=== PATIENT | male | born 1960 | race Caucasian/White ===

== ENCOUNTER 2017-08-03 10:28 | Observation (INO) ==
[2017-08-03] MEDS ORDERED: methylPREDNISolone 125 MG/2 ML VIAL IVP ONE (10:46)
[2017-08-03] MEDS ORDERED: Ipratropium/Albuterol Neb 3 ML IH ONE (10:46)
[2017-08-03] MEDS: Nitroglycerin 0.4 MG TAB.SUBL SL ONE ×3 (10:51→11:29)
[2017-08-03] MEDS: Aspirin 81 MG TAB.CHEW PO ONE ×2 (10:51→11:00)
[2017-08-03 11:01] LABS: Basophils % 0.4 %; Eosinophils % 0.8 %; Hematocrit 47.5 % (37.5-50.1); Hemoglobin 15.8 g/dL (12.9-16.9); Immature Granulocytes % 0.2 % (0-4); Lymphocytes # 1.3 K/mcL (0.6-4.6); Lymphocytes % 27.3 %; Mean Corpuscular HGB Conc 33.3 g/dL (31.6-35.5); Mean Corpuscular Hemoglobin 30.9 pg (28.0-33.3); Monocytes # 0.3 K/mcL (0.0-1.3); Monocytes % 6.8 %; Neutrophils # 3.1 K/mcL (1.6-8.9); Platelet Count 180 K/mcL (140-400); Red Blood Count 5.11 M/mcL (4.19-5.50); Red Cell Distribution Width 13.8 % (11.5-14.5); Segmented Neutrophils % 64.5 %
--- NOTE | 2017-08-03 11:06 | Emergency Department Note ---
Disposition Clinical Impression: Angina at rest Chest pain Qualifiers: Chest pain type: unspecified Qualified Code(s): R07.9 - Chest pain, unspecified COPD (chronic obstructive pulmonary disease) Qualifiers: COPD type: unspecified COPD Qualified Code(s): J44.9 - Chronic obstructive pulmonary disease, unspecified Disposition: Admitted As Inpatient Condition: Good Time of Disposition: 13:39 Chest Pain HPI - General Chief Complaint: ED Chest Pain Stated Complaint: CP Time Seen by Provider: 08/03/17 10:34 Source: patient, family, EMS Mode of arrival: EMS Limitations: no limitations Vital Signs Reviewed: Yes Nursing Notes Reviewed: Yes - History of Present Illness HPI Narrative: Patient presents via EMS for evaluation of chest pain and pressure. Patient had onset of chest heaviness and discomfort over the last 3-4 hours. Patient denies any trauma or injury. He does smoke but does not have a history of COPD that he knows of. He does not use inhalers or oxygen at this time. Patient does have some abdominal pain and discomfort with a known history of aneurysm. Currently denying any other complaints or issues on arrival except for chest pressure and tightness Pt complaint: chest pain Onset (ago): Just [employer] Duration: constant Onset: during rest Pain Location: substernal Severity: moderate Severity scale (1-10): 10 Quality: tightness, heaviness Pain Radiation: RUE Improves with: nothing Worsens with: exertion Associated symptoms: Reports: nausea, vomiting, dyspnea, palpitations. Denies: diaphoresis Treatments prior to arrival chest pain: aspirin - Related Data Home Medications Medication Instructions Recorded Confirmed ALPRAZolam [Xanax 0.5 MG Tablet] 0.5 mg PO TID 03/20/15 03/29/15 Albuterol Sulfate [Albuterol 1 puff IH PRN PRN 03/20/15 03/29/15 Inhaler] Amlodipine [Norvasc] 5 mg PO DAILY 03/20/15 03/29/15 Aspirin 81 mg PO DAILY 03/20/15 03/29/15 Docusate Sodium [Colace] 100 mg PO BID 03/20/15 03/29/15 Esomeprazole Magnesium [Nexium] 40 mg PO DAILY 03/20/15 03/29/15 Hydrochlorothiazide 25 mg PO DAILY 03/20/15 03/29/15 Lactulose 10 gm PO TID 03/20/15 03/29/15 Lisinopril [Zestril] 40 mg PO DAILY 03/20/15 03/29/15 Melatonin [Melatin] 3 mg PO DAILY 03/20/15 03/29/15 Nitroglycerin [Nitrostat] 0.4 mg SL PRN PRN 03/20/15 03/29/15 Polyethylene Glycol 3350 [MiraLAX] 17 gm PO BID 03/20/15 03/29/15 Sertraline [Zoloft] 50 mg PO DAILY 03/20/15 03/29/15 Simvastatin [Zocor] 80 mg PO DAILY 03/20/15 03/29/15 TraZODone 50 mg PO HS 03/20/15 03/29/15 Previous Rx's Medication Instructions Recorded Oxycodone HCl/Acetaminophen 1 each PO QID PRN #20 tablet 03/21/15 [Percocet 5-325 mg Tablet] predniSONE [Prednisone] 60 mg PO DAILY #5 tablet 03/30/15 Azithromycin [Zithromax] 250 mg PO DAILY #6 tablet 08/03/15 predniSONE [PredniSONE] 10 mg PO AD #18 tablet 08/03/15 Allergies Allergy/AdvReac Type Severity Reaction Status Date / Time naproxen Allergy See Verified 08/03/15 20:08 Comments tramadol Allergy See Verified 08/03/15 20:08 Comments All systems ED: reviewed and negative except as stated. Review of Systems: As Per HPI Constitutional: Denies: fever, chills ENT ED: Denies: ear pain, throat pain, dental pain, congestion Cardiovascular: Reports: chest pain, dyspnea on exertion. Denies: palpitations Respiratory: Reports: dyspnea. Denies: cough, wheezes, sputum production Gastrointestinal: Reports: abdominal pain, nausea, vomiting. Denies: diarrhea, constipation Genitourinary: Denies: urgency, dysuria, frequency Musculoskeletal: Denies: back pain, neck pain Neurological: Denies: headache Psychiatric: Denies: anxiety, depression Endocrine: Denies: fatigue Chest Pain PMH - Past Medical History Medical history: Reports: asthma, diabetes, GERD, hyperlipidemia, hypertension Surgical history: Reports: appendectomy, cholecystectomy, orthopedic, other Psychiatric history: Reports: anxiety, depression - Social History Smoking Status: Light tobacco smoker Alcohol use: Reports: none Drug use: Reports: none Physical Exam - General Limitations: no limitations General appearance: alert, in no apparent distress - Neck Neck exam: Present: normal inspection, full ROM, trachea midline. Absent: tenderness, meningismus, lymphadenopathy - Chest Chest inspection: Present: normal inspection, symmetric chest wall rise. Absent : tenderness - Respiratory Respiratory exam: Present: normal lung sounds bilaterally. Absent: respiratory distress - Cardiovascular Cardiovascular exam: Present: regular rate, normal rhythm, normal heart sounds - Abdominal Exam Abdominal exam: Present: soft, Non-Tender, normal bowel sounds. Absent: tenderness, distention, guarding, rebound, rigidity, Corbin's sign, Rovsing's sign, tenderness at McBurney's Point - Extremities Exam Extremities exam: Present: normal inspection, full ROM, normal capillary refill. Absent: tenderness, pedal edema - Back Exam Back exam: Present: normal inspection, full ROM. Absent: tenderness - Neurological Exam Neurological exam: Present: alert, oriented X3, CN II-XII intact, normal gait - Skin Skin exam: Present: warm, dry, intact, normal color Course Course Narrative: Patient seen and examined the time of arrival. See history of present illness. 57-year-old male with no specific cardiac disease outside of vascular aneurysm presents to the emergency room with complaint of chest heaviness tightness and feeling like something is sitting on his chest. He does have COPD but does not use any inhalers or oxygen at home. Patient has persistent symptoms at this time. Denies any new nausea or vomiting. He had nausea vomiting yesterday. Patient denies any history of anxiety, palpitations, joint abnormalities. Denies any substance abuse or alcohol abuse. He does smoke. Patient currently is only complaining of a chest pressure and symptoms. Vital signs reviewed and unremarkable initially. EKG that was collected on presentation does not show any acute signs of ST segment elevation abnormality or concern for myocardial infarction. Patient will still be treated as such. Patient will have nitroglycerin trial started along with aspirin being given. Chest x-ray initially will be completed along with screening labs including CBC chemistry BNP. Patient has a history of an abdominal aneurysm. There is no pulsatile mass noted patient does not have any ripping tearing or acute pain sensations across the abdominal wall or chest at this point. His main complaint is pressure. Patient was CT angiography of the chest and abdomen completed this time for definitive evaluation of potential dissection versus expansion of the aneurysm. We will continue to monitor in the emergency room his symptoms are controlled and presentation is determined. See detailed documentation of my physical exam. Patient will most likely need admission to the hospital once the workup is completed - Reevaluation(s) Reevaluation #1: Patient was elevated and CAT scan and had an infiltration of the IV in the left arm. He acutely had pain in his had to have a panic attack. He is describing difficulty with breathing or shortness of breath. Prior to going over his pain went from a 10 down to a 5 at the nitroglycerin. Patient was given Benadryl and Pepcid and a 0.5 mg dose of Ativan. He is resting more comfortably at this time in the bed in no specific distress. There is no swelling to the oropharynx and no wheezing noted on exam. Pain is back up to 10 at this time. Patient will be started on nitroglycerin drip. The noncontrasted scans will be sent over for their evaluation. Patient will need admission for appears to be acute coronary syndrome versus COPD and pulmonary-related issue. Patient understands, will plan. We will continue to monitor as a treatment course is completed. No other acute signs of dissection or aneurysm noted on physical exam at this point. Point of care ultrasound will be utilized if the CT imaging scans are not contributory to the treatment course. Patient is otherwise stable. 35 minutes of critical care applied to This patient's treatment course at this time secondary to nitroglycerin drip being started Time: 12:29 Reevaluation #2: Patient was discussed with the hospitalist Dr. Burch. Reviewed the presentation symptoms medical intervention and concern for stable angina at this point. He recommended a d-dimer being added on. No recommendation for anticoagulation at this point. Nitroglycerin drip is running. Patient otherwise is low risk at this time but will be definitively evaluated in the inpatient setting secondary to anginal equivalently presentation. Patient has otherwise been hemodynamically stable with normal presentation this time. Patient and family informed and they are comfortable with this plan. Patient will be observed here in the emergency room to admission process is completed Time: 13:46 Vital Signs Temperature 98 F 08/03/17 10:40 Pulse Rate 61 08/03/17 10:40 Respiratory Rate 16 08/03/17 10:40 Blood Pressure 152/104 08/03/17 10:40 O2 Sat by Pulse Oximetry 100 08/03/17 10:40 Temperature 98 F 08/03/17 10:40 Pulse Rate 61 08/03/17 10:40 Respiratory Rate 16 08/03/17 10:40 Blood Pressure 152/104 08/03/17 10:40 O2 Sat by Pulse Oximetry 100 08/03/17 10:40 Oxygen Delivery Oxygen Delivery Nasal Cannula Chest Pain - MDM Narrative Medical decision making narrative: Chest pressure, anxiety, chest pain - Medical Records Medical records reviewed: Yes I reviewed the patient's medical records. - Lab Data Lab results reviewed: Yes I reviewed the patient's lab results. - Radiology Data Radiology results reviewed: Yes I reviewed the patient's radiology results. Chest x-ray is unremarkable. - EKG Data EKG attestation: Yes I reviewed and interpreted this EKG. EKG results narrative: EKG shows sinus rhythm. Ventricular rate of 61. IN interval 161. QRS duration of 100. QTC is 383. No acute signs of ST segment elevation or abnormality. No reciprocal changes noted. Patient does not have any acute signs of WPW or Brugada syndrome. EKG compared to previous on 01/27/16 and the morphology appears to be stable. EKG #2 EKG reviewed. Ventricular rate of 76. Sinus rhythm noted. IN interval 146. QRS duration of 98. QTC is 398. [place] is normal. Intervals are normal. No acute signs of WPW, Brugada syndrome, ST segment elevation. Similar in comparison to EKG collected on presentation to the emergency room. Heart Score - Score History: Moderately Suspicious EKG: Normal Age: 45-65 Risk Factors: Equal/Greater than 3 risk factor or history of atherosclerotic disease Troponin: Less than normal limit HEART Score Total: 4 Critical Care Time Critical Care Time: Yes Total Critical Care Time: 35 Attestation: Critical care performed: Time is exclusive of separately billable procedures. Time includes: direct patient care, patient reassessment, coordination of patient care, interpretation of data (laboratory data, radiology data, and respiratory data), review of patient's medical records, medical consultation and documentation of patient care. Procedures included in critical care time: Procedures excluded from critical care time:
[2017-08-03 11:07] LABS: INR 1.1; Prothrombin Time 11.6 Seconds (9.4-12.1)
[2017-08-03 11:09] LABS: Activated Partial Thrombo Time 32.7 Seconds (26.0-36.0)
[2017-08-03 11:23] LABS: BUN/Creatinine Ratio 15 (6-26); Blood Urea Nitrogen 17 mg/dL (6-20); Calcium 9.8 mg/dL (8.6-10.3); Carbon Dioxide 26 mEq/L (23-29); Chloride 104 mEq/L (98-107); Glucose 99 mg/dL (70-105); Osmolality,Calculated 286 (280-300); Potassium 4.3 mEq/L (3.5-5.1); Sodium 137 mEq/L (136-145); eGFR For African Americans > 60 (> 60); eGFR For Non-African Americans > 60 (> 60)
[2017-08-03 11:24] LABS: Troponin I < 0.03 ng/mL (< 0.04)
[2017-08-03] MEDS ORDERED: 0.9 % Sodium Chloride 1,000 ML ONE ×2 (11:34→12:38)
[2017-08-03] MEDS ORDERED: Famotidine 20 MG/2 ML VIAL IVP ONE (11:54)
[2017-08-03] MEDS ORDERED: *HR* EPINEPHrine 1 MG/10 ML SYRINGE ONE (11:54)
[2017-08-03] MEDS ORDERED: *HR* LORazepam 2 MG/ML VIAL ONE (11:55)
[2017-08-03] MEDS ORDERED: *HR* LORazepam 2 MG/ML VIAL IVP ONE (11:59)
[2017-08-03] MEDS: Nitroglycerin 25 MG/250 ML INFUS..BTL IVC SCH ×2 (12:40→18:50)
[2017-08-03] MEDS ORDERED: Ondansetron 4 MG/2 ML VIAL ONE (13:14)
[2017-08-03] MEDS ORDERED: Ondansetron 4 MG/2 ML VIAL IVP ONE (13:14)
[2017-08-03] MEDS ORDERED: *HR* FentaNYL (PF) 100 MCG/2 ML VIAL IVP ONE (14:06)
[2017-08-03] MEDS ORDERED: Acetaminophen 325 MG TABLET PO PRN (14:40)
[2017-08-03] MEDS ORDERED: Naloxone 0.4 MG/ML INJ IVP PRN (14:40)
--- NOTE | 2017-08-03 15:06 | Internal Med History&Physical ---
<Gerard Lowe - Last Filed: 08/03/17 16:08> Date of Encounter: 08/03/17 Time of Encounter: 14:00 Assessment and Plan (1) Chest pain Current visit: Yes Status: Acute Acute chest pain that began this morning at 9:30 a.m. as right-sided chest pressure with radiation to right arm causing numbness and tingling. Accompanied by dizziness and feelings of cold/hot. Patient reports similar symptoms since 2014 with today being worse. Patient denies cardiac history, cath/stent placement, but does have familial cardiac hx of [place] in mother/father. Initial troponin negative. Trend x2. Continuous cardiac telemetry. Echocardiogram ordered. Aspirin. Lipitor 80 mg now. Nitro PRN. NPO @ midnight for a.m. stress test. Continue pts. Norvasc, hydrochlorothiazide, lisinopril, and Zocor. Consider cardiology consult if echo, troponins, and/or stress test results abnormal. Pt. discussed w/Dr. Burch who agrees w/plan of care. Pt. is high risk d/t current sx that have been recurring, familial hx of [place] in mother/ father, hx of tobacco abuse, and risk factors of DM, HTN, HLD. Observation. Qualifiers: Chest pain type: other chest pain Qualified Code(s): R07.89 - Other chest pain; R07.8 - Other chest pain (2) Melanotic stools Current visit: Yes Status: Acute Acute hx of intermittent melanotic stools w/most recent several days ago. Pt. has hx of GERD and was dx w/diverticulosis of ascending colon in 01/16. Hgb 15.8 and Hct 47.5 on admission. Fecal hemoccult ordered. Continue pts. Nexium. Monitor I&O. Bilateral SCDs on LEs for DVT prophylaxis d/t report of melanotic stools. (3) Hx of syncope Current visit: Yes Status: Acute Acute hx of syncope. Pt. states he has had several episodes of syncope and collapse w/most recent 2-3 weeks ago when police found him in his yard. Hx of AAA. Falls/safety precautions, up with assist, bed rest w/bathroom privileges w/ assist only. Bilateral carotid Doppler duplex imaging. (4) Diabetes Current visit: Yes Status: Chronic Hx chronic diabetes controlled with oral anti-hyperglycemic medications. Hold patient's Glucophage and administer low-dose correction insulin sliding scale with hypoglycemic protocol. BG checks before meals at bedtime. A1c in a.m. labs. 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 Stable. Supplemental O2 w/titration and SpO2 monitoring. Qualifiers: COPD type: emphysema Qualified Code(s): J43.9 - Emphysema, unspecified (6) GERD (gastroesophageal reflux disease) Current visit: Yes Status: Chronic Hx of chronic GERD. Continue patient's Nexium. IVP Zofran 4 mg Q6 PRN for N/V. Qualifiers: Esophagitis presence: with esophagitis Qualified Code(s): K21.0 - Gastro- esophageal reflux disease with esophagitis (7) HTN (hypertension) Current visit: Yes Status: Chronic Hx of chronic HTN. Monitor patient and vital signs. Continue patient's Norvasc , hydrochlorothiazide, and lisinopril. Qualifiers: Hypertension type: essential hypertension Qualified Code(s): I10 - Essential (primary) hypertension (8) HLD (hyperlipidemia) Current visit: Yes Status: Chronic Hx of chronic HLD. Lipid panel in a.m. labs. Continue Zocor. Qualifiers: Hyperlipidemia type: pure hypercholesterolemia Qualified Code(s): E78.00 - Pure hypercholesterolemia, unspecified; E78.0 - Pure hypercholesterolemia (9) Anxiety and depression Current visit: Yes Status: Chronic Hx of chronic anxiety with depression. Continue patient's Xanax and Zoloft. (10) DVT prophylaxis Current visit: Yes Status: Acute Bilateral SCDs on LEs for DVT prophylaxis d/t pts. report of recent melanotic stools. Monitor pt. for bleeding. Monitor I&O. Fecal hemoccult ordered. Internal Medicine - H&P: HPI Chief complaint: Chest pain Admitted From: Emergency Dept Plans for Post Hospital Care: Home History of present illness: Mr. Liu is a 57 year old male w/PMH of asthma, diabetes controlled with oral anti-hyperglycemics, GERD, COPD, HLD, HTN, and diverticulosis of the ascending colon presents in the ED with chief complaint of chest pain that began at 9:30 AM this morning and presented as right-sided chest pressure with radiation to his right arm causing numbness and tingling. Patient also reports hx of syncope , SOB, dizziness, and feelings of hot/cold. Patient reports she has had several similar episodes since 2014, with today's being worse. Patient reports occasional melanotic stools (last one several days ago) but denies recent illness, fever, chills, nausea, vomiting, changes in vision, headache, cough, palpitations, abdominal pain, diarrhea, constipation. Past Med Surg Social Fam HX - Past Medical History Source: patient, old records reviewed, obtained from family Medical history: asthma, COPD, diabetes, GERD, hyperlipidemia, hypertension, other (Martin's esophagus, Diverticulosis) Psychiatric history: anxiety, depression - Past Surgical History Surgical History: appendectomy, cholecystectomy, orthopedic, other (Back surgery , right knee), other (Stomach surgery, carpal tunnel bilaterally) - Social History Smoking Status: Current every day smoker Packs per day: Hx of 4 PPD - reports smoking 3-4 cigarettes per day Smokeless Tobacco Status: No Alcohol use: none Drug use: none Current living situation: Home, With Family Activity Level: Independent ambulation Recent Out of Country Travel Within the Last 8 Weeks: No Exposure or Possible Exposure to Illness During Travel: No - Family History Father Race: (72) Family Member Ethnicity: Non- Living Status: Age at : 72 Cause of : Colonc cancer Hx Family Cardiac Disorders: Yes ([place], HTN, HLD) Hx Family Cancer: Yes (Colon) Hx Family Endocrine Disorder: Yes (DM) Mother Race: Family Member Ethnicity: Non- Living Status: Still Living Hx Family Cardiac Disorders: Yes (Triple bypass, pacemaker, stent placement 2) Sister Race: Family Member Ethnicity: Non- Living Status: Still Living Hx Family Cardiac Disorders: Yes (HTN, HLD) Hx Family Endocrine Disorder: Yes (DM) Internal Medicine - H&P: Meds ALPRAZolam [Xanax 0.5 MG Tablet] 0.5 mg PO TID 03/20/15 [History] Albuterol Sulfate [Albuterol Inhaler] 1 - 2 puff IH Q4H PRN 03/20/15 [History] Amlodipine [Norvasc] 5 mg PO DAILY 03/20/15 [History] Aspirin 81 mg PO DAILY 03/20/15 [History] Docusate Sodium [Colace] 100 mg PO BID 03/20/15 [History] Esomeprazole Magnesium [Nexium] 40 mg PO DAILY 03/20/15 [History] Hydrochlorothiazide 25 mg PO DAILY 03/20/15 [History] Lactulose 10 gm PO TID 03/20/15 [History] Lisinopril [Zestril] 40 mg PO DAILY 03/20/15 [History] Melatonin [Melatin] 3 mg PO HS 03/20/15 [History] Nitroglycerin [Nitrostat] 0.4 mg SL PRN PRN 03/20/15 [History] Polyethylene Glycol 3350 [MiraLAX] 17 gm PO BID 03/20/15 [History] Sertraline [Zoloft] 50 mg PO DAILY 03/20/15 [History] Simvastatin [Zocor] 40 mg PO DAILY 03/20/15 [History] TraZODone 100 mg PO HS 03/20/15 [History] Gabapentin [Neurontin] 300 mg PO TID 08/03/17 [History] metFORMIN [Glucophage] 500 mg PO BIDWM 08/03/17 [History] 3 Allergy/AdvReac Type Severity Reaction Status Date / Time naproxen Allergy See Verified 08/03/15 20:08 Comments tramadol Allergy See Verified 08/03/15 20:08 Comments All Systems PM: A 10-system review of systems was performed and is negative for pertinent findings except as documented above in the HPI. - Constitutional Constitutional: no chills, no fever(s), no night sweats - EENT Eyes: no change in vision, no discharge, no pain, no photophobia Ears: no ear discharge, no ear pain, no tinnitus Nose, mouth and throat: no dysphagia, no nasal discharge, no neck pain, no sore throat - Breasts Breasts: as per HPI - Cardiovascular Cardiovascular ROS IM: as per HPI, chest pain, diaphoresis, dyspnea, dyspnea on exertion, lightheadedness, syncope (Last episode 2-3 weeks ago when he was found on his lawn), no palpitations - Respiratory Respiratory: as per HPI, dyspnea, dyspnea on exertion, no cough, no wheezing, no excessive phlegm production - Gastrointestinal Gastrointestinal: as per HPI, melena (Intermittent episodes w/last one several days ago), no abdominal pain, no diarrhea, no hematemesis, no hematochezia, no nausea, no vomiting - Genitourinary Genitourinary ROS male: as per HPI - Musculoskeletal Musculoskeletal ROS IM: no numbness, no tingling - Integumentary Integumentary IM: no rash, no unusual bruising - Neurological Neurological ROS: no confusion, no convulsions, no focal weakness, no numbness, no tingling, no tremor(s) - Psychiatric Psychiatric: as per HPI, anxiety, depression - Endocrine Endocrine IM: as per HPI - Hematologic/Lymphatic Hematologic/Lymphatic: no easy bruising - Allergic/Immunologic Allergic/Immunologic: as per HPI - Constitutional Vitals: Temp Pulse Resp BP Pulse Ox 98 F 84 18 118/73 95 08/03/17 10:40 08/03/17 14:14 08/03/17 14:14 08/03/17 14:14 08/03/17 14:14 General appearance: Present: cooperative, A&O X 3, pleasant, obese, answers questions appropriately - Head Head exam: Present: atraumatic, normocephalic - Eye Eye exam: Present: PERRL, conjuntiva pink, sclera anicteric Pupils: Present: PERRL - ENT ENT exam: Present: normal exam - Neck Neck exam general surgery: Present: normal inspection, supple, trachea midline. Absent: lymphadenopathy - Respiratory Respiratory exam: Present: CTAB. Absent: accessory muscle use, rales, rhonchi, wheezes - Cardiovascular Cardiovascular exam: Present: RRR, +S1, +S2. Absent: diastolic murmur, gallop, rubs, systolic murmur - GI/Abdominal GI/Abdominal exam: Present: normal bowel sounds, soft, no peritoneal signs. Absent: distended, tenderness - Rectal Rectal exam: Present: deferred - Additional comments: exam deferred. - Extremities Exam Extremities exam: Present: warm, radial pulses palpable and symmetrical. Absent : calf tenderness, cyanotic, pedal edema - Back Exam Back exam: Present: normal inspection - Neurological Exam Neurological exam: Present: CN II-XII intact, oriented X3, no focal deficits. Absent: pronater drift, facial droop, speech deficit - Psychiatric Psychiatric exam: Present: normal affect, normal mood - Skin Skin exam: Present: dry, intact Internal Med - H&P Results - Labs CBC & Chem 7: 08/03/17 10:53 08/03/17 10:53 - EKG Data EKG shows normal: sinus rhythm - EKG Data Prior EKG available for review: yes When compared to previous EKG: there is no significant change EKG comments: 08/03/17 15:39 EKG dated shows sinus rhythm with nonspecific T-wave abnormality. EKG dated 08/03/17 10:33 shows sinus rhythm and normal ECG EKG dated 08/03/17 11:59 shows sinus rhythm with nonspecific T-wave abnormality. - Diagnostic Studies Chest x-ray Additional comments: Impressions Chest X-Ray 08/03/17 10:45 IMPRESSION: 1. No radiographic finding to account for patient's chest pain. D/ / Sanchez Curiel MD / Sanchez Curiel MD Interpreting Provider: Sanchez Curiel MD CT scan - abdomen Additional comments: Impressions Abdomen CT 08/03/17 10:46 IMPRESSION: 1. Apparently patient's IV infiltrated during injection and only a noncontrast evaluation was performed. As such evaluation for dissection is limited. There is an infrarenal abdominal aortic aneurysm measuring up to 3 cm. 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 2. 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 3. Diverticulosis. 4. No pleural or parenchymal abnormality in the lungs. RECOMMENDATIONS: Managing Abdominal Aortic Aneurysms 2.6-2.9 cm: Every 5 years* 3.0-3.4 cm: Every 3 years. 3.5-3.9 cm: Every 1 year. 4.0-4.4 cm: Every 1 year. Recommend vascular consultation. 4.5-5.4 cm: Every 6 months. Recommend vascular consultation. Greater than or equal to 5.5 cm: Referral to vascular surgeon. *For abdominal aortas with maximum diameter of 2.6-2.9 cm meeting criteria for AAA (>50% of proximal normal segment). Reference: J Vasc Surg. 2008;50(4 Suppl):S2-49 D/ / 08/03/2017 12:52:05 Jorge A Spring / carl Interpreting Provider: Jorge A Spring CT scan - chest Additional comments: Impressions Chest CT 08/03/17 10:46 IMPRESSION: 1. Apparently patient's IV infiltrated during injection and only a noncontrast evaluation was performed. As such evaluation for dissection is limited. There is an infrarenal abdominal aortic aneurysm measuring up to 3 cm. 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 2. 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 3. Diverticulosis. 4. No pleural or parenchymal abnormality in the lungs. RECOMMENDATIONS: Managing Abdominal Aortic Aneurysms 2.6-2.9 cm: Every 5 years* 3.0-3.4 cm: Every 3 years. 3.5-3.9 cm: Every 1 year. 4.0-4.4 cm: Every 1 year. Recommend vascular consultation. 4.5-5.4 cm: Every 6 months. Recommend vascular consultation. Greater than or equal to 5.5 cm: Referral to vascular surgeon. *For abdominal aortas with maximum diameter of 2.6-2.9 cm meeting criteria for AAA (>50% of proximal normal segment). Reference: J Vasc Surg. 2008;50(4 Suppl):S2-49 D/ / 08/03/2017 12:52:05 Jorge A henry Interpreting Provider: Jorge A Spring <Winston Burch - Last Filed: 08/03/17 19:57> Date of Encounter: 08/03/17 Internal Medicine - H&P: HPI History of present illness: Mr. Liu is a 57 year old male All Systems PM: A 10-system review of systems was performed and is negative for pertinent findings except as documented above in the HPI. - Constitutional Vitals: Temp Pulse Resp BP Pulse Ox 98.7 F 87 18 121/94 95 08/03/17 15:46 08/03/17 15:46 08/03/17 15:46 08/03/17 15:46 08/03/17 15:46 Internal Med - H&P Results - Labs CBC & Chem 7: 08/03/17 10:53 08/03/17 10:53 Labs: Cardiac Enzymes 08/03/17 Range/Units 17:12 Troponin I < 0.03 (< 0.04) ng/mL - Attending Attestation For this encounter, I have reviewed the CELL OPERATOR documentation, treatment plan, and medical decision making. I agree with the documentation above. Winston Burch MD
[2017-08-03] MEDS ORDERED: Dextrose Gel 15 GM/37.5 ML TUBE PO PRN ×2 (15:49)
[2017-08-03] MEDS ORDERED: *HR* Dextrose 50 % in Water (Syg) 50 ML SYRINGE IVP PRN (15:49)
[2017-08-03] MEDS ORDERED: D5% in Water 1,000 ML IVC PRN (15:49)
[2017-08-03] MEDS: Insulin LISPRO 300 UNITS/3 ML VIAL SQ SCH ×2 (16:02→23:24)
[2017-08-03] MEDS: Nicotine 14 MG PATCH.TD24 TD SCH (16:02)
[2017-08-03] MEDS ORDERED: Nitroglycerin 0.4 MG TAB.SUBL SL PRN (19:39)
[2017-08-03] MEDS: *HR* OxyCODONE Immed Rel 5 MG TABLET PO PRN (20:28)
[2017-08-03] MEDS: ALPRAZolam 0.5 MG TABLET PO SCH (20:30)
[2017-08-03] MEDS ORDERED: Lactulose 200 GM/300 ML (for enema) RC SCH (21:00)
[2017-08-03] MEDS ORDERED: Lactulose 200 GM, Sodium Chloride IRRigation 700 ML RC SCH (22:30)
[2017-08-03] MEDS: Melatonin 3 MG TABLET PO SCH (22:59)
[2017-08-03] MEDS: Gabapentin 300 MG CAPSULE PO SCH (22:59)
[2017-08-03] MEDS: traZODone 50 MG TABLET PO SCH (22:59)
[2017-08-04] MEDS: *HR* OxyCODONE Immed Rel 5 MG TABLET PO PRN ×3 (03:09→22:37)
[2017-08-04 05:59] LABS: Basophils % 0.1 %; Hematocrit 40.9 % (37.5-50.1); Hemoglobin 13.3 g/dL (12.9-16.9); Immature Granulocytes % 0.4 % (0-4); Lymphocytes # 0.9 K/mcL (0.6-4.6); Lymphocytes % 11.4 %; Mean Corpuscular HGB Conc 32.5 g/dL (31.6-35.5); Mean Corpuscular Hemoglobin 30.6 pg (28.0-33.3); Mean Platelet Volume 10.4 fL (9.4-12.4); Monocytes # 0.5 K/mcL (0.0-1.3); Monocytes % 6.2 %; Neutrophils # 6.2 K/mcL (1.6-8.9); Platelet Count 187 K/mcL (140-400); Red Blood Count 4.35 M/mcL (4.19-5.50); Red Cell Distribution Width 13.9 % (11.5-14.5); Segmented Neutrophils % 81.9 %
[2017-08-04] MEDS: Nicotine 14 MG PATCH.TD24 TD SCH ×2 (06:05→14:43)
[2017-08-04] MEDS: Nitroglycerin 25 MG/250 ML INFUS..BTL IVC SCH (06:05)
[2017-08-04] MEDS ORDERED: Regadenoson 0.4 MG/5 ML SYRINGE IVP ONE ×2 (06:09→12:42)
[2017-08-04 06:19] LABS: Alanine Aminotransferase 16 Units/L (7-52); Albumin 3.9 g/dL (3.5-5.7); Albumin/Globulin Ratio 1.7 (1.1-2.2); Alkaline Phosphatase 16 Units/L (34-104); Aspartate Amino Transferase 13 Units/L (13-39); BUN/Creatinine Ratio 20 (6-26); Bilirubin,Total 0.3 mg/dL (0.3-1.0); Blood Urea Nitrogen 21 mg/dL (6-20); Carbon Dioxide 22 mEq/L (23-29); Chloride 104 mEq/L (98-107); Chol/HDL Ratio 4.5 (0-4.9); Cholesterol 150 mg/dL (< 200); Globulin 2.3 g/dL (2.4-3.5); Glucose 120 mg/dL (70-105); HDL Cholesterol 33 mg/dL (40-59); LDL Cholesterol,Calculated 83 mg/dL (0-99); Magnesium 1.8 mg/dL (1.6-2.6); Osmolality,Calculated 282 (280-300); Potassium 4.2 mEq/L (3.5-5.1); Sodium 134 mEq/L (136-145); Total Protein 6.2 g/dL (6.4-8.9); Triglycerides 172 mg/dL (< 150); eGFR For African Americans > 60 (> 60); eGFR For Non-African Americans > 60 (> 60)
[2017-08-04] MEDS: Insulin LISPRO 300 UNITS/3 ML VIAL SQ SCH ×4 (08:03→21:54)
[2017-08-04] MEDS ORDERED: Aspirin Enteric Coated 81 MG Tablet PO SCH (09:00)
[2017-08-04] MEDS: Ondansetron 4 MG/2 ML VIAL IVP PRN (10:55)
[2017-08-04] MEDS: ALPRAZolam 0.5 MG TABLET PO SCH ×3 (13:56→21:36)
[2017-08-04] MEDS: Gabapentin 300 MG CAPSULE PO SCH ×3 (13:56→21:36)
[2017-08-04] MEDS: Lisinopril 20 MG TABLET PO SCH (13:57)
[2017-08-04] MEDS: Aspirin 81 MG TAB.CHEW PO SCH (13:57)
[2017-08-04] MEDS: amLODIPine 5 MG TABLET PO SCH (13:57)
[2017-08-04] MEDS: hydroCHLOROthiazide 25 MG TABLET PO SCH (13:57)
[2017-08-04 14:00] LABS: Hemoglobin A1C 6.1 %
--- NOTE | 2017-08-04 14:45 | Internal Med Progress Note ---
Date of Encounter: 08/04/17 Time of Encounter: 14:41 - Assessment and plan (1) Chest pain Current Visit: Yes Status: Acute Assessment and plan: atypical, negative trop and stress test, pending TTE Qualifiers: Chest pain type: other chest pain Qualified Code(s): R07.89 - Other chest pain; R07.8 - Other chest pain (2) COPD (chronic obstructive pulmonary disease) Current Visit: Yes Status: Chronic Assessment and plan: will add levaquin and mucinex for bronchitis Qualifiers: COPD type: emphysema Qualified Code(s): J43.9 - Emphysema, unspecified (3) Hyperlipemia Current Visit: No Status: Acute Assessment and plan: contiue statin Qualifiers: Hyperlipidemia type: mixed hyperlipidemia Qualified Code(s): E78.2 - Mixed hyperlipidemia (4) GERD (gastroesophageal reflux disease) Current Visit: Yes Status: Chronic Assessment and plan: continue home meds Qualifiers: Esophagitis presence: with esophagitis Qualified Code(s): K21.0 - Gastro- esophageal reflux disease with esophagitis (5) Melanotic stools Current Visit: Yes Status: Acute Assessment and plan: pending stool occult, mon itor Hb, if Hb drops then consult GI (6) Hx of syncope Current Visit: Yes Status: Acute Assessment and plan: syncpe with cough (7) Diabetes Current Visit: Yes Status: Chronic Qualifiers: Diabetes mellitus type: type 2 Diabetes mellitus complication status: with unspecified complications Diabetes mellitus alf insulin use: without alf use Qualified Code(s): E11.8 - Type 2 diabetes mellitus with unspecified complications (8) HTN (hypertension) Current Visit: Yes Status: Chronic Qualifiers: Hypertension type: essential hypertension Qualified Code(s): I10 - Essential (primary) hypertension (9) HLD (hyperlipidemia) Current Visit: Yes Status: Chronic Qualifiers: Hyperlipidemia type: pure hypercholesterolemia Qualified Code(s): E78.00 - Pure hypercholesterolemia, unspecified; E78.0 - Pure hypercholesterolemia (10) DVT prophylaxis Current Visit: Yes Status: Acute Assessment and plan: hepalrin SC - Time Spent With Patient 25 - 35 minutes - Subjective Interval history: Mr. Liu is a 57 year old male w/PMH of asthma, diabetes controlled with oral anti-hyperglycemics, GERD, COPD, HLD, HTN, and diverticulosis of the ascending colon presents in the ED with chief complaint of chest pain that began at 9:30 AM this morning and presented as right-sided chest pressure with radiation to his right arm causing numbness and tingling. Patient also reports hx of syncope , SOB, dizziness, and feelings of hot/cold. Patient reports occasional melanotic stools (last one several days ago) but denies recent illness, fever, chills, nausea, vomiting, changes in vision, headache, cough, palpitations, abdominal pain, diarrhea, constipation. 1. chest pain , is atypical pain with cough and deep breath, negative trop and stress test 2. scope with cough 3. black stool on and off, pending stool occult, monitor Hb, if postive occult blood, then consult GI 5. COPD and smoker, bronchitis with left crackles, will add levaquin, mucinex 6. AAA 3cm, follow up Q3 years pending carotoc doppler and TTE discharge tomorrow if work up is negative - Constitutional Vitals: Temp Pulse Resp BP Pulse Ox 97.6 F 70 17 149/94 96 08/04/17 10:37 08/04/17 10:37 08/04/17 10:37 08/04/17 10:37 08/04/17 10:37 General appearance: Present: cooperative, A&O X 3, pleasant, obese, answers questions appropriately Exam: CONSTITUTIONAL: patient appears as an age appropriate male in no acute distress. EYES Clear sclerae, bilateral pupils are equal, reactive to light. EMOI. RESPIRATORY: No accessory muscle use, bilateral left crackles/rales. CARDIOVASCULAR: Regular heart rate, normal S1 and S2, no murmurs GASTROINTESTINAL: bowel sounds present, soft, no tenderness. MUSCULOSKELETAL: Joints in normal range of motion, no clubbing, no edema, no cyanosis. Bilateral peripheral pulses 2+. NEUROLOGIC: CN II to XII are grossly intact, no focal neurological deficit. Internal Medicine: Result - Labs CBC & Chem 7: 08/04/17 04:39 08/04/17 04:39 Labs: Short CBC 08/04/17 Range/Units 04:39 WBC 7.6 D (4.3-11.1) K/mcL Hgb 13.3 D (12.9-16.9) g/dL Hct 40.9 (37.5-50.1) % Plt Count 187 (140-400) K/mcL Neutrophils # 6.2 (1.6-8.9) K/mcL BMP 08/04/17 04:39 Sodium 134 L Potassium 4.2 Chloride 104 Carbon Dioxide 22 L BUN 21 H Creatinine 1.06 Glucose 120 H Calcium 9.0 Cardiac Enzymes 08/03/17 08/03/17 Range/Units 17:12 23:11 Troponin I < 0.03 < 0.03 (< 0.04) ng/mL Liver Function 08/04/17 Range/Units 04:39 Total Bilirubin 0.3 (0.3-1.0) mg/dL AST 13 (13-39) Units/L ALT 16 (7-52) Units/L Alkaline Phosphatase 16 L (34-104) Units/L Albumin 3.9 (3.5-5.7) g/dL - ABG Interpretation ABG results: PT/INR, D-dimer PT 11.6 Seconds (9.4-12.1) 08/03/17 10:53 D-Dimer 495 ng/mLFEU (0-500) 08/03/17 13:55 Consult Discharge Plan - Plan Referrals: Christi Cisneros, PHYSICALLY IMPAIRED TEACHER [Primary Care Provider] - (Web request sent on 08/04 at 8 :55 am)
[2017-08-04] MEDS: levoFLOXacin 750 MG TABLET PO SCH (16:15)
[2017-08-04] MEDS: *HR* Heparin 5,000 UNIT/ML VIAL SQ SCH ×2 (16:15→21:37)
[2017-08-04] MEDS: traZODone 50 MG TABLET PO SCH (21:37)
[2017-08-04] MEDS: Melatonin 3 MG TABLET PO SCH (21:37)
[2017-08-05 04:00] LABS: Basophils % 0.6 %; Eosinophils # 0.1 K/mcL (0.0-0.6); Eosinophils % 1.1 %; Hematocrit 42.8 % (37.5-50.1); Hemoglobin 14.3 g/dL (12.9-16.9); Immature Granulocytes % 0.2 % (0-4); Lymphocytes # 1.9 K/mcL (0.6-4.6); Mean Corpuscular HGB Conc 33.4 g/dL (31.6-35.5); Mean Corpuscular Hemoglobin 31.2 pg (28.0-33.3); Mean Corpuscular Volume 93.2 fL (83.0-100.0); Mean Platelet Volume 10.1 fL (9.4-12.4); Monocytes # 0.3 K/mcL (0.0-1.3); Monocytes % 5.8 %; Neutrophils # 3.1 K/mcL (1.6-8.9); Platelet Count 168 K/mcL (140-400); Red Blood Count 4.59 M/mcL (4.19-5.50); Red Cell Distribution Width 14.3 % (11.5-14.5); Segmented Neutrophils % 57.3 %
[2017-08-05 04:50] LABS: Alanine Aminotransferase 16 Units/L (7-52); Albumin 3.9 g/dL (3.5-5.7); Albumin/Globulin Ratio 1.6 (1.1-2.2); Alkaline Phosphatase 17 Units/L (34-104); Aspartate Amino Transferase 16 Units/L (13-39); BUN/Creatinine Ratio 16 (6-26); Bilirubin,Total 0.3 mg/dL (0.3-1.0); Blood Urea Nitrogen 17 mg/dL (6-20); Calcium 9.1 mg/dL (8.6-10.3); Carbon Dioxide 24 mEq/L (23-29); Chloride 103 mEq/L (98-107); Globulin 2.4 g/dL (2.4-3.5); Glucose 130 mg/dL (70-105); Osmolality,Calculated 285 (280-300); Potassium 4.5 mEq/L (3.5-5.1); Sodium 136 mEq/L (136-145); Total Protein 6.3 g/dL (6.4-8.9); eGFR For African Americans > 60 (> 60); eGFR For Non-African Americans > 60 (> 60)
[2017-08-05] MEDS: *HR* Heparin 5,000 UNIT/ML VIAL SQ SCH ×3 (05:00→22:36)
[2017-08-05] MEDS: Insulin LISPRO 300 UNITS/3 ML VIAL SQ SCH ×4 (07:46→20:31)
[2017-08-05] MEDS: Nicotine 14 MG PATCH.TD24 TD SCH (09:04)
[2017-08-05] MEDS: Lisinopril 20 MG TABLET PO SCH (09:05)
[2017-08-05] MEDS: ALPRAZolam 0.5 MG TABLET PO SCH ×3 (09:05→20:25)
[2017-08-05] MEDS: levoFLOXacin 750 MG TABLET PO SCH (09:06)
[2017-08-05] MEDS: Gabapentin 300 MG CAPSULE PO SCH ×3 (09:06→20:25)
[2017-08-05] MEDS: amLODIPine 5 MG TABLET PO SCH (09:06)
[2017-08-05] MEDS: Aspirin 81 MG TAB.CHEW PO SCH (09:07)
[2017-08-05] MEDS: hydroCHLOROthiazide 25 MG TABLET PO SCH (09:07)
--- NOTE | 2017-08-05 09:53 | Internal Med Progress Note ---
<Aaron Caban - Last Filed: 08/06/17 08:25> Date of Encounter: 08/06/17 Time of Encounter: 09:51 - Assessment and plan (1) Chest pain Status: Acute Assessment and plan: Acute CP; R-sided chest pressure w/ radiation to right arm causing numbness and tingling. Accompanied by dizziness and feelings of cold/hot Patient reports similar symptoms since 2014 with today being worse Patient denies cardiac history, cath/stent placement, but does have familial cardiac hx of [place] in mother/father Initial troponin negative. Trend x2 -Continuous cardiac telemetry -ASA 81 mg PO DAILY -Nitroglycerin 0.4 mg SL Q5 PRN -Nitroglycerin IV 25 mcg/min -Stress test ECHO: -LVEF 60-65%. -Normal LV chamber size and function. -Mild concentric LVH. -Normal right ventricular structure and function. -No evidence of pulmonary HTN. -No significant valvular dysfunction. Qualifiers: Chest pain type: other chest pain Qualified Code(s): R07.89 - Other chest pain; R07.8 - Other chest pain (2) Diabetes Status: Chronic Assessment and plan: -Hx chronic diabetes controlled with oral anti-hyperglycemic medications -Hold patient's Glucophage and administer low-dose correction insulin sliding scale with hypoglycemic protocol -BG checks before meals at bedtime -Glucose elevated this morning at 130 -A1c 6.1 Qualifiers: Diabetes mellitus type: type 2 Diabetes mellitus complication status: with unspecified complications Diabetes mellitus custodial insulin use: without custodial use Qualified Code(s): E11.8 - Type 2 diabetes mellitus with unspecified complications (3) COPD (chronic obstructive pulmonary disease) Status: Chronic Assessment and plan: -Hx of chronic COPD; stable at this time -Supplemental O2 w/titration and SpO2 monitoring Qualifiers: COPD type: emphysema Qualified Code(s): J43.0 - Unilateral pulmonary emphysema [MacLeod's syndrome] (4) GERD (gastroesophageal reflux disease) Status: Chronic Assessment and plan: -Hx of chronic GERD -Continue patient's Nexium -IVP Zofran 4 mg Q6 PRN for N/V Qualifiers: Esophagitis presence: with esophagitis Qualified Code(s): K21.0 - Gastro- esophageal reflux disease with esophagitis (5) HTN (hypertension) Status: Chronic Assessment and plan: Hx of chronic HTN -Monitor patient and vital signs -HCTZ 25 mg PO DAILY -Zestril 40 mg PO DAILY -Norvasc 5 mg PO DAILY Qualifiers: Hypertension type: essential hypertension Qualified Code(s): I10 - Essential (primary) hypertension (6) HLD (hyperlipidemia) Status: Chronic Assessment and plan: -Hx of chronic HLD -Lipid panel in a.m. labs -Zocor 40 mg PO DAILY Qualifiers: Hyperlipidemia type: pure hypercholesterolemia Qualified Code(s): E78.00 - Pure hypercholesterolemia, unspecified; E78.0 - Pure hypercholesterolemia (7) Anxiety and depression Status: Chronic Assessment and plan: -Hx of chronic anxiety with depression -Xanax 0.5 mg PO TID -Zoloft 50 mg Po DAILY (8) DVT prophylaxis Status: Acute Assessment and plan: -Heparin 5000 SQ Q8 -Monitor pt. for bleeding -Monitor I&O -FOBT ordered (9) Melanotic stools Status: Acute Assessment and plan: -Acute hx of intermittent melanotic stools w/most recent several days ago -Pt. has hx of GERD and was dx w/diverticulosis of ascending colon in 01/16 -Hgb 15.8 and Hct 47.5 on admission -FOBT ordered -Hb 14.3 today -Monitor I&O - Subjective Interval history: Mr. Liu is a 57 year old male with a PMH of asthma, DM controlled with oral anti-hyperglycemics, GERD, COPD, HLD, HTN, and diverticulosis of the ascending colon presents in the ED with chief complaint of chest pain that began at 9:30 AM on the morning of presentation and presented as right-sided chest pressure with radiation to his right arm causing numbness and tingling. Patient also reports hx of syncope, SOB, dizziness, and feelings of hot/cold. Patient reports occasional melanotic stools (last one several days ago) but denies recent illness, fever, chills, nausea, vomiting, changes in vision, headache, cough, palpitations, abdominal pain, diarrhea, constipation. - Constitutional Vitals: Temp Pulse Resp BP Pulse Ox 97.2 F L 65 18 133/95 96 08/05/17 07:46 08/05/17 08:37 08/05/17 08:35 08/05/17 08:35 08/05/17 08:35 General appearance: Present: cooperative, A&O X 3, pleasant, obese, answers questions appropriately - Head Head exam: Present: atraumatic, normocephalic - Eye Eye exam: Present: PERRL, conjuntiva pink, sclera anicteric Pupils: Present: PERRL - Neck Neck exam general surgery: Present: supple, trachea midline. Absent: lymphadenopathy - Respiratory Respiratory exam: Present: CTAB. Absent: accessory muscle use, rales, rhonchi, wheezes - Cardiovascular Cardiovascular exam: Present: RRR, +S1, +S2. Absent: diastolic murmur, gallop, rubs, systolic murmur - GI/Abdominal GI/Abdominal exam: Present: normal bowel sounds, soft, no peritoneal signs. Absent: distended, tenderness - Extremities Exam Extremities exam: Present: warm, radial pulses palpable and symmetrical. Absent : calf tenderness, cyanotic, pedal edema - Neurological Exam Neurological exam: Present: CN II-XII intact, oriented X3, no focal deficits. Absent: pronater drift, facial droop, speech deficit - Skin Skin exam: Present: dry, intact Internal Medicine: Result - Labs CBC & Chem 7: 08/06/17 03:50 08/06/17 03:50 Labs: Short CBC 08/05/17 Range/Units 02:48 WBC 5.3 (4.3-11.1) K/mcL Hgb 14.3 (12.9-16.9) g/dL Hct 42.8 (37.5-50.1) % Plt Count 168 (140-400) K/mcL Neutrophils # 3.1 (1.6-8.9) K/mcL BMP 08/05/17 02:48 Sodium 136 Potassium 4.5 Chloride 103 Carbon Dioxide 24 BUN 17 Creatinine 1.09 Glucose 130 H Calcium 9.1 Liver Function 08/05/17 Range/Units 02:48 Total Bilirubin 0.3 (0.3-1.0) mg/dL AST 16 (13-39) Units/L ALT 16 (7-52) Units/L Alkaline Phosphatase 17 L (34-104) Units/L Albumin 3.9 (3.5-5.7) g/dL - ABG Interpretation ABG results: PT/INR, D-dimer PT 11.6 Seconds (9.4-12.1) 08/03/17 10:53 D-Dimer 495 ng/mLFEU (0-500) 08/03/17 13:55 - Impressions Impressions Echocardiogram 08/04/17 14:43 Impressions: LVEF 60-65%. Normal LV chamber size and function. Mild concentric left ventricular hypertrophy. Normal right ventricular structure and function. No evidence of pulmonary hypertension. No significant valvular dysfunction. Left Ventricular Wall Motion: Rest Echo Findings All wall segments showed normal motion. Findings: Study Quality * Technically adequate exam. ECG Findings * Normal sinus rhythm, possible bundle branch block. Left Ventricle * LVEF 60-65%. * Normal LV chamber size and function. * Mild concentric left ventricular hypertrophy. * Atypical septal motion consistent with bundle branch block. Right Ventricle * Normal right ventricular structure and function. Left Atrium * Moderate to severely dilated left atrium. Right Atrium * Moderately dilated right atrium. Interatrial Septum * Interatrial septum not well evaluated. Aortic Valve * Aortic valve not well visualized. * No aortic regurgitation. * No aortic stenosis. Mitral Valve * Normal mitral valve structure and function. * No mitral regurgitation. * No mitral stenosis. Tricuspid Valve * Normal tricuspid valve structure and function. * Trace tricuspid regurgitation. * No evidence of pulmonary hypertension. Pulmonic Valve * Pulmonic valve not well visualized. * No pulmonic regurgitation. Aorta * Normally sized aortic root. Pericardium * The pericardium appears normal. IVC * Normal IVC dimensions and inspiratory collapse. Pulmonary Artery * Normal visualized portions of the main pulmonary artery. Consult Discharge Plan - Plan Instructions: Chest Pain (DC), Chronic Obstructive Pulmonary Disease (DC) Referrals: Christi Cisneros CNP [Primary Care Provider] - 08/13/17 10:00 am () <Moe Sinha - Last Filed: 08/06/17 17:41> Date of Encounter: 08/06/17 - Constitutional Vitals: Temp Pulse Resp BP Pulse Ox 98.2 F 74 20 127/82 92 08/06/17 11:43 08/06/17 13:42 08/06/17 13:42 08/06/17 11:43 08/06/17 13:42 Internal Medicine: Result - Labs CBC & Chem 7: 08/06/17 03:50 08/06/17 03:50 Labs: Short CBC 08/06/17 Range/Units 03:50 WBC 5.3 (4.3-11.1) K/mcL Hgb 15.1 (12.9-16.9) g/dL Hct 45.1 (37.5-50.1) % Plt Count 179 (140-400) K/mcL Neutrophils # 2.9 (1.6-8.9) K/mcL BMP 08/06/17 03:50 Sodium 136 Potassium 4.2 Chloride 100 Carbon Dioxide 27 BUN 21 H Creatinine 1.25 Glucose 118 H Calcium 9.4 Liver Function 08/06/17 Range/Units 03:50 Total Bilirubin 0.2 L (0.3-1.0) mg/dL AST 14 (13-39) Units/L ALT 17 (7-52) Units/L Alkaline Phosphatase 22 L (34-104) Units/L Albumin 3.8 (3.5-5.7) g/dL - ABG Interpretation ABG results: PT/INR, D-dimer PT 11.6 Seconds (9.4-12.1) 08/03/17 10:53 D-Dimer 495 ng/mLFEU (0-500) 08/03/17 13:55 - Impressions Impressions Chest CTA 08/05/17 17:13 IMPRESSION: 1. No central or segmental pulmonary embolism is detected. Limited evaluation the subsegmental pulmonary arterial branches. 2. Overall, no acute abnormalities detected. D/ / Yonathan Tomas MD / Yonathan Tomas MD Interpreting Provider: Yonathan Tomas MD - Attending Attestation I examined this patient and my medical decision-making was reviewed with the Resident Physician. I agree with the documented findings, disposition and treatment plan as described except to the extent set forth below.
[2017-08-05] MEDS: *HR* OxyCODONE Immed Rel 5 MG TABLET PO PRN ×2 (11:47→23:23)
[2017-08-05] MEDS: Ondansetron 4 MG/2 ML VIAL IVP PRN ×2 (11:47→20:31)
[2017-08-05] MEDS: Nitroglycerin 25 MG/250 ML INFUS..BTL IVC SCH (15:44)
[2017-08-05] MEDS: Lactulose Oral Soln 20 GM/30 ML UDC PO SCH ×2 (16:32→20:26)
--- NOTE | 2017-08-05 19:51 | Electrocardiograph Report ---
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
--- NOTE | 2017-08-05 19:52 | Electrocardiograph Report ---
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
[2017-08-05] MEDS: traZODone 50 MG TABLET PO SCH (20:25)
[2017-08-05] MEDS: *HR* HYDROcodone/Acet 5/325 mg TABLET PO PRN (20:25)
[2017-08-05] MEDS: Melatonin 3 MG TABLET PO SCH (20:25)
[2017-08-06] MEDS: *HR* HYDROcodone/Acet 5/325 mg TABLET PO PRN (04:08)
[2017-08-06 04:43] LABS: Basophils % 0.6 %; Eosinophils # 0.1 K/mcL (0.0-0.6); Eosinophils % 1.1 %; Hematocrit 45.1 % (37.5-50.1); Hemoglobin 15.1 g/dL (12.9-16.9); Immature Granulocytes % 0.2 % (0-4); Lymphocytes # 1.9 K/mcL (0.6-4.6); Lymphocytes % 36.3 %; Mean Corpuscular HGB Conc 33.5 g/dL (31.6-35.5); Mean Corpuscular Hemoglobin 31.4 pg (28.0-33.3); Mean Corpuscular Volume 93.8 fL (83.0-100.0); Mean Platelet Volume 10.3 fL (9.4-12.4); Monocytes # 0.4 K/mcL (0.0-1.3); Monocytes % 7.4 %; Neutrophils # 2.9 K/mcL (1.6-8.9); Platelet Count 179 K/mcL (140-400); Red Blood Count 4.81 M/mcL (4.19-5.50); Segmented Neutrophils % 54.4 %
[2017-08-06 05:09] LABS: Alanine Aminotransferase 17 Units/L (7-52); Albumin 3.8 g/dL (3.5-5.7); Albumin/Globulin Ratio 1.5 (1.1-2.2); Alkaline Phosphatase 22 Units/L (34-104); Aspartate Amino Transferase 14 Units/L (13-39); BUN/Creatinine Ratio 17 (6-26); Bilirubin,Total 0.2 mg/dL (0.3-1.0); Blood Urea Nitrogen 21 mg/dL (6-20); Calcium 9.4 mg/dL (8.6-10.3); Carbon Dioxide 27 mEq/L (23-29); Chloride 100 mEq/L (98-107); Globulin 2.5 g/dL (2.4-3.5); Glucose 118 mg/dL (70-105); Osmolality,Calculated 286 (280-300); Potassium 4.2 mEq/L (3.5-5.1); Sodium 136 mEq/L (136-145); Total Protein 6.3 g/dL (6.4-8.9); eGFR For African Americans > 60 (> 60); eGFR For Non-African Americans 59 (> 60)
[2017-08-06] MEDS: *HR* Heparin 5,000 UNIT/ML VIAL SQ SCH ×2 (05:51→14:16)
[2017-08-06] MEDS: Nicotine 14 MG PATCH.TD24 TD SCH (07:47)
[2017-08-06] MEDS: Lactulose Oral Soln 20 GM/30 ML UDC PO SCH ×2 (07:47→14:16)
[2017-08-06] MEDS: Lisinopril 20 MG TABLET PO SCH (07:47)
[2017-08-06] MEDS: Aspirin 81 MG TAB.CHEW PO SCH (07:48)
[2017-08-06] MEDS: hydroCHLOROthiazide 25 MG TABLET PO SCH (07:48)
[2017-08-06] MEDS: amLODIPine 5 MG TABLET PO SCH (07:48)
[2017-08-06] MEDS: levoFLOXacin 750 MG TABLET PO SCH (07:48)
[2017-08-06] MEDS: Gabapentin 300 MG CAPSULE PO SCH ×2 (07:48→14:16)
[2017-08-06] MEDS: ALPRAZolam 0.5 MG TABLET PO SCH ×2 (07:48→14:16)
[2017-08-06] MEDS: Insulin LISPRO 300 UNITS/3 ML VIAL SQ SCH ×2 (07:58→11:56)
--- NOTE | 2017-08-06 09:37 | Internal Med Progress Note ---
Date of Encounter: 08/06/17 Time of Encounter: 09:34 - Assessment and plan (1) Chest pain Current Visit: Yes Status: Acute Assessment and plan: Acute CP; R-sided chest pressure w/ radiation to right arm causing numbness and tingling. Accompanied by dizziness and feelings of cold/hot Patient reports similar symptoms since 2014 with today being worse Patient denies cardiac history, cath/stent placement, but does have familial cardiac hx of [place] in mother/father Initial troponin negative. Trend x2 -Continuous cardiac telemetry -ASA 81 mg PO DAILY -Nitroglycerin 0.4 mg SL Q5 PRN -Nitroglycerin IV 25 mcg/min -Stress test ECHO: -LVEF 60-65%. -Normal LV chamber size and function. -Mild concentric LVH. -Normal right ventricular structure and function. -No evidence of pulmonary HTN. -No significant valvular dysfunction. CTA was performed yesterday to rule out PE; was negative. Qualifiers: Chest pain type: other chest pain Qualified Code(s): R07.89 - Other chest pain; R07.8 - Other chest pain (2) Diabetes Current Visit: Yes Status: Chronic Assessment and plan: -Hx chronic diabetes controlled with oral anti-hyperglycemic medications -Hold patient's Glucophage and administer low-dose correction insulin sliding scale with hypoglycemic protocol -BG checks before meals at bedtime -A1c 6.1 Qualifiers: Diabetes mellitus type: type 2 Diabetes mellitus complication status: with unspecified complications Diabetes mellitus usp insulin use: without superintendent terminal use Qualified Code(s): E11.8 - Type 2 diabetes mellitus with unspecified complications (3) COPD (chronic obstructive pulmonary disease) Current Visit: Yes Status: Chronic Assessment and plan: -Hx of chronic COPD; stable at this time -Supplemental O2 w/titration and SpO2 monitoring Qualifiers: COPD type: emphysema (4) GERD (gastroesophageal reflux disease) Current Visit: Yes Status: Chronic Assessment and plan: -Hx of chronic GERD -Continue patient's Nexium -IVP Zofran 4 mg Q6 PRN for N/V Qualifiers: Esophagitis presence: with esophagitis Qualified Code(s): K21.0 - Gastro- esophageal reflux disease with esophagitis (5) HTN (hypertension) Current Visit: Yes Status: Chronic Assessment and plan: Hx of chronic HTN -Monitor patient and vital signs -HCTZ 25 mg PO DAILY -Zestril 40 mg PO DAILY -Norvasc 5 mg PO DAILY Qualifiers: Hypertension type: essential hypertension Qualified Code(s): I10 - Essential (primary) hypertension (6) HLD (hyperlipidemia) Current Visit: Yes Status: Chronic Assessment and plan: -Hx of chronic HLD -Lipid panel in a.m. labs -Zocor 40 mg PO DAILY Qualifiers: Hyperlipidemia type: pure hypercholesterolemia Qualified Code(s): E78.00 - Pure hypercholesterolemia, unspecified; E78.0 - Pure hypercholesterolemia (7) Anxiety and depression Current Visit: Yes Status: Chronic Assessment and plan: -Hx of chronic anxiety with depression -Xanax 0.5 mg PO TID -Zoloft 50 mg Po DAILY (8) DVT prophylaxis Current Visit: Yes Status: Acute Assessment and plan: -Heparin 5000 SQ Q8 -Monitor pt. for bleeding -Monitor I&O -FOBT ordered - Subjective Interval history: Patient was seen and examined at bedside this morning. Ptient states that he is feeling slightly bettert karan he did yesterday. Reports that he still feels some shortness of breath. Denies any other complaints at this time. - Constitutional Vitals: Temp Pulse Resp BP Pulse Ox 98.5 F 61 16 100/76 96 08/06/17 07:34 08/06/17 07:36 08/06/17 07:34 08/06/17 07:34 08/06/17 08:00 General appearance: Present: cooperative, A&O X 3, pleasant, obese, answers questions appropriately - Head Head exam: Present: atraumatic, normocephalic - Eye Eye exam: Present: PERRL, conjuntiva pink, sclera anicteric Pupils: Present: PERRL - Neck Neck exam general surgery: Present: supple, trachea midline. Absent: lymphadenopathy - Respiratory Respiratory exam: Present: CTAB, prolonged expiratory phase. Absent: accessory muscle use, rales, rhonchi, wheezes - Cardiovascular Cardiovascular exam: Present: RRR, +S1, +S2. Absent: diastolic murmur, gallop, rubs, systolic murmur - GI/Abdominal GI/Abdominal exam: Absent: distended, tenderness - Extremities Exam Extremities exam: Present: warm, radial pulses palpable and symmetrical. Absent : calf tenderness, cyanotic, pedal edema - Neurological Exam Neurological exam: Present: CN II-XII intact, oriented X3, no focal deficits. Absent: pronater drift, facial droop, speech deficit - Skin Skin exam: Present: dry, intact Internal Medicine: Result - Labs CBC & Chem 7: 08/06/17 03:50 08/06/17 03:50 Labs: Short CBC 08/06/17 Range/Units 03:50 WBC 5.3 (4.3-11.1) K/mcL Hgb 15.1 (12.9-16.9) g/dL Hct 45.1 (37.5-50.1) % Plt Count 179 (140-400) K/mcL Neutrophils # 2.9 (1.6-8.9) K/mcL BMP 08/06/17 03:50 Sodium 136 Potassium 4.2 Chloride 100 Carbon Dioxide 27 BUN 21 H Creatinine 1.25 Glucose 118 H Calcium 9.4 Liver Function 08/06/17 Range/Units 03:50 Total Bilirubin 0.2 L (0.3-1.0) mg/dL AST 14 (13-39) Units/L ALT 17 (7-52) Units/L Alkaline Phosphatase 22 L (34-104) Units/L Albumin 3.8 (3.5-5.7) g/dL - ABG Interpretation ABG results: PT/INR, D-dimer PT 11.6 Seconds (9.4-12.1) 08/03/17 10:53 D-Dimer 495 ng/mLFEU (0-500) 08/03/17 13:55 - Impressions Impressions Chest CTA 08/05/17 17:13 IMPRESSION: 1. No central or segmental pulmonary embolism is detected. Limited evaluation the subsegmental pulmonary arterial branches. 2. Overall, no acute abnormalities detected. D/ / Yonathan Tomas MD / Yonathan Tomas MD Interpreting Provider: Yonathan Tomas MD Consult Discharge Plan - Plan Referrals: Christi Cisneros CNP [Primary Care Provider] - 08/13/17 10:00 am ()
[2017-08-06 11:45] VITALS: BP 127/82
[2017-08-06] MEDS: *HR* OxyCODONE Immed Rel 5 MG TABLET PO PRN (11:53)
[2017-08-06] MEDS: Nitroglycerin 25 MG/250 ML INFUS..BTL IVC SCH (12:00)
--- NOTE | 2017-08-06 13:32 | Discharge Summary ---
Orders not resulted at time of discharge: Pending orders 08/03/17 15:08 Fecal Hemoccult [Occult Blood,Stool] [BF] Routine 08/03/17 16:02 NM myron perf SPECT multi [NM] Routine Date of Encounter: 08/06/17 Time of Encounter: 13:30 - Discharge Diagnosis (1) Chest pain Priority: Primary Status: Acute Qualifiers: Chest pain type: other chest pain Qualified Code(s): R07.89 - Other chest pain; R07.8 - Other chest pain (2) Diabetes Priority: Secondary Status: Chronic Qualifiers: Diabetes mellitus type: type 2 Diabetes mellitus complication status: with unspecified complications Diabetes mellitus fdc insulin use: without terminal computer operator use Qualified Code(s): E11.8 - Type 2 diabetes mellitus with unspecified complications (3) COPD (chronic obstructive pulmonary disease) Priority: Secondary Status: Chronic Qualifiers: COPD type: emphysema Qualified Code(s): J43.0 - Unilateral pulmonary emphysema [MacLeod's syndrome] (4) GERD (gastroesophageal reflux disease) Priority: Secondary Status: Chronic Qualifiers: Esophagitis presence: with esophagitis Qualified Code(s): K21.0 - Gastro- esophageal reflux disease with esophagitis (5) HTN (hypertension) Priority: Secondary Status: Chronic Qualifiers: Hypertension type: essential hypertension Qualified Code(s): I10 - Essential (primary) hypertension (6) HLD (hyperlipidemia) Priority: Secondary Status: Chronic Qualifiers: Hyperlipidemia type: pure hypercholesterolemia Qualified Code(s): E78.00 - Pure hypercholesterolemia, unspecified; E78.0 - Pure hypercholesterolemia (7) Anxiety and depression Priority: Secondary Status: Chronic (8) DVT prophylaxis Priority: Secondary Status: Acute Hospital course: Mr. Liu is a 57 year old male with a PMH of asthma, DM controlled with oral anti-hyperglycemics, GERD, COPD, HLD, HTN, and diverticulosis of the ascending colon presents in the ED with chief complaint of chest pain that began at 9:30 AM on the morning of presentation and presented as right-sided chest pressure with radiation to his right arm causing numbness and tingling. Patient also reported hx of syncope, SOB, dizziness, and feelings of hot/cold. Patient reported occasional melanotic stools (last one several days ago) but denies recent illness, fever, chills, nausea, vomiting, changes in vision, headache, cough, palpitations, abdominal pain, diarrhea, constipation. ACS workup was initiated; troponin was negative, EKG was unremarkable, ECHO was normal. Patient was placed on telemetry. He was given aspirin, nitroglycerin. After his admission, patient had mild shortness of breath exacerbated by exertion. After his admission, patient said that his shortness of breath improved, but that he still had some shortness of breath while trying to get up out of bed. Patient had a known history of COPD. He was given supplemental oxygen, which patient stated helped with his breathing. Due to patient's shortness of breath, a CTA of the chest was ordered to rule out pulmonary embolus. CTA was unremarkable. Patient was seen and examined at bedside on the date of discharge. He is resting comfortably in bed, on oxygen via nasal cannula. He states that he still has some mild shortness of breath, but that he always has some shortness of breath at baseline. The initial chest pain that he experienced when he first came to the hospital has resolved. He denies fever, chills, nausea, vomiting, chest pain, dizziness, palpitations, or headache. He has no further complaints at this time. - Time Spent with Patient Total time spent providing and/or coordinating discharge services: Greater than 30 minutes (41 minutes) - Discharge Medications Home Medications: ALPRAZolam [Xanax 0.5 MG Tablet] 0.5 mg PO TID 03/20/15 [History] Albuterol Sulfate [Albuterol Inhaler] 1 - 2 puff IH Q4H PRN 03/20/15 [History] Amlodipine [Norvasc] 5 mg PO DAILY 03/20/15 [History] Aspirin 81 mg PO DAILY 03/20/15 [History] Docusate Sodium [Colace] 100 mg PO BID 03/20/15 [History] Esomeprazole Magnesium [Nexium] 40 mg PO DAILY 03/20/15 [History] Hydrochlorothiazide 25 mg PO DAILY 03/20/15 [History] Lactulose 10 gm PO TID 03/20/15 [History] Lisinopril [Zestril] 40 mg PO DAILY 03/20/15 [History] Melatonin [Melatin] 3 mg PO HS 03/20/15 [History] Nitroglycerin [Nitrostat] 0.4 mg SL PRN PRN 03/20/15 [History] Polyethylene Glycol 3350 [MiraLAX] 17 gm PO BID 03/20/15 [History] Sertraline [Zoloft] 50 mg PO DAILY 03/20/15 [History] Simvastatin [Zocor] 40 mg PO DAILY 03/20/15 [History] TraZODone 100 mg PO HS 03/20/15 [History] Gabapentin [Neurontin] 300 mg PO TID 08/03/17 [History] metFORMIN [Glucophage] 500 mg PO BIDWM 08/03/17 [History] Allergies/Adverse Reactions: 3 Allergy/AdvReac Type Severity Reaction Status Date / Time naproxen Allergy See Verified 08/03/15 20:08 Comments tramadol Allergy See Verified 08/03/15 20:08 Comments Date of admission: 08/03/17 14:56 Primary care physician: Christi Cisneros CNP Discharging clinician: Aaron Caban Anticipated date of discharge: 08/06/17 - Constitutional Vitals: Temp Pulse Resp BP Pulse Ox 98.2 F 66 20 127/82 94 08/06/17 11:43 08/06/17 11:45 08/06/17 11:43 08/06/17 11:43 08/06/17 11:43 General appearance: Present: cooperative, A&O X 3, pleasant, obese, answers questions appropriately - Head Head exam: Present: atraumatic, normocephalic - Eye Eye exam: Present: PERRL, conjuntiva pink, sclera anicteric Pupils: Present: PERRL - Neck Neck exam general surgery: Present: supple, trachea midline. Absent: lymphadenopathy - Respiratory Respiratory exam: Present: CTAB, prolonged expiratory phase. Absent: accessory muscle use, rales, rhonchi, wheezes - Cardiovascular Cardiovascular exam: Present: RRR, +S1, +S2. Absent: diastolic murmur, gallop, rubs, systolic murmur - GI/Abdominal GI/Abdominal exam: Present: normal bowel sounds, soft, no peritoneal signs. Absent: distended, tenderness - Neurological Exam Neurological exam: Present: CN II-XII intact, oriented X3, no focal deficits. Absent: pronater drift, facial droop, speech deficit - Skin Skin exam: Present: dry, intact - Patient Status Disposition: Home, Self-Care Condition: Good Overall status at discharge: patient is progressing back to baseline - Discharge Instructions Follow Up With: Christi Cisneros CNP [Primary Care Provider] - 08/13/17 10:00 am () - Diet and Activity Activity: increase activity as tolerated Diet: advance to your usual diet
== END 2017-08-06 16:28 | disposition home or self-care (01) ==
LOC: EMEROO 10:28 → 2NNU 10:28 → SUATTDRO 14:56 → 2NNU 15:47
PROVIDERS: ADMIT Internal Medicine; ATTEND Hospitalist

== ENCOUNTER 2018-11-15 16:26 | Observation (INO) ==
[2018-11-15] MEDS ORDERED: Aspirin 81 MG TAB.CHEW PO ONE (16:28)
--- NOTE | 2018-11-15 16:39 | Emergency Department Note ---
Disposition Clinical Impression: Unstable angina Chest pain Qualifiers: Chest pain type: unspecified Qualified Code(s): R07.9 - Chest pain, unspecified Disposition: Admitted As Inpatient Condition: Good Time of Disposition: 19:24 Chest Pain HPI - General Stated Complaint: Chest pain Time Seen by Provider: 11/15/18 16:28 Source: patient, EMS Mode of arrival: EMS Limitations: no limitations Vital Signs Reviewed: Yes Nursing Notes Reviewed: Yes - History of Present Illness HPI Narrative: 58-year-old male history of tobacco abuse, COPD, hypertension, hyperlipidemia presents emergency department via EMS for chest pain. Approximately 90 minutes prior to arrival patient was eating when he developed midsternal chest pressure. He describes it as someone sitting on his chest. He has reports shortness of breath. Denies diaphoresis nausea or vomiting. Denies cough fever or recent illness. He attempted to take one nitro that reportedly was prescribed by his sales systems engineer in the past can see has known react risk. He did not dissipate the pain so he called EMS. EMS gave him to additional nitroglycerin tablets as well as 324 mg aspirin. He also received 100 mCG fentanyl. At this time he is difficult to understand that reports no history of cardiac ischemic disease for himself. He denies a history of blood clots. He states a strong family history of cardiac disease in his brothers and mother. He is wearing a boot in his right foot describing a nerve issue that he has had for some time. Pt complaint: chest pain - Related Data Home Medications Medication Instructions Recorded Confirmed Albuterol Sulfate [Albuterol 2 puff IH Q4H PRN 03/20/15 11/15/18 Inhaler] Aspirin 81 mg PO DAILY 03/20/15 11/15/18 Docusate Sodium [Colace] 100 mg PO BID PRN 03/20/15 11/15/18 Lactulose 10 gm PO TID 03/20/15 11/15/18 Nitroglycerin [Nitrostat] 0.4 mg SL Q5MIN PRN 03/20/15 11/15/18 metFORMIN [Glucophage] 500 mg PO BIDWM 08/03/17 11/15/18 Atorvastatin Calcium [Lipitor] 80 mg PO DAILY 11/15/18 11/15/18 Beclomethasone Dipropionate [QVAR 1 puff IH BID 11/15/18 11/15/18 80 mcg REDIHALER] Buspirone HCl [Buspar] 10 mg PO TID 11/15/18 11/15/18 Cyanocobalamin (Vitamin B-12) 1,000 mcg PO DAILY 11/15/18 11/15/18 [Vitamin B12] Fenofibrate Nanocrystallized 48 mg PO DAILY 11/15/18 11/15/18 [Tricor] Gabapentin 600 mg PO TID 11/15/18 11/15/18 Lisinopril [Zestril] 40 mg PO DAILY 11/15/18 11/15/18 Loratadine [Allergy Relief] 10 mg PO DAILY 11/15/18 11/15/18 Polyethylene Glycol 3350 17 g PO DAILY PRN 11/15/18 11/15/18 Sertraline [Zoloft] 100 mg PO DAILY 11/15/18 11/15/18 Trazodone HCl 150 mg PO HS PRN 11/15/18 11/15/18 amLODIPine [Norvasc] 5 mg PO DAILY 11/15/18 11/15/18 hydroCHLOROthiazide 25 mg PO DAILY 11/15/18 11/15/18 [Hydrochlorothiazide] Allergies Allergy/AdvReac Type Severity Reaction Status Date / Time naproxen Allergy See Verified 08/04/18 14:13 Comments tramadol Allergy See Verified 08/04/18 14:13 Comments All systems ED: reviewed and negative except as stated. Review of Systems: As Per HPI Constitutional: Denies: fever, chills Cardiovascular: Reports: chest pain Respiratory: Reports: dyspnea. Denies: cough Gastrointestinal: Denies: abdominal pain, nausea, vomiting Genitourinary: Denies: urgency, dysuria Musculoskeletal: Denies: back pain Neurological: Denies: headache Chest Pain PMH - Past Medical History Medical history: Reports: asthma, COPD, diabetes, GERD, hyperlipidemia, hypertension, other Surgical history: Reports: appendectomy, cholecystectomy, orthopedic, other, other Psychiatric history: Reports: anxiety, depression - Social History Smoking Status: Current every day smoker Alcohol use: Reports: none Drug use: Reports: none Physical Exam - General Limitations: no limitations General appearance: alert, in distress (Mild respiratory) - Head Head exam: atraumatic, normocephalic, normal inspection - Eye Eye exam: Present: normal appearance, EOMI - ENT ENT exam: normal exam, normal oropharynx, mucous membranes moist - Neck Neck exam: Present: normal inspection, full ROM, trachea midline - Chest Chest inspection: Present: normal inspection, symmetric chest wall rise - Respiratory Respiratory exam: Present: normal lung sounds bilaterally. Absent: respiratory distress, wheezes - Cardiovascular Cardiovascular exam: Present: regular rate, normal rhythm, normal heart sounds - Expanded Cardiovascular Exam Peripheral pulses: 2+: radial (R), radial (L) - Abdominal Exam Abdominal exam: Present: soft, Non-Tender. Absent: tenderness, distention, gua rding, rebound, rigidity - Extremities Exam Extremities exam: Present: normal inspection, full ROM, calf tenderness (Bilateral), other (He is wearing a walking boot on the right leg). Absent: tenderness, pedal edema - Back Exam Back exam: Present: normal inspection, full ROM. Absent: tenderness - Neurological Exam Neurological exam: Present: alert, oriented X3 - Psychiatric Psychiatric exam: Present: normal affect, normal mood - Skin Skin exam: Present: warm, dry, intact, normal color. Absent: rash, cyanosis, diaphoresis Course Course Narrative: Patient presents with chest pain. After multiple doses of nitro oh relief. He is also sure breath. He is wearing a boot on his right foot concern for possible clot. CT scan of his chest as well as chest pain workup initiated. He is artery received his aspirin. Will consider nitroglycerin drip at this time. - Reevaluation(s) Reevaluation #1: He has acute kidney injury possible dehydration. Chest pain workup otherwise negative. Troponin was less than 0.03. His CAT scan of his chest onto not reveal any pulmonary embolism. He has a stable aortic aneurysm that he is already aware of. At this time patient will require admission. He is agreeable to this plan. - Consultations Consultation #1: Spoke with on-call hospitalist ryan Neff to admit for chest pain, acute kidney injury. No further orders at this time Vital Signs Temperature 98.6 F 11/15/18 16:37 Pulse Rate 74 11/15/18 16:37 Respiratory Rate 16 11/15/18 16:37 Blood Pressure 110/76 11/15/18 16:37 O2 Sat by Pulse Oximetry 97 11/15/18 16:37 Temperature 98.6 F 11/15/18 16:37 Pulse Rate 58 11/15/18 18:46 Respiratory Rate 16 11/15/18 16:37 Blood Pressure 121/80 11/15/18 18:46 O2 Sat by Pulse Oximetry 98 11/15/18 18:46 Oxygen Delivery Oxygen Delivery Nasal Cannula Chest Pain - MDM Narrative Medical decision making narrative: Patient was discussed with my attending physician who agrees with ED management and final disposition. They independently evaluated the patient. Please refer to their attestation to this encounter for additional information. This note was generated by [employer] voice recognition software and as a result grammatical or spelling errors may occur using this program. - Medical Records Medical records reviewed: Yes I reviewed the patient's medical records. - Lab Data Lab results reviewed: Yes I reviewed the patient's lab results. Result diagrams: 11/15/18 16:44 11/15/18 16:44 Lab Results 11/15/18 11/15/18 11/15/18 Range/Units 16:44 16:44 16:44 WBC 5.5 (4.3-11.1) K/mcL RBC 4.74 (4.19-5.50) M/mcL Hgb 15.1 (12.9-16.9) g/dL Hct 44.4 (37.5-50.1) % MCV 93.7 (83.0-100.0) fL MCH 31.9 (28.0-33.3) pg MCHC 34.0 (31.6-35.5) g/dL RDW 14.2 (11.5-14.5) % Plt Count 186 (140-400) K/mcL MPV 9.8 (9.4-12.4) fL Immature Gran % 0.2 (0-4) % Seg Neutrophils % 72.7 % Lymphocytes % 17.6 % Monocytes % 8.3 % Eosinophils % 0.7 % Basophils % 0.5 % Neutrophils # 4.0 (1.6-8.9) K/mcL Lymphocytes # 1.0 (0.6-4.6) K/mcL Monocytes # 0.5 (0.0-1.3) K/mcL Eosinophils # 0.0 (0.0-0.6) K/mcL Basophils # 0.0 (0.0-0.2) K/mcL Sodium 139 (136-145) mEq/L Potassium 3.9 (3.5-5.1) mEq/L Chloride 102 (98-107) mEq/L Carbon Dioxide 24 (23-29) mEq/L BUN 24 H (8-23) mg/dL Creatinine 1.47 H (0.70-1.30) mg/dL Est GFR ( Amer) 59 L (> 60) Est GFR (Non-Af Amer) 49 L (> 60) BUN/Creatinine Ratio 16 (6-26) Glucose 107 H (70-105) mg/dL Calculated Osmolality 293 (280-300) Calcium 9.9 (8.6-10.3) mg/dL Troponin I < 0.03 (< 0.04) ng/mL B-Natriuretic Peptide 15 (Less than 100) pg/mL - Radiology Data Radiology results reviewed: Yes I reviewed the patient's radiology results. Chest X-Ray 11/15/18 16:28 IMPRESSION: No acute pulmonary finding. D/ / Gerard Fountain MD / Gerard Fountain MD Interpreting Provider: Gerard Fountain MD Chest CTA 11/15/18 16:43 IMPRESSION: 1. No evidence of pulmonary embolic disease. 2. No acute pulmonary findings. 3. Atherosclerotic calcification in the aorta and coronary circulation. Stable 3.5 cm fusiform infrarenal abdominal aortic aneurysm as well as 3.4 cm right common iliac artery aneurysm. See earlier CTA of the abdomen and pelvis for more complete details. 4. No acute findings within the abdomen or pelvis. Colonic diverticulosis with no acute features. 5. Mild bladder wall thickening, likely accentuated by incomplete distention. Correlate for possible cystitis. RECOMMENDATIONS: Managing Abdominal Aortic Aneurysms 3.5-3.9 cm: Every 1 year. *For abdominal aortas with maximum diameter of 2.6-2.9 cm meeting criteria for AAA (>50% of proximal normal segment). Reference: J Vasc Surg. 2009 Mar;50(4 Suppl):S2-49 D/ 11/15/2018 18:49:11 Anurag Talavera MD / carl Interpreting Provider: Anurag Talavera MD Abdomen/Pelvis CT 11/15/18 18:16 IMPRESSION: 1. No evidence of pulmonary embolic disease. 2. No acute pulmonary findings. 3. Atherosclerotic calcification in the aorta and coronary circulation. Stable 3.5 cm fusiform infrarenal abdominal aortic aneurysm as well as 3.4 cm right common iliac artery aneurysm. See earlier CTA of the abdomen and pelvis for more complete details. 4. No acute findings within the abdomen or pelvis. Colonic diverticulosis with no acute features. 5. Mild bladder wall thickening, likely accentuated by incomplete distention. Correlate for possible cystitis. RECOMMENDATIONS: Managing Abdominal Aortic Aneurysms 3.5-3.9 cm: Every 1 year. *For abdominal aortas with maximum diameter of 2.6-2.9 cm meeting criteria for AAA (>50% of proximal normal segment). Reference: J Vasc Surg. 2009 Mar;50(4 Suppl):S2-49 D/ / 11/15/2018 18:49:11 Anurag Talavera MD / carl Interpreting Provider: Anurag Talavera MD - EKG Data EKG attestation: Yes I reviewed and interpreted this EKG. EKG results narrative: EKG performed 1634 normal sinus rhythm 76 beats per minute, normal axis, early R wave progression, no ST elevation or depression. Compared to prior EKG performed 08/04/2018 with similar consistent findings. No acute ischemic changes. Heart Score - Score History: Moderately Suspicious EKG: Normal Age: 45-65 Risk Factors: Equal/Greater than 3 risk factor or history of atherosclerotic disease Troponin: Less than normal limit HEART Score Total: 4 Attestation Statement - Attestation Attestation: Patient was seen with resident physician. I reviewed the history, physical, assessment and plan, and agree with the findings. I also personally evaluated this patient and had [id number] time with this patient. 58-year-old male presents to the emergency department with chief complaint of chest pain. History from EMS is that he was doing yardwork. History from patient as that he was eating deer turkey. Either way patient developed chest pain midsternal pressure-like somebody sitting on him. Took some nitroglycerin which she got from a physician in case he had chest pain and it did not really resolve so he called EMS. He gets chest pains on occasion and he takes the nitroglycerin form typically resolves the pain. Today it did not ultimately prompting his visit patient notes that he is also been short of breath. No diaphoresis. Patient also notes that his been in a walking boot for some time because of the foot injury. He denies lung car trips or other such problems. He has not previously had a blood clot. Review of systems as above remainder negative. Physical exam vital signs were stable. ENT is unremarkable. Heart regular rhythm and rate. Lungs are clear. Abdomen is soft and nontender. Extremities has a walking boot but there is no posterior calf or thigh tenderness or pain. Neurologically intact. Skin no rashes. Psych normal. ED course. Patient was given 3 nitros aspirin and 100 of fentanyl in the squad and the pain did not resolve. I will start him on nitro drip. We will also work him up for possible PE as the lack of resolution is somewhat concerning for more of an atypical presentation. His EKG showed no acute ischemic changes at this time. We will do a standard cardiac workup. We will work on pain management. Will contact the hospitalist service once workup is complete and arrange for admission. Initial troponin was negative. Chest x-ray did not show any acute abnormalities. EKG was also unremarkable. I spoke with the hospitalist who requested we ordered an abdominal CT because the patient's history of taking lactulose. This was ordered and was also negative. Hemodynamically the patient remained stable in the emergency department. He was admitted as an inpatient to the hospitalist service. Agree with resident physician assessment and plan. ED procedures. I reviewed the patient's EKG as well as the resident physician interpretation and I agree with the findings.
[2018-11-15] MEDS ORDERED: 0.9 % Sodium Chloride 1,000 ML IVC ONE (16:43)
[2018-11-15] MEDS ORDERED: Isovue-370 500 ML BOTTLE IVP ONE (16:43)
[2018-11-15] MEDS ORDERED: Nitroglycerin 25 MG/250 ML INFUS..BTL IVC SCH (16:45)
[2018-11-15 16:59] LABS: Basophils % 0.5 %; Eosinophils % 0.7 %; Hematocrit 44.4 % (37.5-50.1); Hemoglobin 15.1 g/dL (12.9-16.9); Immature Granulocytes % 0.2 % (0-4); Lymphocytes % 17.6 %; Mean Corpuscular Hemoglobin 31.9 pg (28.0-33.3); Mean Corpuscular Volume 93.7 fL (83.0-100.0); Mean Platelet Volume 9.8 fL (9.4-12.4); Monocytes # 0.5 K/mcL (0.0-1.3); Monocytes % 8.3 %; Platelet Count 186 K/mcL (140-400); Red Blood Count 4.74 M/mcL (4.19-5.50); Red Cell Distribution Width 14.2 % (11.5-14.5); Segmented Neutrophils % 72.7 %; White Blood Count 5.5 K/mcL (4.3-11.1)
[2018-11-15 17:21] LABS: Calcium 9.9 mg/dL (8.6-10.3); Carbon Dioxide 24 mEq/L (23-29); Chloride 102 mEq/L (98-107); Glucose 107 mg/dL (70-105); Potassium 3.9 mEq/L (3.5-5.1); Sodium 139 mEq/L (136-145); Troponin I < 0.03 ng/mL (< 0.04); eGFR For African Americans 59 (> 60); eGFR For Non-African Americans 49 (> 60)
[2018-11-15 17:24] LABS: BUN/Creatinine Ratio 16 (6-26); Blood Urea Nitrogen 24 mg/dL (8-23); Osmolality,Calculated 293 (280-300)
--- NOTE | 2018-11-15 18:00 | Internal Med History&Physical ---
Date of Encounter: 11/15/18 Time of Encounter: 17:57 Internal Medicine - H&P: HPI Chief complaint: Chest pain History of present illness: Mr. Liu is a 58 year old male with a past medical history of coronary artery disease, hypertension, COPD, hyperlipidemia who presented to the ER with midsternal chest pain associated with shortness of breath. He describes the pain as pressure-like with no radiation, no aggravating factors or alleviating factors. The patient deny nausea, vomiting, diaphoresis, palpitation, paroxysmal nocturnal dyspnea, orthopnea, progressive worsening of lower extremity edema. Reviewing the records revealed the patient had history of coronary artery disease, and in 2012 he had a cardiac catheter showed 30% LAD, 30% left circumflex, 40% RCA stenosis ejection fraction of 60%. In 2018 the patient was admitted again for chest pain, troponin was negative, EKG was unremarkable, ECHO was normal, a CTA of the chest was ordered to rule out pulmonary embolus. CTA was unremarkable. The patient stated that he today he tried his home nitroglycerin was no improvement. He was treated with aspirin and fentanyl on the Route to the hospital. The patient has strong family history of cardiac disease in both mother and brothers. The patient was evaluated by the ER staff and and his EKG shows no significant ST-T wave changes, troponin first set was was no significant abnormalities, the patient was started on Nitro drip by the ER team. There was also concern over possible PE and CTA of the chest was ordered and bending. Decision was made to admit the patient to the hospitalist for further evaluation and management. Past Med Surg Social Fam HX - Past Medical History Medical history: asthma, COPD, diabetes, GERD, hyperlipidemia, hypertension, other Additional medical history: hiatal hernia, history of barretts esophagus Psychiatric history: anxiety, depression - Past Surgical History Surgical History: appendectomy, cholecystectomy, orthopedic, other, other Additional surgical history: heart cath - Social History Smoking Status: Current every day smoker Smokeless Tobacco Status: No Alcohol use: occasionally Drug use: none - Family History Father Family Member Ethnicity: Non- Living Status: Hx Family Cardiac Disorders: Yes (NM, HTN, HLD) Hx Family Respiratory Disorders: No Hx Family Cancer: Yes (Colon) Hx Family GI Disorders: No Hx Family Endocrine Disorder: Yes (DM) Hx Family Neuromuscular Disorders: No Hx Family Neurologic Disorders: No Hx Family HEENT Disorders: No Hx Family Autoimmune Disorders: No Mother Adopted: No Family Member Ethnicity: Non- Living Status: Still Living Hx Family Cardiac Disorders: (tripple bipass, pacemaker,) Sister Family Member Ethnicity: Non- Living Status: Still Living Hx Family Cardiac Disorders: Yes (HTN, HLD) Hx Family Endocrine Disorder: Yes (DM) Internal Medicine - H&P: Meds Albuterol Sulfate [Albuterol Inhaler] 2 puff IH Q4H PRN 03/20/15 [History] Aspirin 81 mg PO DAILY 03/20/15 [History] Docusate Sodium [Colace] 100 mg PO BID PRN 03/20/15 [History] Lactulose 10 gm PO TID 03/20/15 [History] Nitroglycerin [Nitrostat] 0.4 mg SL Q5MIN PRN 03/20/15 [History] metFORMIN [Glucophage] 500 mg PO BIDWM 08/03/17 [History] Atorvastatin Calcium [Lipitor] 80 mg PO DAILY 11/15/18 [History] Beclomethasone Dipropionate [QVAR 80 mcg REDIHALER] 1 puff IH BID 11/15/18 [History] Buspirone HCl [Buspar] 10 mg PO TID 11/15/18 [History] Cyanocobalamin (Vitamin B-12) [Vitamin B12] 1,000 mcg PO DAILY 11/15/18 [History] Fenofibrate Nanocrystallized [Tricor] 48 mg PO DAILY 11/15/18 [History] Gabapentin 600 mg PO TID 11/15/18 [History] Lisinopril [Zestril] 40 mg PO DAILY 11/15/18 [History] Loratadine [Allergy Relief] 10 mg PO DAILY 11/15/18 [History] Polyethylene Glycol 3350 17 g PO DAILY PRN 11/15/18 [History] Sertraline [Zoloft] 100 mg PO DAILY 11/15/18 [History] Trazodone HCl 150 mg PO HS PRN 11/15/18 [History] amLODIPine [Norvasc] 5 mg PO DAILY 11/15/18 [History] hydroCHLOROthiazide [Hydrochlorothiazide] 25 mg PO DAILY 11/15/18 [History] Allergy/AdvReac Type Severity Reaction Status Date / Time naproxen Allergy See Verified 08/04/18 14:13 Comments tramadol Allergy See Verified 08/04/18 14:13 Comments All Systems PM: A 10-system review of systems was performed and is negative for pertinent findings except as documented above in the HPI. - Constitutional Vitals: Temp Pulse Resp BP Pulse Ox 98.6 F 74 16 110/76 97 11/15/18 16:37 11/15/18 16:37 11/15/18 16:37 11/15/18 16:37 11/15/18 16:37 General appearance: Present: A&O X 3 Exam: ` - Neck Neck exam general surgery: Present: supple, trachea midline. Absent: lymphadenopathy - Respiratory Respiratory exam: Present: CTAB. Absent: accessory muscle use, rales, rhonchi, wheezes - Cardiovascular Cardiovascular exam: Present: RRR, +S1, +S2. Absent: diastolic murmur, gallop, rubs, systolic murmur - Extremities Exam Extremities exam: Present: warm, radial pulses palpable and symmetrical. Absent: calf tenderness, cyanotic, pedal edema Internal Med - H&P Results - Labs CBC & Chem 7: 11/16/18 01:02 11/16/18 01:02 Labs: Short CBC 11/15/18 Range/Units 16:44 WBC 5.5 (4.3-11.1) K/mcL Hgb 15.1 (12.9-16.9) g/dL Hct 44.4 (37.5-50.1) % Plt Count 186 (140-400) K/mcL Neutrophils # 4.0 (1.6-8.9) K/mcL BMP 11/15/18 16:44 Sodium 139 Potassium 3.9 Chloride 102 Carbon Dioxide 24 BUN 24 H Creatinine 1.47 H Glucose 107 H Calcium 9.9 Cardiac Enzymes 11/15/18 Range/Units 16:44 Troponin I < 0.03 (< 0.04) ng/mL - Impressions ITS Impressions Chest X-Ray 11/15/18 16:28 IMPRESSION: No acute pulmonary finding. D/ / Gerard Fountain MD / Gerard Fountain MD Interpreting Provider: Gerard Fountain MD - Assessment and Plan (1) Chest pain Current Visit: Yes Status: Acute Assessment and plan: Chest pain in the sitting of H/O CAD and h/O Martin's esophagus. Reviewing the records revealed the patient had history of coronary artery disease, and in 2012 he had a cardiac catheter showed 30% LAD, 30% left circumflex, 40% RCA stenosis ejection fraction of 60%. In 2017 the patient was admitted again for chest pain, troponin was negative, EKG was unremarkable, ECHO was normal, a CTA of the chest was ordered to rule out pulmonary embolus. CTA was unremarkable. DD: *Muskuloskeletal CP - myofascial strain, costochondritis *GERD *Esophageal spasm PLAN: - The patient was started on Nitro drip by the ER team, we will cont. for now - cardiac enzymes x 2 q 8 hr - EKG now and in AM - ASA - O2 by NC to keep SpO2 greater than 92% - UA - Urine toxic screen - CBCD, BMP in AM - Fasting lipids - Morphine 2 mg IV q 2-4 hr PRN chest pain - Tylenol 650 mg PO q 4-6 hr PRN headache - Home meds (check list) - Heparin 5000 U SQ BID - 2D Echo Qualifiers: Chest pain type: unspecified Qualified Code(s): R07.9 - Chest pain, uns pecified (2) Hyperlipemia Current Visit: No Status: Acute Assessment and plan: We will continue statin and obtain fasting lipid profile in a.m. Qualifiers: Hyperlipidemia type: mixed hyperlipidemia Qualified Code(s): E78.2 - Mixed hyperlipidemia (3) Obesity Current Visit: No Status: Acute Qualifiers: Qualified Code(s): E66.9 - Obesity, unspecified (4) Anxiety and depression Current Visit: No Status: Chronic (5) COPD (chronic obstructive pulmonary disease) Current Visit: No Status: Chronic Assessment and plan: We will start when necessary DuoNeb Qualifiers: COPD type: emphysema Qualified Code(s): J43.0 - Unilateral pulmonary emphysema [MacLeod's syndrome] (6) GERD (gastroesophageal reflux disease) Current Visit: No Status: Chronic Assessment and plan: -Hx of chronic GERD, Continue patient's PPIs, IVP Zofran 4 mg Q6 PRN for N/V Qualifiers: Esophagitis presence: with esophagitis Qualified Code(s): K21.0 - Gastro- esophageal reflux disease with esophagitis (7) HTN (hypertension) Current Visit: No Status: Chronic Assessment and plan: We will continue antihypertensive, continue to monitor blood pressure and adjust regimen if indicated Qualifiers: Hypertension type: essential hypertension Qualified Code(s): I10 - Essential (primary) hypertension (8) Diabetes Current Visit: No Status: Chronic Assessment and plan: We will start the patient on insulin sliding scale with moderate coverage Qualifiers: Qualified Code(s): E11.9 - Type 2 diabetes mellitus without complications (9) Elevated serum creatinine Current Visit: Yes Status: Acute Assessment and plan: The patient Cr is elevated above base line , not certain if it is CKD or JOLYNN, there is no reported value since . We will repeat renal panel , renal dosing of meds per current eGFR. (10) DVT prophylaxis Current Visit: No Status: Acute - Time Spent With Patient Total time spent is greater than 50% in coordination of care (as documented) at patient's floor/unit and/or counseling patient:
[2018-11-15] MEDS ORDERED: D5% in Water 1,000 ML IVC PRN (18:22)
[2018-11-15] MEDS ORDERED: Dextrose Gel 15 GM/37.5 ML TUBE PO PRN ×2 (18:22)
[2018-11-15] MEDS ORDERED: *HR* Dextrose 50 % in Water (Syg) 50 ML SYRINGE IVP PRN (18:22)
[2018-11-15] MEDS ORDERED: Ipratropium/Albuterol Neb 3 ML IH PRN (18:23)
[2018-11-15] MEDS ORDERED: Naloxone 0.4 MG/ML INJ IVP PRN (18:44)
[2018-11-15 19:41] LABS: Bilirubin,Urine Negative (Negative); Blood,Urine Negative (Negative); Clarity,Urine Clear (Clear); Color,Urine Yellow (Yellow); Glucose,Urine (UA) Normal (Normal); Ketones,Urine Negative (Negative); Leukocyte Esterase,Urine Negative (Negative); Nitrite,Urine Negative (Negative); PH,Urine 5.5 pH Units (5.0-8.0); Protein,Urine Negative (Neg-Trace); Specific Gravity,Urine 1.027 (1.010-1.025); Urobilinogen,Urine Normal (Normal)
[2018-11-15] MEDS: Ringers Solution, Lactated 1,000 ML IVC SCH (20:50)
[2018-11-15] MEDS: Insulin LISPRO 300 UNITS/3 ML VIAL SQ SCH (22:18)
[2018-11-15] MEDS: Gabapentin 300 MG CAPSULE PO SCH (22:27)
[2018-11-16] MEDS ORDERED: *HR* LORazepam 2 MG/ML VIAL IVP ONE (00:46)
[2018-11-16 01:49] LABS: Basophils % 0.4 %; Eosinophils # 0.1 K/mcL (0.0-0.6); Eosinophils % 1.1 %; Hematocrit 41.3 % (37.5-50.1); Hemoglobin 13.9 g/dL (12.9-16.9); Lymphocytes # 1.3 K/mcL (0.6-4.6); Lymphocytes % 24.8 %; Mean Corpuscular HGB Conc 33.7 g/dL (31.6-35.5); Mean Corpuscular Hemoglobin 31.8 pg (28.0-33.3); Mean Corpuscular Volume 94.5 fL (83.0-100.0); Mean Platelet Volume 9.9 fL (9.4-12.4); Monocytes # 0.5 K/mcL (0.0-1.3); Monocytes % 8.7 %; Neutrophils # 3.4 K/mcL (1.6-8.9); Platelet Count 159 K/mcL (140-400); Red Blood Count 4.37 M/mcL (4.19-5.50); Red Cell Distribution Width 14.4 % (11.5-14.5); White Blood Count 5.3 K/mcL (4.3-11.1)
[2018-11-16 01:58] LABS: Prothrombin Time 11.7 Seconds (9.4-12.1)
[2018-11-16 02:01] LABS: Activated Partial Thrombo Time 30.2 Seconds (26.0-36.0); Alanine Aminotransferase 21 Units/L (7-52); Albumin 3.9 g/dL (3.5-5.7); Albumin/Globulin Ratio 1.5 (1.1-2.2); Alkaline Phosphatase 20 Units/L (34-104); Aspartate Amino Transferase 17 Units/L (13-39); BUN/Creatinine Ratio 22 (6-26); Bilirubin,Total 0.3 mg/dL (0.3-1.0); Blood Urea Nitrogen 27 mg/dL (8-23); Calcium 9.2 mg/dL (8.6-10.3); Carbon Dioxide 26 mEq/L (23-29); Chloride 103 mEq/L (98-107); Chol/HDL Ratio 3.7 (0-4.9); Cholesterol 125 mg/dL (< 200); Globulin 2.6 g/dL (2.4-3.5); Glucose 136 mg/dL (70-105); HDL Cholesterol 34 mg/dL (40-59); LDL Cholesterol,Calculated 50 mg/dL (0-99); Magnesium 1.7 mg/dL (1.6-2.6); Osmolality,Calculated 295 (280-300); Phosphorous 4.2 mg/dL (2.7-4.5); Potassium 3.7 mEq/L (3.5-5.1); Sodium 139 mEq/L (136-145); Total Protein 6.5 g/dL (6.4-8.9); Triglycerides 204 mg/dL (< 150); eGFR For African Americans > 60 (> 60); eGFR For Non-African Americans 59 (> 60)
--- NOTE | 2018-11-16 02:12 | Event Note ---
Date of Encounter: 11/15/18 Time of Encounter: 22:38 Alerted by patient's nurse NAUN Drew the patient was reporting 7 out of 10 chest pain. Patient is currently on nitroglycerin gtt and was just increased to 10 mcg/min. nurse also wanted me to go and discuss CODE STATUS with the patient. Nurse was concerned that patient was flagging as a moderate risk on Dale screening tool. Went to see patient who was resting in bed. I asked the patient about his CODE STATUS and if he wished to be resuscitated if his heart stopped. Patient stated he was unsure. Patient appeared clinically depressed and stated that his family did not care about him. Patient went on to say that his 2 children have not spoken to him in 17 and 20 years. I asked the pt. if he was having feelings of self-harm. Pt. reported he had feelings previously of self-harm. I asked if he was currently having these SI. Pt. stated no. I then asked the pt. if he had a plan if he intended to harm himself. He stated if he wanted to harm himself he would go home and put a gun to his head which he said he has done previously. Pt. repeatedly stated he has no one to talk to and that no one listens to him. I asked again about his CODE STATUS and whether or not he would want to be resuscitated. He stated he would for now. Sitter and suicide precautions ordered. I told the pt. that I would continue to check on him throughout the night and that I would order a psychiatric consult as I felt he needed a counselor to monitor him, his medications, and his progress d/t his poorly treated depression. Pt. agreed. 1A called to discuss Psych consult for this pt. and pt. to be seen in the a.m. Nurse instructed to continue monitoring this pt. closely overnight and alert me immediately of any adverse or behavioral changes.
[2018-11-16] MEDS: *HR* Heparin 5,000 UNIT/ML VIAL SQ SCH ×3 (05:08→20:45)
[2018-11-16 07:36] LABS: Estimated Average Glucose 140 mg/dl
[2018-11-16] MEDS: Ringers Solution, Lactated 1,000 ML IVC SCH (07:41)
[2018-11-16] MEDS: Gabapentin 300 MG CAPSULE PO SCH ×3 (08:17→19:48)
[2018-11-16] MEDS: Insulin LISPRO 300 UNITS/3 ML VIAL SQ SCH ×4 (08:18→20:45)
[2018-11-16] MEDS: Fenofibrate 54 MG TABLET PO SCH (08:18)
[2018-11-16] MEDS: Loratadine 10 MG TABLET PO SCH (08:18)
[2018-11-16] MEDS: amLODIPine 5 MG TABLET PO SCH (08:18)
[2018-11-16] MEDS: Lisinopril 20 MG TABLET PO SCH (08:18)
[2018-11-16] MEDS: Aspirin 81 MG TAB.CHEW PO SCH (08:18)
[2018-11-16] MEDS ORDERED: Perflutren Lipid Microsphere 1.3 ML in 0.9 % Sodium Chloride 8.7 ML IVP ONE (08:39)
--- NOTE | 2018-11-16 09:37 | Consult Note ---
Date of Encounter: 11/16/18 Time of Encounter: 08:45 Assessment & Recommendation (1) Major depressive disorder, recurrent, moderate Current visit: Yes Status: Acute Assessment & Recommendation: The patient is currently experiencing some depressive symptoms. He has had fleeting thoughts of suicidal nature in the past but says he is not currently having thoughts or intention of harming himself as such he does not meet criteri a for involuntary psychiatric hospitalization and he is not interested in voluntarily coming into the hospital. We did discuss mental health treatment and he said a barrier would be his inability to drive. If his insurance company provides transportation [facility] would be an option. I also discussed with him raising his sertraline. He does have room we could go up to 150 mg daily on this to further address his depression. He said he was not interested in that at this time however if he changes his mind the medication can be increased. History of Present Illness Requesting Physician: Akshat Reynoso Reason for consult: depression History of present illness: Mr. Liu is a 58 year old male who per event note "Patient appeared clinically depressed and stated that his family did not care about him. Patient went on to say that his 2 children have not spoken to him in 17 and 20 years. I asked the pt. if he was having feelings of self-harm. Pt. reported he had feelings previously of self-harm. I asked if he was currently having these SI. Pt. stated no. I then asked the pt. if he had a plan if he intended to harm himself. He stated if he wanted to harm himself he would go home and put a gun to his head which he said he has done previously. Pt. repeatedly stated he has no one to talk to and that no one listens to him. I asked again about his CODE STATUS and whether or not he would want to be resuscitated. He stated he would for now. Sitter and suicide precautions ordered. I told the pt. that I would continue to check on him throughout the night and that I would order a psychiatric consult as I felt he needed a counselor to monitor him, his medications, and his progress d/t his poorly treated depression." The patient reported this morning that he has been depressed for several years. He said that it has gotten worse in the last couple months. He said his main stressor is that he does not have any social connections or support. He says that his family does not care about him. He says he has 2 adult children but he has not talked to them in several years. He reports that he has had fleeting thoughts of harming himself in the past, notably shooting himself. He does have guns in the home which he keeps for hunting and self protection. He said that he has never intended on carrying this out and that he never would because he is "afraid". When asked of what he subsided both pain and not going to heaven. He said he is not currently suicidal thoughts, intentions, or plans. He has not ever had homicidal thoughts. He said he does have a cat who he lives with and cares for very much. He reports decreased appetite due to difficulty swallowing and poor sleep. He denies auditory visual hallucinations or manic symptoms. CC: Akshat Reynoso Past Med Surg Social Fam HX - Past Medical History Medical history: asthma, COPD, diabetes, GERD, hyperlipidemia, hypertension, other - Past Psychiatric History Psychiatric history: Reports: no psych history Past psychiatric history details: He has been on Zoloft 100 mg as well as trazodone 150 mg but cannot tell me when these were started in fact he said he was not even aware that he was on an antidepressant. He denies prior psychiatric hospitalization, outpatient mental health services, or suicide attempts. He said he gets his medications from his primary care physician. Family psychiatric history: No Family History of Suicide: None - Past Surgical History Surgical History: appendectomy, cholecystectomy, orthopedic, other, other - Social History Smoking Status: Current every day smoker Smokeless Tobacco Status: No Alcohol use: occasionally Drug use: none Occupational status: retired Current living situation: Home - Independent Activity Level: Independent ambulation Recent Out of Country Travel Within the Last 8 Weeks: No Exposure or Possible Exposure to Illness During Travel: No Additional social history: He lives with his cat. He has 2 adult children who he has not had contact with him several years. - Family History Father Name: Rene Liu Family Member Ethnicity: Non- Living Status: Age at : 70 Cause of : heart attack Hx Family Cardiac Disorders: Yes Hx Family Respiratory Disorders: No Hx Family Cancer: No Hx Family GI Disorders: No Hx Family Genitourinary Disorders: No Hx Family Endocrine Disorder: No Hx Family Musculoskeletal Disorders: No Hx Family Neuromuscular Disorders: No Hx Family Neurologic Disorders: No Hx Family HEENT Disorders: No Hx Family Autoimmune Disorders: No Hx Family Reproductive Disorders: No Hx Family Psychosocial Disorders: No Hx Family Medical Disorders: No Mother Adopted: [place]: Windy Kim Age: 86 Family Member Ethnicity: Non- Living Status: Still Living Hx Family Cardiac Disorders: Yes (Triple bypass, pacer, 03/12 uncles have of heart attacks,) Hx Family Respiratory Disorders: No Hx Family Cancer: No Hx Family GI Disorders: No Hx Family Genitourinary Disorders: No Hx Family Endocrine Disorder: (DM) Hx Family Musculoskeletal Disorders: No Hx Family Neuromuscular Disorders: No Hx Family Neurologic Disorders: No Hx Family HEENT Disorders: No Hx Family Autoimmune Disorders: No Hx Family Reproductive Disorders: No Hx Family Psychosocial Disorders: No Sister Family Member Ethnicity: Non- Living Status: Still Living Hx Family Cardiac Disorders: Yes (HTN, HLD) Hx Family Endocrine Disorder: Yes (DM) Medications & Allergies Albuterol Sulfate [Albuterol Inhaler] 2 puff IH Q4H PRN 03/20/15 [History] Aspirin 81 mg PO DAILY 03/20/15 [History] Docusate Sodium [Colace] 100 mg PO BID PRN 03/20/15 [History] Lactulose 10 gm PO TID 03/20/15 [History] Nitroglycerin [Nitrostat] 0.4 mg SL Q5MIN PRN 03/20/15 [History] metFORMIN [Glucophage] 500 mg PO BIDWM 08/03/17 [History] Atorvastatin Calcium [Lipitor] 80 mg PO DAILY 11/15/18 [History] Beclomethasone Dipropionate [QVAR 80 mcg REDIHALER] 1 puff IH BID 11/15/18 [History] Buspirone HCl [Buspar] 10 mg PO TID 11/15/18 [History] Cyanocobalamin (Vitamin B-12) [Vitamin B12] 1,000 mcg PO DAILY 11/15/18 [History] Fenofibrate Nanocrystallized [Tricor] 48 mg PO DAILY 11/15/18 [History] Gabapentin 600 mg PO TID 11/15/18 [History] Lisinopril [Zestril] 40 mg PO DAILY 11/15/18 [History] Loratadine [Allergy Relief] 10 mg PO DAILY 11/15/18 [History] Polyethylene Glycol 3350 17 g PO DAILY PRN 11/15/18 [History] Sertraline [Zoloft] 100 mg PO DAILY 11/15/18 [History] Trazodone HCl 150 mg PO HS PRN 11/15/18 [History] amLODIPine [Norvasc] 5 mg PO DAILY 11/15/18 [History] hydroCHLOROthiazide [Hydrochlorothiazide] 25 mg PO DAILY 11/15/18 [History] Allergy/AdvReac Type Severity Reaction Status Date / Time naproxen Allergy See Verified 08/04/18 14:13 Comments tramadol Allergy See Verified 08/04/18 14:13 Comments Review of Systems Constitutional: Reports: weakness Eyes: Denies: eye pain Ears, Nose, Throat: Denies: ear pain Cardiovascular: Reports: chest pain Respiratory: Reports: dyspnea Gastrointestinal: Denies: abdominal pain Genitourinary male: Denies: urgency Musculoskeletal: Reports: joint pain Integumentary: Denies: rash Neurological: Reports: weakness Psychiatric: Reports: depression, abnormal sleep pattern, suicidal ideation (Fleeting. Not current.), change in appetite. Denies: homicidal ideation, auditory hallucinations, visual hallucinations Endocrine: Reports: fatigue Hematologic/Lymphatic: Denies: easy bleeding Allergic/Immunologic: Denies: facial swelling Psychiatry Exam - Constitutional Vitals: Temp Pulse Resp BP Pulse Ox 97.9 F 65 15 140/97 97 11/16/18 06:49 11/16/18 06:49 11/16/18 06:49 11/16/18 06:49 11/16/18 06:49 General appearance: disheveled - Musculoskeletal Gait: other (In bed) Station: stooped Strength & Tone: mild weakness - Psychiatric Patient Orientation: Yes Person, Yes Time, Yes Place, Yes Circumstance Level of alertness: Alert Behavior: calm, cooperative Psychomotor activity: Slowed Eye Contact: Maintains Eye Contact Mood Description: Depressed Patient description of mood: Down Affect description: dysphoric Speech Volume: Normal Speech pattern: normal rate, normal rhythm, normal tone, fluent, spontaneous Language & Vocabulary: consistent with education Thought Process: Linear, Goal Oriented Thought Content: No Suicidal ideation, No Homicidal ideation, No Overt delusions Perceptual Disturbances: No Auditory hallucinations, No Visual hallucinations Attention Span Ability: Capable of Focused Attention Memory Description: Grossly Intact Patient Reliability: Reliable Historian Fund of knowledge: Yes abstraction ability, Yes aware of current events Intelligence Estimate: Average Judgment: Fair Insight: Partial Results - Labs Labs: Laboratory Last Values WBC 5.3 K/mcL (4.3-11.1) 11/16/18 01:02 RBC 4.37 M/mcL (4.19-5.50) 11/16/18 01:02 Hgb 13.9 g/dL (12.9-16.9) 11/16/18 01:02 Hct 41.3 % (37.5-50.1) 11/16/18 01:02 MCV 94.5 fL (83.0-100.0) 11/16/18 01:02 MCH 31.8 pg (28.0-33.3) 11/16/18 01:02 MCHC 33.7 g/dL (31.6-35.5) 11/16/18 01:02 RDW 14.4 % (11.5-14.5) 11/16/18 01:02 Plt Count 159 K/mcL (140-400) 11/16/18 01:02 MPV 9.9 fL (9.4-12.4) 11/16/18 01:02 Immature Gran % 0.0 % (0-4) 11/16/18 01:02 Seg Neutrophils % 65.0 % 11/16/18 01:02 24.8 % 11/16/18 01:02 8.7 % 11/16/18 01:02 1.1 % 11/16/18 01:02 0.4 % 11/16/18 01:02 3.4 K/mcL (1.6-8.9) 11/16/18 01:02 1.3 K/mcL (0.6-4.6) 11/16/18 01:02 0.5 K/mcL (0.0-1.3) 11/16/18 01:02 0.1 K/mcL (0.0-0.6) 11/16/18 01:02 0.0 K/mcL (0.0-0.2) 11/16/18 01:02 PT 11.7 Seconds (9.4-12.1) 11/16/18 01:02 INR 1.0 11/16/18 01:02 APTT 30.2 Seconds (26.0-36.0) 11/16/18 01:02 Sodium 139 mEq/L (136-145) 11/16/18 01:02 Potassium 3.7 mEq/L (3.5-5.1) 11/16/18 01:02 Chloride 103 mEq/L (98-107) 11/16/18 01:02 Carbon Dioxide 26 mEq/L (23-29) 11/16/18 01:02 BUN 27 mg/dL (8-23) H 11/16/18 01:02 1.25 mg/dL (0.70-1.30) 11/16/18 01:02 Est GFR ( Amer) > 60 (> 60) 11/16/18 01:02 Est GFR (Non-Af Amer) 59 (> 60) L 11/16/18 01:02 22 (6-26) 11/16/18 01:02 Glucose 136 mg/dL (70-105) H 11/16/18 01:02 POC Glucose 87 mg/dL (70-99) 11/15/18 22:18 Est Mean Plasma Glucose 140 mg/dl 11/15/18 19:22 6.5 % (-5.6) H 11/15/18 19:22 295 (280-300) 11/16/18 01:02 Calcium 9.2 mg/dL (8.6-10.3) 11/16/18 01:02 Phosphorus 4.2 mg/dL (2.7-4.5) 11/16/18 01:02 Magnesium 1.7 mg/dL (1.6-2.6) 11/16/18 01:02 0.3 mg/dL (0.3-1.0) 11/16/18 01:02 AST 17 Units/L (13-39) 11/16/18 01:02 ALT 21 Units/L (7-52) 11/16/18 01:02 20 Units/L (34-104) L 11/16/18 01:02 < 0.03 ng/mL (< 0.04) 11/16/18 06:49 B-Natriuretic Peptide 15 pg/mL (Less than 100) 11/15/18 16:44 6.5 g/dL (6.4-8.9) 11/16/18 01:02 3.9 g/dL (3.5-5.7) 11/16/18 01:02 2.6 g/dL (2.4-3.5) 11/16/18 01:02 1.5 (1.1-2.2) 11/16/18 01:02 Triglycerides 204 mg/dL (< 150) H 11/16/18 01:02 Cholesterol 125 mg/dL (< 200) 11/16/18 01:02 LDL Cholesterol, Calc 50 mg/dL (0-99) 11/16/18 01:02 VLDL Cholesterol, Calc 41 mg/dL (< 31) H 11/16/18 01:02 34 mg/dL (40-59) L 11/16/18 01:02 3.7 (0-4.9) 11/16/18 01:02 Yellow (Yellow) 11/15/18 19:13 Clear (Clear) 11/15/18 19:13 5.5 pH Units (5.0-8.0) 11/15/18 19:13 Ur Specific [place] 1.027 (1.010-1.025) H 11/15/18 19:13 Negative mg/dL (Neg-Trace) 11/15/18 19:13 Normal mg/dL (Normal) 11/15/18 19:13 Negative mg/dL (Negative) 11/15/18 19:13 Negative (Negative) 11/15/18 19:13 Negative (Negative) 11/15/18 19:13 Negative (Negative) 11/15/18 19:13 Normal mg/dL (Normal) 11/15/18 19:13 Ur Leukocyte Esterase Negative (Negative) 11/15/18 19:13 Ur Culture Indicated? NO (NO) 11/15/18 19:13 - Impressions Impressions Chest X-Ray 11/15/18 16:28 IMPRESSION: No acute pulmonary finding. D/ / Gerard Fountain MD / Gerard Fountain MD Interpreting Provider: Gerard Fountain MD Chest CTA 11/15/18 16:43 IMPRESSION: 1. No evidence of pulmonary embolic disease. 2. No acute pulmonary findings. 3. Atherosclerotic calcification in the aorta and coronary circulation. Stable 3.5 cm fusiform infrarenal abdominal aortic aneurysm as well as 3.4 cm right common iliac artery aneurysm. See earlier CTA of the abdomen and pelvis for more complete details. 4. No acute findings within the abdomen or pelvis. Colonic diverticulosis with no acute features. 5. Mild bladder wall thickening, likely accentuated by incomplete distention. Correlate for possible cystitis. RECOMMENDATIONS: Managing Abdominal Aortic Aneurysms 3.5-3.9 cm: Every 1 year. *For abdominal aortas with maximum diameter of 2.6-2.9 cm meeting criteria for AAA (>50% of proximal normal segment). Reference: J Vasc Surg. 2008;50(4 Suppl):S2-49 D/ /15/2018 18:49:11 Anurag Talavera MD / carl Interpreting Provider: Anurag Talavera MD Abdomen/Pelvis CT 11/15/18 18:16 IMPRESSION: 1. No evidence of pulmonary embolic disease. 2. No acute pulmonary findings. 3. Atherosclerotic calcification in the aorta and coronary circulation. Stable 3.5 cm fusiform infrarenal abdominal aortic aneurysm as well as 3.4 cm right common iliac artery aneurysm. See earlier CTA of the abdomen and pelvis for more complete details. 4. No acute findings within the abdomen or pelvis. Colonic diverticulosis with no acute features. 5. Mild bladder wall thickening, likely accentuated by incomplete distention. Correlate for possible cystitis. RECOMMENDATIONS: Managing Abdominal Aortic Aneurysms 3.5-3.9 cm: Every 1 year. *For abdominal aortas with maximum diameter of 2.6-2.9 cm meeting criteria for AAA (>50% of proximal normal segment). Reference: J Vasc Surg. 2008;50(4 Suppl):S2-49 D/ /15/2018 18:49:11 Anurag Talavera MD / carl Interpreting Provider: Anurag Talavera MD Consult Discharge Plan - Plan Referrals: Christi Cisneros, [facility] [Primary Care Provider] -
--- NOTE | 2018-11-16 10:29 | Cardiology Consult Note ---
<Lyle Bennett - Last Filed: 11/16/18 12:09> Date of Encounter: 11/16/18 Time of Encounter: 10:30 Assessment and Plan (1) Major depressive disorder, recurrent, moderate Current Visit: Yes Status: Acute Per Cardiology: Seen by Psychiatry. (2) Chest pain Current Visit: Yes Status: Acute Per Cardiology: History of nonobstructive CAD. Negative nuclear stress test July 2017. Echo July 2017 EF 6065%, normal RV structure and function, no evidence of pulmonary hypertension, no significant valvular dysfunction, NSWMA. Trops negative x 4. ECG ok. No events noted on telemetry. Atypical, reproducible on exam with palpation. Echo pending. Discussed and reviewed with Maribell Cancino, will wean off NTG gtt. Will consider adding Imdur (will wait for now). Will evaluate for possible stress test (had breakfast today and on IV NTG) or LHC (patient appears to be somewhat insistent on LHC). Suspect noncardiac chest pain. Qualifiers: Chest pain type: unspecified Qualified Code(s): R07.9 - Chest pain, unspecified (3) CAD (coronary artery disease) Current Visit: Yes Status: Chronic Per Cardiology: LHC 2013: Lesion Findings/Interventions * Left Main Coronary Artery The LMCA is angiographically free of disease. * Left Anterior Descending Coronary Artery There is a 30% stenosis in the Proximal LAD. * Circumflex Coronary Artery There is a 30% stenosis in the 1st Marginal. * Right Coronary Artery There is a 40% stenosis in the Proximal RCA. On asa and statin. Will add low dose BB-- prefers daily dosing. Avg HR past 12 hrs 63. Qualifiers: Coronary Disease-Associated Artery/Lesion type: [place] artery [place] vs. transplanted heart: [place] heart Associated angina: angina presence unspecified Qualified Code(s): I25.10 - Atherosclerotic heart disease of [place] coronary artery without angina pectoris Discussion w patient/family: The assessment and plan as outlined above was discussed with the patient and/or family members who expressed understanding and agreement. All questions were answered. Thank you for involving us in the care of your patient. Please call with any questions. History of Present Illness Consult date: 11/16/18 Requesting physician: Akshat Reynoso Consult reason: CP Chief complaint: CP History of present illness: Mr. Liu is a 58 year old male with a relevant past medical history of DM 2, mild nonobstructive CAD, depression, HLD, COPD, GERD, abdominal aortic aneurysm, right common iliac artery aneurysm. Cardiology consult for chest pain. Patient reports intermittent chest pain now for about 15 years. She reports current episode occurred yesterday around 3 PM while outside doing yard work. He reports midsternal chest heaviness about a 6 out of 10 and continuous since that time. Patient reports chest pain currently 6 out of 10. Reproducible today with palpation. Patient does report overall increase in fatigue. He reports dyspnea on exertion about baseline. He reports yesterday while working in the yard he did slip and wet grass and fall. However, indicates chest pain was occurring prior to fall. He denies any palpitations or loss of consciousness. Denies any active bleeding or blood loss. Denies cath eterizations since completed here 2012. Patient adamantly wants to find out what is wrong. Still smoking about a quart pack per day, has been smoking about 50 years with a rough average of a pack to 2 packs per day. Past Med Surg Social Fam HX - Past Medical History Attestation: Yes The following information was validated with the patient. Source: patient, old records reviewed, obtained from family Medical history: asthma, COPD, diabetes, GERD, hyperlipidemia, hypertension, ot her Additional medical history: hiatal hernia, history of barretts esophagus Psychiatric history: no psych history - Past Surgical History Surgical History: appendectomy, cholecystectomy, orthopedic, other, other Additional surgical history: heart cath - Social History Smoking Status: Current every day smoker Packs per day: 3 cigarettes a day Smokeless Tobacco Status: No Alcohol use: occasionally Drug use: none - Family History Father Name: Rene Liu Family Member Ethnicity: Non- Living Status: Age at : 70 Cause of : heart attack Hx Family Cardiac Disorders: Yes Hx Family Respiratory Disorders: No Hx Family Cancer: No Hx Family GI Disorders: No Hx Family Genitourinary Disorders: No Hx Family Endocrine Disorder: No Hx Family Musculoskeletal Disorders: No Hx Family Neuromuscular Disorders: No Hx Family Neurologic Disorders: No Hx Family HEENT Disorders: No Hx Family Autoimmune Disorders: No Hx Family Reproductive Disorders: No Hx Family Psychosocial Disorders: No Hx Family Medical Disorders: No Mother Adopted: [place]: iWndy Kim Age: 86 Family Member Ethnicity: Non- Living Status: Still Living Hx Family Cardiac Disorders: Yes (Triple bypass, pacer, 03/12 uncles have of heart attacks,) Hx Family Respiratory Disorders: No Hx Family Cancer: No Hx Family GI Disorders: No Hx Family Genitourinary Disorders: No Hx Family Endocrine Disorder: (DM) Hx Family Musculoskeletal Disorders: No Hx Family Neuromuscular Disorders: No Hx Family Neurologic Disorders: No Hx Family HEENT Disorders: No Hx Family Autoimmune Disorders: No Hx Family Reproductive Disorders: No Hx Family Psychosocial Disorders: No Sister Family Member Ethnicity: Non- Living Status: Still Living Hx Family Cardiac Disorders: Yes (HTN, HLD) Hx Family Endocrine Disorder: Yes (DM) Medications and Allergies Albuterol Sulfate [Albuterol Inhaler] 2 puff IH Q4H PRN 03/20/15 [History] Aspirin 81 mg PO DAILY 03/20/15 [History] Docusate Sodium [Colace] 100 mg PO BID PRN 03/20/15 [History] Lactulose 10 gm PO TID 03/20/15 [History] Nitroglycerin [Nitrostat] 0.4 mg SL Q5MIN PRN 03/20/15 [History] metFORMIN [Glucophage] 500 mg PO BIDWM 08/03/17 [History] Atorvastatin Calcium [Lipitor] 80 mg PO DAILY 11/15/18 [History] Beclomethasone Dipropionate [QVAR 80 mcg REDIHALER] 1 puff IH BID 11/15/18 [History] Buspirone HCl [Buspar] 10 mg PO TID 11/15/18 [History] Cyanocobalamin (Vitamin B-12) [Vitamin B12] 1,000 mcg PO DAILY 11/15/18 [History] Fenofibrate Nanocrystallized [Tricor] 48 mg PO DAILY 11/15/18 [History] Gabapentin 600 mg PO TID 11/15/18 [History] Lisinopril [Zestril] 40 mg PO DAILY 11/15/18 [History] Loratadine [Allergy Relief] 10 mg PO DAILY 11/15/18 [History] Polyethylene Glycol 3350 17 g PO DAILY PRN 11/15/18 [History] Sertraline [Zoloft] 100 mg PO DAILY 11/15/18 [History] Trazodone HCl 150 mg PO HS PRN 11/15/18 [History] amLODIPine [Norvasc] 5 mg PO DAILY 11/15/18 [History] hydroCHLOROthiazide [Hydrochlorothiazide] 25 mg PO DAILY 11/15/18 [History] Allergy/AdvReac Type Severity Reaction Status Date / Time naproxen Allergy See Verified 08/04/18 14:13 Comments tramadol Allergy See Verified 08/04/18 14:13 Comments All Systems Review: The remainder of the systems were reviewed and are negative - Constitutional Constitutional: fatigue - Cardiovascular Cardiovascular: as per HPI, chest pain at rest, dyspnea on exertion, lightheadedness Physical Examination Vital Signs, Last 4 Hours Temp Pulse Resp BP Pulse Ox 11/16/18 06:49 97.9 F 65 15 140/97 97 General: Conversant, No Apparent Distress HEENT: Atraumatic, Normocephaly, Mucus Membranes Moist Neck: No JVD, Normal carotid pulses Cardiac: Reg Rate and Rhythm, Normal S1 and S2, No Murmur Lungs: Normal Breath Sounds, No Wheeze, Rales, Rhonchi Neuro: Alert and responsive, No focal deficits noted Abdomen: Soft, Non-Tender, Other (obese) Skin: No rashes noted on visualized skin Musculoskeletal: No Chest Wall Tenderness, Other (Midsternal chest discomfort reproducible with palpation on exam today) Extremities: No Clubbing, No Cyanosis, No Edema, Normal Pulses Results 11/16/18 01:02 11/16/18 01:02 Lab Results Laboratory Tests 11/15/18 11/15/18 11/15/18 16:44 16:44 19:22 WBC Hgb Hct Plt Count INR Creatinine Est GFR (Non-Af Amer) Troponin I < 0.03 < 0.03 B-Natriuretic Peptide 15 LDL Cholesterol, Calc 11/16/18 11/16/18 11/16/18 01:02 01:02 01:02 WBC 5.3 Hgb 13.9 Hct 41.3 Plt Count 159 INR 1.0 Creatinine Est GFR (Non-Af Amer) Troponin I < 0.03 B-Natriuretic Peptide LDL Cholesterol, Calc 11/16/18 11/16/18 01:02 06:49 WBC Hgb Hct Plt Count INR Creatinine 1.25 Est GFR (Non-Af Amer) 59 L Troponin I < 0.03 B-Natriuretic Peptide LDL Cholesterol, Calc 50 ITS Impressions Chest X-Ray 11/15/18 16:28 IMPRESSION: No acute pulmonary finding. D/ / Gerard Fountain MD / Gerard Fountain MD Interpreting Provider: Gerard Fountain MD Chest CTA 11/15/18 16:43 IMPRESSION: 1. No evidence of pulmonary embolic disease. 2. No acute pulmonary findings. 3. Atherosclerotic calcification in the aorta and coronary circulation. Stable 3.5 cm fusiform infrarenal abdominal aortic aneurysm as well as 3.4 cm right common iliac artery aneurysm. See earlier CTA of the abdomen and pelvis for more complete details. 4. No acute findings within the abdomen or pelvis. Colonic diverticulosis with no acute features. 5. Mild bladder wall thickening, likely accentuated by incomplete distention. Correlate for possible cystitis. RECOMMENDATIONS: Managing Abdominal Aortic Aneurysms 3.5-3.9 cm: Every 1 year. *For abdominal aortas with maximum diameter of 2.6-2.9 cm meeting criteria for AAA (>50% of proximal normal segment). Reference: J Vasc Surg. 2008;50(4 Suppl):S2-49 D/ / 11/15/2018 18:49:11 Anurag Talavera MD / carl Interpreting Provider: Anurag Talavera MD Abdomen/Pelvis CT 11/15/18 18:16 IMPRESSION: 1. No evidence of pulmonary embolic disease. 2. No acute pulmonary findings. 3. Atherosclerotic calcification in the aorta and coronary circulation. Stable 3.5 cm fusiform infrarenal abdominal aortic aneurysm as well as 3.4 cm right common iliac artery aneurysm. See earlier CTA of the abdomen and pelvis for more complete details. 4. No acute findings within the abdomen or pelvis. Colonic diverticulosis with no acute features. 5. Mild bladder wall thickening, likely accentuated by incomplete distention. Correlate for possible cystitis. RECOMMENDATIONS: Managing Abdominal Aortic Aneurysms 3.5-3.9 cm: Every 1 year. *For abdominal aortas with maximum diameter of 2.6-2.9 cm meeting criteria for AAA (>50% of proximal normal segment). Reference: J Vasc Surg. 2008;50(4 Suppl):S2-49 D/ / 11/15/2018 18:49:11 Anurag Talavera MD / carl Interpreting Provider: Anurag Talavera MD Active Medications Albuterol Sulfate (Albuterol Inhaler) 2 puff IH [id number] PRN PRN Reason: Shortness Of Breath Stop: 05/17/19 18:50 Albuterol/Ipratropium (Duoneb) 3 ml IH [id number] PRN PRN Reason: Shortness Of Breath/Wheezing Stop: 05/17/19 18:24 Amlodipine Besylate (Norvasc) 5 mg PO DAILY [facility]; Protocol Stop: 05/18/19 09:01 Last Admin: 11/16/18 08:18 Dose: 5 mg Documented by: Aspirin (Aspirin) 81 mg PO DAILY [facility] Stop: 05/18/19 09:01 Last Admin: 11/16/18 08:18 Dose: 81 mg Documented by: Atorvastatin Calcium (Lipitor) 80 mg PO DAILY [facility] Stop: 05/18/19 09:01 Last Admin: 11/16/18 08:18 Dose: 80 mg Documented by: Dextrose/Water (Dextrose 50% (Syg)) 25 ml IVP AD PRN PRN Reason: Hypoglycemia Stop: 05/17/19 18:23 Docusate Sodium (Colace) 100 mg PO BID PRN; Protocol PRN Reason: Constipation Stop: 05/17/19 18:50 Fenofibrate (Tricor) 54 mg PO DAILY [facility] Stop: 05/18/19 09:01 Last Admin: 11/16/18 08:18 Dose: 54 mg Documented by: Gabapentin (Neurontin) 600 mg PO TID [facility] Stop: 05/17/19 21:01 Last Admin: 11/16/18 08:17 Dose: 600 mg Documented by: Glucagon (Glucagen) 1 mg IM ONCE PRN PRN Reason: Hypoglycemia Stop: 05/17/19 18:23 Glucose (Gluctose) 15 gm PO ONCE PRN PRN Reason: Hypoglycemia Stop: 05/17/19 18:23 Glucose (Gluctose) 30 gm PO ONCE PRN PRN Reason: Hypoglycemia Stop: 05/17/19 18:23 Heparin Sodium (Porcine) (Heparin) 5,000 unit SQ Q8HCO [facility] Stop: 05/18/19 06:01 Last Admin: 11/16/18 05:08 Dose: 5,000 unit Documented by: Nitroglycerin (Nitroglycerin Premix 25 Mg/250 Ml) 25 mg in 250 mls @ 3 mls/hr IVC .Q24H [facility]; Protocol Stop: 05/17/19 16:46 Last Titration: 11/16/18 05:07 Dose: 20 mcg/min, 12 mls/hr Documented by: Dextrose (Dextrose 5%) 1,000 mls @ 100 mls/hr IVC .Q10H PRN PRN Reason: HYPOGLYCEMIA Stop: 05/17/19 18:23 Lactated Ringer's (Lactated Ringers) 1,000 mls @ 100 mls/hr IVC .Q10H [facility] Stop: 11/16/18 14:44 Last Admin: 11/16/18 07:41 Dose: 100 mls/hr Documented by: Insulin Human Lispro (Humalog) 0 units SQ HS [facility]; Protocol Stop: 05/17/19 21:01 Last Admin: 11/15/18 22:18 Dose: Not Given Documented by: Insulin Human Lispro (Humalog) 0 units SQ TIDAC [facility]; Protocol Stop: 05/18/19 07:31 Last Admin: 11/16/18 11:47 Dose: Not Given Documented by: Lisinopril (Zestril) 40 mg PO DAILY [facility] Stop: 05/18/19 09:01 Last Admin: 11/16/18 08:18 Dose: 40 mg Documented by: Loratadine (Claritin) 10 mg PO DAILY [facility]; Protocol Stop: 05/18/19 09:01 Last Admin: 11/16/18 08:18 Dose: 10 mg Documented by: Naloxone HCl (Narcan) 0.4 mg IVP Q2MPRN PRN PRN Reason: SEE COMMENTS Stop: 05/17/19 18:45 Ondansetron HCl (Zofran) 4 mg IVP Q8HR PRN PRN Reason: Nausea And Vomiting Stop: 05/17/19 18:45 - Imaging and Cardiology Stress Test: report reviewed Echo: report reviewed Cardiac cath: report reviewed - EKG Interpretation EKG results cardiology: personally reviewed (Sr 70's), normal ECG, sinus rhythm, no diagnostic ischemia Consult Discharge Plan - Plan Referrals: Christi Cisneros, CALENDER ROLL PRESS OPERATOR [Primary Care Provider] - <Helena aCncino - Last Filed: 11/16/18 16:48> Date of Encounter: 11/16/18 - Attending Attestation I examined this patient and my medical decision-making was reviewed with the CALENDER ROLL PRESS OPERATOR. I agree with the documented findings, disposition and treatment plan as described. Mr. Liu presents with atypical chest pain and extreme fatigue. Serial troponins negative. No acute ECG findings. Some reproducibility upon palpation of mid epigastrum. History of nonobstructive CAD by [facility] in 2012. Stress test July 2017 negative for ischemia. Impression/Plan: 1. Chest discomfort: Symptoms are somewhat reproducible on exam in the mid epigastric region. Etiology may be GI - history of roque's esophagus. Recommend trial of GI cocktail and starting PPI. Given known CAD and ongoing risk factors in setting of extreme fatigue, discussed pursuing an ischemic evaluation with stress testing. Patient contemplative requesting [facility]. Recommend awaiting TTE findings to help guide plan of care. 2. Infrarenal abdominal aortic aneurysm: Noted on CT. Recommend outpatient follow up with Vascular. Assessment and Plan Discussion w patient/family: The assessment and plan as outlined above was discussed with the patient and/or family members who expressed understanding and agreement. All questions were answered. Thank you for involving us in the care of your patient. Please call with any questions. History of Present Illness History of present illness: Mr. Liu is a 58 year old male All Systems Review: The remainder of the systems were reviewed and are negative Physical Examination Vital Signs, Last 4 Hours Temp Pulse Resp BP Pulse Ox 11/16/18 15:58 98.3 F 11/16/18 15:39 65 16 164/92 96 Results 11/16/18 01:02 11/16/18 01:02 Lab Results 11/15/18 11/15/18 11/15/18 16:44 16:44 16:44 WBC 5.5 Hgb 15.1 Hct 44.4 Plt Count 186 INR APTT Sodium 139 Potassium 3.9 Chloride 102 Carbon Dioxide 24 BUN 24 H Creatinine 1.47 H Glucose 107 H Calcium 9.9 Magnesium Total Bilirubin AST ALT Alkaline Phosphatase Troponin I < 0.03 B-Natriuretic Peptide 15 11/15/18 11/16/18 11/16/18 19:22 01:02 01:02 WBC 5.3 Hgb 13.9 Hct 41.3 Plt Count 159 INR APTT Sodium Potassium Chloride Carbon Dioxide BUN Creatinine Glucose Calcium Magnesium Total Bilirubin AST ALT Alkaline Phosphatase Troponin I < 0.03 < 0.03 B-Natriuretic Peptide 11/16/18 11/16/18 11/16/18 01:02 01:02 06:49 WBC Hgb Hct Plt Count INR 1.0 APTT 30.2 Sodium 139 Potassium 3.7 Chloride 103 Carbon Dioxide 26 BUN 27 H Creatinine 1.25 Glucose 136 H Calcium 9.2 Magnesium 1.7 Total Bilirubin 0.3 AST 17 ALT 21 Alkaline Phosphatase 20 L Troponin I < 0.03 B-Natriuretic Peptide
[2018-11-16] MEDS ORDERED: Isosorbide MONOnitrate (24 HR) 30 MG TAB.ER.24H PO SCH (12:00)
--- NOTE | 2018-11-16 12:43 | Internal Med Progress Note ---
Hospitalist Progress Note - Encounter Date of Encounter: 11/16/18 Time of Encounter: 12:37 - Subjective Interval History: Pt has anx/dep but apparently overnight there was concern due to fact that patient expressed a history of SI despite none currently and was given a sitter. He contracts for safety and does not need a sitter. He does mention R knee pain which he states came from a fall two days ago. - Exam Vitals: Temp Pulse Resp BP Pulse Ox 98.7 F 69 14 111/72 94 11/16/18 12:11 11/16/18 12:11 11/16/18 12:11 11/16/18 12:11 11/16/18 12:11 Exam: General: NAD, good eye contact, well appearing Thoracic: Normal breath sounds b/l, no wheezing or crackles Cardio: Normal S1 and S2, regular rate and rhythm, no murmurs Abdomen: Soft, nontender Extremities: Warm, well perfused. DP pulses 2+ b/l. No edema. R posterior knee is tender to palpation Skin: Intact. No rashes, bruises, or ulcers Neuro: Awake, fully oriented. Speech fluent - Summary of Assessment and Plan Summary of Assessment and Plan: Austin Liu is a 58 M w hx CAD, HTN, HLD, DM2, GERD, COPD, smoker, obesity, anx/dep, who p/w CP. Chest pain: hx nonobstructive CAD, trops negative, persistent pain despite uptitrating nitro gtt although pt states initially it helped some. TTE this AM showing normal WMA. - d/c nitro gtt - start imdur - Cardio consult, appreciate rec's to consider stress v LHC in AM - trial GI cocktail CAD/HLD: ASA, statin, tricor DM2: SSI HTN: uncontrolled on lisinopril 40, start amlodipine 5 GERD: start PPI Obesity: BMI 34 Anx/Dep: home buspar and zoloft, psych consult overnight for recent but not current SI, outpatient follow up and no sitter needed PPx: lovenox FEN: regular, no MIVF Lines: PIV Consults: Code: Full Dispo: obs for chest pain, anticipate 1-2 days, will be homegoing Internal Medicine: Result - Labs CBC & Chem 7: 11/16/18 01:02 11/16/18 01:02 Labs: Short CBC 11/15/18 11/16/18 Range/Units 16:44 01:02 WBC 5.5 5.3 (4.3-11.1) K/mcL Hgb 15.1 13.9 (12.9-16.9) g/dL Hct 44.4 41.3 (37.5-50.1) % Plt Count 186 159 (140-400) K/mcL Neutrophils # 4.0 3.4 (1.6-8.9) K/mcL BMP 11/15/18 11/16/18 16:44 01:02 Sodium 139 139 Potassium 3.9 3.7 Chloride 102 103 Carbon Dioxide 24 26 BUN 24 H 27 H Creatinine 1.47 H 1.25 Glucose 107 H 136 H Calcium 9.9 9.2 Cardiac Enzymes 11/15/18 11/15/18 11/16/18 Range/Units 16:44 19:22 01:02 Troponin I < 0.03 < 0.03 < 0.03 (< 0.04) ng/mL 11/16/18 Range/Units 06:49 Troponin I < 0.03 (< 0.04) ng/mL Liver Function 11/16/18 Range/Units 01:02 Total Bilirubin 0.3 (0.3-1.0) mg/dL AST 17 (13-39) Units/L ALT 21 (7-52) Units/L Alkaline Phosphatase 20 L (34-104) Units/L Albumin 3.9 (3.5-5.7) g/dL Urine 11/15/18 Range/Units 19:13 Urine Color Yellow (Yellow) Urine Clarity Clear (Clear) Urine pH 5.5 (5.0-8.0) pH Units Ur Specific [place] 1.027 H (1.010-1.025) Urine Protein Negative (Neg-Trace) mg/dL Urine Glucose (UA) Normal (Normal) mg/dL - ABG Interpretation ABG results: PT/INR, D-dimer PT 11.7 Seconds (9.4-12.1) 11/16/18 01:02 - Impressions Impressions Chest X-Ray 11/15/18 16:28 IMPRESSION: No acute pulmonary finding. D/ / Gerard Fountain MD / Gerard Fountain MD Interpreting Provider: Gerard Fountain MD Chest CTA 11/15/18 16:43 IMPRESSION: 1. No evidence of pulmonary embolic disease. 2. No acute pulmonary findings. 3. Atherosclerotic calcification in the aorta and coronary circulation. Stable 3.5 cm fusiform infrarenal abdominal aortic aneurysm as well as 3.4 cm right common iliac artery aneurysm. See earlier CTA of the abdomen and pelvis for more complete details. 4. No acute findings within the abdomen or pelvis. Colonic diverticulosis with no acute features. 5. Mild bladder wall thickening, likely accentuated by incomplete distention. Correlate for possible cystitis. RECOMMENDATIONS: Managing Abdominal Aortic Aneurysms 3.5-3.9 cm: Every 1 year. *For abdominal aortas with maximum diameter of 2.6-2.9 cm meeting criteria for AAA (>50% of proximal normal segment). Reference: J Vasc Surg. 2008;50(4 Suppl):S2-49 D/ /15/2018 18:49:11 Anurag Talavera MD / carl Interpreting Provider: Anurag Talavera MD Abdomen/Pelvis CT 11/15/18 18:16 IMPRESSION: 1. No evidence of pulmonary embolic disease. 2. No acute pulmonary findings. 3. Atherosclerotic calcification in the aorta and coronary circulation. Stable 3.5 cm fusiform infrarenal abdominal aortic aneurysm as well as 3.4 cm right common iliac artery aneurysm. See earlier CTA of the abdomen and pelvis for more complete details. 4. No acute findings within the abdomen or pelvis. Colonic diverticulosis with no acute features. 5. Mild bladder wall thickening, likely accentuated by incomplete distention. Correlate for possible cystitis. RECOMMENDATIONS: Managing Abdominal Aortic Aneurysms 3.5-3.9 cm: Every 1 year. *For abdominal aortas with maximum diameter of 2.6-2.9 cm meeting criteria for AAA (>50% of proximal normal segment). Reference: J Vasc Surg. 2008;50(4 Suppl):S2-49 D/ /15/2018 18:49:11 Anurag Talavera MD / carl Interpreting Provider: Anurag Talavera MD Consult Discharge Plan - Plan Referrals: Christi Cisneros, CHARU [Primary Care Provider] -
[2018-11-16] MEDS: Metoprolol XL (24 HR) Succ 25 MG TAB.ER.24H PO SCH (16:28)
[2018-11-16] MEDS ORDERED: traZODone 50 MG TABLET PO PRN (16:34)
[2018-11-16] MEDS ORDERED: GI Cocktail 40 ML EACH PO ONE (16:38)
--- NOTE | 2018-11-16 17:41 | Electrocardiograph Report ---
[place] [id number] Test Date: 2018-11-15 Pat Name: Austin Liu Department: EXAM9 Room: 2NE21 Gender: M [employer]: : 1960 Requested By: Akshat Victor Order Number: [id number] Reading MD: Helena Cancino Measurements Intervals [place] Rate: 76 P: 33 NM: 144 QRS: 45 QRSD: 97 T: 2 QT: 349 QTc: 393 Interpretive Statements Sinus rhythm Posterior infarct, old Electronically Signed On 11-16-2018 17:39:10 EDT by Helena Cancino
[2018-11-16] MEDS: Lactulose Oral Soln 20 GM/30 ML UDC PO SCH (20:44)
[2018-11-16] MEDS: MOMETASONE FUROATE 100 mcg Inhaler IH SCH (22:18)
[2018-11-17 04:37] LABS: Hematocrit 42.1 % (37.5-50.1); Mean Corpuscular HGB Conc 33.3 g/dL (31.6-35.5); Mean Corpuscular Hemoglobin 31.9 pg (28.0-33.3); Mean Corpuscular Volume 95.9 fL (83.0-100.0); Mean Platelet Volume 10.1 fL (9.4-12.4); Platelet Count 163 K/mcL (140-400); Red Blood Count 4.39 M/mcL (4.19-5.50); White Blood Count 4.4 K/mcL (4.3-11.1)
[2018-11-17 04:48] LABS: BUN/Creatinine Ratio 16 (6-26); Blood Urea Nitrogen 15 mg/dL (8-23); Calcium 9.2 mg/dL (8.6-10.3); Carbon Dioxide 25 mEq/L (23-29); Chloride 106 mEq/L (98-107); Glucose 94 mg/dL (70-105); Magnesium 1.8 mg/dL (1.6-2.6); Osmolality,Calculated 287 (280-300); Potassium 3.9 mEq/L (3.5-5.1); Sodium 138 mEq/L (136-145); eGFR For African Americans > 60 (> 60); eGFR For Non-African Americans > 60 (> 60)
[2018-11-17] MEDS: *HR* Heparin 5,000 UNIT/ML VIAL SQ SCH ×3 (05:43→20:21)
--- NOTE | 2018-11-17 06:56 | Event Note ---
Date of Encounter: 11/16/18 Time of Encounter: 19:12 Alerted by patient's nurse NAUN Ann that patient has spoken to MECHANICAL DOOR REPAIRER and made comments again about being suicidal. Pt. had Psychiatry consult and he had also expressed to Dr. Reynoso that he was not having current SI. I went to see the pt. immediately who was resting in bed. Pt. explained that he didn't like being watched by a "motor installer". I explained this is protocol for pts. who express suicidal ideation and that we take this very seriously. I reminded the pt. that he had just told the MECHANICAL DOOR REPAIRER that he wanted to hurt himself. I asked the pt. if he was serious about this claim. He stated "no". I expressed again to the pt. that he is need of psychiatric counseling as an outpatient in order to address and deal with the personal issues he is currently trying to deal with by himself. Pt. agreed. Nurse present during this conversation. Sitter and suicide precautions will not be ordered at this time. Pt. will continue to be monitored closely for any behavioral changes or suicidal ideations.
[2018-11-17] MEDS: MOMETASONE FUROATE 100 mcg Inhaler IH SCH ×2 (07:19→20:37)
--- NOTE | 2018-11-17 07:46 | Internal Med Progress Note ---
Hospitalist Progress Note - Encounter Date of Encounter: 11/17/18 Time of Encounter: 07:46 - Subjective Interval History: Patient this AM states that his pain is improved. Denies N/V/D, SOB, diaphoresis, fever, or leg pain/swelling. - Exam Vitals: Temp Pulse Resp BP Pulse Ox 97.7 F 56 18 134/83 96 11/17/18 07:03 11/17/18 07:03 11/17/18 07:20 11/17/18 07:03 11/17/18 07:20 Exam: General: NAD, good eye contact, well appearing Thoracic: Normal breath sounds b/l, no wheezing or crackles Cardio: Normal S1 and S2, regular rate and rhythm, no murmurs Abdomen: Soft, nontender Extremities: Warm, well perfused. DP pulses 2+ b/l. No edema. R posterior knee is tender to palpation Skin: Intact. No rashes, bruises, or ulcers Neuro: Awake, fully oriented. Speech fluent - Summary of Assessment and Plan Summary of Assessment and Plan: Austin Liu is a 58 M w hx CAD, HTN, HLD, DM2, GERD, COPD, smoker, obesity, anx/dep, who p/w CP. Chest pain: hx nonobstructive CAD, trops negative, persistent pain despite uptitrating nitro gtt, gtt stopped and given GI cocktail with improvement in pain. TTE showing normal WMA. - Cardio consult, appreciate rec's for stress test today - start imdur after stress - start PPI, consider GI workup if pain persists CAD/HLD: ASA, statin, tricor DM2: SSI HTN: uncontrolled on lisinopril 40, continue new amlodipine 5 GERD: start PPI Obesity: BMI 34 Anx/Dep: home buspar and zoloft, psych consulted initially for recent but not current SI, outpatient follow up indicated PPx: lovenox FEN: regular, no MIVF Lines: PIV Consults: Cardio, Psych Code: Full Dispo: obs for chest pain, anticipate d/c today or tomorrow, will be homegoing Internal Medicine: Result - Labs CBC & Chem 7: 11/17/18 03:23 11/17/18 03:23 Labs: Short CBC 11/17/18 Range/Units 03:23 WBC 4.4 (4.3-11.1) K/mcL Hgb 14.0 (12.9-16.9) g/dL Hct 42.1 (37.5-50.1) % Plt Count 163 (140-400) K/mcL BMP 11/17/18 03:23 Sodium 138 Potassium 3.9 Chloride 106 Carbon Dioxide 25 BUN 15 Creatinine 0.95 Glucose 94 Calcium 9.2 Cardiac Enzymes 11/16/18 Range/Units 06:49 Troponin I < 0.03 (< 0.04) ng/mL - ABG Interpretation ABG results: PT/INR, D-dimer PT 11.7 Seconds (9.4-12.1) 11/16/18 01:02 - Impressions Impressions Chest CTA 11/15/18 16:43 IMPRESSION: 1. No evidence of pulmonary embolic disease. 2. No acute pulmonary findings. 3. Atherosclerotic calcification in the aorta and coronary circulation. Stable 3.5 cm fusiform infrarenal abdominal aortic aneurysm as well as 3.4 cm right common iliac artery aneurysm. See earlier CTA of the abdomen and pelvis for more complete details. 4. No acute findings within the abdomen or pelvis. Colonic diverticulosis with no acute features. 5. Mild bladder wall thickening, likely accentuated by incomplete distention. Correlate for possible cystitis. RECOMMENDATIONS: Managing Abdominal Aortic Aneurysms 3.5-3.9 cm: Every 1 year. *For abdominal aortas with maximum diameter of 2.6-2.9 cm meeting criteria for AAA (>50% of proximal normal segment). Reference: J Vasc Surg. 2009 Mar;50(4 Suppl):S2-49 D/ /15/2018 18:49:11 Anurag Talavera MD / carl Interpreting Provider: Anurag Talavera MD Abdomen/Pelvis CT 11/15/18 18:16 IMPRESSION: 1. No evidence of pulmonary embolic disease. 2. No acute pulmonary findings. 3. Atherosclerotic calcification in the aorta and coronary circulation. Stable 3.5 cm fusiform infrarenal abdominal aortic aneurysm as well as 3.4 cm right common iliac artery aneurysm. See earlier CTA of the abdomen and pelvis for more complete details. 4. No acute findings within the abdomen or pelvis. Colonic diverticulosis with no acute features. 5. Mild bladder wall thickening, likely accentuated by incomplete distention. Correlate for possible cystitis. RECOMMENDATIONS: Managing Abdominal Aortic Aneurysms 3.5-3.9 cm: Every 1 year. *For abdominal aortas with maximum diameter of 2.6-2.9 cm meeting criteria for AAA (>50% of proximal normal segment). Reference: J Vasc Surg. 2008;50(4 Suppl):S2-49 D/ : / 11/15/2018 18:49:11 Anurag Talavera MD / carl Interpreting Provider: Anurag Talavera MD Knee X-Ray 11/16/18 12:45 IMPRESSION: No acute bony abnormality. D/ / Erica Salgado Cha, MD / Erica Salgado Cha, MD Interpreting Provider: Erica Salgado Cha, MD Echocardiogram 11/16/18 18:48 Impressions: LVEF 60-65%. Normal LV chamber size and function. Mild concentric left ventricular hypertrophy. Mild left ventricular diastolic dysfunction. Normal right ventricular structure and function. No evidence of pulmonary hypertension. No significant valvular dysfunction. Left Ventricular Wall Motion: Rest Echo Findings All wall segments showed normal motion. Findings: Study Quality * Technically sub-optimal due to poor echocardiographic windows. ECG Findings * Normal sinus rhythm. Left Ventricle * LVEF 60-65%. * Normal LV chamber size and function. * Mild concentric left ventricular hypertrophy. * Mild left ventricular diastolic dysfunction. Right Ventricle * Normal right ventricular structure and function. Left Atrium * Normal left atrial size. Right Atrium * Mildly dilated right atrium. Interatrial Septum * Interatrial septum not well evaluated. Aortic Valve * Aortic valve not well visualized. * No aortic regurgitation. * No aortic stenosis. Mitral Valve * Normal mitral valve structure and function. * No mitral regurgitation. * No mitral stenosis. Tricuspid Valve * Normal tricuspid valve structure and function. * Trace tricuspid regurgitation. * No evidence of pulmonary hypertension. Pulmonic Valve * Pulmonic valve not well visualized. Aorta * Normally sized aortic root. Pericardium * The pericardium appears normal. IVC * The IVC is not well evaluated. Pulmonary Artery * Pulmonary artery not well visualized. Consult Discharge Plan - Plan Referrals: Christi Cisneros CNP [Primary Care Provider] -
--- NOTE | 2018-11-17 08:17 | Cardiology Progress Note ---
Date of Encounter: 11/17/18 Time of Encounter: 08:15 Assessment and Plan (1) Major depressive disorder, recurrent, moderate Current Visit: Yes Status: Acute Per Cardiology: Seen by Psychiatry. (2) Chest pain Current Visit: Yes Status: Acute Per Cardiology: History of nonobstructive CAD. Negative nuclear stress test July 2017. Echo: Impressions: LVEF 60-65%. Normal LV chamber size and function. Mild concentric left ventricular hypertrophy. Mild left ventricular diastolic dysfunction. Normal right ventricular structure and function. No evidence of pulmonary hypertension. No significant valvular dysfunction. Left Ventricular Wall Motion: Rest Echo Findings All wall segments showed normal motion. Trops negative x 4. ECG ok. No events noted on telemetry. Atypical, reproducible on exam with palpation. Suspect noncardiac chest pain. Discussed with Dr. Cancino, patient desires further ischemic evaluation. Agreeable to nonexercise nuclear stress test. Consider adding Imdur after ST. Qualifiers: Chest pain type: unspecified Qualified Code(s): R07.9 - Chest pain, unspecified (3) CAD (coronary artery disease) Current Visit: Yes Status: Chronic Per Cardiology: [facility] 2013: Lesion Findings/Interventions * Left Main Coronary Artery The LMCA is angiographically free of disease. * Left Anterior Descending Coronary Artery There is a 30% stenosis in the Proximal LAD. * Circumflex Coronary Artery There is a 30% stenosis in the 1st Marginal. * Right Coronary Artery There is a 40% stenosis in the Proximal RCA. On asa, statin, BB, ACEI. Qualifiers: Coronary Disease-Associated Artery/Lesion type: [place] artery [place] vs. transplanted heart: [place] heart Associated angina: angina presence unspecified Qualified Code(s): I25.10 - Atherosclerotic heart disease of [place] coronary artery without angina pectoris Discussion w patient/family: The assessment and plan as outlined above was discussed with the patient and/or family members who expressed understanding and agreement. All questions were answered. Thank you for involving us in the care of your patient. Please call with any questions. Subjective Principal diagnosis: CP Interval history: Reports chest pain symptoms have resolved. He denies any new concerns overnight. Indicates he "still wants to get to the bottom of this". Objective Vital Signs, Last 4 Hours Temp Pulse Resp BP Pulse Ox 11/17/18 07:20 18 96 11/17/18 07:03 97.7 F 56 16 134/83 95 11/17/18 05:46 97.7 F 56 24 150/97 96 General: Conversant, No Apparent Distress HEENT: Atraumatic, Normocephaly, Mucus Membranes Moist Neck: No JVD, Normal carotid pulses Cardiac: Reg Rate and Rhythm, Normal S1 and S2, No Murmur Lungs: Normal Breath Sounds, No Wheeze, Rales, Rhonchi Neuro: Alert and responsive, No focal deficits noted Abdomen: Soft, Non-Tender Skin: No rashes noted on visualized skin Musculoskeletal: No Chest Wall Tenderness Extremities: No Clubbing, No Cyanosis, No Edema, Normal Pulses Results 11/17/18 03:23 11/17/18 03:23 Lab Results Laboratory Tests 11/15/18 11/15/18 11/15/18 16:44 16:44 19:22 Hgb Hct Creatinine Est GFR (Non-Af Amer) Magnesium Troponin I < 0.03 < 0.03 B-Natriuretic Peptide 15 LDL Cholesterol, Calc 11/16/18 11/16/18 11/16/18 01:02 01:02 06:49 Hgb Hct Creatinine Est GFR (Non-Af Amer) Magnesium Troponin I < 0.03 < 0.03 B-Natriuretic Peptide LDL Cholesterol, Calc 50 11/17/18 11/17/18 03:23 03:23 Hgb 14.0 Hct 42.1 Creatinine 0.95 Est GFR (Non-Af Amer) > 60 Magnesium 1.8 Troponin I B-Natriuretic Peptide LDL Cholesterol, Calc Impressions Chest CTA 11/15/18 16:43 IMPRESSION: 1. No evidence of pulmonary embolic disease. 2. No acute pulmonary findings. 3. Atherosclerotic calcification in the aorta and coronary circulation. Stable 3.5 cm fusiform infrarenal abdominal aortic aneurysm as well as 3.4 cm right common iliac artery aneurysm. See earlier CTA of the abdomen and pelvis for more complete details. 4. No acute findings within the abdomen or pelvis. Colonic diverticulosis with no acute features. 5. Mild bladder wall thickening, likely accentuated by incomplete distention. Correlate for possible cystitis. RECOMMENDATIONS: Managing Abdominal Aortic Aneurysms 3.5-3.9 cm: Every 1 year. *For abdominal aortas with maximum diameter of 2.6-2.9 cm meeting criteria for AAA (>50% of proximal normal segment). Reference: J Vasc Surg. 2009 Mar;50(4 Suppl):S2-49 D/ /15/2018 18:49:11 Anurag Talavera MD / carl Interpreting Provider: Anurag Talavera MD Abdomen/Pelvis CT 11/15/18 18:16 IMPRESSION: 1. No evidence of pulmonary embolic disease. 2. No acute pulmonary findings. 3. Atherosclerotic calcification in the aorta and coronary circulation. Stable 3.5 cm fusiform infrarenal abdominal aortic aneurysm as well as 3.4 cm right common iliac artery aneurysm. See earlier CTA of the abdomen and pelvis for more complete details. 4. No acute findings within the abdomen or pelvis. Colonic diverticulosis with no acute features. 5. Mild bladder wall thickening, likely accentuated by incomplete distention. Correlate for possible cystitis. RECOMMENDATIONS: Managing Abdominal Aortic Aneurysms 3.5-3.9 cm: Every 1 year. *For abdominal aortas with maximum diameter of 2.6-2.9 cm meeting criteria for AAA (>50% of proximal normal segment). Reference: J Vasc Surg. 2008;50(4 Suppl):S2-49 D/ /15/2018 18:49:11 Anurag Talavera MD / carl Interpreting Provider: Anurag Talavera MD Knee X-Ray 11/16/18 12:45 IMPRESSION: No acute bony abnormality. D/ / Erica Salgado Cha, MD / Erica Salgado Cha, MD Interpreting Provider: Erica Salgado Cha, MD Echocardiogram 11/16/18 18:48 Impressions: LVEF 60-65%. Normal LV chamber size and function. Mild concentric left ventricular hypertrophy. Mild left ventricular diastolic dysfunction. Normal right ventricular structure and function. No evidence of pulmonary hypertension. No significant valvular dysfunction. Left Ventricular Wall Motion: Rest Echo Findings All wall segments showed normal motion. Findings: Study Quality * Technically sub-optimal due to poor echocardiographic windows. ECG Findings * Normal sinus rhythm. Left Ventricle * LVEF 60-65%. * Normal LV chamber size and function. * Mild concentric left ventricular hypertrophy. * Mild left ventricular diastolic dysfunction. Right Ventricle * Normal right ventricular structure and function. Left Atrium * Normal left atrial size. Right Atrium * Mildly dilated right atrium. Interatrial Septum * Interatrial septum not well evaluated. Aortic Valve * Aortic valve not well visualized. * No aortic regurgitation. * No aortic stenosis. Mitral Valve * Normal mitral valve structure and function. * No mitral regurgitation. * No mitral stenosis. Tricuspid Valve * Normal tricuspid valve structure and function. * Trace tricuspid regurgitation. * No evidence of pulmonary hypertension. Pulmonic Valve * Pulmonic valve not well visualized. Aorta * Normally sized aortic root. Pericardium * The pericardium appears normal. IVC * The IVC is not well evaluated. Pulmonary Artery * Pulmonary artery not well visualized. Active Medications Albuterol Sulfate (Albuterol Inhaler) 2 puff IH I1ORMOR PRN PRN Reason: Shortness Of Breath Stop: 05/17/19 18:50 Albuterol/Ipratropium (Duoneb) 3 ml IH A1QHRQH PRN PRN Reason: Shortness Of Breath/Wheezing Stop: 05/17/19 18:24 Amlodipine Besylate (Norvasc) 5 mg PO DAILY [facility]; Protocol Stop: 05/18/19 09:01 Last Admin: 11/16/18 08:18 Dose: 5 mg Documented by: Aspirin (Aspirin) 81 mg PO DAILY [facility] Stop: 05/18/19 09:01 Last Admin: 11/16/18 08:18 Dose: 81 mg Documented by: Atorvastatin Calcium (Lipitor) 80 mg PO DAILY [facility] Stop: 05/18/19 09:01 Last Admin: 11/16/18 08:18 Dose: 80 mg Documented by: Buspirone HCl (Buspar) 10 mg PO TID [facility] Stop: 05/18/19 21:01 Last Admin: 11/16/18 19:48 Dose: 10 mg Documented by: Dextrose/Water (Dextrose 50% (Syg)) 25 ml IVP AD PRN PRN Reason: Hypoglycemia Stop: 05/17/19 18:23 Docusate Sodium (Colace) 100 mg PO BID PRN; Protocol PRN Reason: Constipation Stop: 05/17/19 18:50 Last Admin: 11/16/18 20:44 Dose: 100 mg Documented by: Fenofibrate (Tricor) 54 mg PO DAILY [facility] Stop: 05/18/19 09:01 Last Admin: 11/16/18 08:18 Dose: 54 mg Documented by: Gabapentin (Neurontin) 600 mg PO TID [facility] Stop: 05/17/19 21:01 Last Admin: 11/16/18 19:48 Dose: 600 mg Documented by: Glucagon (Glucagen) 1 mg IM ONCE PRN PRN Reason: Hypoglycemia Stop: 05/17/19 18:23 Glucose (Gluctose) 15 gm PO ONCE PRN PRN Reason: Hypoglycemia Stop: 05/17/19 18:23 Glucose (Gluctose) 30 gm PO ONCE PRN PRN Reason: Hypoglycemia Stop: 05/17/19 18:23 Heparin Sodium (Porcine) (Heparin) 5,000 unit SQ Q8HCO [facility] Stop: 05/18/19 06:01 Last Admin: 11/17/18 05:43 Dose: 5,000 unit Documented by: Dextrose (Dextrose 5%) 1,000 mls @ 100 mls/hr IVC .Q10H PRN PRN Reason: HYPOGLYCEMIA Stop: 05/17/19 18:23 Insulin Human Lispro (Humalog) 0 units SQ HS [facility]; Protocol Stop: 05/17/19 21:01 Last Admin: 11/16/18 20:45 Dose: Not Given Documented by: Insulin Human Lispro (Humalog) 0 units SQ TIDAC [facility]; Protocol Stop: 05/18/19 07:31 Last Admin: 11/16/18 16:29 Dose: Not Given Documented by: Lactulose (Lactulose) 10 gm PO TID [facility] Stop: 05/18/19 21:01 Last Admin: 11/16/18 20:44 Dose: 10 gm Documented by: Lisinopril (Zestril) 40 mg PO DAILY [facility] Stop: 05/18/19 09:01 Last Admin: 11/16/18 08:18 Dose: 40 mg Documented by: Loratadine (Claritin) 10 mg PO DAILY [facility]; Protocol Stop: 05/18/19 09:01 Last Admin: 11/16/18 08:18 Dose: 10 mg Documented by: Metoprolol Succinate (Toprol Xl) 12.5 mg PO DAILY [facility] Stop: 05/18/19 12:31 Last Admin: 11/16/18 16:28 Dose: 12.5 mg Documented by: Mometasone Furoate (Asmanex Hfa) 1 puff IH BIDR [facility] Stop: 05/18/19 22:01 Last Admin: 11/17/18 07:19 Dose: 1 puff Documented by: Naloxone HCl (Narcan) 0.4 mg IVP Q2MPRN PRN PRN Reason: SEE COMMENTS Stop: 05/17/19 18:45 Omeprazole (Prilosec) 40 mg PO DAILY@0630 [facility]; Protocol Stop: 05/19/19 06:31 Last Admin: 11/17/18 05:43 Dose: 40 mg Documented by: Ondansetron HCl (Zofran) 4 mg IVP Q8HR PRN PRN Reason: Nausea And Vomiting Stop: 05/17/19 18:45 Polyethylene Glycol (Miralax) 17 gm PO BID PRN PRN Reason: Constipation Stop: 05/18/19 19:56 Last Admin: 11/16/18 20:43 Dose: 17 gm Documented by: Sertraline HCl (Zoloft) 100 mg PO DAILY [facility] Stop: 05/19/19 09:01 Trazodone HCl (Trazodone) 150 mg PO HS PRN PRN Reason: Insomnia - Imaging and Cardiology Echo: report reviewed Cardiac cath: report reviewed Consult Discharge Plan - Plan Referrals: Christi Cisneros, [employer]ATOR [Primary Care Provider] -
[2018-11-17] MEDS ORDERED: Regadenoson 0.4 MG/5 ML SYRINGE IVP ONE (09:02)
[2018-11-17] MEDS: Insulin LISPRO 300 UNITS/3 ML VIAL SQ SCH ×4 (11:32→20:23)
[2018-11-17] MEDS: Aspirin 81 MG TAB.CHEW PO SCH (13:23)
[2018-11-17] MEDS: Fenofibrate 54 MG TABLET PO SCH (13:23)
[2018-11-17] MEDS: amLODIPine 5 MG TABLET PO SCH (13:23)
[2018-11-17] MEDS: Metoprolol XL (24 HR) Succ 25 MG TAB.ER.24H PO SCH (13:23)
[2018-11-17] MEDS: Loratadine 10 MG TABLET PO SCH (13:23)
[2018-11-17] MEDS: Gabapentin 300 MG CAPSULE PO SCH ×3 (13:24→20:21)
[2018-11-17] MEDS: Lactulose Oral Soln 20 GM/30 ML UDC PO SCH ×3 (13:24→20:21)
[2018-11-17] MEDS: Lisinopril 20 MG TABLET PO SCH (13:24)
--- NOTE | 2018-11-17 14:00 | Event Note ---
Date of Encounter: 11/17/18 Time of Encounter: 14:00 - Cardiology Event Note Nonexercise nuclear stress test results negative for ischemia or infarct. Results reviewed and discussed with patient and girlfriend, patient fairly adamant elect proceed with further ischemic evaluation in terms of left heart catheterization. Discussed and reviewed with Dr. Cancino and Dr. Erlinda Bui, will make nothing by mouth and evaluate for left heart catheterization tomorrow-- anticipate will proceed. Will add Imdur.
[2018-11-17] MEDS: Isosorbide MONOnitrate (24 HR) 30 MG TAB.ER.24H PO SCH (17:20)
[2018-11-17] MEDS: Ondansetron 4 MG/2 ML VIAL IVP PRN (22:13)
[2018-11-18] MEDS ORDERED: Acetaminophen 325 MG TABLET PO ONE (00:52)
[2018-11-18] MEDS: *HR* Heparin 5,000 UNIT/ML VIAL SQ SCH ×3 (06:04→22:26)
[2018-11-18] MEDS: MOMETASONE FUROATE 100 mcg Inhaler IH SCH ×2 (07:34→20:16)
[2018-11-18] MEDS: Insulin LISPRO 300 UNITS/3 ML VIAL SQ SCH ×4 (07:50→20:22)
[2018-11-18] MEDS: Isosorbide MONOnitrate (24 HR) 30 MG TAB.ER.24H PO SCH (07:55)
[2018-11-18] MEDS: Loratadine 10 MG TABLET PO SCH (07:55)
[2018-11-18] MEDS: amLODIPine 5 MG TABLET PO SCH (07:55)
[2018-11-18] MEDS: Fenofibrate 54 MG TABLET PO SCH (07:55)
[2018-11-18] MEDS: Gabapentin 300 MG CAPSULE PO SCH ×3 (07:55→20:21)
[2018-11-18] MEDS: Lisinopril 20 MG TABLET PO SCH (07:55)
[2018-11-18] MEDS: Metoprolol XL (24 HR) Succ 25 MG TAB.ER.24H PO SCH (07:56)
[2018-11-18] MEDS: Lactulose Oral Soln 20 GM/30 ML UDC PO SCH ×3 (07:57→20:21)
[2018-11-18] MEDS: Aspirin 81 MG TAB.CHEW PO SCH (07:57)
[2018-11-18 08:54] LABS: Basophils % 0.5 %; Eosinophils # 0.1 K/mcL (0.0-0.6); Hematocrit 42.7 % (37.5-50.1); Hemoglobin 14.4 g/dL (12.9-16.9); Immature Granulocytes % 0.2 % (0-4); Lymphocytes # 1.4 K/mcL (0.6-4.6); Lymphocytes % 23.3 %; Mean Corpuscular HGB Conc 33.7 g/dL (31.6-35.5); Mean Corpuscular Hemoglobin 31.6 pg (28.0-33.3); Mean Corpuscular Volume 93.6 fL (83.0-100.0); Mean Platelet Volume 9.8 fL (9.4-12.4); Monocytes # 0.4 K/mcL (0.0-1.3); Monocytes % 7.2 %; Neutrophils # 4.1 K/mcL (1.6-8.9); Platelet Count 163 K/mcL (140-400); Red Blood Count 4.56 M/mcL (4.19-5.50); Red Cell Distribution Width 14.3 % (11.5-14.5); Segmented Neutrophils % 67.8 %; White Blood Count 6.1 K/mcL (4.3-11.1)
[2018-11-18 09:11] LABS: BUN/Creatinine Ratio 13 (6-26); Blood Urea Nitrogen 14 mg/dL (8-23); Calcium 9.4 mg/dL (8.6-10.3); Carbon Dioxide 28 mEq/L (23-29); Chloride 103 mEq/L (98-107); Glucose 117 mg/dL (70-105); Osmolality,Calculated 288 (280-300); Potassium 4.3 mEq/L (3.5-5.1); Sodium 138 mEq/L (136-145); eGFR For African Americans > 60 (> 60); eGFR For Non-African Americans > 60 (> 60)
--- NOTE | 2018-11-18 10:10 | Internal Med Progress Note ---
Hospitalist Progress Note - Encounter Date of Encounter: 11/18/18 Time of Encounter: 10:07 - Subjective Interval History: Pt hoping to get [facility] today to help further eval for heart disease. Pain is controlled today. No N/V/D, no SOB, no leg swelling. - Exam Vitals: Temp Pulse Resp BP Pulse Ox 98.7 F 48 18 135/77 93 11/18/18 05:57 11/18/18 07:46 11/18/18 07:46 11/18/18 07:46 11/18/18 07:46 Exam: General: NAD, good eye contact, well appearing Thoracic: Normal breath sounds b/l, no wheezing or crackles Cardio: Normal S1 and S2, regular rate and rhythm, no murmurs Abdomen: Soft, nontender Extremities: Warm, well perfused. DP pulses 2+ b/l. No edema. Skin: Intact. No rashes, bruises, or ulcers Neuro: Awake, fully oriented. Speech fluent - Summary of Assessment and Plan Summary of Assessment and Plan: Austin Liu is a 58 M w hx CAD, HTN, HLD, DM2, GERD, COPD, smoker, obesity, anx/dep, who p/w CP. Chest pain: hx nonobstructive CAD, trops negative, TTE showing normal WMA, and nuclear stress w/o ischemia. Pt requesting definitive eval. - Cardio consult, appreciate comanagement and plan for [facility] today - continue newly started Imdur - continue newly started PPI, consider GI workup if pain persists and [facility] wnl CAD/HLD: ASA, statin, tricor DM2: SSI HTN: controlled on lisinopril 40 and new amlodipine 5 GERD: PPI as above Obesity: BMI 34 Anx/Dep: home buspar and zoloft, psych consulted initially for recent but not current SI, outpatient follow up indicated PPx: lovenox FEN: NPO then resume regular, no MIVF Lines: PIV Consults: Cardio, Psych Code: Full Dispo: obs for chest pain, anticipate d/c today or tomorrow, will be homegoing Internal Medicine: Result - Labs CBC & Chem 7: 11/18/18 08:30 11/18/18 08:30 Labs: Short CBC 11/18/18 Range/Units 08:30 WBC 6.1 (4.3-11.1) K/mcL Hgb 14.4 (12.9-16.9) g/dL Hct 42.7 (37.5-50.1) % Plt Count 163 (140-400) K/mcL Neutrophils # 4.1 (1.6-8.9) K/mcL BMP 11/18/18 08:30 Sodium 138 Potassium 4.3 Chloride 103 Carbon Dioxide 28 BUN 14 Creatinine 1.12 Glucose 117 H Calcium 9.4 - ABG Interpretation ABG results: PT/INR, D-dimer PT 11.7 Seconds (9.4-12.1) 11/16/18 01:02 Consult Discharge Plan - Plan Referrals: Christi Cisneros, [employer]ORAT[employer] MECHANIC [Primary Care Provider] -
[2018-11-18] MEDS ORDERED: Heparin 1,000 UNITS/500 mL 500 ML ONE (10:33)
[2018-11-18] MEDS ORDERED: ISOVUE-370 200 ML INFUS..BTL ONE ×2 (10:33→11:19)
[2018-11-18] MEDS ORDERED: *HR* Heparin 10,000 UNIT/10 ML VIAL ONE (10:33)
[2018-11-18] MEDS ORDERED: 0.9 % Sodium Chloride 1,000 ML ONE ×3 (10:33→13:56)
[2018-11-18] MEDS ORDERED: Nitroglycerin 1,000 MCG/10 ML VIAL IV ONE (10:33)
[2018-11-18] MEDS ORDERED: *HR* FentaNYL (PF) 100 MCG/2 ML VIAL ONE (10:52)
[2018-11-18] MEDS ORDERED: *HR* Midazolam HCl 2 MG/2 ML VIAL ONE ×2 (10:52→11:16)
--- NOTE | 2018-11-18 10:55 | Pre-Sedation Evaluation ---
Pre-sedation evaluation - Pre-sedation checklist Date of procedure: 11/18/18 Procedure: LEFT HEART CATHETERIZATION Recent Vitals: Last Vital Signs Temp 98.7 F 11/18/18 05:57 Pulse 48 11/18/18 07:46 Resp 18 11/18/18 07:46 BP 135/77 11/18/18 07:46 Pulse Ox 93 11/18/18 07:46 H&P (including ROS) documented in medical record: Yes Previous reaction to sedatives/anesthetics: No Dietary Status: NPO after Midnight Airway Assessment: Patient can open mouth completely, TMJ function normal, Micrognathia (under-bite, receding chin) absent, Neck with adequate range of motion Dentition: No loose teeth or bridges Possible difficult airway: No ASA Classification *see protocol: CLASS II-Mild systemic disease Plan of Care: Pt appropriate candidate for procedure/moderate/conscious sedation, Risks/benefits of procedure/sedation discussed w/ patient/family Cardiac Registry (Cardio Only) - Functional Capacity Functional Capacity: >=4 METS with symptoms - Clincal Frailty Scale Clinical Frailty Scale: Managing Well
[2018-11-18] MEDS ORDERED: *HR* Bivalirudin 250 MG VIAL IVC ONE (11:14)
[2018-11-18] MEDS ORDERED: *HR* Ticagrelor 90 MG TABLET ONE (11:34)
[2018-11-18] MEDS ORDERED: Nitroglycerin 0.4 MG TAB.SUBL SL PRN (11:41)
--- NOTE | 2018-11-18 13:50 | Invasive Diagnostic Lab Proc ---
Name: Austin Liu Date of Study: 11/18/2018 Date: 1960 Ht: 68.1in Medical Record#: [id number] Age: 58 Wt: 227.08lb Gender: Male BSA: 2.16 Order #: [id number] BMI: 34.41 Physicians Procedure Physician: Judy Bui MD, [facility] Referring MD: Referring MD: Staff Name Position Time In Joe Isabel RT (R) Monitor 10:39 AM Chavo Roberto RN Precision Honer 10:39 AM Georgina Isabel RT (R) Scrub 10:39 AM Indications Indication Abnormal Test - Stress Procedures Performed Procedure L HRT ARTERY/VENTRICLE ANGIO PRQ CARD BM STENT W/ANGIO 1 VSL Pre-Procedure Checklist Informed consent is complete signed and on chart. H&P is on chart. ID band is on and ID verified with patient. Patient NPO for procedure The procedure was described for the patient and questions were answered. Blood Pressure: 135/77 ECG is on chart. Rhythm: NSR Plan of Care Patient will tolerate the procedure without complications. Adequate level of comfort will be maintained. Hemodynamics will remain stable Patient will recover from procedure without complications. Respiratory function will be maintained. Cardiac rhythm will remain stable. Patient temperature will be maintained. Patient and/or family have verbalized understanding of the procedure. Patient Education Chief Complaint/Reason for Test: Cardiac Cath Developmental Category: Adult (18-64 years) Developmentally Appropriate for Age: Yes Learning Barriers: None Education Needs: Procedure Education Method: Verbal Information Taught: Cardiac Cath Educational Evaluation: Able to repeat information Intravenous Access Time IV Size Location DC'd Fluid/Drip Rate Units RN 20g 1 06/05" Patent On Arrival Rt Antecubital 0.9NaCl 25 ml/hr Chavo Roberto RN 10:38 AM Allergies naproxen tramadol PROPOXYPHENE/ACETAMINOPHEN PERCOCET,DARVOCET Vital Signs Time BP (mmHg) HR (bpm) O2 Sat. RR (bpm) LOC 10:39 AM 134 / 86 56 98 % 18 5 = Fully awake and oriented or at pre-proc level 10:39 AM / % 5 = Fully awake and oriented or at pre-proc level 10:54 AM / % 4 = Oriented but drowsy 11:09 AM / % 4 = Oriented but drowsy 10:53 AM 134 / 86 56 98 % 10 10:59 AM 129 / 75 60 92 % 17 11:03 AM 128 / 80 59 94 % 12 11:08 AM 125 / 78 59 94 % 16 11:13 AM 124 / 80 61 93 % 15 11:18 AM 123 / 77 61 94 % 16 11:23 AM 133 / 77 63 94 % 19 11:28 AM 127 / 75 67 93 % 12 11:24 AM / % 5 = Fully awake and oriented or at pre-proc level 12:00 PM 124 / 77 58 93 % 14 5 = Fully awake and oriented or at pre-proc level 12:15 PM 119 / 72 54 93 % 16 4 = Oriented but drowsy 12:30 PM 166 / 79 54 93 % 16 4 = Oriented but drowsy 12:45 PM 128 / 84 57 96 % 16 5 = Fully awake and oriented or at pre-proc level 01:00 PM 114 / 89 53 96 % 16 4 = Oriented but drowsy 01:15 PM 133 / 78 55 97 % 16 5 = Fully awake and oriented or at pre-proc level Procedural Medications Time Medication Dose Units Method Given By 10:50 AM Oxygen 2 L/min nasal cannula Chavo Roberto RN 10:55 AM Versed 2 mg Intravenous Chavo Roberto RN 10:55 AM Fentanyl 50 mcg Intravenous Chavo Roberto RN 11:01 AM Benadryl 25 mg Intravenous Chavo Roberto RN 11:01 AM Lidocaine 2% 20 ml Subcutaneous Judy Bui MD, FACC 11:15 AM Angiomax 0.75mg/kg bolus: 16 ml Intravenous Chavo Roberto RN 11:16 AM Angiomax 1.75mg/kg/hr: 37 ml/hr Intravenous Chavo Roberto RN 11:17 AM Versed 1 mg Intravenous Chavo Roberto RN 11:17 AM Fentanyl 25 mcg Intravenous Chavo Roberto RN 11:23 AM Nitroglycerin 200 mcg Intracoronary Judy Bui MD, FACC 11:35 AM Brilinta 180 mg Orally Chavo Roberto RN ASA Classification: CLASS II- Mild systemic disease (i.e. well-controlled diabetes, hypertension, asthma, cigarette smoking) Tolu Score Preprocedure Postprocedure Activity 2- Moves 4 extremities sustained head lift Activity 2- Moves 4 extremities sustained head lift Circulation 2- SBP +/= 20 points of pre-anesthetic level Circulation 2- SBP +/= 20 points of pre-anesthetic level Consciousness 2- Awake and alert oriented x 3 Consciousness 2- Awake and alert oriented x 3 O2 Saturation 2- Able to maintain O2 satruation of 92% on room air O2 Saturation 2- Able to maintain O2 satruation of 92% on room air Respiratory 2- Able to deep breathe and cough well Respiratory 2- Able to deep breathe and cough well Total Score 10 Total Score 10 Contrast Agent: Isovue Diagnostic Contrast: 134 ml Total Contrast: 134 ml Fluoro Dose: 45 mGy Procedure Log Time Note Enter By 10:35 AM CathStat 10:39 AM 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 at 10:39 [email or web address] 10:39 AM Patient charges- Angio tray pack, Navilyst 3mm J, Pulse Oximetry and ACIST tubing and transducer [email or web address] 10:39 AM Time: 10:39 Patient comfortable and pain free: Yes [email or web address] 10:39 AM Time: 10:39LOC: 5 = Fully awake and oriented or at pre-proc level [email or web address] 10:39 AM Joe Isabel RT (R) Position: Monitor Time in: 10:39 [email or web address] 10:39 AM Chavo Roberto RN Position: Precision Honer Time in: 10:39 [email or web address] 10:39 AM Georgina Isabel RT (R) Position: Scrub Time in: 10:39 [email or web address] 10:40 AM Case Delayed No [email or web address] 10:50 AM Physician arrived 10:50 [email or web address] 10:50 AM Meet and greet completed [email or web address] 10:50 AM Sign in performed according to hospital policy. Informed consent was obtained. [email or web address] 10:50 AM Procedure start 10:50 [email or web address] 10:50 AM Time: 10:50 Oxygen on at 2 L/min per nasal cannula by Chavo Roberto RN [email or web address] 10:52 AM Vitals capture started with the following parameters, Patient=Adult, Interval=5 min, Initial Vhsxpofq=070 mmHg, Deflation Rate=3 mmHg, Cuff placed on Right Arm 10:52 AM ASA Class CLASS II- Mild systemic disease (i.e. well-controlled diabetes, hypertension, asthma, cigarette smoking) [email or web address] 10:53 AM Hair removed from procedure site in procedure lab using clippers. Bilateral groin prepped with Chloraprep by Georgina Isabel (R), then patient was draped. Skin intact. [email or web address] 10:53 AM Recorded ECG: HR=57 Condition=Condition 1 10:53 AM HR=56 bpm, APZH=444/86 mmhg, SpO2=98.0 %, Resp=10 B/min 10:54 AM Time: 10:39LOC: 5 = Fully awake and oriented or at pre-proc level [place] [id number] 10:54 AM Time: 10:39 Patient comfortable and pain free: Yes [place] [id number] 10:55 AM Time: 10:55 Versed 2 mg Intravenous Given by Chavo Roberto RN [place] [id number] 10:55 AM Time: 10:55 Fentanyl 50 mcg Intravenous Given by Chavo Roberto RN [place] [id number] 10:58 AM Pressure channel 1 zero failed. 10:58 AM Pressure channel 1 zero failed. 10:58 AM Pressure channel 1 zero failed. 10:59 AM Pressure channel 1 zero failed. 10:59 AM Pressure channel 1 zeroed. 10:59 AM HR=60 bpm, PIEQ=625/75 mmhg, SpO2=92.0 %, Resp=17 B/min, EtCO2=35 mmHg 11:00 AM Time out was performed according to hospital policy. Conscious sedation and anesthesia was achieved (see medication log with in this report above) [place] [id number] 11:01 AM Time: 11:01 Benadryl 25 mg Intravenous Given by Chavo Roberto RN [place] [id number] 11:01 AM Time: 11:01 20 ml Lidocaine 2% to right groin Subcutaneous Given by Judy Bui MD, [place] [id number] 11:02 AM Access obtained by percutaneous puncture. 5Fr 10cm Terumo [place] sheath placed in right Femoral artery. [id number] [place] [id number] 11:02 AM 0.035 145cm Navilyst 3mmJ wire [id number] [place] [id number] 11:02 AM 5Fr FL 4 catheter inserted over the wire [place] [address] 11:03 AM HR=59 bpm, CDQK=403/80 mmhg, SpO2=94.0 %, Resp=12 B/min, EtCO2=32 mmHg 11:03 AM LCA angiography performed in multiple views. [place] [id number] 11:04 AM Recorded Pressure: Ao, HR=63, Condition=Condition 1 (Aorta) Ao 112/36/70 11:05 AM Catheter removed [place] [id number] 11:05 AM 5Fr FR 4 catheter inserted over the wire [place] [address] 11:05 AM RCA angiography performed in multiple views. [place] [id number] 11: Coronary Dominance: right [email or web address] 11:06 AM Recorded Pressure: Ao, HR=64, Condition=Condition 1 (Aorta) Ao 99/73/86 11:07 AM Catheter removed 11:07 AM 5Fr Pigtail catheter inserted over the wire [facility] 11:08 AM HR=59 bpm, DGLV=604/78 mmhg, SpO2=94.0 %, Resp=16 B/min 11:08 AM Catheter crossed the aortic valve and was selectively placed in the left ventricle. Pressures recorded on pullback for left heart catheterization. 11:08 AM Bolus angiogram of left Ventricle complete: 8 ml/sec for a total of 24 mls [facility] 11: AM Pressure channel 1 zero failed. 11: AM Pressure channel 1 zeroed. 11:09 AM Recorded Pressure: LV, HR=60, Condition=Condition 1 (Left Ventricle) LV 111/-8/8 11:09 AM Time: 10:54 Patient comfortable and pain free: Yes : Time: 10:54LOC: 4 = Oriented but drowsy 11:09 AM Recorded Pressure: LV, Ao, HR=63, Condition=Condition 1 (Left Ventricle) LV 106/14/36, (Aorta) Ao 90/63/79 11:10 AM Catheter removed 11:13 AM HR=61 bpm, NEHJ=016/80 mmhg, SpO2=93.0 %, Resp=15 B/min, EtCO2=26 mmHg 11:14 AM Lesion found in 1st Marginal. Pre Stenosis: 85 Pre LIZ Flow: 11:14 AM Circumflex, Obtuse Marginal, Left Posterior Descending, and Left Posterolateral Coronary Arteries with 85 % stenosis. If graft is supplying this area, 0 % stenosis [facility] 11:14 AM Sheath exchanged for a 6 Fr 11 cm Cordis Luana sheath [id number] 11:14 AM Inflation device was opened. 11:15 AM 6Fr XB LAD 3.5 [place] Bright-Tip guide catheter was used to cannulate the PCI vessel successfully. reused? No [email or web address] 11:16 AM Time: 11:15 Angiomax 0.75mg/kg bolus: 16 ml Intravenous Given by Chavo Roberto RN [place] pump [email or web address] 11:16 AM Time: 11:16 Angiomax 1.75mg/kg/hr: 37 ml/hr Intravenous Given by Chavo Roberto RN [place] pump [email or web address] 11:17 AM Time: 11:17 Versed 1 mg Intravenous Given by Chavo Roberto RN [place] [id number] 11:17 AM Time: 11:17 Fentanyl 25 mcg Intravenous Given by Chavo Roberto RN molina 11:17 AM .014 [place] 180cm guide wire across target lesion- successful. reused? No [email or web address] 11:18 AM HR=61 bpm, WQSX=323/77 mmhg, SpO2=94.0 %, Resp=16 B/min, EtCO2=31 mmHg 11:20 AM 3.0mm x 32mm Synergy drug-eluting stent across target lesion- successful Lot #[id number] [email or web address] 11:22 AM Stent deployed @ 12 ervin for 30 seconds [email or web address] 11:22 AM Stent balloon reinflated @ 16 ervni for 11 seconds [email or web address] 11:23 AM HR=63 bpm, LRZV=228/77 mmhg, SpO2=94.0 %, Resp=19 B/min 11:23 AM Recorded Pressure: Ao, HR=63, Condition=Condition 1 (Aorta) Ao 102/64/82 11:24 AM Time: 11:23 Nitroglycerin 200 mcg Intracoronary Given by Judy Bui MD, FACC [email or web address] 11:24 AM Time: 11:09LOC: 4 = Oriented but drowsy [email or web address] 11:24 AM Time: 11:09 Patient comfortable and pain free: Yes [email or web address] 11:24 AM Guide wire removed intact. [email or web address] 11:24 AM Guide catheter removed intact. [email or web address] 11:26 AM Bolus angiogram of right Femoral complete: 4 ml/sec for a total of 7 mls [email or web address] 11:28 AM Procedure completed at 11:27 11/18/2018 [email or web address] 11:28 AM HR=67 bpm, WDDC=375/75 mmhg, SpO2=93.0 %, Resp=12 B/min 11:29 AM Sign out completed: Radiation Dose 427.04 mGy, 45.2 Gy/cm2 Fluoro Time: 5.1 Isovue 370 - 200ml contrast 134 ml given by Judy Bui MD, FACC. Complications: None. The patient was discharged out of the phlebotomist lab assistant in stable condition. Sedation minutes 32. Cardiac Rehab Consult needed: Yes. Confirmed administered medications: Yes [email or web address] 11:29 AM Sheath left in place to be pulled on floor/holding areaV+Pad [email or web address] 11:29 AM Estimated Blood Loss: less than 20cc [email or web address] 11:29 AM Post ECG NSR [email or web address] 11:30 AM Vitals capture stopped. 11:30 AM Post Blood Pressure 133/77 [email or web address] 11:30 AM Information taught Cardiac Cath and PCI [email or web address] 11:30 AM Education needs Procedure, Plan of Care, and Disease Process [email or web address] 11:30 AM Learning barriers :Sedated [email or web address] 11:30 AM Education Methods Verbal [email or web address] 11:30 AM Education evaluation Not ready to learn [email or web address] 11:31 AM Site status No bleeding/hematoma - Rt Groin as reported by Georgina Isabel RT (R) at 11:30 [email or web address] 11:31 AM Delay to floor No [email or web address] 11:31 AM Complications: None [email or web address] 11:31 AM No family [email or web address] 11:31 AM Lesion found in Proximal RCA. Pre Stenosis: 40 Pre LIZ Flow: [email or web address] 11:31 AM Right Coronary, Right Posterior Descending Arteries with Right Posterolateral and Acute Marginal branches with 40 % stenosis. If graft is supplying this area, 0 % stenosis [email or web address] 11:32 AM Lesion found in Mid RCA. Pre Stenosis: 40 Pre LIZ Flow: [email or web address] 11:32 AM Lesion found in Distal RCA. Pre Stenosis: 40 Pre LIZ Flow: [email or web address] 11:32 AM Lesion found in Distal LMCA. Pre Stenosis: 30 Pre LIZ Flow: [email or web address] 11:32 AM Left Main Coronary Artery with 30% stenosis [email or web address] 11:32 AM Lesion found in Proximal LAD. Pre Stenosis: 30 Pre LIZ Flow: [email or web address] 11:32 AM Proximal Left Anterior Descending Coronary Artery with 30% stenosis. If graft is supplying this territory, 0 % stenosis. [email or web address] 11:32 AM Lesion found in 2nd Diagonal. Pre Stenosis: 50 Pre LIZ Flow: [email or web address] 11:32 AM Mid/Distal Left Anterior Descending Coronary Artery and diagonal branches with 50% stenosis. If graft is supplying this area, 0 % stenosis [email or web address] 11:33 AM Lesion found in Proximal Circumflex. Pre Stenosis: 30 Pre LIZ Flow: [email or web address] 11:33 AM Lesion found in Right PDA. Pre Stenosis: 60 Pre LIZ Flow: [email or web address] 11:33 AM Right Coronary, Right Posterior Descending Arteries with Right Posterolateral and Acute Marginal branches with 60 % stenosis. If graft is supplying this area, 0 % stenosis [email or web address] 11:34 AM Patient out of room: 11:34 [email or web address] 11:35 AM Time: 11:35 Brilinta 180 mg Orally Given by Chavo Roberto RN [email or web address] 11:40 AM Time: 11:24 Patient comfortable and pain free: Yes [email or web address] 11:40 AM Time: 11:24LOC: 5 = Fully awake and oriented or at pre-proc level [email or web address] 11:42 AM Report given to justin MAGALLON Pt taken to Holding room Room #4. 11:42 [email or web address] 11:44 AM Delay to floor yes, room not clean [email or web address] 12:53 PM Delay to floor Bed availability [email or web address] 12:53 PM Report given to Digna MAGALLON Pt will be taken to Room #2N7. when clean. 12:53 kwitte 12:53 PM Complications: None kwitte 01:43 PM Patient out of room: 13:42 kwitte Complications Complication None None None Hemodynamics Pressures Site Systolic/A Wave Diastolic/V Wave Mean AO 112 36 70 AO 99 73 86 LV 111 -8 8 LV 106 14 36 AO 90 63 79 AO 102 64 82 Post Procedure Information Blood Pressure: 133/77 mmHg Rhythm: NSR Post procedural instructions were given Site Checks Time Location Status Staff Sheath In? Note 11:30 AM Rt Groin No bleeding/hematoma Georgina Isabel RT (R) 12:00 PM Rt Groin No bleeding/ No Hematoma Tristan Zarate RN Yes 12:15 PM Rt Groin No bleeding/ No Hematoma Blanca Hinojosa RN Yes 12:30 PM Rt Groin No bleeding/ No Hematoma Blanca Hinojosa RN Yes 12:45 PM Rt Groin No bleeding/ No Hematoma Justin Arce RN Yes 01:00 PM Rt Groin No bleeding/ No Hematoma Blanca Hinojosa RN Yes 01:15 PM Rt Groin No bleeding/ No Hematoma Justin Arce RN Yes Pulses Time Site Pre-Procedure Post-Procedure Note 11/18/2018 10:38:00 AM Bilateral radial 2+ 11/18/2018 10:38:00 AM Bilateral DP & PT 2+ 11/18/2018 12:15:00 PM Bilateral DP & PT 2+ 11/18/2018 12:45:00 PM Bilateral DP & PT 2+ 11/18/2018 1:15:00 PM Bilateral DP & PT 2+ Updated by Justin Arce RN on 11/18/2018 1:43:16 PM Justin Arce RN electronically signed on 11/18/2018 1:43:45 PM with status of Final
[2018-11-18] MEDS ORDERED: *HR* Atropine Sulfate 1 MG/10 ML SYRINGE ONE (13:58)
[2018-11-18] MEDS: Ondansetron 4 MG/2 ML VIAL IVP PRN (15:47)
[2018-11-19] MEDS: *HR* Heparin 5,000 UNIT/ML VIAL SQ SCH (05:14)
--- NOTE | 2018-11-19 07:21 | Discharge Summary ---
- NOTES TO OUTPATIENT PROVIDER Notes to Outpatient Provider: Chest pain improved w LHC w PCIx1 to OM1. Also expressed passive SI and would benefit from counseling. Date of Encounter: 11/19/18 Time of Encounter: 07:19 Hospital course: Dear Doctors, I recently had the opportunity to care for this patient during their recent hospital stay at [facility]. Austin Liu is a 58 M w hx CAD, HTN, HLD, DM2, GERD, COPD, smoker, obesity, anx/dep, who presented at time of admission with CP. Due to hx nonobstructive CAD, he was observed for ND rule out. Trops were negative, TTE showed normal WMA, and nuclear stress was w/o ischemia. However, due to persistence of pain, and to his credit persistence of the patient advocating for further evaluation, Cardio took patient for LHC which revealed 85% stenosis of the obtuse marginal branch of L circumflex artery which was stented. Cath showed 30-50% stenosis throughout other coronaries. Pain improved subsequently. He was placed on DAPT, imdur, and toprol, and will follow up with Cardio as outpatient. Dx: Angina, obstructive CAD Pertinent tests/consults: LHC with stent placement x1 to OM1 Follow up: PCP 1 week, Cardio 3-4 weeks Tests pending: none Med changes: - new toprol 12.5 - new plavix 75 - new imdur 30 - new omeprazole 20 x1 month Mental status: awake, fully oriented Code status: Full It has been my pleasure participating in this patient's care. Please contact me with any questions or concerns regarding their hospital stay. Sincerely, Akshat Reynoso MD - Discharge Medications Prescriptions: New Isosorbide MONOnitrate (24 HR) [Imdur] 30 mg PO DAILY #30 tab.er.24h Clopidogrel [Plavix] 75 mg PO DAILY #30 tablet Metoprolol XL (24 HR) Succ [Toprol Xl] 12.5 mg PO DAILY #30 tab.er.24h Omeprazole [PriLOSEC] 20 mg PO DAILY #30 capsule.dr Continued Lactulose 10 gm PO TID Docusate Sodium [Colace] 100 mg PO BID PRN PRN Reason: Constipation Aspirin 81 mg PO DAILY Albuterol Sulfate [Albuterol Inhaler] 2 puff IH Q4H PRN PRN Reason: Shortness Of Breath Nitroglycerin [Nitrostat] 0.4 mg SL Q5MIN PRN PRN Reason: Chest Pain metFORMIN [Glucophage] 500 mg PO BIDWM amLODIPine [Norvasc] 5 mg PO DAILY Atorvastatin Calcium [Lipitor] 80 mg PO DAILY Fenofibrate Nanocrystallized [Tricor] 48 mg PO DAILY Gabapentin 600 mg PO TID hydroCHLOROthiazide [Hydrochlorothiazide] 25 mg PO DAILY Lisinopril [Zestril] 40 mg PO DAILY Loratadine [Allergy Relief] 10 mg PO DAILY Beclomethasone Dipropionate [QVAR 80 mcg REDIHALER] 1 puff IH BID Buspirone HCl [Buspar] 10 mg PO TID Cyanocobalamin (Vitamin B-12) [Vitamin B12] 1,000 mcg PO DAILY Polyethylene Glycol 3350 17 g PO DAILY PRN PRN Reason: Constipation Sertraline [Zoloft] 100 mg PO DAILY Trazodone HCl 150 mg PO HS PRN PRN Reason: Insomnia Home Medications: Albuterol Sulfate [Albuterol Inhaler] 2 puff IH Q4H PRN 03/20/15 [History] Aspirin 81 mg PO DAILY 03/20/15 [History] Docusate Sodium [Colace] 100 mg PO BID PRN 03/20/15 [History] Lactulose 10 gm PO TID 03/20/15 [History] Nitroglycerin [Nitrostat] 0.4 mg SL Q5MIN PRN 03/20/15 [History] metFORMIN [Glucophage] 500 mg PO BIDWM 08/03/17 [History] Atorvastatin Calcium [Lipitor] 80 mg PO DAILY 11/15/18 [History] Beclomethasone Dipropionate [QVAR 80 mcg REDIHALER] 1 puff IH BID 11/15/18 [His tory] Buspirone HCl [Buspar] 10 mg PO TID 11/15/18 [History] Cyanocobalamin (Vitamin B-12) [Vitamin B12] 1,000 mcg PO DAILY 11/15/18 [History] Fenofibrate Nanocrystallized [Tricor] 48 mg PO DAILY 11/15/18 [History] Gabapentin 600 mg PO TID 11/15/18 [History] Lisinopril [Zestril] 40 mg PO DAILY 11/15/18 [History] Loratadine [Allergy Relief] 10 mg PO DAILY 11/15/18 [History] Polyethylene Glycol 3350 17 g PO DAILY PRN 11/15/18 [History] Sertraline [Zoloft] 100 mg PO DAILY 11/15/18 [History] Trazodone HCl 150 mg PO HS PRN 11/15/18 [History] amLODIPine [Norvasc] 5 mg PO DAILY 11/15/18 [History] hydroCHLOROthiazide [Hydrochlorothiazide] 25 mg PO DAILY 11/15/18 [History] Clopidogrel [Plavix] 75 mg PO DAILY #30 tablet 11/19/18 [Rx] Isosorbide MONOnitrate (24 HR) [Imdur] 30 mg PO DAILY #30 tab.er.24h 11/19/18 [Rx] Metoprolol XL (24 HR) Succ [Toprol Xl] 12.5 mg PO DAILY #30 tab.er.24h 11/19/18 [Rx] Omeprazole [PriLOSEC] 20 mg PO DAILY #30 capsule. 11/19/18 [Rx] Allergies/Adverse Reactions: Allergy/AdvReac Type Severity Reaction Status Date / Time naproxen Allergy See Verified 08/04/18 14:13 Comments tramadol Allergy See Verified 08/04/18 14:13 Comments Date of admission: 11/15/18 19:00 Primary care physician: Christi Cisneros CNP Consults: 11/15/18 23:03 Consult to Pastoral Services [CONS] Routine Comment: 11/16/18 01:14 Consult to Psychiatry [CONS] Routine Consulting Provider: Psychiatry Edelstein Reason consult: Sitter/1:1 Other reason and/or additional details: Patient has signs of being clinically depressed. Pt. made several comments during discussion about his Code Status that he feels hopeless and that his family doesn't care about him. When asked about SI, he stated that he has had SI in the past and if he wants to kill himself he will just go home and put his gun to his head. Pt. has long hx of chest pain and feels that nothing is getting better. Pt. is in need of a psychiatric counselor who can monitor him and his medications to manage his current depression and anxiety. Call Completed: Yes 11/16/18 08:03 Consult to Cardiology [CONS] Routine Comment: Consulting Provider: Cardiology Sammi Reason for Consult: chest pain on nitro gtt Call Completed: Yes 11/18/18 11:41 Consult to Cardiac Rehabilitation-Phase1 [CONS] Routine Comment: Reason for Consult: post op PCI Call Completed: Yes - Constitutional Vitals: Temp Pulse Resp BP Pulse Ox 97.8 F 78 17 137/78 98 11/19/18 04:18 11/19/18 04:18 11/19/18 04:18 11/19/18 04:18 11/19/18 04:18 Exam: General: NAD, good eye contact, well appearing Thoracic: Normal breath sounds b/l, no wheezing or crackles Cardio: Normal S1 and S2, regular rate and rhythm, no murmurs Abdomen: Soft, nontender Extremities: Warm, well perfused. DP pulses 2+ b/l. No edema. Skin: Intact. No rashes, bruises, or ulcers. Site of cath without bruising or swelling, bandage in place Neuro: Awake, fully oriented. Speech fluent. Wears boot on R foot to walk, and gait is antalgic - Patient Status Disposition: Home, Self-Care Condition: Fair Functional capacity at discharge: independent ambulation Overall status at discharge: patient is back to baseline - Discharge Instructions Instructions: Metoprolol (By mouth), Omeprazole (By mouth), Isosorbide Mononitrate (By mouth), Clopidogrel (By mouth), Chest Pain (DC) Follow Up With: Christi Cisneros CNP [Primary Care Provider] - 11/25/18 10:00 am Lyle Bennett CNP [Advanced Practice Nurse] - (Office will call patient with follow up appointment ) Forms: ED Satisfaction Letter - Diet and Activity Activity: resume usual activities as tolerated (wait 1 week before lifting >5 pounds) Diet: diabetic diet, low salt diet
[2018-11-19] MEDS: MOMETASONE FUROATE 100 mcg Inhaler IH SCH (07:22)
[2018-11-19 07:56] VITALS: BP 134/85
[2018-11-19] MEDS: Insulin LISPRO 300 UNITS/3 ML VIAL SQ SCH (07:56)
[2018-11-19] MEDS: amLODIPine 5 MG TABLET PO SCH (08:19)
[2018-11-19] MEDS: Lactulose Oral Soln 20 GM/30 ML UDC PO SCH (08:19)
[2018-11-19] MEDS: Gabapentin 300 MG CAPSULE PO SCH (08:19)
[2018-11-19] MEDS: Isosorbide MONOnitrate (24 HR) 30 MG TAB.ER.24H PO SCH (08:20)
[2018-11-19] MEDS: Loratadine 10 MG TABLET PO SCH (08:20)
[2018-11-19] MEDS: Aspirin 81 MG TAB.CHEW PO SCH (08:20)
[2018-11-19] MEDS: Metoprolol XL (24 HR) Succ 25 MG TAB.ER.24H PO SCH (08:20)
[2018-11-19] MEDS: Lisinopril 20 MG TABLET PO SCH (08:20)
[2018-11-19] MEDS: Fenofibrate 54 MG TABLET PO SCH (08:21)
--- NOTE | 2018-11-19 09:56 | Cardiology Progress Note ---
Date of Encounter: 11/19/18 Time of Encounter: 09:30 Assessment and Plan (1) Major depressive disorder, recurrent, moderate Current Visit: Yes Status: Acute Per Cardiology: Seen by Psychiatry. (2) Chest pain Current Visit: Yes Status: Acute Per Cardiology: CP remains reproducible to palpation. Trops negative. CP free this am. Qualifiers: Chest pain type: unspecified Qualified Code(s): R07.9 - Chest pain, unspecified (3) CAD (coronary artery disease) Current Visit: Yes Status: Chronic Per Cardiology: LHC: Lesion Findings/Interventions * Left Main Coronary Artery There is a 30% stenosis in the Distal LMCA (calcified). * Left Anterior Descending There is a 30% stenosis in the Proximal LAD (calcified). There is a 50% stenosis in the 2nd Diagonal ( small vessel). * Circumflex There is a 30% stenosis in the Proximal Circumflex. There is a 85% stenosis in the 1st Marginal. The lesion has no thrombus present. An intervention was performed on the 1st Marginal with a final stenosis of 0%. There were no lesion complications. The final LIZ flow was 3. * Right Coronary Artery There is a 40% stenosis in the Proximal RCA (heavily calcified). There is a 40% stenosis in the Mid RCA (heavily calcified). There is a 40% stenosis in the Distal RCA. There is a 60% stenosis in the Right PDA. On asa, plavix, statin, BB, ACEI, Imdur. DC pending. Post procedure education provided. Importance of dual antiplatelet therapy for least one year reinforced. Cardiology signing off, reconsult as needed, follow-up arranged.. Qualifiers: Coronary Disease-Associated Artery/Lesion type: [place] artery [place] vs. transplanted heart: [place] heart Associated angina: angina presence unspecified Qualified Code(s): I25.10 - Atherosclerotic heart disease of [place] coronary artery without angina pectoris Discussion w patient/family: The assessment and plan as outlined above was discussed with the patient and/or family members who expressed understanding and agreement. All questions were answered. Thank you for involving us in the care of your patient. Please call with any questions. Subjective Principal diagnosis: CP Interval history: Mid sternal/epigastric chest pain persists with palpation. Currently denies any chest pain. Denies any concerns from his right groin site. Denies any shortness of breath, palpitations, any active bleeding or blood loss. Discharge pending. Objective Vital Signs, Last 4 Hours Temp Pulse Resp BP Pulse Ox 11/19/18 07:54 98.6 F 55 18 134/85 96 11/19/18 07:22 18 96 General: Conversant, No Apparent Distress HEENT: Atraumatic, Normocephaly, Mucus Membranes Moist Neck: No JVD, Normal carotid pulses Cardiac: Reg Rate and Rhythm, Normal S1 and S2, No Murmur Lungs: Normal Breath Sounds, No Wheeze, Rales, Rhonchi Neuro: Alert and responsive, No focal deficits noted Abdomen: Soft, Non-Tender Skin: No rashes noted on visualized skin, Other (Right site dry and intact, no hematoma, no bleeding, no ecchymosis, right PT and DP pulses 1+ palpable) Musculoskeletal: No Chest Wall Tenderness, Other (midsternal/epigastric discomfort to palpation) Extremities: No Clubbing, No Cyanosis, No Edema, Normal Pulses Results 11/18/18 08:30 11/18/18 08:30 Active Medications Albuterol Sulfate (Albuterol Inhaler) 2 puff IH [id number] PRN PRN Reason: Shortness Of Breath Stop: 05/17/19 18:50 Last Admin: 11/18/18 07:34 Dose: 2 puff Documented by: Albuterol/Ipratropium (Duoneb) 3 ml IH [id number] PRN PRN Reason: Shortness Of Breath/Wheezing Stop: 05/17/19 18:24 Amlodipine Besylate (Norvasc) 5 mg PO DAILY [facility]; Protocol Stop: 05/18/19 09:01 Last Admin: 11/19/18 08:19 Dose: 5 mg Documented by: Aspirin (Aspirin) 81 mg PO DAILY [facility] Stop: 05/18/19 09:01 Last Admin: 11/19/18 08:20 Dose: 81 mg Documented by: Atorvastatin Calcium (Lipitor) 80 mg PO DAILY [facility] Stop: 05/18/19 09:01 Last Admin: 11/19/18 08:20 Dose: 80 mg Documented by: Buspirone HCl (Buspar) 10 mg PO TID [facility] Stop: 05/18/19 21:01 Last Admin: 11/19/18 08:19 Dose: 10 mg Documented by: Clopidogrel Bisulfate (Plavix) 75 mg PO DAILY [facility] Stop: 05/21/19 09:01 Last Admin: 11/19/18 08:20 Dose: 75 mg Documented by: Dextrose/Water (Dextrose 50% (Syg)) 25 ml IVP AD PRN PRN Reason: Hypoglycemia Stop: 05/17/19 18:23 Docusate Sodium (Colace) 100 mg PO BID PRN; Protocol PRN Reason: Constipation Stop: 05/17/19 18:50 Last Admin: 11/17/18 20:21 Dose: 100 mg Documented by: Fenofibrate (Tricor) 54 mg PO DAILY [facility] Stop: 05/18/19 09:01 Last Admin: 11/19/18 08:21 Dose: 54 mg Documented by: Gabapentin (Neurontin) 600 mg PO TID [facility] Stop: 05/17/19 21:01 Last Admin: 11/19/18 08:19 Dose: 600 mg Documented by: Glucagon (Glucagen) 1 mg IM ONCE PRN PRN Reason: Hypoglycemia Stop: 05/17/19 18:23 Glucose (Gluctose) 15 gm PO ONCE PRN PRN Reason: Hypoglycemia Stop: 05/17/19 18:23 Glucose (Gluctose) 30 gm PO ONCE PRN PRN Reason: Hypoglycemia Stop: 05/17/19 18:23 Heparin Sodium (Porcine) (Heparin) 5,000 unit SQ Q8HCO [facility] Stop: 05/18/19 06:01 Last Admin: 11/19/18 05:14 Dose: 5,000 unit Documented by: Dextrose (Dextrose 5%) 1,000 mls @ 100 mls/hr IVC .Q10H PRN PRN Reason: HYPOGLYCEMIA Stop: 05/17/19 18:23 Insulin Human Lispro (Humalog) 0 units SQ HS [facility]; Protocol Stop: 05/17/19 21:01 Last Admin: 11/18/18 20:22 Dose: 2 units Documented by: Insulin Human Lispro (Humalog) 0 units SQ TIDAC [facility]; Protocol Stop: 05/18/19 07:31 Last Admin: 11/19/18 07:56 Dose: Not Given Documented by: Isosorbide Mononitrate (Imdur) 30 mg PO DAILY [facility] Stop: 05/19/19 14:16 Last Admin: 11/19/18 08:20 Dose: 30 mg Documented by: Lactulose (Lactulose) 10 gm PO TID [facility] Stop: 05/18/19 21:01 Last Admin: 11/19/18 08:19 Dose: 10 gm Documented by: Lisinopril (Zestril) 40 mg PO DAILY [facility] Stop: 05/18/19 09:01 Last Admin: 11/19/18 08:20 Dose: 40 mg Documented by: Loratadine (Claritin) 10 mg PO DAILY [facility]; Protocol Stop: 05/18/19 09:01 Last Admin: 11/19/18 08:20 Dose: 10 mg Documented by: Metoprolol Succinate (Toprol Xl) 12.5 mg PO DAILY [facility] Stop: 05/18/19 12:31 Last Admin: 11/19/18 08:20 Dose: 12.5 mg Documented by: Mometasone Furoate (Asmanex Hfa) 1 puff IH BIDR [facility] Stop: 05/18/19 22:01 Last Admin: 11/19/18 07:22 Dose: 1 puff Documented by: Naloxone HCl (Narcan) 0.4 mg IVP Q2MPRN PRN PRN Reason: SEE COMMENTS Stop: 05/17/19 18:45 Nitroglycerin (Nitroglycerin) 0.4 mg SL Q5MPRN PRN PRN Reason: Chest Pain Stop: 05/20/19 11:42 Omeprazole (Prilosec) 40 mg PO DAILY@0630 [facility]; Protocol Stop: 05/19/19 06:31 Last Admin: 11/19/18 05:14 Dose: 40 mg Documented by: Ondansetron HCl (Zofran) 4 mg IVP Q8HR PRN PRN Reason: Nausea And Vomiting Stop: 05/17/19 18:45 Last Admin: 11/18/18 15:47 Dose: 4 mg Documented by: Polyethylene Glycol (Miralax) 17 gm PO BID PRN PRN Reason: Constipation Stop: 05/18/19 19:56 Last Admin: 11/19/18 08:30 Dose: 17 gm Documented by: Sertraline HCl (Zoloft) 100 mg PO DAILY [facility] Stop: 05/19/19 09:01 Last Admin: 11/19/18 08:20 Dose: 100 mg Documented by: Trazodone HCl (Trazodone) 150 mg PO HS PRN PRN Reason: Insomnia - Imaging and Cardiology Cardiac cath: report reviewed Consult Discharge Plan - Plan Instructions: Metoprolol (By mouth), Omeprazole (By mouth), Isosorbide Mononitrate (By mouth), Clopidogrel (By mouth), Chest Pain (DC) Referrals: Christi Cisneros CNP [Primary Care Provider] - 11/25/18 10:00 am Lyle Bennett CNP [Advanced Practice Nurse] - (Office will call patient with follow up appointment ) Prescriptions: Isosorbide MONOnitrate (24 HR) [Imdur] 30 mg PO DAILY #30 tab.er.24h Clopidogrel [Plavix] 75 mg PO DAILY #30 tablet Omeprazole [PriLOSEC] 20 mg PO DAILY #30 capsule. Metoprolol XL (24 HR) Succ [Toprol Xl] 12.5 mg PO DAILY #30 tab.er.24h
== END 2018-11-19 11:17 | disposition home or self-care (01) ==
LOC: EMEROOARM 16:26 → 2NENU 16:26 → SUATTDRO 19:00 → 2NENU 21:10 → 2NNU 11-18 13:32
PROVIDERS: ADMIT Internal Medicine Nephrology; ATTEND Internal Medicine

== ENCOUNTER 2019-01-26 12:42 | Observation (INO) ==
[2019-01-26] MEDS ORDERED: Nitroglycerin 0.4 MG TAB.SUBL SL PRN ×2 (13:34→19:04)
--- NOTE | 2019-01-26 13:45 | Emergency Department Note ---
Disposition Clinical Impression: Chest pain Qualifiers: Chest pain type: chest pain on breathing Qualified Code(s): R07.1 - Chest pain on breathing Diabetes Qualifiers: Diabetes mellitus type: other specified (including [place]) Diabetes mellitus mcc insulin use: unspecified mcc insulin use status Diabetes mellitus complication status: with other specified complication Qualified Code(s): E13.69 - Other specified diabetes mellitus with other specified complication COPD (chronic obstructive pulmonary disease) Qualifiers: COPD type: unspecified COPD Qualified Code(s): J44.9 - Chronic obstructive pulmonary disease, unspecified Coronary artery disease Qualifiers: Coronary Disease-Associated Artery/Lesion type: unspecified vessel or lesion type [place] vs. transplanted heart: [place] heart Associated angina: with unstable angina Qualified Code(s): I25.110 - Atherosclerotic heart disease of [place] coronary artery with unstable angina pectoris Disposition: Admitted As Inpatient Time of Disposition: 15:15 Chest Pain HPI - General Chief Complaint: ED Chest Pain Stated Complaint: cp, susannah Time Seen by Provider: 01/26/19 12:43 Source: patient, EMS Mode of arrival: EMS Limitations: no limitations Vital Signs Reviewed: Yes Nursing Notes Reviewed: Yes - History of Present Illness HPI Narrative: 58M with PMHx of DM, COPD, HTN, HLD and CAD with stent placed approximately 2 months ago presents emergency department with a complaint of chest pain and difficulty breathing. Patient states that he has been having chest pain at rest for the past several days but taking nitroglycerin has decreased his chest pain to the point where it would go away. Approximately an hour prior to arrival patient developed chest pain and took a nitroglycerin which did not significantly help his chest pain. He called EMS and was given another nitroglycerin with a full strength aspirin which somewhat helped his chest pain but he currently still has significant chest pain. He states it feels as though there is a "fluttering" sensation in his chest and as though someone is sitting on his chest like he cannot catch his breath. He states during his cardiac catheter a few months ago he had several other "clogged vessels" and knows that he likely needs more cardiac stenting. Patient denies headache, fever, abdominal pain, nausea and vomiting. He did break out in a cold sweat last night during one of his chest pain episodes. Severity scale (1-10): 8 - Related Data Home Medications Medication Instructions Recorded Confirmed Albuterol Sulfate [Proventil 2 puff IH Q4H PRN 03/20/15 01/26/19 Inhaler] Aspirin 81 mg PO DAILY 03/20/15 01/26/19 Docusate Sodium [Colace] 100 mg PO BID PRN 03/20/15 01/26/19 Lactulose 10 gm PO TID 03/20/15 01/26/19 Nitroglycerin [Nitrostat] 0.4 mg SL Q5MIN PRN 03/20/15 01/26/19 metFORMIN [Glucophage] 500 mg PO BIDWM 08/03/17 01/26/19 Atorvastatin Calcium [Lipitor] 80 mg PO DAILY 11/15/18 01/26/19 Beclomethasone Dipropionate [QVAR 1 puff IH BID 11/15/18 01/26/19 80 mcg REDIHALER] Buspirone HCl [Buspar] 10 mg PO TID 11/15/18 01/26/19 Cyanocobalamin (Vitamin B-12) 1,000 mcg PO DAILY 11/15/18 01/26/19 [Vitamin B12] Fenofibrate Nanocrystallized 48 mg PO DAILY 11/15/18 01/26/19 [Tricor] Gabapentin 600 mg PO TID 11/15/18 01/26/19 Lisinopril [Zestril] 40 mg PO DAILY 11/15/18 01/26/19 Loratadine [Allergy Relief] 10 mg PO DAILY 11/15/18 01/26/19 Polyethylene Glycol 3350 17 g PO DAILY PRN 11/15/18 01/26/19 Sertraline [Zoloft] 100 mg PO DAILY 11/15/18 01/26/19 Trazodone HCl 150 mg PO HS PRN 11/15/18 01/26/19 amLODIPine [Norvasc] 5 mg PO DAILY 11/15/18 01/26/19 hydroCHLOROthiazide 25 mg PO DAILY 11/15/18 01/26/19 [Hydrochlorothiazide] Isosorbide MONOnitrate (24 HR) 60 mg PO DAILY 01/26/19 01/26/19 [Imdur] Previous Rx's Medication Instructions Recorded Clopidogrel [Plavix] 75 mg PO DAILY #30 tablet 11/19/18 Metoprolol XL (24 HR) Succ [Toprol 12.5 mg PO DAILY #30 tab.er.24h 11/19/18 Xl] Omeprazole [PriLOSEC] 20 mg PO DAILY #30 capsule. 11/19/18 Allergies Allergy/AdvReac Type Severity Reaction Status Date / Time naproxen Allergy See Verified 08/04/18 14:13 Comments tramadol Allergy See Verified 08/04/18 14:13 Comments All systems ED: reviewed and negative except as stated. Review of Systems: As Per HPI Constitutional: Reports: chills. Denies: fever, weakness Cardiovascular: Reports: chest pain, palpitations, dyspnea on exertion Respiratory: Reports: dyspnea. Denies: cough, wheezes Gastrointestinal: Denies: abdominal pain, nausea, vomiting Musculoskeletal: Denies: back pain, neck pain Integumentary: Denies: rash Neurological: Denies: headache Endocrine: Reports: fatigue Chest Pain PMH - Past Medical History Medical history: Reports: asthma, COPD, diabetes, GERD, hyperlipidemia, hypertension, other Surgical history: Reports: appendectomy, cholecystectomy, orthopedic, other, other Psychiatric history: Reports: no psych history - Social History Smoking Status: Current every day smoker Alcohol use: Reports: occasionally Drug use: Reports: none Physical Exam - General Limitations: no limitations General appearance: alert, in no apparent distress - Head Head exam: atraumatic, normocephalic - Eye Eye exam: Present: normal appearance, EOMI - Chest Chest inspection: Present: normal inspection. Absent: tenderness, rash - Respiratory Respiratory exam: Present: normal lung sounds bilaterally. Absent: wheezes - Cardiovascular Cardiovascular exam: Present: regular rate, normal rhythm - Abdominal Exam Abdominal exam: Present: soft, tenderness. Absent: distention, guarding, rebound, rigidity, Corbin's sign, tenderness at McBurney's Point Abdominal tenderness: Present: LUQ, moderate - Extremities Exam Extremities exam: Present: normal inspection. Absent: tenderness, pedal edema, calf tenderness - Neurological Exam Neurological exam: Present: alert, oriented X3 - Psychiatric Psychiatric exam: Present: normal affect, normal mood - Skin Skin exam: Present: warm, dry, intact Course Vital Signs Temperature 98.2 F 01/26/19 12:47 Pulse Rate 88 01/26/19 12:47 Respiratory Rate 18 01/26/19 12:47 Blood Pressure 126/90 01/26/19 12:47 O2 Sat by Pulse Oximetry 94 01/26/19 12:47 Temperature 98.2 F 01/26/19 12:47 Pulse Rate 88 01/26/19 12:47 Respiratory Rate 18 01/26/19 12:47 Blood Pressure 126/90 01/26/19 12:47 O2 Sat by Pulse Oximetry 94 01/26/19 12:47 Oxygen Delivery Oxygen Delivery Room Air Chest Pain - MDM Narrative Medical decision making narrative: Patient with recent cardiac catheterization in October of this year presents emergency department with chest pain and difficulty breathing which started approximately an hour prior to arrival. On review of the patient's recent cardiac catheter he did have 1 stent placed, with the other major vessels having between 30-60% occlusion. We will obtain a cardiac workup with EKG, chest x- ray, basic labs and troponin and treat the patient's pain with nitroglycerin. As the patient is artery received a full-strength aspirin in route we will not administer a second. 1500 - patient's lab work, EKG and chest x-ray do not demonstrate any acute cardiopulmonary abnormality. His chest pain did significantly improve with the administration of nitroglycerin glycerin. As he has severe cardiac disease we will admit this patient for further cardiac workup and to trend troponins. Hospitalist has been paged at this time. 1515 - patient has been accepted by Dr. Willingham for further chest pain workup and medical management of the patient's chest pain. - Medical Records Medical records reviewed: Yes I reviewed the patient's medical records. - Lab Data Lab results reviewed: Yes I reviewed the patient's lab results. Result diagrams: 01/27/19 01:10 01/27/19 01:10 Lab Results 01/26/19 01/26/19 01/26/19 Range/Units 12:58 12:58 12:58 WBC 4.2 L (4.3-11.1) K/mcL RBC 4.62 (4.19-5.50) M/mcL Hgb 14.9 (12.9-16.9) g/dL Hct 44.1 (37.5-50.1) % MCV 95.5 (83.0-100.0) fL MCH 32.3 (28.0-33.3) pg MCHC 33.8 (31.6-35.5) g/dL RDW 14.1 (11.5-14.5) % Plt Count 186 (140-400) K/mcL MPV 10.2 (9.4-12.4) fL Immature Gran % 0.2 (0-4) % Seg Neutrophils % 72.5 % Lymphocytes % 20.3 % Monocytes % 6.1 % Eosinophils % 0.7 % Basophils % 0.2 % Neutrophils # 3.1 (1.6-8.9) K/mcL Lymphocytes # 0.9 (0.6-4.6) K/mcL Monocytes # 0.3 (0.0-1.3) K/mcL Eosinophils # 0.0 (0.0-0.6) K/mcL Basophils # 0.0 (0.0-0.2) K/mcL PT 11.2 (9.4-12.1) Seconds INR 1.0 APTT 34.2 (26.0-36.0) Seconds Sodium 140 (136-145) mEq/L Potassium 4.0 (3.5-5.1) mEq/L Chloride 104 (98-107) mEq/L Carbon Dioxide 25 (23-29) mEq/L BUN 17 (8-23) mg/dL Creatinine 1.08 (0.70-1.30) mg/dL Est GFR ( Amer) > 60 (> 60) Est GFR (Non-Af Amer) > 60 (> 60) BUN/Creatinine Ratio 16 (6-26) Glucose 174 H (70-105) mg/dL Calculated Osmolality 296 (280-300) Calcium 9.6 (8.6-10.3) mg/dL Troponin I < 0.03 (< 0.04) ng/mL - Radiology Data Radiology results reviewed: Yes I reviewed the patient's radiology results. - EKG Data EKG attestation: Yes I reviewed and interpreted this EKG. EKG results narrative: EKG obtained at 1252 on 01/26/19 Heart rate 68 bpm, NH interval 147, QRS duration 92, QT 372, QTC 396 Sinus rhythm without any ST segment elevations. Nonspecific T-wave abnormalities on the lateral and inferior leads. No other visible abnormalities. T waves are more pronounced when compared to previous EKG dated 11/15/2017. Heart Score - Score History: Moderately Suspicious EKG: Non Specific repolarisation Disturbance Age: 45-65 Risk Factors: Equal/Greater than 3 risk factor or history of atherosclerotic disease Troponin: Less than normal limit HEART Score Total: 5 Attestation Statement - Attestation Attestation: I, Gildardo Morgan, examined this patient and my medical decision-making was reviewed with the ROUTER OPERATOR/PA/Advanced Practice Nurse/Resident Physician. I agree with the documented findings, disposition and treatment plan as described except to the extent set forth below. 58-year-old male presents emergency Department with concerns of chest pain and difficulty breathing. Patient reports symptoms have been present intermittently over the past few days. He did state the symptoms improved with nitroglycerin. Patient has a history of recent cardiac stenting he states this pain feels similar. Initial troponin was negative. EKG did not show evidence of STEMI.I reviewed the EKG with the resident and agree with the interpretation. Vital signs stable in emergency department. Patient will be admitted to the hospitalist for further care and evaluation.
[2019-01-26 13:56] LABS: Basophils % 0.2 %; Eosinophils % 0.7 %; Hematocrit 44.1 % (37.5-50.1); Hemoglobin 14.9 g/dL (12.9-16.9); Immature Granulocytes % 0.2 % (0-4); Lymphocytes # 0.9 K/mcL (0.6-4.6); Lymphocytes % 20.3 %; Mean Corpuscular HGB Conc 33.8 g/dL (31.6-35.5); Mean Corpuscular Hemoglobin 32.3 pg (28.0-33.3); Mean Corpuscular Volume 95.5 fL (83.0-100.0); Mean Platelet Volume 10.2 fL (9.4-12.4); Monocytes # 0.3 K/mcL (0.0-1.3); Monocytes % 6.1 %; Neutrophils # 3.1 K/mcL (1.6-8.9); Platelet Count 186 K/mcL (140-400); Red Blood Count 4.62 M/mcL (4.19-5.50); Red Cell Distribution Width 14.1 % (11.5-14.5); Segmented Neutrophils % 72.5 %; White Blood Count 4.2 K/mcL (4.3-11.1)
[2019-01-26 14:08] LABS: Prothrombin Time 11.2 Seconds (9.4-12.1)
[2019-01-26 14:10] LABS: Activated Partial Thrombo Time 34.2 Seconds (26.0-36.0)
[2019-01-26 14:30] LABS: BUN/Creatinine Ratio 16 (6-26); Blood Urea Nitrogen 17 mg/dL (8-23); Calcium 9.6 mg/dL (8.6-10.3); Carbon Dioxide 25 mEq/L (23-29); Chloride 104 mEq/L (98-107); Glucose 174 mg/dL (70-105); Osmolality,Calculated 296 (280-300); Sodium 140 mEq/L (136-145); Troponin I < 0.03 ng/mL (< 0.04); eGFR For African Americans > 60 (> 60); eGFR For Non-African Americans > 60 (> 60)
[2019-01-26] MEDS ORDERED: Nitroglycerin 0.2 MG PATCH.TD24 TD STA (14:59)
--- NOTE | 2019-01-26 15:59 | Internal Med History&Physical ---
Date of Encounter: 01/26/19 Time of Encounter: 16:00 Internal Medicine - H&P: HPI Chief complaint: Chest pain History of present illness: Mr. Liu is a 58 year old male with PMH of with a complaint of Pressure-like chest pain associated with shortness of breath that was initially not improved with nitroglycerin, however later a second dose was given and patient felt significant improvement. The patient denies palpitation, orthopnea, paroxysmal nocturnal dyspnea or progressive worsening of lower extremity edema. The patient has history of coronary artery disease status post stent placement 2 months, nephrology the patient was evaluated by the ER staff and troponin first set was was within normal limit, EKG was assignificant ST T wave changes. I discussed the case was diabetic cardiology construction producer who recommended to proceed with admitting the patient for observation and kindly agreed to see the patient in consult in a.m. for further evaluation and management. Past Med Surg Social Fam HX - Past Medical History Medical history: asthma, COPD, diabetes, GERD, hyperlipidemia, hypertension, other Additional medical history: hiatal hernia, history of barretts esophagus Psychiatric history: no psych history - Past Surgical History Surgical History: appendectomy, cholecystectomy, orthopedic, other, other Additional surgical history: heart cath - Social History Smoking Status: Current every day smoker Smokeless Tobacco Status: No Alcohol use: occasionally Drug use: none - Family History Father Family Member Ethnicity: Non- Living Status: Hx Family Cardiac Disorders: Yes Hx Family Respiratory Disorders: No Hx Family Cancer: No Hx Family GI Disorders: No Hx Family Endocrine Disorder: No Hx Family Neuromuscular Disorders: No Hx Family Neurologic Disorders: No Hx Family HEENT Disorders: No Hx Family Autoimmune Disorders: No Mother Adopted: No Family Member Ethnicity: Non- Living Status: Still Living Hx Family Cardiac Disorders: Yes (Triple bypass, pacer, 03/12 uncles have of heart attacks,) Hx Family Respiratory Disorders: No Hx Family Cancer: No Hx Family GI Disorders: No Hx Family Endocrine Disorder: (DM) Hx Family Neuromuscular Disorders: No Hx Family Neurologic Disorders: No Hx Family HEENT Disorders: No Hx Family Autoimmune Disorders: No Sister Family Member Ethnicity: Non- Living Status: Still Living Hx Family Cardiac Disorders: Yes (HTN, HLD) Hx Family Endocrine Disorder: Yes (DM) Internal Medicine - H&P: Meds Albuterol Sulfate [Proventil Inhaler] 2 puff IH Q4H PRN 03/20/15 [History] Aspirin 81 mg PO DAILY 03/20/15 [History] Docusate Sodium [Colace] 100 mg PO BID PRN 03/20/15 [History] Lactulose 10 gm PO TID 03/20/15 [History] Nitroglycerin [Nitrostat] 0.4 mg SL Q5MIN PRN 03/20/15 [History] metFORMIN [Glucophage] 500 mg PO BIDWM 08/03/17 [History] Atorvastatin Calcium [Lipitor] 80 mg PO DAILY 11/15/18 [History] Beclomethasone Dipropionate [QVAR 80 mcg REDIHALER] 1 puff IH BID 11/15/18 [History] Buspirone HCl [Buspar] 10 mg PO TID 11/15/18 [History] Cyanocobalamin (Vitamin B-12) [Vitamin B12] 1,000 mcg PO DAILY 11/15/18 [History] Fenofibrate Nanocrystallized [Tricor] 48 mg PO DAILY 11/15/18 [History] Gabapentin 600 mg PO TID 11/15/18 [History] Lisinopril [Zestril] 40 mg PO DAILY 11/15/18 [History] Loratadine [Allergy Relief] 10 mg PO DAILY 11/15/18 [History] Polyethylene Glycol 3350 17 g PO DAILY PRN 11/15/18 [History] Sertraline [Zoloft] 100 mg PO DAILY 11/15/18 [History] Trazodone HCl 150 mg PO HS PRN 11/15/18 [History] amLODIPine [Norvasc] 5 mg PO DAILY 11/15/18 [History] hydroCHLOROthiazide [Hydrochlorothiazide] 25 mg PO DAILY 11/15/18 [History] Clopidogrel [Plavix] 75 mg PO DAILY #30 tablet 11/19/18 [Rx] Metoprolol XL (24 HR) Succ [Toprol Xl] 12.5 mg PO DAILY #30 tab.er.24h 11/19/18 [Rx] Omeprazole [PriLOSEC] 20 mg PO DAILY #30 malgor[place]ata. 11/19/18 [Rx] Isosorbide MONOnitrate (24 HR) [Imdur] 90 mg PO DAILY 30 Days #45 tab.er.24h 01/28/19 [Rx] Allergy/AdvReac Type Severity Reaction Status Date / Time naproxen Allergy See Verified 08/04/18 14:13 Comments tramadol Allergy See Verified 08/04/18 14:13 Comments All Systems PM: A 10-system review of systems was performed and is negative for pertinent findings except as documented above in the HPI. - Constitutional Vitals: Temp Pulse Resp BP Pulse Ox 98.2 F 57 18 111/76 95 01/26/19 12:47 01/26/19 15:32 01/26/19 15:32 01/26/19 15:32 01/26/19 15:32 General appearance: Present: A&O X 3 Exam: ` - Head Head exam: Present: atraumatic, normocephalic - Neck Neck exam general surgery: Present: supple, trachea midline. Absent: lymphadenopathy - Respiratory Respiratory exam: Present: CTAB. Absent: accessory muscle use, rales, rhonchi, wheezes - Cardiovascular Cardiovascular exam: Present: RRR, +S1, +S2. Absent: diastolic murmur, gallop, rubs, systolic murmur - GI/Abdominal GI/Abdominal exam: Present: normal bowel sounds, soft, no peritoneal signs. Absent: distended, tenderness - Extremities Exam Extremities exam: Present: warm, radial pulses palpable and symmetrical. Absent: calf tenderness, cyanotic, pedal edema Internal Med - H&P Results - Labs CBC & Chem 7: 01/27/19 01:10 01/27/19 01:10 Labs: Short CBC 01/26/19 Range/Units 12:58 WBC 4.2 L (4.3-11.1) K/mcL Hgb 14.9 (12.9-16.9) g/dL Hct 44.1 (37.5-50.1) % Plt Count 186 (140-400) K/mcL Neutrophils # 3.1 (1.6-8.9) K/mcL BMP 01/26/19 12:58 Sodium 140 Potassium 4.0 Chloride 104 Carbon Dioxide 25 BUN 17 Creatinine 1.08 Glucose 174 H Calcium 9.6 Cardiac Enzymes 01/26/19 Range/Units 12:58 Troponin I < 0.03 (< 0.04) ng/mL - Impressions ITS Impressions Chest X-Ray 01/26/19 12:51 IMPRESSION: Hypoaeration with basilar atelectasis. D/ / 01/26/2019 13:18:02 Gamaliel Palencia MD / Lexii Farr Interpreting Provider: Gamaliel Palencia MD - Assessment and Plan (1) Chest pain Status: Acute Assessment and plan: The patein was admitted 2 months ago with CP, TTE showed normal WMA, and nuclear stress was w/o ischemia. However, due to persistence of pain, LHC which revealed 85% stenosis of the obtuse marginal branch of L circumflex artery which was stented. Cath showed 30-50% stenosis throughout other coronaries. He was placed on DAPT, imdur, and toprol. The patient today is presented with Persistent CP, the case was discussed with cardiology who agreed to see the patient in a.m. for further evaluation and management, we'll continue to monitor the patient, and cardiac enzymes and repeat EKG in a.m. Qualifiers: Chest pain type: other chest pain Qualified Code(s): R07.89 - Other chest pain; R07.8 - Other chest pain (2) CAD (coronary artery disease) Status: Chronic Assessment and plan: we will continue current management, cardiology was consulted for further evaluation and possible adjustment of the current regimen. Qualifiers: Coronary Disease-Associated Artery/Lesion type: unspecified vessel or lesion type [place] vs. transplanted heart: [place] heart Associated angina: with unstable angina Qualified Code(s): I25.110 - Atherosclerotic heart disease of [place] coronary artery with unstable angina pectoris (3) COPD (chronic obstructive pulmonary disease) Status: Chronic Assessment and plan: we'll continue her inhaler. there is no evidence of exacerbation Qualifiers: COPD type: unspecified COPD Qualified Code(s): J44.9 - Chronic obstructive pulmonary disease, unspecified (4) Diabetes Status: Chronic Assessment and plan: we will start the patient and insulin sliding scale with moderate coverage Qualifiers: Diabetes mellitus type: other specified (including [place]) Diabetes mellitus assisted insulin use: unspecified assisted insulin use status Diabetes mellitus complication status: with other specified complication Qualified Code(s): E13.69 - Other specified diabetes mellitus with other specified complication (5) Hyperlipemia Status: Chronic Assessment and plan: we'll obtain fasting lipid profile in a.m. Qualifiers: Hyperlipidemia type: unspecified Qualified Code(s): E78.5 - Hyperlipidemia, unspecified (6) Major depressive disorder, recurrent, moderate Status: Acute (7) Obesity Status: Acute Qualifiers: Qualified Code(s): E66.9 - Obesity, unspecified (8) Anxiety and depression Status: Chronic (9) GERD (gastroesophageal reflux disease) Status: Chronic Qualifiers: Esophagitis presence: with esophagitis Qualified Code(s): K21.0 - Gastro- esophageal reflux disease with esophagitis (10) HTN (hypertension) Status: Chronic Qualifiers: Hypertension type: essential hypertension Qualified Code(s): I10 - Essential (primary) hypertension - Time Spent With Patient Total time spent is greater than 50% in coordination of care (as documented) at patient's floor/unit and/or counseling patient:
[2019-01-26] MEDS ORDERED: Ondansetron 4 MG/2 ML VIAL IVP PRN (18:32)
[2019-01-26] MEDS ORDERED: Acetaminophen 325 MG TABLET PO PRN (18:32)
[2019-01-26] MEDS ORDERED: *HR* HYDROcodone/Acet 5/325 mg TABLET PO PRN (18:32)
[2019-01-26] MEDS ORDERED: Naloxone 0.4 MG/ML INJ IVP PRN (18:32)
[2019-01-26] MEDS ORDERED: traZODone 50 MG TABLET PO PRN (19:04)
[2019-01-26] MEDS ORDERED: D5% in Water 1,000 ML IVC PRN (19:06)
[2019-01-26] MEDS ORDERED: *HR* Dextrose 50 % in Water (Syg) 50 ML SYRINGE IVP PRN (19:06)
[2019-01-26] MEDS ORDERED: Dextrose Gel 15 GM/37.5 ML TUBE PO PRN ×2 (19:06)
[2019-01-26 20:08] LABS: Estimated Average Glucose 146 mg/dl
[2019-01-26] MEDS: Gabapentin 300 MG CAPSULE PO SCH (20:39)
[2019-01-26] MEDS ORDERED: Insulin LISPRO 300 UNITS/3 ML VIAL SQ SCH (21:00)
--- NOTE | 2019-01-26 23:46 | Electrocardiograph Report ---
[facility] Test Date: 2019-01-26 Pat Name: Austin Liu Department: EXAM8 Room: 3B23 Gender: M Signal Person: : 1960 Requested By: Gildardo Morgan Order Number: [id number] Reading MD: Chema Kauffman Measurements Intervals [place] Rate: 68 P: 53 IL: 147 QRS: 58 QRSD: 92 T: 58 QT: 372 QTc: 396 Interpretive Statements Sinus rhythm Abnormal R-wave progression, early transition Electronically Signed On 01-26-2019 23:45:00 EDT by Chema Kauffman
[2019-01-27 01:30] LABS: Basophils % 0.4 %; Eosinophils # 0.1 K/mcL (0.0-0.6); Hematocrit 44.1 % (37.5-50.1); Hemoglobin 14.8 g/dL (12.9-16.9); Immature Granulocytes % 0.2 % (0-4); Lymphocytes # 1.5 K/mcL (0.6-4.6); Lymphocytes % 28.5 %; Mean Corpuscular HGB Conc 33.6 g/dL (31.6-35.5); Mean Corpuscular Hemoglobin 32.2 pg (28.0-33.3); Mean Corpuscular Volume 95.9 fL (83.0-100.0); Mean Platelet Volume 9.8 fL (9.4-12.4); Monocytes # 0.4 K/mcL (0.0-1.3); Monocytes % 7.6 %; Neutrophils # 3.2 K/mcL (1.6-8.9); Platelet Count 189 K/mcL (140-400); Red Cell Distribution Width 14.1 % (11.5-14.5); Segmented Neutrophils % 62.3 %; White Blood Count 5.1 K/mcL (4.3-11.1)
[2019-01-27] MEDS ORDERED: Morphine Sulfate 2 MG/ML SYRINGE IVP ONE (01:46)
[2019-01-27 01:53] LABS: Alanine Aminotransferase 17 Units/L (7-52); Albumin 4.3 g/dL (3.5-5.7); Albumin/Globulin Ratio 1.5 (1.1-2.2); Alkaline Phosphatase 23 Units/L (34-104); Aspartate Amino Transferase 16 Units/L (13-39); BUN/Creatinine Ratio 11 (6-26); Bilirubin,Total 0.3 mg/dL (0.3-1.0); Blood Urea Nitrogen 15 mg/dL (8-23); Calcium 9.6 mg/dL (8.6-10.3); Carbon Dioxide 26 mEq/L (23-29); Chloride 101 mEq/L (98-107); Chol/HDL Ratio 5.1 (0-4.9); Cholesterol 159 mg/dL (< 200); Globulin 2.8 g/dL (2.4-3.5); Glucose 121 mg/dL (70-105); HDL Cholesterol 31 mg/dL (40-59); LDL Cholesterol,Calculated 59 mg/dL (0-99); Magnesium 1.9 mg/dL (1.6-2.6); Osmolality,Calculated 282 (280-300); Phosphorous 4.4 mg/dL (2.7-4.5); Potassium 3.7 mEq/L (3.5-5.1); Sodium 135 mEq/L (136-145); Total Protein 7.1 g/dL (6.4-8.9); Triglycerides 344 mg/dL (< 150); eGFR For African Americans > 60 (> 60); eGFR For Non-African Americans 54 (> 60)
[2019-01-27 01:57] LABS: Prothrombin Time 11.6 Seconds (9.4-12.1)
[2019-01-27 01:59] LABS: Activated Partial Thrombo Time 33.1 Seconds (26.0-36.0)
--- NOTE | 2019-01-27 06:10 | Event Note ---
Date of Encounter: 01/27/19 Time of Encounter: 01:12 Alerted by patient's nurse NAUN Salcedo that patient had just suffered an unwitnessed fall. Patient reported to nurse that he was not hurting from the fall but was having chest pain. Patient is nothing by mouth for stress test. Nurse instructed not to give nitroglycerin. BP at the time 119/74. Patient reported he did not hit his head but landed on his buttocks. Stat x-ray of the lumbar spine ordered which showed no abnormalities. Nurse instructed to file an incident report and educate the patient that he was now falls precautions and up with assist only. Nurse instructed to continue monitoring patient very closely and alert me immediately of any adverse changes.
[2019-01-27] MEDS ORDERED: Perflutren Lipid Microsphere 1.3 ML in 0.9 % Sodium Chloride 8.7 ML IVP ONE (07:16)
[2019-01-27] MEDS: Insulin LISPRO 300 UNITS/3 ML VIAL SQ SCH ×3 (08:34→17:16)
[2019-01-27] MEDS ORDERED: Isosorbide MONOnitrate (24 HR) 60 MG TAB.ER.24H PO SCH ×2 (09:00→14:00)
[2019-01-27] MEDS: Lisinopril 20 MG TABLET PO SCH (10:44)
[2019-01-27] MEDS: Fenofibrate 54 MG TABLET PO SCH (10:44)
[2019-01-27] MEDS: Gabapentin 300 MG CAPSULE PO SCH ×3 (10:44→21:25)
[2019-01-27] MEDS: Loratadine 10 MG TABLET PO SCH (10:45)
[2019-01-27] MEDS: amLODIPine 5 MG TABLET PO SCH (10:45)
[2019-01-27] MEDS: Aspirin 81 MG TAB.CHEW PO SCH (10:45)
[2019-01-27] MEDS: Cyanocobalamin (B-12) 1,000 MCG TABLET PO SCH (10:45)
--- NOTE | 2019-01-27 12:59 | Cardiology Consult Note ---
Date of Encounter: 01/27/19 Time of Encounter: 12:30 Assessment and Plan (1) Chest pain Current Visit: Yes Status: Acute CP free at time of eval. Troponins negative x4. EKG NSR without ischemic changes. 12hr tele reviewed: average HR 55. Continue to monitor. Patient states presented d/t fluttering butterfly-like feeling in his chest associated with 8/10 chest pressure, feeling cold/clammy and sweating. Had Nitro x2 and ASA in route with a little relief. Overall, poor historian. Cannot report whether symptoms are the same as when he presented in October. Is unsure of what medications he is taking or the dosage but denies missing any doses of ASA or Plavix. LHC 11/18: successful Drug-Eluting Stent placement in the OM, moderate disease remaining Echo today: LVEF 60-65%. Normal LV chamber size, wall thickness and function., normal RV structure and function, no significant valvular dysfunction. Will increase Imdur to 90 QD. Qualifiers: Chest pain type: other chest pain Qualified Code(s): R07.89 - Other chest pain; R07.8 - Other chest pain (2) CAD (coronary artery disease) Current Visit: Yes Status: Chronic LHC in October with PCI to OM, otherwise moderate disease. Continue ASA, Plavix, Statin & BB. See plan above. Qualifiers: Coronary Disease-Associated Artery/Lesion type: unspecified vessel or lesion type [place] vs. transplanted heart: [place] heart Associated angina: with unstable angina Qualified Code(s): I25.110 - Atherosclerotic heart disease of [place] coronary artery with unstable angina pectoris Discussion w patient/family: The assessment and plan as outlined above was discussed with the patient and/or family members who expressed understanding and agreement. All questions were answered. Thank you for involving us in the care of your patient. Please call with any questions. I will discuss the above assessment and plan with Dr. Cancino and make changes as necessary. History of Present Illness Consult date: 01/27/19 Consult reason: CP, SOB History of present illness: Mr. Liu is a 58 year old male with PMH of CAD s/p PCI in October with a complaint of pressure-like chest pain associated with SOB that was initially n ot improved with nitroglycerin, however later a second dose was given and patient felt significant improvement. The patient denies palpitation, orthopnea, paroxysmal nocturnal dyspnea or progressive worsening of lower extremity edema. Reports some dizziness and falls but believes these were all prior to his stent in October. Past Med Surg Social Fam HX - Past Medical History Medical history: asthma, COPD, diabetes, GERD, hyperlipidemia, hypertension, other Additional medical history: hiatal hernia, history of barretts esophagus Psychiatric history: no psych history - Past Surgical History Surgical History: appendectomy, cholecystectomy, orthopedic, other, other Additional surgical history: heart cath, 5 stents - Social History Smoking Status: Current every day smoker Packs per day: 06/05 Smokeless Tobacco Status: No Alcohol use: occasionally Drug use: none - Family History Father Family Member Ethnicity: Non- Living Status: Hx Family Cardiac Disorders: Yes Hx Family Respiratory Disorders: No Hx Family Cancer: No Hx Family GI Disorders: No Hx Family Endocrine Disorder: No Hx Family Neuromuscular Disorders: No Hx Family Neurologic Disorders: No Hx Family HEENT Disorders: No Hx Family Autoimmune Disorders: No Mother Adopted: No Family Member Ethnicity: Non- Living Status: Still Living Hx Family Cardiac Disorders: Yes (Triple bypass, pacer, 03/12 uncles have of heart attacks,) Hx Family Respiratory Disorders: No Hx Family Cancer: No Hx Family GI Disorders: No Hx Family Endocrine Disorder: (DM) Hx Family Neuromuscular Disorders: No Hx Family Neurologic Disorders: No Hx Family HEENT Disorders: No Hx Family Autoimmune Disorders: No Sister Family Member Ethnicity: Non- Living Status: Still Living Hx Family Cardiac Disorders: Yes (HTN, HLD) Hx Family Endocrine Disorder: Yes (DM) Medications and Allergies Albuterol Sulfate [Proventil Inhaler] 2 puff IH Q4H PRN 03/20/15 [History] Aspirin 81 mg PO DAILY 03/20/15 [History] Docusate Sodium [Colace] 100 mg PO BID PRN 03/20/15 [History] Lactulose 10 gm PO TID 03/20/15 [History] Nitroglycerin [Nitrostat] 0.4 mg SL Q5MIN PRN 03/20/15 [History] metFORMIN [Glucophage] 500 mg PO BIDWM 08/03/17 [History] Atorvastatin Calcium [Lipitor] 80 mg PO DAILY 11/15/18 [History] Beclomethasone Dipropionate [QVAR 80 mcg REDIHALER] 1 puff IH BID 11/15/18 [History] Buspirone HCl [Buspar] 10 mg PO TID 11/15/18 [History] Cyanocobalamin (Vitamin B-12) [Vitamin B12] 1,000 mcg PO DAILY 11/15/18 [History] Fenofibrate Nanocrystallized [Tricor] 48 mg PO DAILY 11/15/18 [History] Gabapentin 600 mg PO TID 11/15/18 [History] Lisinopril [Zestril] 40 mg PO DAILY 11/15/18 [History] Loratadine [Allergy Relief] 10 mg PO DAILY 11/15/18 [History] Polyethylene Glycol 3350 17 g PO DAILY PRN 11/15/18 [History] Sertraline [Zoloft] 100 mg PO DAILY 11/15/18 [History] Trazodone HCl 150 mg PO HS PRN 11/15/18 [History] amLODIPine [Norvasc] 5 mg PO DAILY 11/15/18 [History] hydroCHLOROthiazide [Hydrochlorothiazide] 25 mg PO DAILY 11/15/18 [History] Clopidogrel [Plavix] 75 mg PO DAILY #30 tablet 11/19/18 [Rx] Metoprolol XL (24 HR) Succ [Toprol Xl] 12.5 mg PO DAILY #30 tab.er.24h 11/19/18 [Rx] Omeprazole [PriLOSEC] 20 mg PO DAILY #30 capsule.dr 11/19/18 [Rx] Isosorbide MONOnitrate (24 HR) [Imdur] 60 mg PO DAILY 01/26/19 [History] Allergy/AdvReac Type Severity Reaction Status Date / Time naproxen Allergy See Verified 08/04/18 14:13 Comments tramadol Allergy See Verified 08/04/18 14:13 Comments All Systems Review: The remainder of the systems were reviewed and are negative - Cardiovascular Cardiovascular: as per HPI Physical Examination Vital Signs, Last 4 Hours Temp Pulse Resp BP Pulse Ox 01/27/19 10:42 97.5 F L 53 16 148/80 97 01/27/19 10:22 18 96 General: Conversant, No Apparent Distress HEENT: Atraumatic, Normocephaly, Mucus Membranes Moist Cardiac: Reg Rate and Rhythm, Normal S1 and S2, No Murmur Lungs: Normal Breath Sounds, No Wheeze, Rales, Rhonchi Neuro: Alert and responsive, No focal deficits noted Extremities: No Clubbing, No Cyanosis, No Edema, Normal Pulses Results 01/27/19 01:10 01/27/19 01:10 Lab Results 01/26/19 01/26/19 01/26/19 12:58 12:58 12:58 WBC 4.2 L Hgb 14.9 Hct 44.1 Plt Count 186 INR 1.0 APTT 34.2 Sodium 140 Potassium 4.0 Chloride 104 Carbon Dioxide 25 BUN 17 Creatinine 1.08 Glucose 174 H Calcium 9.6 Magnesium Total Bilirubin AST ALT Alkaline Phosphatase Troponin I < 0.03 B-Natriuretic Peptide 01/26/19 01/27/19 01/27/19 18:47 01:10 01:10 WBC 5.1 Hgb 14.8 Hct 44.1 Plt Count 189 INR APTT Sodium Potassium Chloride Carbon Dioxide BUN Creatinine Glucose Calcium Magnesium Total Bilirubin AST ALT Alkaline Phosphatase Troponin I < 0.03 < 0.03 B-Natriuretic Peptide 01/27/19 01/27/19 01/27/19 01:10 01:10 01:10 WBC Hgb Hct Plt Count INR 1.0 APTT 33.1 Sodium 135 L Potassium 3.7 Chloride 101 Carbon Dioxide 26 BUN 15 Creatinine 1.34 H Glucose 121 H Calcium 9.6 Magnesium 1.9 Total Bilirubin 0.3 AST 16 ALT 17 Alkaline Phosphatase 23 L Troponin I B-Natriuretic Peptide 24 01/27/19 08:07 WBC Hgb Hct Plt Count INR APTT Sodium Potassium Chloride Carbon Dioxide BUN Creatinine Glucose Calcium Magnesium Total Bilirubin AST ALT Alkaline Phosphatase Troponin I < 0.03 B-Natriuretic Peptide - Imaging and Cardiology Stress Test: report reviewed Echo: report reviewed Cardiac cath: report reviewed Other Results: 12hr tele reviewed: average HR 55, sinus, no events noted - EKG Interpretation EKG results cardiology: personally reviewed, no diagnostic ischemia (Early repolarization. Comapred to EKG from October.) Consult Discharge Plan - Plan Referrals: Christi Cisneros, PSYCHOLOGY DEPARTMENT CHAIR [Primary Care Provider] - (Appointment has been requested.)
[2019-01-27] MEDS: Metoprolol XL (24 HR) Succ 25 MG TAB.ER.24H PO SCH (13:09)
--- NOTE | 2019-01-27 13:10 | Electrocardiograph Report ---
[address] [place], [place] [address] Test Date: 2019-01-27 Pat Name: Austin Liu Department: 113 Room: 3B23 Gender: M Paper Stacker: : [id number] Requested By: Gerard Lowe Order Number: [id number] Reading MD: Thomas Deutsch Measurements Intervals [place] Rate: 51 P: 37 MA: 158 QRS: 30 QRSD: 98 T: 34 QT: 404 QTc: 382 Interpretive Statements Precordial leads misplaced, please repeat ECG Sinus bradycardia Electronically Signed On 01-27-2019 13:08:50 EDT by Thomas Deutsch
--- NOTE | 2019-01-27 14:41 | Internal Med Progress Note ---
Hospitalist Progress Note - Encounter Date of Encounter: 01/27/19 Time of Encounter: 09:00 - Subjective Interval History: Mr. Liu is a 58 year old male with PMH of COPD, diabetes, GERD, hyperlipidemia, HTN and recent CAD s/p PCI on 11/18 pt presented to ER with a complaint of Pressure-like chest pain associated with shortness of breath that was initially not improved with nitroglycerin, however later a second dose was given and patient felt significant improvement. 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 His serial troponin came back as negative. He denied any active CP now. - Exam Vitals: Temp Pulse Resp BP Pulse Ox 97.5 F L 53 16 148/80 97 01/27/19 10:42 01/27/19 10:42 01/27/19 10:42 01/27/19 10:42 01/27/19 10:42 Exam: Gen: Alert, awake, Oriented to time,place and person Chest: Diminished breath sounds B/L, No wheezing, No crackles, No rales Heart: S1S2+ RRR No murmurs Abd: Soft, NT, BS +, No organomegaly Ext: No edema, pulses are palpable, No calf tenderness Neuro : No acute focal neuro deficits noticed Skin: No rash. - Assessment and Plan (1) Chest pain Current Visit: Yes Status: Acute Assessment and Plan: Cont on tele his serial trop x 3 were negative he recently had LHC with s/p PCI cont ASA, Plavix, Metoprolol, Statin and Lisinopril Inc Imdur to 90 mg Card is on board scheduled for Nuclear stress test in AM (2) COPD (chronic obstructive pulmonary disease) Current Visit: Yes Status: Chronic Assessment and Plan: Not in exacerbation Continue home inhaler regimen (3) Hyperlipemia Current Visit: No Status: Acute Assessment and Plan: Continue home medication Lipitor and trycor (4) GERD (gastroesophageal reflux disease) Current Visit: No Status: Chronic Assessment and Plan: on PPI (5) Diabetes Current Visit: Yes Status: Chronic Assessment and Plan: on ADA diet HbA1C 6.7 on ISS -- changed to medium (6) HTN (hypertension) Current Visit: No Status: Chronic (7) Anxiety and depression Current Visit: No Status: Chronic (8) Major depressive disorder, recurrent, moderate Current Visit: No Status: Acute (9) CAD (coronary artery disease) Current Visit: Yes Status: Chronic (10) Obesity Current Visit: No Status: Acute Assessment and Plan: counseled to loose weight - Time Spent with Patient Total time spent is greater than 50% in coordination of care (as documented) at patient's floor/unit and/or counseling patient: Internal Medicine: Result - Labs CBC & Chem 7: 01/27/19 01:10 01/27/19 01:10 Labs: Short CBC 01/27/19 Range/Units 01:10 WBC 5.1 (4.3-11.1) K/mcL Hgb 14.8 (12.9-16.9) g/dL Hct 44.1 (37.5-50.1) % Plt Count 189 (140-400) K/mcL Neutrophils # 3.2 (1.6-8.9) K/mcL BMP 01/27/19 01:10 Sodium 135 L Potassium 3.7 Chloride 101 Carbon Dioxide 26 BUN 15 Creatinine 1.34 H Glucose 121 H Calcium 9.6 Cardiac Enzymes 01/26/19 01/27/19 01/27/19 Range/Units 18:47 01:10 08:07 Troponin I < 0.03 < 0.03 < 0.03 (< 0.04) ng/mL Liver Function 01/27/19 Range/Units 01:10 Total Bilirubin 0.3 (0.3-1.0) mg/dL AST 16 (13-39) Units/L ALT 17 (7-52) Units/L Alkaline Phosphatase 23 L (34-104) Units/L Albumin 4.3 (3.5-5.7) g/dL - ABG Interpretation ABG results: PT/INR, D-dimer PT 11.6 Seconds (9.4-12.1) 01/27/19 01:10 - Impressions Impressions Chest X-Ray 01/26/19 12:51 IMPRESSION: Hypoaeration with basilar atelectasis. D/ / 01/26/2019 13:18:02 Gamaliel Palencia MD / Lexii Farr Interpreting Provider: Gamaliel Palencia MD Lumbar Spine X-Ray 01/27/19 01:16 IMPRESSION: Stable lumbar spine with no acute abnormality and chronic changes at L5-S1 as described. D/ / Bridgette Bauer MD / Bridgette Bauer MD Interpreting Provider: Bridgette Bauer MD Echocardiogram 01/27/19 07:00 Impressions: LVEF 60-65%. Normal LV chamber size, wall thickness and function. Normal right ventricular structure and function. No pulmonary hypertension. No significant valvular dysfunction. Left Ventricular Wall Motion: Rest Echo Findings All wall segments showed normal motion. Findings: Study Quality * Technically adequate exam. ECG Findings * Sinus bradycardia. Left Ventricle * LVEF 60-65%. * Normal LV chamber size, wall thickness and function. * Moderate left ventricular diastolic dysfunction. Right Ventricle * Normal right ventricular structure and function. Left Atrium * Normal left atrial size. Right Atrium * Normal right atrial size. Interatrial Septum * Interatrial septum not well evaluated. Aortic Valve * Aortic valve not well visualized. * No aortic regurgitation. * No aortic stenosis. Mitral Valve * Normal mitral valve structure and function. * No mitral regurgitation. * No mitral stenosis. Tricuspid Valve * Normal tricuspid valve structure and function. * Trace tricuspid regurgitation. * No pulmonary hypertension. Pulmonic Valve * Pulmonic valve not well visualized. Aorta * Normally sized aortic root. Pericardium * The pericardium appears normal. IVC * The IVC is not well evaluated. Pulmonary Artery * Pulmonary artery not well visualized. Consult Discharge Plan - Plan Referrals: Christi Cisneros, FOOD INSPECTOR [Primary Care Provider] - (Appointment has been requ ested.) (1) Chest pain Qualifiers: Chest pain type: other chest pain Qualified Code(s): R07.89 - Other chest sergio n; R07.8 - Other chest pain (2) COPD (chronic obstructive pulmonary disease) Qualifiers: COPD type: unspecified COPD Qualified Code(s): J44.9 - Chronic obstructive pulmonary disease, unspecified (3) Hyperlipemia Qualifiers: Hyperlipidemia type: mixed hyperlipidemia Qualified Code(s): E78.2 - Mixed hyperlipidemia (4) GERD (gastroesophageal reflux disease) Qualifiers: Esophagitis presence: with esophagitis Qualified Code(s): K21.0 - Gastro- esophageal reflux disease with esophagitis (5) Diabetes Qualifiers: Diabetes mellitus type: other specified (including [place]) Diabetes mellitus senior living insulin use: unspecified senior living insulin use status Diabetes mellitus complication status: with other specified complication Qualified Code(s): E13.69 - Other specified diabetes mellitus with other specified complication (6) HTN (hypertension) Qualifiers: Hypertension type: essential hypertension Qualified Code(s): I10 - Essential (primary) hypertension (9) CAD (coronary artery disease) Qualifiers: Coronary Disease-Associated Artery/Lesion type: unspecified vessel or lesion type [place] vs. transplanted heart: [place] heart Associated angina: with unstable angina Qualified Code(s): I25.110 - Atherosclerotic heart disease of [place] coronary artery with unstable angina pectoris (10) Obesity Qualifiers: Qualified Code(s): E66.9 - Obesity, unspecified
[2019-01-27] MEDS ORDERED: Insulin LISPRO 300 UNITS/3 ML VIAL SQ SCH (14:46)
--- NOTE | 2019-01-27 15:29 | Neurology - Consult Note ---
Date of Encounter: 01/27/19 Time of Encounter: 15:25 Assessment and Plan (1) Weakness Current Visit: Yes Status: Acute Admitted for chest pain and will undergo cardiac stress in the am Neurology consulted for evaluation of weakness, gait instability with falls and syncope There is also question as to whether or not he is experiencing seizures The patient is reporting frequent multiple syncopal events for the last year During these events he has "shaking spells" and urinary incontinence; these events have been witnessed by his neighbor who is at the bedside -experienced a falls event during admission without typical presentation of shaking and urinary incontinence He has a h/o a lower back pain with DDD and mild-moderate stenosis on Lumbar spine MRI in 2008; no repeat studies at [facility] 2008 study Neuro exam finds spasticity of the right leg with ambulation and weight bearing but otherwise with no focal motor or sensory deficits Echocardigram EF 60-65%, no valvular dysfunction or PHTN PLAN: r/o seizure; will get EEG in the am Not recommending antiepileptic drugs at this time r/o VBI and/or stenosis of the cervical vasculature with CTA head and neck r/o cardiac source especially in the setting of chest pain; will under stress in the am orthostatic vital signs now Continue tele Will get MRI of the cervical spine to r/o cervical myelopathy given long tract findings, falls and gait disturbance Further recommendations pending w/u Neurology will continue to follow History of Present Illness Chief complaint: Weakness, gait instability, falls and syncope query seizures HPI: Mr. Liu is a 58 year old male with a PMH of asthma, COPD, DM, GERD, HLD, HTN who is a current daily smoker. He originally presented to [facility] with chest pain is being evaluated by cardiology with plans for stress test in the morning. During his admission the patient has complained of leg weakness, gait instability, frequent falls and seizure-like activity with loss of consciousness ongoing for approximately the last year. Neurology is consulted for evaluation of such. During my discussion with the patient he states that he has generalized weakness all over and will have sudden muscle weakness and collapse. He reports that with loss of consciousness he experiences "shaking events" w hich have been witnessed by friends and family. In addition to this he is also reporting urinary incontinence is events as well. He denies any specific aggravating or alleviating factors. Further, he denies dizziness, headaches, at her next stiffness, or focal weakness. He does admit that at times of these events he will have visual disturbances and right-sided paresthesias. He denies any other concerns. I reviewed his vital signs his admission and they appear to be hemodynamically stable. His lab findings revealed a mild acute kidney injury, DM, with A1C of 6.7 and HLD would otherwise are grossly normal. Troponins negative 3. No neuroimaging is having complaints at this juncture. Neurology will continue to follow sepsis workup. Thank you for consulting neurology. Past Med Surg Social Fam HX - Past Medical History Medical history: asthma, COPD, diabetes, GERD, hyperlipidemia, hypertension, other Additional medical history: hiatal hernia, history of barretts esophagus Psychiatric history: no psych history - Past Surgical History Surgical History: appendectomy, cholecystectomy, orthopedic, other, other Additional surgical history: heart cath, 5 stents - Social History Smoking Status: Current every day smoker Packs per day: / Smokeless Tobacco Status: No Alcohol use: occasionally Drug use: none - Family History Father Family Member Ethnicity: Non- Living Status: Hx Family Cardiac Disorders: Yes Hx Family Respiratory Disorders: No Hx Family Cancer: No Hx Family GI Disorders: No Hx Family Endocrine Disorder: No Hx Family Neuromuscular Disorders: No Hx Family Neurologic Disorders: No Hx Family HEENT Disorders: No Hx Family Autoimmune Disorders: No Mother Adopted: No Family Member Ethnicity: Non- Living Status: Still Living Hx Family Cardiac Disorders: Yes (Triple bypass, pacer, 03/12 uncles have of heart attacks,) Hx Family Respiratory Disorders: No Hx Family Cancer: No Hx Family GI Disorders: No Hx Family Endocrine Disorder: (DM) Hx Family Neuromuscular Disorders: No Hx Family Neurologic Disorders: No Hx Family HEENT Disorders: No Hx Family Autoimmune Disorders: No Sister Family Member Ethnicity: Non- Living Status: Still Living Hx Family Cardiac Disorders: Yes (HTN, HLD) Hx Family Endocrine Disorder: Yes (DM) Medications and Allergies Albuterol Sulfate [Proventil Inhaler] 2 puff IH Q4H PRN 03/20/15 [History] Aspirin 81 mg PO DAILY 03/20/15 [History] Docusate Sodium [Colace] 100 mg PO BID PRN 03/20/15 [History] Lactulose 10 gm PO TID 03/20/15 [History] Nitroglycerin [Nitrostat] 0.4 mg SL Q5MIN PRN 03/20/15 [History] metFORMIN [Glucophage] 500 mg PO BIDWM 08/03/17 [History] Atorvastatin Calcium [Lipitor] 80 mg PO DAILY 11/15/18 [History] Beclomethasone Dipropionate [QVAR 80 mcg REDIHALER] 1 puff IH BID 11/15/18 [History] Buspirone HCl [Buspar] 10 mg PO TID 11/15/18 [History] Cyanocobalamin (Vitamin B-12) [Vitamin B12] 1,000 mcg PO DAILY 11/15/18 [History] Fenofibrate Nanocrystallized [Tricor] 48 mg PO DAILY 11/15/18 [History] Gabapentin 600 mg PO TID 11/15/18 [History] Lisinopril [Zestril] 40 mg PO DAILY 11/15/18 [History] Loratadine [Allergy Relief] 10 mg PO DAILY 11/15/18 [History] Polyethylene Glycol 3350 17 g PO DAILY PRN 11/15/18 [History] Sertraline [Zoloft] 100 mg PO DAILY 11/15/18 [History] Trazodone HCl 150 mg PO HS PRN 11/15/18 [History] amLODIPine [Norvasc] 5 mg PO DAILY 11/15/18 [History] hydroCHLOROthiazide [Hydrochlorothiazide] 25 mg PO DAILY 11/15/18 [History] Clopidogrel [Plavix] 75 mg PO DAILY #30 tablet 11/19/18 [Rx] Metoprolol XL (24 HR) Succ [Toprol Xl] 12.5 mg PO DAILY #30 tab.er.24h 11/19/18 [Rx] Omeprazole [PriLOSEC] 20 mg PO DAILY #30 capsule.dr 11/19/18 [Rx] Isosorbide MONOnitrate (24 HR) [Imdur] 60 mg PO DAILY 01/26/19 [History] Allergy/AdvReac Type Severity Reaction Status Date / Time naproxen Allergy See Verified 08/04/18 14:13 Comments tramadol Allergy See Verified 08/04/18 14:13 Comments All Systems: The remainder of the systems were reviewed and are negative Review of Systems: See HPI for ROS Physical Examination - Vital Signs Vital Signs: Initial Vital Signs Temp Pulse Resp BP Pulse Ox 98.2 F 88 18 126/90 94 01/26/19 12:47 01/26/19 12:47 01/26/19 12:47 01/26/19 12:47 01/26/19 12:47 - Exam Exam: Examination: General Examination: *CONSTITUTIONAL: Alert and oriented x3, no acute distress *GENERAL APPEARANCE OF PATIENT obese male who appears generally unhealthy *EYES: pupils equal, round, reactive to light and accommodation, conjunctiva clear without masses or ulcerations, fundi normal. *CARDIOVASCULAR: no peripheral edema, distal temperature normal, dorsalis pedis pulses normal. Refer to vital signs * MUSCULOSKELETAL: *GAIT AND STATION: normal Romberg testing, no abnormalities such as broad base gait but he has spasticity of the right leg with ambulation *ASSESSMENT OF MUSCLE STRENGTH IN THE UPPER AND LOWER EXTREMITIES bilateral deltoid, bicep, tricep, coordinator integrated marketing strength, hip flexors ,anterior tibialis, dorsoflexion of the foot 5/5 *MUSCLE TONE IN THE UPPER AND LOWER EXTREMITIES normal. No abnormal movements, fasciculations or atrophy identified. Neurological: *ORIENTATION to person, situation, time and place *LANGUAGE AND FUNCTION no significant aphasia or dysarthia was noted. *ATTENTION AND CONCENTRATION are normal *LANGUAGE FUNCTION no significant aphasia or dysarthia was noted. *FUND OF KNOWLEDGE aware of current events, past history, vocabulary *MENTAL attention span and concentration normal. *CN II optic fundi were normal, no papilledema noted. *CN III,IV, PERRLA extraocular eye movements were full, no nystagmus and no ptosis noted. *CN V shows normal sensation and jaw opens symmetrically. *CN VII shows normal facial movement symmetrically, upper and lower bilaterally. *CN VIII shows no significant hearing loss on exam *CN IX-X palate elevated symmetrically *CN XI normal strength in the sternocleidomastoid muscles, symmetrical shoulder shrugging. *CN XII tongue protruded in the midline, with normal strength and movement. *SENSORY EXAMINATION light touch intact *REFLEXES: deep tendon reflexes were normal and symmetrical , grade 3/4 diffusely, no pathological reflexes were noted. *CEREBELLAR TESTING normal finger to nose, heel/knee/miller *PAIN LEVEL 0/10 Results - Laboratory Findings CBC and BMP: 01/27/19 01:10 01/27/19 01:10 Abnormal lab findings: Abnormal lab results WBC 4.2 K/mcL (4.3-11.1) L 08/27/19 12:58 Sodium 135 mEq/L (136-145) L 01/27/19 01:10 Creatinine 1.34 mg/dL (0.70-1.30) H 01/27/19 01:10 Est GFR (Non-Af Amer) 54 (> 60) L 01/27/19 01:10 Glucose 121 mg/dL (70-105) H 01/27/19 01:10 POC Glucose 138 mg/dL (70-99) H 01/26/19 19:56 Hemoglobin A1c 6.7 % (-5.6) H 01/26/19 12:58 Alkaline Phosphatase 23 Units/L (34-104) L 01/27/19 01:10 Triglycerides 344 mg/dL (< 150) H 01/27/19 01:10 VLDL Cholesterol, Calc 69 mg/dL (< 31) H 01/27/19 01:10 HDL Cholesterol 31 mg/dL (40-59) L 01/27/19 01:10 Cholesterol/HDL Ratio 5.1 (0-4.9) H 01/27/19 01:10 - Diagnostic Findings Additional findings: XR/XR lumbar spine 2-3V IMPRESSION: Stable lumbar spine with no acute abnormality and chronic changes at L5-S1 as described. Consult Discharge Plan - Plan Referrals: Christi Cisneros, CHARU [Primary Care Provider] - (Appointment has been reque esterd.)
[2019-01-27] MEDS: Albuterol 2.5 MG/3 ML NEBULIZER IH SCH ×2 (15:37→21:53)
[2019-01-27] MEDS ORDERED: Isovue-370 500 ML BOTTLE IVP ONE (15:47)
[2019-01-28] MEDS: Albuterol 2.5 MG/3 ML NEBULIZER IH SCH ×2 (03:40→10:15)
[2019-01-28] MEDS: Insulin LISPRO 300 UNITS/3 ML VIAL SQ SCH ×2 (07:24→12:52)
[2019-01-28] MEDS ORDERED: Regadenoson 0.4 MG/5 ML SYRINGE IVP ONE (07:52)
--- NOTE | 2019-01-28 08:28 | Cardiology Progress Note ---
Date of Encounter: 01/28/19 Time of Encounter: 08:25 Assessment and Plan (1) Chest pain Current Visit: Yes Status: Acute Per Cardiology: Troponins negative x4. [facility] 11/18: successful Drug-Eluting Stent placement in the OM, moderate disease remaining. TTE: LVEF 60-65%. Normal LV chamber size, wall thickness and function., normal RV structure and function, no significant valvular dysfunction. Stress test pending today. Qualifiers: Chest pain type: other chest pain Qualified Code(s): R07.89 - Other chest pain; R07.8 - Other chest pain (2) CAD (coronary artery disease) Current Visit: Yes Status: Chronic Per Cardiology: [facility] 10/2018: Lesion Findings/Interventions * Left Main Coronary Artery There is a 30% stenosis in the Distal LMCA (calcified). * Left Anterior Descending There is a 30% stenosis in the Proximal LAD (calcified). There is a 50% stenosis in the 2nd Diagonal ( small vessel). * Circumflex There is a 30% stenosis in the Proximal Circumflex. There is a 85% stenosis in the 1st Marginal. The lesion has no thrombus present. An intervention was performed on the 1st Marginal with a final stenosis of 0%. There were no lesion complications. The final LIZ flow was 3. * Right Coronary Artery There is a 40% stenosis in the Proximal RCA (heavily calcified). There is a 40% stenosis in the Mid RCA (heavily calcified). There is a 40% stenosis in the Distal RCA. There is a 60% stenosis in the Right PDA. On ASA, Plavix, Statin, ACEI, & BB. Imdur on hold for ST-- will resume after. Qualifiers: Coronary Disease-Associated Artery/Lesion type: unspecified vessel or lesion type [place] vs. transplanted heart: ruby heart Associated angina: with unstable angina Qualified Code(s): I25.110 - Atherosclerotic heart disease of ruby coronary artery with unstable angina pectoris Discussion w patient/family: The assessment and plan as outlined above was discussed with the patient and/or family members who expressed understanding and agreement. All questions were answered. Thank you for involving us in the care of your patient. Please call with any questions. Subjective Principal diagnosis: CP Interval history: Seen today during nonexercise nuclear stress test. Complaint chest pain to 10 prior to test. Denies any new concerns or complaints overnight. Objective Selected Entries 01/28/19 03:38 01/28/19 03:41 01/28/19 07:41 Temperature 98.1 F Pulse Rate 52 Respiratory Rate 18 Blood Pressure 138/74 O2 Sat by Pulse Oximetry 97 Oxygen Delivery Method Room Air General: Conversant, No Apparent Distress HEENT: Atraumatic, Normocephaly, Mucus Membranes Moist Neck: No JVD, Normal carotid pulses Cardiac: Reg Rate and Rhythm, Normal S1 and S2, No Murmur Lungs: Normal Breath Sounds, No Wheeze, Rales, Rhonchi Neuro: Alert and responsive, No focal deficits noted Abdomen: Soft, Non-Tender Skin: No rashes noted on visualized skin Musculoskeletal: No Chest Wall Tenderness Extremities: No Clubbing, No Cyanosis, No Edema, Normal Pulses Results 01/27/19 01:10 01/27/19 01:10 Lab Results Laboratory Tests 01/26/19 01/26/19 01/27/19 12:58 18:47 01:10 Magnesium AST ALT Troponin I < 0.03 < 0.03 < 0.03 B-Natriuretic Peptide 01/27/19 01/27/19 01/27/19 01:10 01:10 08:07 Magnesium 1.9 AST 16 ALT 17 Troponin I < 0.03 B-Natriuretic Peptide 24 ITS Impressions Chest X-Ray 01/26/19 12:51 IMPRESSION: Hypoaeration with basilar atelectasis. D/ / 01/26/2019 13:18:02 Gamaliel Palencia MD / Lexii Farr Interpreting Provider: Gamaliel Palencia MD Lumbar Spine X-Ray 01/27/19 01:16 IMPRESSION: Stable lumbar spine with no acute abnormality and chronic changes at L5-S1 as described. D/ / Bridgette Bauer MD / Bridgette Bauer MD Interpreting Provider: Bridgette Bauer MD Echocardiogram 01/27/19 07:00 Impressions: LVEF 60-65%. Normal LV chamber size, wall thickness and function. Normal right ventricular structure and function. No pulmonary hypertension. No significant valvular dysfunction. Left Ventricular Wall Motion: Rest Echo Findings All wall segments showed normal motion. Findings: Study Quality * Technically adequate exam. ECG Findings * Sinus bradycardia. Left Ventricle * LVEF 60-65%. * Normal LV chamber size, wall thickness and function. * Moderate left ventricular diastolic dysfunction. Right Ventricle * Normal right ventricular structure and function. Left Atrium * Normal left atrial size. Right Atrium * Normal right atrial size. Interatrial Septum * Interatrial septum not well evaluated. Aortic Valve * Aortic valve not well visualized. * No aortic regurgitation. * No aortic stenosis. Mitral Valve * Normal mitral valve structure and function. * No mitral regurgitation. * No mitral stenosis. Tricuspid Valve * Normal tricuspid valve structure and function. * Trace tricuspid regurgitation. * No pulmonary hypertension. Pulmonic Valve * Pulmonic valve not well visualized. Aorta * Normally sized aortic root. Pericardium * The pericardium appears normal. IVC * The IVC is not well evaluated. Pulmonary Artery * Pulmonary artery not well visualized. Cervical Spine MRI 01/27/19 15:46 IMPRESSION: Multilevel spondylotic changes result in [id number] central canal stenosis and multilevel neural foraminal narrowing as detailed level by level above. D/ / Roshan Vásquez MD / Roshan Vásquez MD Interpreting Provider: Roshan Vásquez MD Head CTA 01/27/19 15:47 IMPRESSION: No acute intracranial abnormality. No stenosis of major cervical or intracranial arterial vasculature. Atherosclerotic changes at the carotid bifurcations. D/ / Roshan Vásquez MD / Roshan Vásquez MD Interpreting Provider: Roshan Vásquez MD Neck CTA 01/27/19 15:47 IMPRESSION: No acute intracranial abnormality. No stenosis of major cervical or intracranial arterial vasculature. Atherosclerotic changes at the carotid bifurcations. D/ / Roshan Vásquez MD / Rohsan Vásquez MD Interpreting Provider: Roshan Vásquez MD Active Medications Acetaminophen (Tylenol) 650 mg PO Q6HR PRN PRN Reason: Mild Pain/Fever Stop: 07/28/19 18:33 Hydrocodone Bitart/Acetaminophen (Henderson 5-325 Mg) 1 tab PO Q6HR PRN PRN Reason: Moderate Pain Stop: 07/28/19 18:33 Albuterol Sulfate (Proventil Inhaler) 2 puff IH Q4H PRN PRN Reason: Shortness Of Breath Stop: 07/28/19 19:05 Last Admin: 01/27/19 15:36 Dose: 2 puff Documented by: Albuterol Sulfate (Proventil Neb) 2.5 mg IH [id number] [facility]; Protocol Stop: 07/29/19 16:01 Last Admin: 01/28/19 03:40 Dose: 2.5 mg Documented by: Amlodipine Besylate (Norvasc) 5 mg PO DAILY [facility]; Protocol Stop: 07/29/19 09:01 Last Admin: 01/27/19 10:45 Dose: 5 mg Documented by: Aspirin (Aspirin) 81 mg PO DAILY [facility] Stop: 07/29/19 09:01 Last Admin: 01/27/19 10:45 Dose: 81 mg Documented by: Atorvastatin Calcium (Lipitor) 80 mg PO DAILY [facility] Stop: 07/29/19 09:01 Last Admin: 01/27/19 10:44 Dose: 80 mg Documented by: Buspirone HCl (Buspar) 10 mg PO TID [facility] Stop: 07/28/19 21:01 Last Admin: 01/27/19 21:25 Dose: 10 mg Documented by: Clopidogrel Bisulfate (Plavix) 75 mg PO DAILY [facility] Stop: 07/29/19 09:01 Last Admin: 01/27/19 10:45 Dose: 75 mg Documented by: Cyanocobalamin (Vitamin B12) 1,000 mcg PO DAILY [facility] Stop: 07/29/19 09:01 Last Admin: 01/27/19 10:45 Dose: 1,000 mcg Documented by: Dextrose/Water (Dextrose 50% (Syg)) 25 ml IVP AD PRN PRN Reason: Hypoglycemia Stop: 07/28/19 19:07 Docusate Sodium (Colace) 100 mg PO BID PRN; Protocol PRN Reason: Constipation Stop: 07/28/19 19:05 Last Admin: 01/27/19 22:57 Dose: 100 mg Documented by: Fenofibrate (Tricor) 54 mg PO DAILY [facility] Stop: 07/29/19 09:01 Last Admin: 01/27/19 10:44 Dose: 54 mg Documented by: Gabapentin (Neurontin) 600 mg PO TID [facility] Stop: 07/28/19 21:01 Last Admin: 01/27/19 21:25 Dose: 600 mg Documented by: Glucagon (Glucagen) 1 mg IM ONCE PRN PRN Reason: Hypoglycemia Stop: 07/28/19 19:07 Glucose (Gluctose) 15 gm PO ONCE PRN PRN Reason: Hypoglycemia Stop: 07/28/19 19:07 Glucose (Gluctose) 30 gm PO ONCE PRN PRN Reason: Hypoglycemia Stop: 07/28/19 19:07 Dextrose (Dextrose 5%) 1,000 mls @ 100 mls/hr IVC .Q10H PRN PRN Reason: HYPOGLYCEMIA Stop: 07/28/19 19:07 Insulin Human Lispro (Humalog) 0 units SQ TIDAC [facility]; Protocol Stop: 07/29/19 07:31 Last Admin: 01/28/19 07:24 Dose: Not Given Documented by: Insulin Human Lispro (Humalog) 0 units SQ HS [facility]; Protocol Stop: 07/28/19 21:01 Last Admin: 01/27/19 21:26 Dose: Not Given Documented by: Isosorbide Mononitrate (Imdur) 90 mg PO DAILY [facility] Stop: 07/31/19 08:01 Lisinopril (Zestril) 40 mg PO DAILY [facility] Stop: 07/29/19 09:01 Last Admin: 01/27/19 10:44 Dose: 40 mg Documented by: Loratadine (Claritin) 10 mg PO DAILY [facility]; Protocol Stop: 07/29/19 09:01 Last Admin: 01/27/19 10:45 Dose: 10 mg Documented by: Metoprolol Succinate (Toprol Xl) 12.5 mg PO DAILY [facility] Stop: 07/29/19 09:01 Last Admin: 01/27/19 13:09 Dose: Not Given Documented by: Mometasone Furoate (Asmanex Hfa) 1 puff IH BIDR [facility] Stop: 07/28/19 22:01 Last Admin: 01/27/19 21:53 Dose: 1 puff Documented by: Naloxone HCl (Narcan) 0.4 mg IVP Q2MPRN PRN PRN Reason: SEE COMMENTS Stop: 07/28/19 18:33 Nitroglycerin (Nitroglycerin) 0.4 mg SL Q5MIN PRN PRN Reason: Chest Pain Stop: 07/28/19 13:35 Last Admin: 01/26/19 15:31 Dose: 0.4 mg Documented by: Nitroglycerin (Nitroglycerin) 0.4 mg SL Q5MPRN PRN PRN Reason: Chest Pain Stop: 07/28/19 19:05 Omeprazole (Prilosec) 20 mg PO 0630 [facility]; Protocol Stop: 07/29/19 06:31 Last Admin: 01/28/19 05:26 Dose: 20 mg Documented by: Ondansetron HCl (Zofran) 4 mg IVP Q8HR PRN PRN Reason: Nausea And Vomiting Stop: 07/28/19 18:33 Polyethylene Glycol (Miralax) 17 gm PO DAILY PRN PRN Reason: Constipation Stop: 07/28/19 19:05 Last Admin: 01/27/19 22:57 Dose: 17 gm Documented by: Sertraline HCl (Zoloft) 100 mg PO DAILY [facility] Stop: 07/29/19 09:01 Last Admin: 01/27/19 10:45 Dose: 100 mg Documented by: Trazodone HCl (Trazodone) 150 mg PO HS PRN PRN Reason: Insomnia - Imaging and Cardiology Stress Test: pending Echo: report reviewed Consult Discharge Plan - Plan Referrals: Christi Cisneros, [employer] [facility] [Primary Care Provider] - (Appointment has been requested.)
--- NOTE | 2019-01-28 10:24 | Neurology Progress Note ---
<Hiram Montgomery J - Last Filed: 01/28/19 12:06> Date of Encounter: 01/28/19 Time of Encounter: 10:21 Assessment and Plan (1) Weakness Status: Acute Clinically, the patient remained stable. He continues to be intact neurologically without any focal deficits. CT angiogram of the neck ruled out vertebrobasilar insufficiency as it was unremarkable. EEG is still pending this morning; further recommendations pending EEG however, suspicion for seizure is low. Per his description of the event that appears that he is having syncope, should the EEG be unremarkable would recommend outpatient cardiac consultation as he may benefit from a loop recorder. In regards to the MRI of the cervical spine did reveal multilevel spondylitic changes resulting in moderate central canal stenosis and multilevel neural foraminal narrowing. Recommending c/s to ortho-surgeon for further evaluation as this is likely responsible for his leg weakness and spasticity. Subjective Principal diagnosis: Syncope Hiram seizures and ambulatory dysfunction Interval history: The patient was seen in follow-up by neurology for syncope query seizures and ambulatory dysfunction. The chart was reviewed, the patient was seen and examined at the bedside today. He denies any return of syncopal or "shaking" activity, and denies any new deficits developing overnight. Clinically, he remains stable. The CT angiogram of the head showed no acute intracranial abnormality, no stenosis of the major cervical or intracranial arterial vasculature and/or aneurysms. MRI of the cervical spine positive for multilevel spondylitic changes resulting in [id number] central canal stenosis and multilevel neural foraminal narrowing. EEG is pending. These findings have been discussed with the patient denies any further questions. Objective - Constitutional Vitals: Temp Pulse Resp BP Pulse Ox 98.1 F 52 18 138/74 97 01/28/19 03:38 01/28/19 03:38 01/28/19 03:41 01/28/19 03:38 01/28/19 03:41 Exam: Examination: General Examination: *CONSTITUTIONAL: Alert and oriented x3, no acute distress *GENERAL APPEARANCE OF PATIENT obese male who appears generally unhealthy *EYES: pupils equal, round, reactive to light and accommodation, conjunctiva clear without masses or ulcerations, fundi normal. *CARDIOVASCULAR: no peripheral edema, distal temperature normal, dorsalis pedis pulses normal. 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 No abnormal movements, fasciculations or atrophy identified. Neurological: *ORIENTATION to person, situation, time and place *LANGUAGE AND FUNCTION no significant aphasia or dysarthia was noted. *ATTENTION AND CONCENTRATION are normal *LANGUAGE FUNCTION no significant aphasia or dysarthia was noted. *FUND OF KNOWLEDGE aware of current events, past history, vocabulary *MENTAL attention span and concentration normal. *CN II optic fundi were normal, no papilledema noted. *CN III,IV, PERRLA extraocular eye movements were full, no nystagmus and no ptosis noted. *CN V shows normal sensation and jaw opens symmetrically. *CN VII shows normal facial movement symmetrically, upper and lower bilaterally. *CN VIII shows no significant hearing loss on exam *CN IX-X palate elevated symmetrically *CN XI normal strength in the sternocleidomastoid muscles, symmetrical shoulder shrugging. *CN XII tongue protruded in the midline, with normal strength and movement. *SENSORY EXAMINATION light touch intact *REFLEXES: deep tendon reflexes were normal and symmetrical , grade 3/4 diffusely, no pathological reflexes were noted. *CEREBELLAR TESTING normal finger to nose, heel/knee/miller *PAIN LEVEL 0/10 Results - Laboratory Findings CBC and BMP: 01/27/19 01:10 01/27/19 01:10 Abnormal lab findings: Abnormal lab results WBC 4.2 K/mcL (4.3-11.1) L 01/26/19 12:58 Sodium 135 mEq/L (136-145) L 01/27/19 01:10 Creatinine 1.34 mg/dL (0.70-1.30) H 01/27/19 01:10 Est GFR (Non-Af Amer) 54 (> 60) L 01/27/19 01:10 Glucose 121 mg/dL (70-105) H 01/27/19 01:10 POC Glucose 133 mg/dL (70-99) H 01/27/19 19:42 Hemoglobin A1c 6.7 % (-5.6) H 01/26/19 12:58 Alkaline Phosphatase 23 Units/L (34-104) L 01/27/19 01:10 Triglycerides 344 mg/dL (< 150) H 01/27/19 01:10 VLDL Cholesterol, Calc 69 mg/dL (< 31) H 01/27/19 01:10 HDL Cholesterol 31 mg/dL (40-59) L 01/27/19 01:10 Cholesterol/HDL Ratio 5.1 (0-4.9) H 01/27/19 01:10 - Diagnostic Findings Additional findings: MR/MR cervical spine wo con IMPRESSION: Multilevel spondylotic changes result in [id number] central canal stenosis and multilevel neural foraminal narrowing as detailed level by level above. CT/CT angio head IMPRESSION: No acute intracranial abnormality. No stenosis of major cervical or intracranial arterial vasculature. Atherosclerotic changes at the carotid bifurcations. Consult Discharge Plan - Plan Instructions: Isosorbide Mononitrate (By mouth), Chest Pain (DC) Referrals: Christi Cisneros CNP [Primary Care Provider] - (Appointment has been requested.) Lyle Bennett CNP [Advanced Practice Nurse] - (Our office will contact you with an appointment date and time.) Prescriptions: Isosorbide MONOnitrate (24 HR) [Imdur] 90 mg PO DAILY 30 Days #45 tab.er.24h <Harper Benitez - Last Filed: 01/28/19 17:32> Date of Encounter: 01/28/19 Assessment and Plan (1) Weakness Status: Chronic Objective - Constitutional Vitals: Temp Pulse Resp BP Pulse Ox 98.3 F 67 18 147/88 95 01/28/19 12:11 01/28/19 12:11 01/28/19 12:11 01/28/19 12:11 01/28/19 12:11 Results - Laboratory Findings CBC and BMP: 01/27/19 01:10 01/27/19 01:10 Abnormal lab findings: Abnormal lab results WBC 4.2 K/mcL (4.3-11.1) L 01/26/19 12:58 Sodium 135 mEq/L (136-145) L 01/27/19 01:10 Creatinine 1.34 mg/dL (0.70-1.30) H 01/27/19 01:10 Est GFR (Non-Af Amer) 54 (> 60) L 01/27/19 01:10 Glucose 121 mg/dL (70-105) H 01/27/19 01:10 POC Glucose 144 mg/dL (70-99) H 01/28/19 12:06 Hemoglobin A1c 6.7 % (-5.6) H 01/26/19 12:58 Alkaline Phosphatase 23 Units/L (34-104) L 01/27/19 01:10 Triglycerides 344 mg/dL (< 150) H 01/27/19 01:10 VLDL Cholesterol, Calc 69 mg/dL (< 31) H 01/27/19 01:10 HDL Cholesterol 31 mg/dL (40-59) L 01/27/19 01:10 Cholesterol/HDL Ratio 5.1 (0-4.9) H 01/27/19 01:10
[2019-01-28] MEDS: Gabapentin 300 MG CAPSULE PO SCH (10:43)
[2019-01-28] MEDS: Aspirin 81 MG TAB.CHEW PO SCH (10:44)
[2019-01-28] MEDS: Metoprolol XL (24 HR) Succ 25 MG TAB.ER.24H PO SCH (10:44)
[2019-01-28] MEDS: Fenofibrate 54 MG TABLET PO SCH (10:44)
[2019-01-28] MEDS: Cyanocobalamin (B-12) 1,000 MCG TABLET PO SCH (10:44)
[2019-01-28] MEDS: amLODIPine 5 MG TABLET PO SCH (10:44)
[2019-01-28] MEDS: Loratadine 10 MG TABLET PO SCH (10:44)
[2019-01-28] MEDS: Lisinopril 20 MG TABLET PO SCH (10:44)
[2019-01-28] MEDS ORDERED: Isosorbide MONOnitrate (24 HR) 30 MG TAB.ER.24H PO SCH (11:01)
--- NOTE | 2019-01-28 11:05 | Event Note ---
Date of Encounter: 01/28/19 Time of Encounter: 11:00 - Cardiology Event Note Stress test negative for ischemia or infarct. Resuming long-acting nitrate and follow-up in outpatient setting. Cardiology signing off, reconsult as needed, follow-up arranged. Patient verbalized understanding and agree to plan. D iscussed with primary service.
--- NOTE | 2019-01-28 12:09 | EEG/EMG/Oth Biometrics Report ---
EEG Procedure Report Date of procedure: 01/28/19 EEG Procedure: Routine EEG Procedure Note: This EEG was acquired with standard international 10-20 electrode placement system with EKG recording. The background EEG activity was characterized by the presence of posterior dominant alpha rhythm with the best frequency up to 11 Hz. The background activity was reactive to eye openings. Sleep stages were not identified during this tracing. Drowsiness was characterized by drop off of posterior dominant Alpha rhythm. There are no electrographic seizures identified during this tracing. There are no epileptiform discharges or focal slowing noted during this recording. Photic stimulation produced no abnormalities. Hyperventilation procedure not performed EKG tracing showed no significant cardiac dysrhythmia. Impression: This is essentially a normal awake and drowsy EEG. Clinical Correlation: Normal EEGs, however, do not exclude epilepsy. Clinical correlation is advised.
[2019-01-28 12:12] VITALS: BP 147/88
--- NOTE | 2019-01-28 14:05 | Discharge Summary ---
- NOTES TO OUTPATIENT PROVIDER Notes to Outpatient Provider: f/u with PCP in one week. f/u with Cardiology in 1-2 weeks. f/u with Spine surgery in 2-4 weeks. Please start taking Imdur 90 mg PO Daily. Orders not resulted at time of discharge: Pending orders 01/27/19 04:00 Urinalysis reflex Microscopic [URIN] AM 0400 Date of Encounter: 01/28/19 Time of Encounter: 14:00 - Discharge Diagnosis (1) Chest pain Priority: Primary Status: Acute Qualifiers: Chest pain type: other chest pain Qualified Code(s): R07.89 - Other chest pain; R07.8 - Other chest pain (2) COPD (chronic obstructive pulmonary disease) Priority: Secondary Status: Chronic Qualifiers: COPD type: unspecified COPD Qualified Code(s): J44.9 - Chronic obstructive pulmonary disease, unspecified (3) Weakness Priority: Primary Status: Chronic (4) Hyperlipemia Priority: Secondary Status: Chronic Qualifiers: Hyperlipidemia type: unspecified Qualified Code(s): E78.5 - Hyperlipidemia, unspecified (5) GERD (gastroesophageal reflux disease) Priority: Secondary Status: Chronic Qualifiers: Esophagitis presence: with esophagitis Qualified Code(s): K21.0 - Gastro- esophageal reflux disease with esophagitis (6) Diabetes Priority: Secondary Status: Chronic Qualifiers: Diabetes mellitus type: other specified (including [place]) 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 Diabetes mellitus complication status: with other specified complication Qualified Code(s): E13.69 - Other specified diabetes mellitus with other specified complication (7) HTN (hypertension) Priority: Secondary Status: Chronic Qualifiers: Hypertension type: essential hypertension Qualified Code(s): I10 - Essential (primary) hypertension (8) Anxiety and depression Priority: Secondary Status: Chronic (9) Major depressive disorder, recurrent, moderate Priority: Secondary Status: Acute (10) CAD (coronary artery disease) Priority: Secondary Status: Chronic Qualifiers: Coronary Disease-Associated Artery/Lesion type: unspecified vessel or lesion type [place] vs. transplanted heart: [place] heart Associated angina: with unstable angina Qualified Code(s): I25.110 - Atherosclerotic heart disease of [place] coronary artery with unstable angina pectoris (11) Obesity Priority: Secondary Status: Acute Qualifiers: Qualified Code(s): E66.9 - Obesity, unspecified Hospital course: Mr. Liu is a 58 year old male with PMH of COPD, diabetes, GERD, hyperlipidemia, HTN and recent CAD s/p PCI on 11/18 pt presented to ER with a complaint of Pressure-like chest pain associated with shortness of breath that was initially not improved with nitroglycerin, however later a second dose was given and patient felt significant improvement. He also complained of leg weakness, gait instability, frequent falls and seizure-like activity with loss of consciousness ongoing for approximately for a year. He was admitted in the hospital and placed him on equipment monitor phototypesetting. His serial troponin came back as negative. He was evaluated by belt notcher who recommend to inc his Imdur to 90 mg and did nuclear stress test. His nuclear stress came b ack as negative for ischemia / infarction. For his weakness he was evaluated by neurologist who did MRI of cervical spine which showed mild to moderate stenosis. His Head and Neck CTA showed No acute intracranial abnormality. No stenosis of major cervical or intracranial arterial vasculature. Atherosclerotic changes at the carotid bifurcations. His EEG did not show any seizure activity. So at this point recommended him to follow up with the cardiology as an outpatient if he needs any close cardiac monitoring. - Time Spent with Patient Total time spent providing and/or coordinating discharge services: - Discharge Medications Prescriptions: Continued Lactulose 10 gm PO TID Docusate Sodium [Colace] 100 mg PO BID PRN PRN Reason: Constipation Aspirin 81 mg PO DAILY Albuterol Sulfate [Proventil Inhaler] 2 puff IH Q4H PRN PRN Reason: Shortness Of Breath Nitroglycerin [Nitrostat] 0.4 mg SL Q5MIN PRN PRN Reason: Chest Pain metFORMIN [Glucophage] 500 mg PO BIDWM amLODIPine [Norvasc] 5 mg PO DAILY Atorvastatin Calcium [Lipitor] 80 mg PO DAILY Fenofibrate Nanocrystallized [Tricor] 48 mg PO DAILY Gabapentin 600 mg PO TID hydroCHLOROthiazide [Hydrochlorothiazide] 25 mg PO DAILY Lisinopril [Zestril] 40 mg PO DAILY Loratadine [Allergy Relief] 10 mg PO DAILY Beclomethasone Dipropionate [QVAR 80 mcg REDIHALER] 1 puff IH BID Buspirone HCl [Buspar] 10 mg PO TID Cyanocobalamin (Vitamin B-12) [Vitamin B12] 1,000 mcg PO DAILY Polyethylene Glycol 3350 17 g PO DAILY PRN PRN Reason: Constipation Sertraline [Zoloft] 100 mg PO DAILY Trazodone HCl 150 mg PO HS PRN PRN Reason: Insomnia Clopidogrel [Plavix] 75 mg PO DAILY #30 tablet Metoprolol XL (24 HR) Succ [Toprol Xl] 12.5 mg PO DAILY #30 tab.er.24h Omeprazole [PriLOSEC] 20 mg PO DAILY #30 capsule.dr Changed Isosorbide MONOnitrate (24 HR) [Imdur] 90 mg PO DAILY 30 Days #45 tab.er.24h Home Medications: Albuterol Sulfate [Proventil Inhaler] 2 puff IH Q4H PRN 03/20/15 [History] Aspirin 81 mg PO DAILY 03/20/15 [History] Docusate Sodium [Colace] 100 mg PO BID PRN 03/20/15 [History] Lactulose 10 gm PO TID 03/20/15 [History] Nitroglycerin [Nitrostat] 0.4 mg SL Q5MIN PRN 03/20/15 [History] metFORMIN [Glucophage] 500 mg PO BIDWM 08/03/17 [History] Atorvastatin Calcium [Lipitor] 80 mg PO DAILY 11/15/18 [History] Beclomethasone Dipropionate [QVAR 80 mcg REDIHALER] 1 puff IH BID 11/15/18 [History] Buspirone HCl [Buspar] 10 mg PO TID 11/15/18 [History] Cyanocobalamin (Vitamin B-12) [Vitamin B12] 1,000 mcg PO DAILY 11/15/18 [History] Fenofibrate Nanocrystallized [Tricor] 48 mg PO DAILY 11/15/18 [History] Gabapentin 600 mg PO TID 11/15/18 [History] Lisinopril [Zestril] 40 mg PO DAILY 11/15/18 [History] Loratadine [Allergy Relief] 10 mg PO DAILY 11/15/18 [History] Polyethylene Glycol 3350 17 g PO DAILY PRN 11/15/18 [History] Sertraline [Zoloft] 100 mg PO DAILY 11/15/18 [History] Trazodone HCl 150 mg PO HS PRN 11/15/18 [History] amLODIPine [Norvasc] 5 mg PO DAILY 11/15/18 [History] hydroCHLOROthiazide [Hydrochlorothiazide] 25 mg PO DAILY 11/15/18 [History] Clopidogrel [Plavix] 75 mg PO DAILY #30 tablet 11/19/18 [Rx] Metoprolol XL (24 HR) Succ [Toprol Xl] 12.5 mg PO DAILY #30 tab.er.24h 11/19/18 [Rx] Omeprazole [PriLOSEC] 20 mg PO DAILY #30 capsule. 11/19/18 [Rx] Isosorbide MONOnitrate (24 HR) [Imdur] 90 mg PO DAILY 30 Days #45 tab.er.24h 01/28/19 [Rx] Allergies/Adverse Reactions: Allergy/AdvReac Type Severity Reaction Status Date / Time naproxen Allergy See Verified 08/04/18 14:13 Comments tramadol Allergy See Verified 08/04/18 14:13 Comments Date of admission: 01/26/19 17:06 Primary care physician: Christi Cisneros CNP Consults: 01/27/19 08:56 Consult to Cardiology [CONS] Routine Comment: Consulting Provider: Cardiology [facility] Reason for Consult: Chest pain.. Recent s/p PCI Time Notified: 08:56 Call Completed: Yes 01/27/19 14:31 Consult to Neurology [CONS] Routine Consulting Provider: Neu[facility] Reason for Consult: Unsteady gait/balance issues. Patient does not drive and requests to be seen while inpatient. Call Completed: Yes 01/28/19 12:25 Consult to Interpret Exam [CONS] Routine Consulting Provider: Harper Benitez Consult to Interpret Exam: Interpret EEG - Constitutional Vitals: Temp Pulse Resp BP Pulse Ox 98.3 F 67 18 147/88 95 01/28/19 12:11 01/28/19 12:11 01/28/19 12:11 01/28/19 12:11 01/28/19 12:11 General appearance: Present: cooperative, A&O X 3, no acute distress, answers questions appropriately Exam: Gen: Alert, awake, Oriented to time,place and person Chest: Diminished breath sounds B/L, No wheezing, No crackles, No rales Heart: S1S2+ RRR No murmurs Abd: Soft, NT, BS +, No organomegaly Ext: No edema, pulses are palpable, No calf tenderness Neuro : No acute focal neuro deficits noticed Skin: No rash. - Patient Status Disposition: Home, Self-Care Condition: Good Overall status at discharge: patient is back to baseline - Discharge Instructions Follow Up With: Christi Cisneros CNP [Primary Care Provider] - (Appointment has been re quested.) Lyle Bennett CNP [Advanced Practice Nurse] - - Diet and Activity Activity: increase activity as tolerated Diet: low salt diet
[2019-01-29] MEDS ORDERED: Isosorbide MONOnitrate (24 HR) 30 MG TAB.ER.24H PO SCH (08:00)
== END 2019-01-28 14:51 | disposition home or self-care (01) ==
LOC: 3BNU 12:42 → EMEROOARM 12:42 → SUATTDRO 17:06 → 3BNU 22:00
PROVIDERS: ADMIT Internal Medicine Nephrology; ATTEND Family Medicine

== ENCOUNTER 2019-03-23 01:00 | Inpatient (IN) ==
[2019-03-23] MEDS ORDERED: Isovue-370 500 ML BOTTLE IVP ONE (01:09)
[2019-03-23 01:29] LABS: Basophils % 0.4 %; Eosinophils % 0.7 %; Hemoglobin 14.1 g/dL (12.9-16.9); Immature Granulocytes % 0.2 % (0-4); Lymphocytes # 0.8 K/mcL (0.6-4.6); Lymphocytes % 14.9 %; Mean Corpuscular HGB Conc 34.4 g/dL (31.6-35.5); Mean Corpuscular Hemoglobin 32.3 pg (28.0-33.3); Mean Platelet Volume 10.1 fL (9.4-12.4); Monocytes # 0.4 K/mcL (0.0-1.3); Monocytes % 6.7 %; Neutrophils # 4.1 K/mcL (1.6-8.9); Platelet Count 182 K/mcL (140-400); Red Blood Count 4.36 M/mcL (4.19-5.50); Red Cell Distribution Width 14.5 % (11.5-14.5); Segmented Neutrophils % 77.1 %; White Blood Count 5.4 K/mcL (4.3-11.1)
[2019-03-23] MEDS: 0.9 % Sodium Chloride 1,000 ML IVC ONE ×2 (01:32→02:47)
[2019-03-23 01:36] LABS: INR 1.1; Prothrombin Time 12.1 Seconds (9.4-12.1)
[2019-03-23 01:39] LABS: Activated Partial Thrombo Time 31.5 Seconds (26.0-36.0)
[2019-03-23 01:54] LABS: Troponin I < 0.03 ng/mL (< 0.04)
[2019-03-23 02:11] LABS: Albumin 4.1 g/dL (3.5-5.7); Albumin/Globulin Ratio 1.5 (1.1-2.2); Bilirubin,Indirect 0.3 mg/dL (0.0-1.0); Bilirubin,Total 0.3 mg/dL (0.3-1.0); Globulin 2.7 g/dL (2.4-3.5); Total Protein 6.8 g/dL (6.4-8.9)
[2019-03-23 02:39] LABS: BUN/Creatinine Ratio 13 (6-26); Blood Urea Nitrogen 35 mg/dL (8-23); Calcium 9.5 mg/dL (8.6-10.3); Carbon Dioxide 19 mEq/L (23-29); Chloride 110 mEq/L (98-107); Glucose 132 mg/dL (70-105); Osmolality,Calculated 294 (280-300); Potassium 4.3 mEq/L (3.5-5.1); Sodium 137 mEq/L (136-145); eGFR For African Americans 29 (> 60); eGFR For Non-African Americans 24 (> 60)
[2019-03-23] MEDS ORDERED: 0.9 % Sodium Chloride 1,000 ML ONE ×2 (02:45→03:52)
[2019-03-23 03:00] LABS: ABG Base Excess -6 mEq/L (-2 to 3); ABG HCO3 21 mEq/L (21-27); ABG Oxygen Saturation 95 % (95-98); ABG PCO2 49 mmHg (35-45); ABG PH 7.24 pH Units (7.32-7.45); ABG PO2 90 mmHg (85-104); ABG TCO2 23 mEq/L (20-26)
[2019-03-23] MEDS ORDERED: Norepinephrine 4 MG in 0.9 % Sodium Chloride 250 ML IVC SCH ×2 (03:00→18:26)
[2019-03-23 03:40] LABS: Bilirubin,Urine Small (Negative); Blood,Urine Negative (Negative); Clarity,Urine Turbid (Clear); Color,Urine Dark Yellow (Yellow); Glucose,Urine (UA) Normal (Normal); Ketones,Urine Trace mg/dL (Negative); Leukocyte Esterase,Urine Negative (Negative); Nitrite,Urine Negative (Negative); Protein,Urine 100 mg/dL (Neg-Trace); Specific Gravity,Urine > 1.030 (1.010-1.025); Urobilinogen,Urine Normal (Normal)
[2019-03-23 03:42] LABS: Bacteria,Urine None Seen per hpf (None-Few); Squamous Epithelial Cell,Urine Many per lpf (None-Few); WBC,Urine 15-30 per hpf (0-3)
[2019-03-23 03:52] LABS: Amphetamine Screen,Urine Negative ng/mL (Cutoff=1000); Barbiturate Screen,Urine Negative ng/mL (Cutoff=200); Benzodiazepines Screen,Urine Positive ng/mL (Cutoff=200); Cannabinoid Screen,Urine Positive ng/mL (Cutoff = 50); Cocaine Screen,Urine Negative ng/mL (Cutoff= 300); Opiate Screen,Urine Negative ng/mL (Cutoff=300); Phencyclidine Screen,Urine Negative ng/mL (Cutoff=25)
[2019-03-23] MEDS ORDERED: 0.9 % Sodium Chloride 1,000 ML IV ONE (03:53)
[2019-03-23 03:55] LABS: Hyaline Casts,Urine Few per lpf (None-Few)
[2019-03-23] MEDS ORDERED: Aspirin 81 MG TAB.CHEW PO STA (04:45)
[2019-03-23] MEDS ORDERED: traZODone 50 MG TABLET PO PRN (08:59)
[2019-03-23] MEDS ORDERED: Fenofibrate 54 MG TABLET PO SCH (09:00)
[2019-03-23] MEDS ORDERED: Loratadine 10 MG TABLET PO SCH (09:00)
[2019-03-23] MEDS ORDERED: cefTRIAXone 1,000 MG in Water for inj. (sterile) 10 ML IVP SCH (09:00)
[2019-03-23] MEDS ORDERED: Cyanocobalamin (B-12) 1,000 MCG TABLET PO SCH (09:00)
[2019-03-23] MEDS ORDERED: Metoprolol XL (24 HR) Succ 25 MG TAB.ER.24H PO SCH (09:00)
[2019-03-23] MEDS ORDERED: Isosorbide MONOnitrate (24 HR) 60 MG TAB.ER.24H PO SCH (09:00)
[2019-03-23] MEDS ORDERED: 0.9 % Sodium Chloride 1,000 ML IVC SCH (09:45)
[2019-03-23] MEDS ORDERED: Perflutren Lipid Microsphere 1.3 ML in 0.9 % Sodium Chloride 8.7 ML IVP ONE (10:31)
[2019-03-23] MEDS ORDERED: Perflutren Lipid Microsphere 2 ML VIAL ONE (10:34)
[2019-03-23] MEDS: Gabapentin 300 MG CAPSULE PO SCH ×3 (11:29→19:49)
[2019-03-23] MEDS ORDERED: *HR* Heparin 5,000 UNIT/ML VIAL SQ SCH (14:00)
[2019-03-23] MEDS ORDERED: Naloxone 0.4 MG/ML INJ IVP PRN ×2 (14:41→18:26)
[2019-03-23] MEDS: 0.9 % Sodium Chloride 1,000 ML IVC SCH (19:45)
[2019-03-23] MEDS ORDERED: Dextrose Gel 15 GM/37.5 ML TUBE PO PRN ×2 (19:56)
[2019-03-23] MEDS ORDERED: *HR* Dextrose 50 % in Water (Syg) 50 ML SYRINGE IVP PRN (19:56)
[2019-03-23] MEDS ORDERED: D5% in Water 1,000 ML IVC PRN (19:56)
[2019-03-23] MEDS: Insulin LISPRO 300 UNITS/3 ML VIAL SQ SCH ×2 (20:27→20:28)
[2019-03-23] MEDS: *HR* Heparin 5,000 UNIT/ML VIAL SQ SCH (21:19)
[2019-03-24] MEDS: 0.9 % Sodium Chloride 1,000 ML IVC SCH (02:32)
[2019-03-24] MEDS: Nitroglycerin 0.4 MG TAB.SUBL SL PRN ×3 (03:16→03:36)
[2019-03-24] MEDS: *HR* Heparin 5,000 UNIT/ML VIAL SQ SCH ×3 (05:00→21:45)
[2019-03-24] MEDS: Insulin LISPRO 300 UNITS/3 ML VIAL SQ SCH ×4 (07:46→21:46)
[2019-03-24] MEDS: Cyanocobalamin (B-12) 1,000 MCG TABLET PO SCH (07:51)
[2019-03-24] MEDS: Loratadine 10 MG TABLET PO SCH (07:51)
[2019-03-24] MEDS: Fenofibrate 54 MG TABLET PO SCH (07:51)
[2019-03-24] MEDS: Gabapentin 300 MG CAPSULE PO SCH ×3 (07:52→21:43)
[2019-03-24] MEDS: Aspirin 81 MG TAB.CHEW PO SCH (07:52)
[2019-03-24 08:05] LABS: Basophils % 0.7 %; Eosinophils # 0.1 K/mcL (0.0-0.6); Eosinophils % 2.9 %; Hematocrit 39.5 % (37.5-50.1); Hemoglobin 13.2 g/dL (12.9-16.9); Immature Granulocytes % 0.2 % (0-4); Lymphocytes # 1.1 K/mcL (0.6-4.6); Lymphocytes % 27.9 %; Mean Corpuscular HGB Conc 33.4 g/dL (31.6-35.5); Mean Corpuscular Hemoglobin 32.2 pg (28.0-33.3); Mean Corpuscular Volume 96.3 fL (83.0-100.0); Mean Platelet Volume 9.9 fL (9.4-12.4); Monocytes # 0.3 K/mcL (0.0-1.3); Monocytes % 8.3 %; Neutrophils # 2.4 K/mcL (1.6-8.9); Platelet Count 142 K/mcL (140-400); Red Cell Distribution Width 14.2 % (11.5-14.5); White Blood Count 4.1 K/mcL (4.3-11.1)
[2019-03-24 08:23] LABS: BUN/Creatinine Ratio 15 (6-26); Blood Urea Nitrogen 17 mg/dL (8-23); Calcium 8.9 mg/dL (8.6-10.3); Carbon Dioxide 23 mEq/L (23-29); Chloride 107 mEq/L (98-107); Glucose 104 mg/dL (70-105); Osmolality,Calculated 288 (280-300); Potassium 4.3 mEq/L (3.5-5.1); Sodium 138 mEq/L (136-145); eGFR For African Americans > 60 (> 60); eGFR For Non-African Americans > 60 (> 60)
[2019-03-24] MEDS ORDERED: Aspirin 81 MG TAB.CHEW PO SCH (09:00)
[2019-03-24] MEDS: Isosorbide MONOnitrate (24 HR) 30 MG TAB.ER.24H PO SCH (09:21)
[2019-03-24] MEDS: amLODIPine 5 MG TABLET PO SCH (10:25)
[2019-03-24] MEDS: Lactulose Oral Soln 20 GM/30 ML UDC PO PRN ×2 (11:48→22:31)
[2019-03-24] MEDS ORDERED: Naloxone 0.4 MG/ML INJ IVP PRN (14:02)
[2019-03-24] MEDS: *HR* OxyCODONE Immed Rel 5 MG TABLET PO PRN (14:27)
[2019-03-24] MEDS: *HR* HYDROcodone/Acet 5/325 mg TABLET PO PRN (17:14)
[2019-03-25] MEDS: *HR* Heparin 5,000 UNIT/ML VIAL SQ SCH ×3 (05:18→20:31)
[2019-03-25 05:47] LABS: Basophils % 0.8 %; Eosinophils % 2.5 %; Hematocrit 40.7 % (37.5-50.1); Hemoglobin 13.4 g/dL (12.9-16.9); Lymphocytes % 36.1 %; Mean Corpuscular HGB Conc 32.9 g/dL (31.6-35.5); Mean Corpuscular Hemoglobin 31.6 pg (28.0-33.3); Mean Platelet Volume 10.4 fL (9.4-12.4); Monocytes % 7.9 %; Platelet Count 161 K/mcL (140-400); Red Blood Count 4.24 M/mcL (4.19-5.50); Red Cell Distribution Width 13.8 % (11.5-14.5); Segmented Neutrophils % 52.7 %; White Blood Count 3.9 K/mcL (4.3-11.1)
[2019-03-25 05:48] LABS: Eosinophils # 0.1 K/mcL (0.0-0.6); Lymphocytes # 1.4 K/mcL (0.6-4.6); Monocytes # 0.3 K/mcL (0.0-1.3); Neutrophils # 2.1 K/mcL (1.6-8.9)
[2019-03-25 06:06] LABS: BUN/Creatinine Ratio 12 (6-26); Blood Urea Nitrogen 12 mg/dL (8-23); Calcium 8.9 mg/dL (8.6-10.3); Carbon Dioxide 27 mEq/L (23-29); Chloride 104 mEq/L (98-107); Glucose 75 mg/dL (70-105); Osmolality,Calculated 286 (280-300); Sodium 139 mEq/L (136-145); eGFR For African Americans > 60 (> 60); eGFR For Non-African Americans > 60 (> 60)
[2019-03-25] MEDS: Insulin LISPRO 300 UNITS/3 ML VIAL SQ SCH ×4 (08:29→20:31)
[2019-03-25] MEDS: Gabapentin 300 MG CAPSULE PO SCH ×3 (08:35→20:30)
[2019-03-25] MEDS: Cyanocobalamin (B-12) 1,000 MCG TABLET PO SCH (08:35)
[2019-03-25] MEDS: Isosorbide MONOnitrate (24 HR) 30 MG TAB.ER.24H PO SCH (08:35)
[2019-03-25] MEDS: Loratadine 10 MG TABLET PO SCH (08:36)
[2019-03-25] MEDS: Fenofibrate 54 MG TABLET PO SCH (08:36)
[2019-03-25] MEDS: Aspirin 81 MG TAB.CHEW PO SCH (08:36)
[2019-03-25] MEDS: amLODIPine 5 MG TABLET PO SCH (08:40)
[2019-03-25] MEDS: Lactulose Oral Soln 20 GM/30 ML UDC PO PRN (08:40)
[2019-03-25] MEDS: *HR* HYDROcodone/Acet 5/325 mg TABLET PO PRN (08:41)
[2019-03-25] MEDS: Acetaminophen 325 MG TABLET PO PRN (21:27)
[2019-03-25] MEDS: traZODone 50 MG TABLET PO PRN (21:27)
[2019-03-26] MEDS: *HR* HYDROcodone/Acet 5/325 mg TABLET PO PRN ×3 (05:43→23:37)
[2019-03-26] MEDS: *HR* Heparin 5,000 UNIT/ML VIAL SQ SCH ×3 (05:44→23:36)
[2019-03-26] MEDS: Fenofibrate 54 MG TABLET PO SCH (09:30)
[2019-03-26] MEDS: Cyanocobalamin (B-12) 1,000 MCG TABLET PO SCH (09:31)
[2019-03-26] MEDS: Isosorbide MONOnitrate (24 HR) 30 MG TAB.ER.24H PO SCH (09:31)
[2019-03-26] MEDS: Gabapentin 300 MG CAPSULE PO SCH ×3 (09:31→23:38)
[2019-03-26] MEDS: Aspirin 81 MG TAB.CHEW PO SCH (09:31)
[2019-03-26] MEDS: amLODIPine 5 MG TABLET PO SCH (09:31)
[2019-03-26] MEDS: Insulin LISPRO 300 UNITS/3 ML VIAL SQ SCH ×3 (09:32→23:40)
[2019-03-26] MEDS: Loratadine 10 MG TABLET PO SCH (09:32)
[2019-03-26 11:43] LABS: Basophils % 0.8 %; Eosinophils # 0.1 K/mcL (0.0-0.6); Eosinophils % 2.1 %; Hematocrit 43.9 % (37.5-50.1); Hemoglobin 14.8 g/dL (12.9-16.9); Immature Granulocytes % 0.3 % (0-4); Lymphocytes # 1.1 K/mcL (0.6-4.6); Mean Corpuscular HGB Conc 33.7 g/dL (31.6-35.5); Mean Platelet Volume 10.7 fL (9.4-12.4); Monocytes # 0.3 K/mcL (0.0-1.3); Monocytes % 6.7 %; Neutrophils # 2.2 K/mcL (1.6-8.9); Platelet Count 183 K/mcL (140-400); Red Blood Count 4.62 M/mcL (4.19-5.50); Red Cell Distribution Width 14.1 % (11.5-14.5); Segmented Neutrophils % 60.1 %; White Blood Count 3.7 K/mcL (4.3-11.1)
[2019-03-26 12:05] LABS: Estimated Average Glucose 154 mg/dl
[2019-03-26 13:42] LABS: BUN/Creatinine Ratio 12 (6-26); Blood Urea Nitrogen 15 mg/dL (8-23); Calcium 9.5 mg/dL (8.6-10.3); Carbon Dioxide 25 mEq/L (23-29); Chloride 103 mEq/L (98-107); Glucose 98 mg/dL (70-105); Magnesium 1.5 mg/dL (1.6-2.6); Osmolality,Calculated 289 (280-300); Potassium 4.3 mEq/L (3.5-5.1); Sodium 139 mEq/L (136-145); eGFR For African Americans > 60 (> 60); eGFR For Non-African Americans > 60 (> 60)
[2019-03-26 13:58] LABS: Thyroid Stimulating Hormone 2.658 mcIU/mL (0.340-5.600)
[2019-03-26] MEDS: traZODone 50 MG TABLET PO PRN (23:38)
[2019-03-26] MEDS: Cortisporin *EAR*Susp 10 ML BOTTLE BOTH EARS SCH (23:39)
[2019-03-27 06:20] LABS: Basophils % 0.5 %; Eosinophils # 0.1 K/mcL (0.0-0.6); Hematocrit 43.7 % (37.5-50.1); Hemoglobin 14.9 g/dL (12.9-16.9); Immature Granulocytes % 0.3 % (0-4); Lymphocytes # 1.3 K/mcL (0.6-4.6); Lymphocytes % 31.9 %; Mean Corpuscular HGB Conc 34.1 g/dL (31.6-35.5); Mean Corpuscular Volume 93.8 fL (83.0-100.0); Mean Platelet Volume 9.9 fL (9.4-12.4); Monocytes # 0.4 K/mcL (0.0-1.3); Monocytes % 9.8 %; Neutrophils # 2.2 K/mcL (1.6-8.9); Platelet Count 185 K/mcL (140-400); Red Blood Count 4.66 M/mcL (4.19-5.50); Red Cell Distribution Width 13.8 % (11.5-14.5); Segmented Neutrophils % 55.5 %
[2019-03-27] MEDS: *HR* Heparin 5,000 UNIT/ML VIAL SQ SCH ×2 (06:31→21:11)
[2019-03-27 06:40] LABS: BUN/Creatinine Ratio 12 (6-26); Blood Urea Nitrogen 13 mg/dL (8-23); Calcium 9.2 mg/dL (8.6-10.3); Carbon Dioxide 29 mEq/L (23-29); Chloride 102 mEq/L (98-107); Glucose 93 mg/dL (70-105); Magnesium 1.7 mg/dL (1.6-2.6); Osmolality,Calculated 286 (280-300); Potassium 4.1 mEq/L (3.5-5.1); Sodium 138 mEq/L (136-145); eGFR For African Americans > 60 (> 60); eGFR For Non-African Americans > 60 (> 60)
[2019-03-27] MEDS: traZODone 50 MG TABLET PO PRN (21:10)
[2019-03-27] MEDS: Gabapentin 300 MG CAPSULE PO SCH (21:11)
[2019-03-27] MEDS: Cortisporin *EAR*Susp 10 ML BOTTLE BOTH EARS SCH (21:11)
[2019-03-27] MEDS: Insulin LISPRO 300 UNITS/3 ML VIAL SQ SCH (21:11)
[2019-03-28] MEDS: Insulin LISPRO 300 UNITS/3 ML VIAL SQ SCH ×7 (02:28→22:30)
[2019-03-28] MEDS: Aspirin 81 MG TAB.CHEW PO SCH ×2 (02:29→08:51)
[2019-03-28] MEDS: Cortisporin *EAR*Susp 10 ML BOTTLE BOTH EARS SCH ×5 (02:30→22:29)
[2019-03-28] MEDS: Loratadine 10 MG TABLET PO SCH ×2 (02:30→08:52)
[2019-03-28] MEDS: Isosorbide MONOnitrate (24 HR) 30 MG TAB.ER.24H PO SCH ×2 (02:31→08:52)
[2019-03-28] MEDS: amLODIPine 5 MG TABLET PO SCH ×2 (02:31→08:51)
[2019-03-28] MEDS: Gabapentin 300 MG CAPSULE PO SCH ×4 (02:31→22:29)
[2019-03-28] MEDS: Cyanocobalamin (B-12) 1,000 MCG TABLET PO SCH ×2 (02:32→08:52)
[2019-03-28] MEDS: Fenofibrate 54 MG TABLET PO SCH ×2 (02:32→08:52)
[2019-03-28] MEDS: *HR* Heparin 5,000 UNIT/ML VIAL SQ SCH ×4 (02:33→22:30)
[2019-03-28] MEDS: Lactulose Oral Soln 20 GM/30 ML UDC PO PRN (09:17)
[2019-03-28] MEDS: Acetaminophen 325 MG TABLET PO PRN (15:31)
[2019-03-28] MEDS: traZODone 50 MG TABLET PO PRN (22:29)
[2019-03-29 06:28] LABS: Basophils % 0.4 %; Eosinophils # 0.1 K/mcL (0.0-0.6); Eosinophils % 2.1 %; Hematocrit 43.7 % (37.5-50.1); Hemoglobin 14.5 g/dL (12.9-16.9); Immature Granulocytes % 0.2 % (0-4); Lymphocytes % 21.3 %; Mean Corpuscular HGB Conc 33.2 g/dL (31.6-35.5); Mean Corpuscular Hemoglobin 32.4 pg (28.0-33.3); Mean Corpuscular Volume 97.5 fL (83.0-100.0); Mean Platelet Volume 10.2 fL (9.4-12.4); Monocytes # 0.4 K/mcL (0.0-1.3); Neutrophils # 3.2 K/mcL (1.6-8.9); Platelet Count 202 K/mcL (140-400); Red Blood Count 4.48 M/mcL (4.19-5.50); Red Cell Distribution Width 14.1 % (11.5-14.5); White Blood Count 4.8 K/mcL (4.3-11.1)
[2019-03-29] MEDS: *HR* Heparin 5,000 UNIT/ML VIAL SQ SCH ×3 (06:39→21:45)
[2019-03-29 06:49] LABS: BUN/Creatinine Ratio 16 (6-26); Blood Urea Nitrogen 19 mg/dL (8-23); Calcium 9.4 mg/dL (8.6-10.3); Carbon Dioxide 30 mEq/L (23-29); Chloride 100 mEq/L (98-107); Glucose 160 mg/dL (70-105); Magnesium 1.8 mg/dL (1.6-2.6); Osmolality,Calculated 292 (280-300); Potassium 4.1 mEq/L (3.5-5.1); Sodium 138 mEq/L (136-145); eGFR For African Americans > 60 (> 60); eGFR For Non-African Americans > 60 (> 60)
[2019-03-29] MEDS: Isosorbide MONOnitrate (24 HR) 30 MG TAB.ER.24H PO SCH (08:42)
[2019-03-29] MEDS: Fenofibrate 54 MG TABLET PO SCH (08:42)
[2019-03-29] MEDS: Aspirin 81 MG TAB.CHEW PO SCH (08:42)
[2019-03-29] MEDS: Gabapentin 300 MG CAPSULE PO SCH ×3 (08:43→21:44)
[2019-03-29] MEDS: Cyanocobalamin (B-12) 1,000 MCG TABLET PO SCH (08:43)
[2019-03-29] MEDS: Loratadine 10 MG TABLET PO SCH (08:43)
[2019-03-29] MEDS: amLODIPine 5 MG TABLET PO SCH (08:43)
[2019-03-29] MEDS: Insulin LISPRO 300 UNITS/3 ML VIAL SQ SCH ×4 (08:44→21:43)
[2019-03-29] MEDS: Cortisporin *EAR*Susp 10 ML BOTTLE BOTH EARS SCH ×4 (08:44→21:45)
[2019-03-29] MEDS: *HR* HYDROcodone/Acet 5/325 mg TABLET PO PRN (12:45)
[2019-03-29] MEDS: Lactulose Oral Soln 20 GM/30 ML UDC PO PRN (12:45)
[2019-03-29] MEDS: Acetaminophen 325 MG TABLET PO PRN (16:58)
[2019-03-29] MEDS: traZODone 50 MG TABLET PO PRN (21:44)
[2019-03-30] MEDS: *HR* Heparin 5,000 UNIT/ML VIAL SQ SCH (06:10)
[2019-03-30 06:44] LABS: Basophils % 0.8 %; Eosinophils # 0.1 K/mcL (0.0-0.6); Eosinophils % 1.6 %; Hematocrit 44.2 % (37.5-50.1); Hemoglobin 14.9 g/dL (12.9-16.9); Immature Granulocytes % 0.5 % (0-4); Lymphocytes % 27.2 %; Mean Corpuscular HGB Conc 33.7 g/dL (31.6-35.5); Mean Corpuscular Hemoglobin 31.9 pg (28.0-33.3); Mean Corpuscular Volume 94.6 fL (83.0-100.0); Mean Platelet Volume 10.1 fL (9.4-12.4); Monocytes # 0.4 K/mcL (0.0-1.3); Monocytes % 11.3 %; Neutrophils # 2.2 K/mcL (1.6-8.9); Platelet Count 204 K/mcL (140-400); Red Blood Count 4.67 M/mcL (4.19-5.50); Red Cell Distribution Width 14.1 % (11.5-14.5); Segmented Neutrophils % 58.6 %; White Blood Count 3.8 K/mcL (4.3-11.1)
[2019-03-30 07:15] VITALS: BP 152/83
[2019-03-30 07:52] LABS: BUN/Creatinine Ratio 18 (6-26); Blood Urea Nitrogen 21 mg/dL (8-23); Calcium 9.4 mg/dL (8.6-10.3); Carbon Dioxide 28 mEq/L (23-29); Chloride 103 mEq/L (98-107); Glucose 135 mg/dL (70-105); Magnesium 1.9 mg/dL (1.6-2.6); Osmolality,Calculated 295 (280-300); Potassium 4.1 mEq/L (3.5-5.1); Sodium 140 mEq/L (136-145); eGFR For African Americans > 60 (> 60); eGFR For Non-African Americans > 60 (> 60)
[2019-03-30] MEDS ORDERED: FLU Vac QV 19-20 (6Month+)/PF 0.5 ML SYRINGE IM ONE (08:54)
[2019-03-30] MEDS: Insulin LISPRO 300 UNITS/3 ML VIAL SQ SCH (09:23)
[2019-03-30] MEDS: Gabapentin 300 MG CAPSULE PO SCH (09:24)
[2019-03-30] MEDS: Isosorbide MONOnitrate (24 HR) 30 MG TAB.ER.24H PO SCH (09:24)
[2019-03-30] MEDS: Aspirin 81 MG TAB.CHEW PO SCH (09:25)
[2019-03-30] MEDS: Loratadine 10 MG TABLET PO SCH (09:25)
[2019-03-30] MEDS: Cortisporin *EAR*Susp 10 ML BOTTLE BOTH EARS SCH (09:25)
[2019-03-30] MEDS: Fenofibrate 54 MG TABLET PO SCH (09:25)
[2019-03-30] MEDS: amLODIPine 5 MG TABLET PO SCH (09:25)
[2019-03-30] MEDS: Cyanocobalamin (B-12) 1,000 MCG TABLET PO SCH (09:25)
[2019-03-30] MEDS: *HR* OxyCODONE Immed Rel 5 MG TABLET PO PRN (09:29)
== END 2019-03-30 10:19 | DRG 196 ==
LOC: EMEROOARM 01:00 → ICNU 01:00 → SUATTDRO 10:02 → 2ANU 03-24 10:47
PROVIDERS: ADMIT Family Medicine; ATTEND Pharmacist

== ENCOUNTER 2019-09-07 14:20 | Inpatient (IN) ==
[2019-09-07] MEDS ORDERED: Aspirin 81 MG TAB.CHEW PO ONE (14:29)
[2019-09-07] MEDS ORDERED: Ipratropium/Albuterol Neb 3 ML IH ONE (14:30)
[2019-09-07 14:54] LABS: Basophils % 0.4 %; Eosinophils % 0.7 %; Hematocrit 52.7 % (37.5-50.1); Hemoglobin 17.1 g/dL (12.9-16.9); Immature Granulocytes % 0.2 % (0-4); Lymphocytes % 20.7 %; Mean Corpuscular HGB Conc 32.4 g/dL (31.6-35.5); Mean Corpuscular Hemoglobin 30.5 pg (28.0-33.3); Mean Corpuscular Volume 94.1 fL (83.0-100.0); Monocytes # 0.2 K/mcL (0.0-1.3); Monocytes % 4.8 %; Neutrophils # 3.4 K/mcL (1.6-8.9); Platelet Count 219 K/mcL (140-400); Red Cell Distribution Width 14.2 % (11.5-14.5); Segmented Neutrophils % 73.2 %; White Blood Count 4.6 K/mcL (4.3-11.1)
[2019-09-07 15:04] LABS: Prothrombin Time 11.6 Seconds (9.4-12.1)
[2019-09-07 15:06] LABS: Activated Partial Thrombo Time 34.7 Seconds (26.0-36.0)
[2019-09-07 15:14] LABS: Alanine Aminotransferase 20 Units/L (7-52); Albumin 4.7 g/dL (3.5-5.7); Albumin/Globulin Ratio 1.6 (1.1-2.2); Alkaline Phosphatase 15 Units/L (34-104); Aspartate Amino Transferase 21 Units/L (13-39); BUN/Creatinine Ratio 17 (6-26); Bilirubin,Direct 0.1 mg/dL (0.0-0.2); Bilirubin,Indirect 0.4 mg/dL (0.0-1.0); Bilirubin,Total 0.5 mg/dL (0.3-1.0); Blood Urea Nitrogen 20 mg/dL (8-23); C-Reactive Protein < 5 mg/L (Less than 10); Calcium 10.2 mg/dL (8.6-10.3); Carbon Dioxide 22 mEq/L (23-29); Chloride 103 mEq/L (98-107); Globulin 2.9 g/dL (2.4-3.5); Glucose 106 mg/dL (70-105); Lactate Dehydrogenase 151 Units/L (140-271); Lipase 19 Units/L (11-82); Osmolality,Calculated 287 (280-300); Potassium 4.2 mEq/L (3.5-5.1); Sodium 137 mEq/L (136-145); Total Protein 7.6 g/dL (6.4-8.9); Troponin I < 0.03 ng/mL (< 0.04); eGFR For African Americans > 60 (> 60); eGFR For Non-African Americans > 60 (> 60)
[2019-09-07 15:32] LABS: Ferritin 186 ng/mL (20-250)
[2019-09-07] MEDS ORDERED: cefTRIAXone 1,000 MG in Water for inj. (sterile) 10 ML IVP ONE (15:34)
[2019-09-07] MEDS ORDERED: Azithromycin 500 MG in 0.9 % Sodium Chloride 250 ML IVPB ONE (15:34)
[2019-09-07] MEDS ORDERED: Acetaminophen 325 MG TABLET PO PRN (16:41)
[2019-09-07] MEDS ORDERED: Nicotine 2 MG GUM BC PRN (16:48)
[2019-09-07] MEDS ORDERED: Nicotine 21 MG PATCH.TD24 TD PRN (16:48)
[2019-09-07] MEDS: Gabapentin 300 MG CAPSULE PO SCH (20:59)
[2019-09-07] MEDS: traZODone 50 MG TABLET PO PRN (22:17)
[2019-09-07 22:57] LABS: Adenovirus Not Detected (Not Detect); Bordetella Pertussis Not Detected (Not Detect); Chlamydophila pneumoniae Not Detected (Not Detect); Coronavirus 229E Not Detected (Not Detect); Coronavirus HKU1 Not Detected (Not Detect); Coronavirus NL63 Not Detected (Not Detect); Coronavirus OC43 Not Detected (Not Detect); Human Metapneumovirus Not Detected (Not Detect); Human Rhinovirus/Enterovirus Not Detected (Not Detect); Influenza A Subtype 2009 H1 Not Detected (Not Detect); Influenza B Not Detected (Not Detect); Mycoplasma pneumoniae Not Detected (Not Detect); Parainfluenza Virus 1 Not Detected (Not Detect); Parainfluenza Virus 2 Not Detected (Not Detect); Parainfluenza Virus 3 Not Detected (Not Detect); Parainfluenza Virus 4 Not Detected (Not Detect); Respiratory Syncytial Virus Not Detected (Not Detect)
[2019-09-08 05:18] LABS: Hematocrit 46.3 % (37.5-50.1); Hemoglobin 15.7 g/dL (12.9-16.9); Mean Corpuscular HGB Conc 33.9 g/dL (31.6-35.5); Mean Corpuscular Hemoglobin 32.2 pg (28.0-33.3); Mean Corpuscular Volume 94.9 fL (83.0-100.0); Mean Platelet Volume 9.8 fL (9.4-12.4); Platelet Count 184 K/mcL (140-400); Red Blood Count 4.88 M/mcL (4.19-5.50); Red Cell Distribution Width 14.3 % (11.5-14.5); White Blood Count 4.9 K/mcL (4.3-11.1)
[2019-09-08 05:20] LABS: Prothrombin Time 11.4 Seconds (9.4-12.1)
[2019-09-08 05:38] LABS: BUN/Creatinine Ratio 19 (6-26); Blood Urea Nitrogen 27 mg/dL (8-23); C-Reactive Protein < 5 mg/L (Less than 10); Calcium 9.4 mg/dL (8.6-10.3); Carbon Dioxide 26 mEq/L (23-29); Chloride 102 mEq/L (98-107); Glucose 96 mg/dL (70-105); Osmolality,Calculated 293 (280-300); Phosphorous 5.9 mg/dL (2.7-4.5); Potassium 4.6 mEq/L (3.5-5.1); Sodium 139 mEq/L (136-145); Troponin I < 0.03 ng/mL (< 0.04); eGFR For African Americans > 60 (> 60); eGFR For Non-African Americans 51 (> 60)
[2019-09-08 05:56] LABS: Ferritin 157 ng/mL (20-250)
[2019-09-08] MEDS: Isosorbide MONOnitrate (24 HR) 60 MG TAB.ER.24H PO SCH (07:57)
[2019-09-08] MEDS: Gabapentin 300 MG CAPSULE PO SCH ×3 (07:58→22:10)
[2019-09-08] MEDS: Metoprolol XL (24 HR) Succ 25 MG TAB.ER.24H PO SCH (07:59)
[2019-09-08] MEDS: *HR* Enoxaparin 40 MG/0.4 ML SYRINGE SQ SCH (08:00)
[2019-09-08] MEDS: Aspirin 81 MG TAB.CHEW PO SCH (08:00)
[2019-09-08] MEDS ORDERED: Ringers Solution, Lactated 1,000 ML IVC ONE (08:55)
[2019-09-08] MEDS ORDERED: lisinopriL 10 MG TABLET PO SCH (09:00)
[2019-09-08] MEDS ORDERED: *HR* Dextrose 50 % in Water (Syg) 50 ML SYRINGE IVP PRN (11:54)
[2019-09-08] MEDS ORDERED: D5% in Water 1,000 ML IVC PRN (11:54)
[2019-09-08] MEDS ORDERED: Dextrose Gel 15 GM/37.5 ML TUBE PO PRN ×2 (11:54)
[2019-09-08] MEDS: Azithromycin 500 MG in 0.9 % Sodium Chloride 250 ML IVPB SCH (12:26)
[2019-09-08] MEDS: amLODIPine 5 MG TABLET PO SCH (12:45)
[2019-09-08] MEDS: Insulin LISPRO 300 UNITS/3 ML VIAL SQ SCH ×3 (12:45→22:53)
[2019-09-08] MEDS: predniSONE 20 MG TABLET PO SCH (16:45)
[2019-09-08] MEDS: Insulin DETEMIR 100 UNIT/ML X5UNITS SQ SCH (16:46)
[2019-09-08] MEDS: Budesonide/Formoterol 160/4.5 1 PUFF INH IH SCH ×2 (16:46→22:07)
[2019-09-08 19:34] LABS: Bilirubin,Urine Negative (Negative); Blood,Urine Negative (Negative); Clarity,Urine Clear (Clear); Color,Urine Yellow (Yellow); Glucose,Urine (UA) Normal (Normal); Ketones,Urine Negative (Negative); Leukocyte Esterase,Urine Negative (Negative); Nitrite,Urine Negative (Negative); PH,Urine 6.5 pH Units (5.0-8.0); Protein,Urine Negative (Neg-Trace); Specific Gravity,Urine 1.018 (1.010-1.025); Urobilinogen,Urine Normal (Normal)
[2019-09-08] MEDS ORDERED: Insulin DETEMIR 100 UNIT/ML X5UNITS SQ SCH (21:00)
[2019-09-09 03:39] LABS: Basophils % 0.2 %; Hematocrit 44.1 % (37.5-50.1); Hemoglobin 14.9 g/dL (12.9-16.9); Immature Granulocytes % 0.2 % (0-4); Lymphocytes # 0.5 K/mcL (0.6-4.6); Lymphocytes % 10.8 %; Mean Corpuscular HGB Conc 33.8 g/dL (31.6-35.5); Mean Corpuscular Hemoglobin 31.1 pg (28.0-33.3); Mean Corpuscular Volume 92.1 fL (83.0-100.0); Mean Platelet Volume 9.7 fL (9.4-12.4); Monocytes # 0.1 K/mcL (0.0-1.3); Monocytes % 2.4 %; Platelet Count 187 K/mcL (140-400); Red Blood Count 4.79 M/mcL (4.19-5.50); Red Cell Distribution Width 13.7 % (11.5-14.5); Segmented Neutrophils % 86.4 %; White Blood Count 4.6 K/mcL (4.3-11.1)
[2019-09-09 03:57] LABS: BUN/Creatinine Ratio 13 (6-26); Blood Urea Nitrogen 18 mg/dL (8-23); Calcium 9.7 mg/dL (8.6-10.3); Carbon Dioxide 25 mEq/L (23-29); Chloride 103 mEq/L (98-107); Glucose 197 mg/dL (70-105); Osmolality,Calculated 287 (280-300); Potassium 4.4 mEq/L (3.5-5.1); Sodium 135 mEq/L (136-145); eGFR For African Americans > 60 (> 60); eGFR For Non-African Americans 54 (> 60)
[2019-09-09] MEDS: Ondansetron 4 MG/2 ML VIAL IVP PRN (05:01)
[2019-09-09] MEDS ORDERED: Morphine Sulfate 2 MG/ML SYRINGE IVP STA (05:44)
[2019-09-09 06:32] LABS: Troponin I < 0.03 ng/mL (< 0.04)
[2019-09-09] MEDS: Insulin DETEMIR 100 UNIT/ML X5UNITS SQ SCH (09:27)
[2019-09-09] MEDS: Azithromycin 500 MG in 0.9 % Sodium Chloride 250 ML IVPB SCH (09:28)
[2019-09-09] MEDS: Isosorbide MONOnitrate (24 HR) 60 MG TAB.ER.24H PO SCH (09:28)
[2019-09-09] MEDS: Metoprolol XL (24 HR) Succ 25 MG TAB.ER.24H PO SCH (09:29)
[2019-09-09] MEDS: predniSONE 20 MG TABLET PO SCH (09:29)
[2019-09-09] MEDS: amLODIPine 5 MG TABLET PO SCH (09:30)
[2019-09-09] MEDS: Gabapentin 300 MG CAPSULE PO SCH ×3 (09:30→20:24)
[2019-09-09] MEDS: Aspirin 81 MG TAB.CHEW PO SCH (09:30)
[2019-09-09] MEDS: Insulin LISPRO 300 UNITS/3 ML VIAL SQ SCH ×4 (09:36→20:24)
[2019-09-09] MEDS: *HR* Enoxaparin 40 MG/0.4 ML SYRINGE SQ SCH (09:38)
[2019-09-09] MEDS ORDERED: Ringers Solution, Lactated 1,000 ML IVC ONE (11:05)
[2019-09-09] MEDS: Budesonide/Formoterol 160/4.5 1 PUFF INH IH SCH ×2 (15:50→20:42)
[2019-09-09] MEDS: GuaiFENesin Liq 200 MG/10 ML UDC PO PRN (16:13)
[2019-09-09] MEDS: Lactulose Oral Soln 20 GM/30 ML UDC PO PRN (16:13)
[2019-09-09] MEDS: *HR* Acetaminophen w/Cod 300-30 mg 1 TAB TABLET PO PRN ×2 (16:16→22:52)
[2019-09-09] MEDS ORDERED: Morphine Sulfate 2 MG/ML SYRINGE IVP ONE (20:33)
[2019-09-10] MEDS ORDERED: *HR* Metoprolol 5 MG/5 ML VIAL IVP ONE (03:53)
[2019-09-10 04:15] LABS: BUN/Creatinine Ratio 15 (6-26); Blood Urea Nitrogen 17 mg/dL (8-23); Calcium 9.2 mg/dL (8.6-10.3); Carbon Dioxide 26 mEq/L (23-29); Chloride 104 mEq/L (98-107); Glucose 104 mg/dL (70-105); Osmolality,Calculated 286 (280-300); Potassium 3.9 mEq/L (3.5-5.1); Sodium 137 mEq/L (136-145); eGFR For African Americans > 60 (> 60); eGFR For Non-African Americans > 60 (> 60)
[2019-09-10] MEDS: Budesonide/Formoterol 160/4.5 1 PUFF INH IH SCH ×2 (08:19→21:21)
[2019-09-10] MEDS: Azithromycin 250 MG TABLET PO SCH (08:20)
[2019-09-10] MEDS: amLODIPine 5 MG TABLET PO SCH (08:21)
[2019-09-10] MEDS: Aspirin 81 MG TAB.CHEW PO SCH (08:21)
[2019-09-10] MEDS: Gabapentin 300 MG CAPSULE PO SCH ×3 (08:21→21:56)
[2019-09-10] MEDS: Metoprolol XL (24 HR) Succ 25 MG TAB.ER.24H PO SCH (08:21)
[2019-09-10] MEDS: Isosorbide MONOnitrate (24 HR) 60 MG TAB.ER.24H PO SCH (08:22)
[2019-09-10] MEDS: GuaiFENesin Liq 200 MG/10 ML UDC PO PRN (08:45)
[2019-09-10] MEDS: Lactulose Oral Soln 20 GM/30 ML UDC PO PRN (08:45)
[2019-09-10] MEDS: *HR* Acetaminophen w/Cod 300-30 mg 1 TAB TABLET PO PRN ×2 (08:45→16:32)
[2019-09-10] MEDS: *HR* Enoxaparin 40 MG/0.4 ML SYRINGE SQ SCH (08:53)
[2019-09-10] MEDS: predniSONE 20 MG TABLET PO SCH (08:53)
[2019-09-10] MEDS: Insulin LISPRO 300 UNITS/3 ML VIAL SQ SCH ×4 (08:53→22:13)
[2019-09-10] MEDS: Insulin DETEMIR 100 UNIT/ML X5UNITS SQ SCH (09:50)
[2019-09-10] MEDS: Tiotropium 18 MCG inhalation IH SCH (11:00)
[2019-09-10] MEDS: lisinopriL 20 MG TABLET PO SCH (14:29)
[2019-09-10] MEDS: Ondansetron 4 MG/2 ML VIAL IVP PRN (14:29)
[2019-09-11] MEDS: Tiotropium 18 MCG inhalation IH SCH (05:19)
[2019-09-11 05:44] LABS: Basophils % 0.2 %; Eosinophils % 0.1 %; Hematocrit 44.1 % (37.5-50.1); Hemoglobin 14.7 g/dL (12.9-16.9); Immature Granulocytes % 0.2 % (0-4); Lymphocytes # 1.7 K/mcL (0.6-4.6); Mean Corpuscular HGB Conc 33.3 g/dL (31.6-35.5); Mean Corpuscular Hemoglobin 31.3 pg (28.0-33.3); Mean Corpuscular Volume 93.8 fL (83.0-100.0); Mean Platelet Volume 9.9 fL (9.4-12.4); Monocytes # 0.5 K/mcL (0.0-1.3); Monocytes % 5.4 %; Platelet Count 186 K/mcL (140-400); Red Cell Distribution Width 13.9 % (11.5-14.5); Segmented Neutrophils % 74.1 %
[2019-09-11 05:54] LABS: Neutrophils # 6.4 K/mcL (1.6-8.9); White Blood Count 8.6 K/mcL (4.3-11.1)
[2019-09-11 06:02] LABS: BUN/Creatinine Ratio 16 (6-26); Blood Urea Nitrogen 18 mg/dL (8-23); Calcium 9.7 mg/dL (8.6-10.3); Carbon Dioxide 31 mEq/L (23-29); Chloride 102 mEq/L (98-107); Glucose 98 mg/dL (70-105); Osmolality,Calculated 288 (280-300); Potassium 4.2 mEq/L (3.5-5.1); Sodium 138 mEq/L (136-145); eGFR For African Americans > 60 (> 60); eGFR For Non-African Americans > 60 (> 60)
[2019-09-11] MEDS: Gabapentin 300 MG CAPSULE PO SCH ×3 (07:59→21:38)
[2019-09-11] MEDS: Aspirin 81 MG TAB.CHEW PO SCH (07:59)
[2019-09-11] MEDS: predniSONE 20 MG TABLET PO SCH (07:59)
[2019-09-11] MEDS: Azithromycin 250 MG TABLET PO SCH (07:59)
[2019-09-11] MEDS: Isosorbide MONOnitrate (24 HR) 60 MG TAB.ER.24H PO SCH (07:59)
[2019-09-11] MEDS: lisinopriL 20 MG TABLET PO SCH (07:59)
[2019-09-11] MEDS: Insulin DETEMIR 100 UNIT/ML X5UNITS SQ SCH (07:59)
[2019-09-11] MEDS: amLODIPine 5 MG TABLET PO SCH (08:00)
[2019-09-11] MEDS: Metoprolol XL (24 HR) Succ 25 MG TAB.ER.24H PO SCH (08:00)
[2019-09-11] MEDS: Insulin LISPRO 300 UNITS/3 ML VIAL SQ SCH ×4 (08:18→21:38)
[2019-09-11] MEDS: *HR* Enoxaparin 40 MG/0.4 ML SYRINGE SQ SCH (08:33)
[2019-09-11] MEDS ORDERED: GuaiFENesin/Codeine Oral Soln 5 ML UDC PO PRN (09:29)
[2019-09-11] MEDS: Budesonide/Formoterol 160/4.5 1 PUFF INH IH SCH ×2 (11:06→22:51)
[2019-09-11] MEDS: Loratadine/Pseudophed (12 HR) 1 EACH TABLET PO SCH ×2 (11:13→21:37)
[2019-09-11] MEDS: methylPREDNISolone 125 MG/2 ML VIAL IVP SCH ×3 (11:13→23:55)
[2019-09-11] MEDS: Lactulose Oral Soln 20 GM/30 ML UDC PO SCH ×3 (13:34→21:37)
[2019-09-12] MEDS ORDERED: *HR* LORazepam 2 MG/ML VIAL IVP ONE (04:30)
[2019-09-12] MEDS ORDERED: *HR* LORazepam 2 MG/ML VIAL ONE (04:33)
[2019-09-12] MEDS: methylPREDNISolone 125 MG/2 ML VIAL IVP SCH (06:03)
[2019-09-12] MEDS: Ipratropium/Albuterol Neb 3 ML IH SCH ×4 (08:18→20:16)
[2019-09-12] MEDS: Budesonide/Formoterol 160/4.5 1 PUFF INH IH SCH ×2 (08:19→20:16)
[2019-09-12] MEDS: Tiotropium 18 MCG inhalation IH SCH (08:27)
[2019-09-12] MEDS: Lactulose Oral Soln 20 GM/30 ML UDC PO SCH ×3 (09:33→21:06)
[2019-09-12] MEDS: Metoprolol XL (24 HR) Succ 25 MG TAB.ER.24H PO SCH ×2 (09:33→21:05)
[2019-09-12] MEDS: Loratadine/Pseudophed (12 HR) 1 EACH TABLET PO SCH ×2 (09:34→21:05)
[2019-09-12] MEDS: Gabapentin 300 MG CAPSULE PO SCH ×3 (09:34→21:05)
[2019-09-12] MEDS: Aspirin 81 MG TAB.CHEW PO SCH (09:35)
[2019-09-12] MEDS: Isosorbide MONOnitrate (24 HR) 60 MG TAB.ER.24H PO SCH (09:35)
[2019-09-12] MEDS: MethylPREDNISolone 40 MG/ML VIAL IVP SCH ×3 (09:35→23:38)
[2019-09-12] MEDS: lisinopriL 20 MG TABLET PO SCH (09:35)
[2019-09-12] MEDS: *HR* Enoxaparin 40 MG/0.4 ML SYRINGE SQ SCH (09:38)
[2019-09-12] MEDS: Insulin LISPRO 300 UNITS/3 ML VIAL SQ SCH ×5 (09:40→21:10)
[2019-09-12] MEDS: Insulin DETEMIR 100 UNIT/ML X5UNITS SQ SCH (09:45)
[2019-09-12] MEDS: amLODIPine 5 MG TABLET PO SCH (09:54)
[2019-09-12] MEDS ORDERED: hydrOXYzine pamoate 25 MG CAPSULE PO PRN (11:55)
[2019-09-12] MEDS: hydroCHLOROthiazide 25 MG TABLET PO SCH (12:40)
[2019-09-12] MEDS: traZODone 50 MG TABLET PO PRN (23:37)
[2019-09-13] MEDS: Ipratropium/Albuterol Neb 3 ML IH SCH ×4 (00:48→11:37)
[2019-09-13 06:47] VITALS: BP 117/69
[2019-09-13] MEDS: Budesonide/Formoterol 160/4.5 1 PUFF INH IH SCH (07:37)
[2019-09-13] MEDS: Aspirin 81 MG TAB.CHEW PO SCH (08:24)
[2019-09-13] MEDS: Loratadine/Pseudophed (12 HR) 1 EACH TABLET PO SCH (08:24)
[2019-09-13] MEDS: Isosorbide MONOnitrate (24 HR) 60 MG TAB.ER.24H PO SCH (08:25)
[2019-09-13] MEDS: amLODIPine 5 MG TABLET PO SCH (08:27)
[2019-09-13] MEDS: Metoprolol XL (24 HR) Succ 25 MG TAB.ER.24H PO SCH (08:27)
[2019-09-13] MEDS: Gabapentin 300 MG CAPSULE PO SCH (08:28)
[2019-09-13] MEDS: lisinopriL 20 MG TABLET PO SCH (08:29)
[2019-09-13] MEDS: hydroCHLOROthiazide 25 MG TABLET PO SCH (08:30)
[2019-09-13] MEDS: Insulin LISPRO 300 UNITS/3 ML VIAL SQ SCH ×4 (08:32→12:16)
[2019-09-13] MEDS: Lactulose Oral Soln 20 GM/30 ML UDC PO SCH (08:37)
[2019-09-13] MEDS: *HR* Enoxaparin 40 MG/0.4 ML SYRINGE SQ SCH (08:39)
[2019-09-13] MEDS: MethylPREDNISolone 40 MG/ML VIAL IVP SCH (08:46)
[2019-09-13] MEDS: Insulin DETEMIR 100 UNIT/ML X5UNITS SQ SCH (09:10)
[2019-09-13] MEDS: Ondansetron 4 MG/2 ML VIAL IVP PRN (09:13)
== END 2019-09-13 13:36 | disposition home or self-care (01) | DRG 140 ==
LOC: 2NENU 14:20 → EMEROOARM 14:20 → SUATTDRO 16:42 → 2NENU 18:32 → SUATTDRO 09-09 14:15 → 3BNU 09-11 14:54
PROVIDERS: ADMIT Internal Medicine; ATTEND Internal Medicine

== ENCOUNTER 2019-10-14 09:03 | Observation (INO) ==
[2019-10-14 09:38] LABS: Basophils % 0.4 %; Eosinophils % 0.8 %; Hemoglobin 16.2 g/dL (12.9-16.9); Immature Granulocytes % 0.2 % (0-4); Lymphocytes % 18.4 %; Mean Corpuscular HGB Conc 34.5 g/dL (31.6-35.5); Mean Corpuscular Hemoglobin 32.3 pg (28.0-33.3); Mean Corpuscular Volume 93.8 fL (83.0-100.0); Mean Platelet Volume 9.6 fL (9.4-12.4); Monocytes # 0.4 K/mcL (0.0-1.3); Monocytes % 6.8 %; Neutrophils # 3.9 K/mcL (1.6-8.9); Platelet Count 199 K/mcL (140-400); Red Blood Count 5.01 M/mcL (4.19-5.50); Red Cell Distribution Width 14.4 % (11.5-14.5); Segmented Neutrophils % 73.4 %; White Blood Count 5.3 K/mcL (4.3-11.1)
[2019-10-14 09:47] LABS: Prothrombin Time 11.9 Seconds (9.4-12.1)
[2019-10-14 09:49] LABS: Activated Partial Thrombo Time 35.3 Seconds (26.0-36.0)
[2019-10-14 10:21] LABS: Alanine Aminotransferase 19 Units/L (7-52); Albumin 4.5 g/dL (3.5-5.7); Albumin/Globulin Ratio 1.8 (1.1-2.2); Alkaline Phosphatase 16 Units/L (34-104); Aspartate Amino Transferase 16 Units/L (13-39); BUN/Creatinine Ratio 17 (6-26); Bilirubin,Direct 0.1 mg/dL (0.0-0.2); Bilirubin,Indirect 0.4 mg/dL (0.0-1.0); Bilirubin,Total 0.5 mg/dL (0.3-1.0); Blood Urea Nitrogen 19 mg/dL (8-23); Calcium 9.8 mg/dL (8.6-10.3); Carbon Dioxide 24 mEq/L (23-29); Chloride 104 mEq/L (98-107); Globulin 2.5 g/dL (2.4-3.5); Glucose 203 mg/dL (70-105); Lactate Dehydrogenase 152 Units/L (140-271); Magnesium 1.6 mg/dL (1.6-2.6); Osmolality,Calculated 294 (280-300); Phosphorous 3.6 mg/dL (2.7-4.5); Potassium 3.7 mEq/L (3.5-5.1); Sodium 138 mEq/L (136-145); Troponin I < 0.03 ng/mL (< 0.04); eGFR For African Americans > 60 (> 60); eGFR For Non-African Americans > 60 (> 60)
[2019-10-14 10:40] LABS: C-Reactive Protein < 5 mg/L (Less than 10); Ferritin 150 ng/mL (20-250)
[2019-10-14] MEDS ORDERED: Azithromycin 500 MG in 0.9 % Sodium Chloride 250 ML IVPB ONE (11:13)
[2019-10-14] MEDS ORDERED: hydrOXYzine pamoate 25 MG CAPSULE PO PRN (13:32)
[2019-10-14] MEDS ORDERED: traZODone 50 MG TABLET PO PRN (13:32)
[2019-10-14] MEDS ORDERED: Melatonin 3 MG TABLET PO PRN (13:32)
[2019-10-14] MEDS ORDERED: Lactulose Oral Soln 20 GM/30 ML UDC PO PRN (13:32)
[2019-10-14] MEDS ORDERED: Nitroglycerin 0.4 MG TAB.SUBL SL PRN (13:32)
[2019-10-14] MEDS ORDERED: Acetaminophen 325 MG TABLET PO PRN (13:35)
[2019-10-14] MEDS ORDERED: *HR* HYDROcodone/Acet 5/325 mg TABLET PO PRN (13:35)
[2019-10-14] MEDS ORDERED: Mag Hydrox/Al Hydrox/Simeth 30 ML UDC PO PRN (13:35)
[2019-10-14] MEDS ORDERED: *HR* Promethazine 25 MG/ML VIAL IVP PRN (13:35)
[2019-10-14] MEDS ORDERED: Ondansetron 4 MG/2 ML VIAL IVP PRN (13:35)
[2019-10-14] MEDS ORDERED: Naloxone 0.4 MG/ML INJ IVP PRN (13:35)
[2019-10-14] MEDS ORDERED: MOM Conc 10 ML UD.LIQ PO PRN (13:35)
[2019-10-14] MEDS: Gabapentin 300 MG CAPSULE PO SCH ×2 (15:33→19:38)
[2019-10-14] MEDS ORDERED: Dextrose Gel 15 GM/37.5 ML TUBE PO PRN ×2 (15:59)
[2019-10-14] MEDS ORDERED: *HR* Dextrose 50 % in Water (Syg) 50 ML SYRINGE IVP PRN (15:59)
[2019-10-14] MEDS ORDERED: D5% in Water 1,000 ML IVC PRN (15:59)
[2019-10-14] MEDS ORDERED: Ipratropium/Albuterol Neb 3 ML IH PRN (16:00)
[2019-10-14] MEDS: Insulin LISPRO 300 UNITS/3 ML VIAL SQ SCH ×2 (17:12→19:39)
[2019-10-14] MEDS: *HR* Heparin 5,000 UNIT/ML VIAL SQ SCH (17:21)
[2019-10-14] MEDS: Metoprolol XL (24 HR) Succ 25 MG TAB.ER.24H PO SCH (19:39)
[2019-10-15 02:08] LABS: Basophils % 0.6 %; Eosinophils % 0.4 %; Hematocrit 45.2 % (37.5-50.1); Hemoglobin 14.7 g/dL (12.9-16.9); Immature Granulocytes % 0.2 % (0-4); Lymphocytes # 1.6 K/mcL (0.6-4.6); Lymphocytes % 31.7 %; Mean Corpuscular HGB Conc 32.5 g/dL (31.6-35.5); Mean Corpuscular Hemoglobin 31.2 pg (28.0-33.3); Mean Platelet Volume 9.8 fL (9.4-12.4); Monocytes # 0.3 K/mcL (0.0-1.3); Monocytes % 6.8 %; Platelet Count 206 K/mcL (140-400); Red Blood Count 4.71 M/mcL (4.19-5.50); Red Cell Distribution Width 14.1 % (11.5-14.5); Segmented Neutrophils % 60.3 %
[2019-10-15 02:21] LABS: BUN/Creatinine Ratio 15 (6-26); Blood Urea Nitrogen 18 mg/dL (8-23); Calcium 8.9 mg/dL (8.6-10.3); Carbon Dioxide 26 mEq/L (23-29); Chloride 102 mEq/L (98-107); Chol/HDL Ratio 4.5 (0-4.9); Cholesterol 144 mg/dL (< 200); Glucose 159 mg/dL (70-105); HDL Cholesterol 32 mg/dL (40-59); LDL Cholesterol,Calculated 52 mg/dL (0-99); Osmolality,Calculated 287 (280-300); Potassium 3.7 mEq/L (3.5-5.1); Sodium 136 mEq/L (136-145); Triglycerides 301 mg/dL (< 150); eGFR For African Americans > 60 (> 60); eGFR For Non-African Americans > 60 (> 60)
[2019-10-15] MEDS: *HR* Heparin 5,000 UNIT/ML VIAL SQ SCH ×2 (05:21→18:03)
[2019-10-15] MEDS: Aspirin 81 MG TAB.CHEW PO SCH (09:00)
[2019-10-15] MEDS ORDERED: Isosorbide MONOnitrate (24 HR) 60 MG TAB.ER.24H PO SCH (09:00)
[2019-10-15] MEDS: Cyanocobalamin (B-12) 1,000 MCG TABLET PO SCH (09:00)
[2019-10-15] MEDS: Insulin LISPRO 300 UNITS/3 ML VIAL SQ SCH ×4 (09:18→20:18)
[2019-10-15] MEDS: Loratadine 10 MG TABLET PO SCH (09:24)
[2019-10-15] MEDS: hydroCHLOROthiazide 25 MG TABLET PO SCH (09:24)
[2019-10-15] MEDS: Fenofibrate 54 MG TABLET PO SCH (09:24)
[2019-10-15] MEDS: Metoprolol XL (24 HR) Succ 25 MG TAB.ER.24H PO SCH (09:25)
[2019-10-15] MEDS: Gabapentin 300 MG CAPSULE PO SCH ×3 (09:25→20:25)
[2019-10-15] MEDS: lisinopriL 20 MG TABLET PO SCH (09:26)
[2019-10-15] MEDS ORDERED: Ranolazine 500 MG TAB.ER.12H PO SCH (09:30)
[2019-10-15] MEDS ORDERED: Heparin 1,000 UNITS/500 mL 500 ML ONE (14:04)
[2019-10-15] MEDS ORDERED: *HR* Heparin 10,000 UNIT/10 ML VIAL ONE (14:04)
[2019-10-15] MEDS ORDERED: 0.9 % Sodium Chloride 2,000 ML ONE (14:04)
[2019-10-15] MEDS ORDERED: Nitroglycerin 1,000 MCG/10 ML VIAL IV ONE (14:04)
[2019-10-15] MEDS ORDERED: ISOVUE-370 200 ML INFUS..BTL ONE (14:04)
[2019-10-15] MEDS ORDERED: *HR* FentaNYL (PF) 100 MCG/2 ML VIAL ONE (14:34)
[2019-10-15] MEDS ORDERED: *HR* Midazolam HCl 2 MG/2 ML VIAL ONE (14:34)
[2019-10-16] MEDS: Metoprolol XL (24 HR) Succ 25 MG TAB.ER.24H PO SCH ×2 (04:02→09:19)
[2019-10-16] MEDS ORDERED: Morphine Sulfate 2 MG/ML SYRINGE IVP ONE (04:03)
[2019-10-16] MEDS: *HR* Heparin 5,000 UNIT/ML VIAL SQ SCH (05:25)
[2019-10-16] MEDS: Insulin LISPRO 300 UNITS/3 ML VIAL SQ SCH ×2 (08:15→11:59)
[2019-10-16] MEDS ORDERED: Isosorbide MONOnitrate (24 HR) 60 MG TAB.ER.24H PO SCH (09:00)
[2019-10-16] MEDS: Aspirin 81 MG TAB.CHEW PO SCH (09:18)
[2019-10-16] MEDS: Loratadine 10 MG TABLET PO SCH (09:18)
[2019-10-16] MEDS: Gabapentin 300 MG CAPSULE PO SCH (09:18)
[2019-10-16] MEDS: lisinopriL 20 MG TABLET PO SCH (09:18)
[2019-10-16] MEDS: hydroCHLOROthiazide 25 MG TABLET PO SCH (09:18)
[2019-10-16] MEDS: Cyanocobalamin (B-12) 1,000 MCG TABLET PO SCH (09:19)
[2019-10-16] MEDS: Fenofibrate 54 MG TABLET PO SCH (09:19)
[2019-10-16 11:39] VITALS: BP 105/63
== END 2019-10-16 14:32 | disposition home or self-care (01) ==
LOC: 3BNU 09:03 → EMEROOARM 09:03 → 3BNU 13:13
PROVIDERS: ADMIT Internal Medicine; ATTEND Internal Medicine

== ENCOUNTER 2020-01-27 18:42 | Inpatient (IN) ==
[2020-01-27] MEDS ORDERED: *HR* FentaNYL (PF) 100 MCG/2 ML VIAL IVP ONE (19:10)
[2020-01-27] MEDS ORDERED: Isovue-370 500 ML BOTTLE IVP ONE (19:16)
[2020-01-27 19:55] LABS: Basophils % 0.5 %; Eosinophils # 0.1 K/mcL (0.0-0.6); Eosinophils % 1.1 %; Hemoglobin 13.9 g/dL (12.9-16.9); Immature Granulocytes % 0.2 % (0-4); Lymphocytes # 1.2 K/mcL (0.6-4.6); Lymphocytes % 22.3 %; Mean Corpuscular HGB Conc 32.3 g/dL (31.6-35.5); Mean Corpuscular Hemoglobin 31.4 pg (28.0-33.3); Mean Corpuscular Volume 97.3 fL (83.0-100.0); Mean Platelet Volume 10.2 fL (9.4-12.4); Monocytes # 0.4 K/mcL (0.0-1.3); Monocytes % 6.9 %; Neutrophils # 3.8 K/mcL (1.6-8.9); Platelet Count 161 K/mcL (140-400); Red Blood Count 4.42 M/mcL (4.19-5.50); Red Cell Distribution Width 14.3 % (11.5-14.5); White Blood Count 5.5 K/mcL (4.3-11.1)
[2020-01-27 20:08] LABS: BUN/Creatinine Ratio 20 (6-26); Blood Urea Nitrogen 26 mg/dL (8-23); Calcium 9.7 mg/dL (8.6-10.3); Carbon Dioxide 27 mEq/L (23-29); Chloride 106 mEq/L (98-107); Creatine Kinase 166 Units/L (30-223); Glucose 95 mg/dL (70-105); Osmolality,Calculated 293 (280-300); Potassium 5.1 mEq/L (3.5-5.1); Sodium 139 mEq/L (136-145); Troponin I < 0.03 ng/mL (< 0.04); eGFR For African Americans > 60 (> 60); eGFR For Non-African Americans 58 (> 60)
[2020-01-27] MEDS ORDERED: Aspirin 81 MG TAB.CHEW PO ONE (20:20)
[2020-01-28] MEDS ORDERED: Morphine Sulfate 2 MG/ML SYRINGE IVP ONE (03:49)
[2020-01-28] MEDS ORDERED: Ondansetron 4 MG/2 ML VIAL IVP ONE (03:49)
[2020-01-28] MEDS ORDERED: Naloxone 0.4 MG/ML INJ IVP PRN (05:04)
[2020-01-28] MEDS ORDERED: *HR* Promethazine 25 MG/ML VIAL IVP PRN (05:04)
[2020-01-28] MEDS ORDERED: Morphine Sulfate 2 MG/ML SYRINGE IVP PRN (05:08)
[2020-01-28] MEDS ORDERED: traZODone 50 MG TABLET PO PRN (05:17)
[2020-01-28] MEDS: 0.9 % Sodium Chloride 1,000 ML IVC SCH ×2 (05:45→19:37)
[2020-01-28] MEDS ORDERED: *HR* Metformin 500 MG TABLET PO SCH (08:00)
[2020-01-28] MEDS: polyethylene glycoL 3350 17 GM POWD.PACK PO SCH ×3 (08:13→20:57)
[2020-01-28] MEDS: Sucralfate 1 GM TABLET PO SCH ×2 (08:13→20:56)
[2020-01-28] MEDS: Isosorbide MONOnitrate (24 HR) 60 MG TAB.ER.24H PO SCH (08:13)
[2020-01-28] MEDS: Metoprolol XL (24 HR) Succ 25 MG TAB.ER.24H PO SCH ×2 (08:13→20:57)
[2020-01-28] MEDS: lisinopriL 20 MG TABLET PO SCH (08:13)
[2020-01-28] MEDS: Gabapentin 300 MG CAPSULE PO SCH ×3 (08:20→20:55)
[2020-01-28] MEDS: Aspirin 81 MG TAB.CHEW PO SCH (08:20)
[2020-01-28] MEDS: Fenofibrate 54 MG TABLET PO SCH (08:20)
[2020-01-28 08:56] LABS: Basophils % 0.5 %; Eosinophils # 0.1 K/mcL (0.0-0.6); Eosinophils % 1.8 %; Hematocrit 41.3 % (37.5-50.1); Hemoglobin 13.5 g/dL (12.9-16.9); Immature Granulocytes % 0.3 % (0-4); Lymphocytes # 1.5 K/mcL (0.6-4.6); Lymphocytes % 37.9 %; Mean Corpuscular HGB Conc 32.7 g/dL (31.6-35.5); Mean Corpuscular Hemoglobin 31.6 pg (28.0-33.3); Mean Corpuscular Volume 96.7 fL (83.0-100.0); Mean Platelet Volume 10.2 fL (9.4-12.4); Monocytes # 0.3 K/mcL (0.0-1.3); Monocytes % 7.1 %; Neutrophils # 2.1 K/mcL (1.6-8.9); Platelet Count 152 K/mcL (140-400); Red Blood Count 4.27 M/mcL (4.19-5.50); Red Cell Distribution Width 14.4 % (11.5-14.5); Segmented Neutrophils % 52.4 %
[2020-01-28 09:04] LABS: Prothrombin Time 11.3 Seconds (9.4-12.1)
[2020-01-28 09:16] LABS: BUN/Creatinine Ratio 21 (6-26); Blood Urea Nitrogen 22 mg/dL (8-23); Calcium 9.1 mg/dL (8.6-10.3); Carbon Dioxide 27 mEq/L (23-29); Chloride 104 mEq/L (98-107); Glucose 123 mg/dL (70-105); Osmolality,Calculated 289 (280-300); Potassium 4.1 mEq/L (3.5-5.1); Sodium 137 mEq/L (136-145); eGFR For African Americans > 60 (> 60); eGFR For Non-African Americans > 60 (> 60)
[2020-01-28 09:18] LABS: Magnesium 1.5 mg/dL (1.6-2.6); Phosphorous 3.7 mg/dL (2.7-4.5)
[2020-01-28] MEDS ORDERED: Dextrose Gel 15 GM/37.5 ML TUBE PO PRN ×2 (11:02)
[2020-01-28] MEDS ORDERED: D5% in Water 1,000 ML IVC PRN (11:02)
[2020-01-28] MEDS ORDERED: *HR* Dextrose 50 % in Water (Vial) 50 ML VIAL IVP PRN (11:02)
[2020-01-28] MEDS: Insulin LISPRO 300 UNITS/3 ML VIAL SQ SCH ×3 (11:15→21:01)
[2020-01-28] MEDS: *HR* OxyCODONE Immed Rel 5 MG TABLET PO PRN ×2 (13:22→21:55)
[2020-01-28] MEDS: Acetaminophen 325 MG TABLET PO PRN (20:56)
[2020-01-28] MEDS: Melatonin 3 MG TABLET PO PRN (21:56)
[2020-01-29] MEDS: Acetaminophen 325 MG TABLET PO PRN (03:16)
[2020-01-29] MEDS ORDERED: Acetaminophen IV 1,000 MG/100 ML INFUS..BTL IVPB ONE (06:36)
[2020-01-29] MEDS: Insulin LISPRO 300 UNITS/3 ML VIAL SQ SCH ×4 (08:30→20:47)
[2020-01-29] MEDS: Sucralfate 1 GM TABLET PO SCH ×2 (09:23→19:44)
[2020-01-29] MEDS: Fenofibrate 54 MG TABLET PO SCH (09:23)
[2020-01-29] MEDS: Gabapentin 300 MG CAPSULE PO SCH ×3 (09:23→19:44)
[2020-01-29] MEDS: Aspirin 81 MG TAB.CHEW PO SCH (09:24)
[2020-01-29] MEDS: Metoprolol XL (24 HR) Succ 25 MG TAB.ER.24H PO SCH ×2 (09:49→20:47)
[2020-01-29] MEDS: Isosorbide MONOnitrate (24 HR) 60 MG TAB.ER.24H PO SCH (09:50)
[2020-01-29] MEDS: lisinopriL 20 MG TABLET PO SCH (09:51)
[2020-01-29] MEDS: polyethylene glycoL 3350 17 GM POWD.PACK PO SCH ×3 (09:52→19:45)
[2020-01-29] MEDS ORDERED: Gadolinium Contrast Agent (WT Based) IV PRN (10:38)
[2020-01-29] MEDS: *HR* OxyCODONE Immed Rel 5 MG TABLET PO PRN ×3 (11:14→20:59)
[2020-01-29] MEDS ORDERED: Albuterol 2.5 MG/3 ML NEBULIZER IH PRN (17:29)
[2020-01-29] MEDS: hydrOXYzine pamoate 25 MG CAPSULE PO PRN (19:44)
[2020-01-30] MEDS: *HR* OxyCODONE Immed Rel 5 MG TABLET PO PRN ×3 (01:19→20:19)
[2020-01-30] MEDS: Insulin LISPRO 300 UNITS/3 ML VIAL SQ SCH ×4 (08:09→22:00)
[2020-01-30] MEDS: Aspirin 81 MG TAB.CHEW PO SCH (09:05)
[2020-01-30] MEDS: polyethylene glycoL 3350 17 GM POWD.PACK PO SCH ×3 (09:05→20:06)
[2020-01-30] MEDS: lisinopriL 20 MG TABLET PO SCH (09:06)
[2020-01-30] MEDS: Gabapentin 300 MG CAPSULE PO SCH ×3 (09:06→20:06)
[2020-01-30] MEDS: Sucralfate 1 GM TABLET PO SCH ×2 (09:06→20:06)
[2020-01-30] MEDS: Fenofibrate 54 MG TABLET PO SCH (09:06)
[2020-01-30] MEDS: Lactulose Oral Soln 20 GM/30 ML UDC PO PRN (09:12)
[2020-01-30] MEDS: Isosorbide MONOnitrate (24 HR) 60 MG TAB.ER.24H PO SCH (09:13)
[2020-01-30] MEDS: hydrOXYzine pamoate 25 MG CAPSULE PO PRN (11:43)
[2020-01-30] MEDS: Melatonin 3 MG TABLET PO PRN (20:20)
[2020-01-31] MEDS: *HR* Enoxaparin 40 MG/0.4 ML SYRINGE SQ SCH (05:14)
[2020-01-31] MEDS: *HR* OxyCODONE Immed Rel 5 MG TABLET PO PRN ×3 (05:15→20:11)
[2020-01-31] MEDS: Insulin LISPRO 300 UNITS/3 ML VIAL SQ SCH ×3 (08:37→16:32)
[2020-01-31] MEDS: Sucralfate 1 GM TABLET PO SCH ×2 (08:45→20:12)
[2020-01-31] MEDS: Aspirin 81 MG TAB.CHEW PO SCH (08:45)
[2020-01-31] MEDS: Isosorbide MONOnitrate (24 HR) 60 MG TAB.ER.24H PO SCH (08:45)
[2020-01-31] MEDS: lisinopriL 20 MG TABLET PO SCH (08:45)
[2020-01-31] MEDS: Gabapentin 300 MG CAPSULE PO SCH ×3 (08:45→20:12)
[2020-01-31] MEDS: polyethylene glycoL 3350 17 GM POWD.PACK PO SCH ×3 (08:45→20:12)
[2020-01-31] MEDS: Lactulose Oral Soln 20 GM/30 ML UDC PO PRN (08:47)
[2020-01-31] MEDS: Fenofibrate 54 MG TABLET PO SCH (08:48)
[2020-02-01] MEDS: hydrOXYzine pamoate 25 MG CAPSULE PO PRN (00:51)
[2020-02-01] MEDS: Insulin LISPRO 300 UNITS/3 ML VIAL SQ SCH ×5 (03:01→20:23)
[2020-02-01] MEDS: *HR* Enoxaparin 40 MG/0.4 ML SYRINGE SQ SCH (03:10)
[2020-02-01] MEDS: polyethylene glycoL 3350 17 GM POWD.PACK PO SCH ×3 (08:49→20:23)
[2020-02-01] MEDS: Sucralfate 1 GM TABLET PO SCH ×2 (08:49→20:23)
[2020-02-01] MEDS: Gabapentin 300 MG CAPSULE PO SCH ×3 (08:49→20:23)
[2020-02-01] MEDS: Isosorbide MONOnitrate (24 HR) 60 MG TAB.ER.24H PO SCH (08:49)
[2020-02-01] MEDS: Aspirin 81 MG TAB.CHEW PO SCH (08:50)
[2020-02-01] MEDS: Fenofibrate 54 MG TABLET PO SCH (08:50)
[2020-02-01] MEDS: lisinopriL 20 MG TABLET PO SCH (08:50)
[2020-02-01] MEDS: *HR* OxyCODONE Immed Rel 5 MG TABLET PO PRN ×3 (09:00→20:28)
[2020-02-01] MEDS: predniSONE 20 MG TABLET PO SCH (15:30)
[2020-02-01] MEDS: Acetaminophen 325 MG TABLET PO PRN (16:18)
[2020-02-02] MEDS: *HR* Enoxaparin 40 MG/0.4 ML SYRINGE SQ SCH (05:08)
[2020-02-02] MEDS: Sucralfate 1 GM TABLET PO SCH (07:50)
[2020-02-02] MEDS: polyethylene glycoL 3350 17 GM POWD.PACK PO SCH ×2 (07:50→16:27)
[2020-02-02] MEDS: Isosorbide MONOnitrate (24 HR) 60 MG TAB.ER.24H PO SCH (07:51)
[2020-02-02] MEDS: *HR* OxyCODONE Immed Rel 5 MG TABLET PO PRN ×2 (07:51→16:27)
[2020-02-02] MEDS: Fenofibrate 54 MG TABLET PO SCH (07:52)
[2020-02-02] MEDS: Gabapentin 300 MG CAPSULE PO SCH ×2 (07:52→16:27)
[2020-02-02] MEDS: lisinopriL 20 MG TABLET PO SCH (07:52)
[2020-02-02] MEDS: predniSONE 20 MG TABLET PO SCH (07:52)
[2020-02-02] MEDS: Aspirin 81 MG TAB.CHEW PO SCH (07:52)
[2020-02-02] MEDS: Insulin LISPRO 300 UNITS/3 ML VIAL SQ SCH ×2 (07:53→11:23)
[2020-02-02 12:58] LABS: Adenovirus Not Detected (Not Detect); Coronavirus 229E Not Detected (Not Detect); Coronavirus HKU1 Not Detected (Not Detect); Coronavirus NL63 Not Detected (Not Detect); Coronavirus OC43 Not Detected (Not Detect)
[2020-02-02 13:18] LABS: Bordetella Pertussis Not Detected (Not Detect); Chlamydophila pneumoniae Not Detected (Not Detect); Human Metapneumovirus Not Detected (Not Detect); Human Rhinovirus/Enterovirus Not Detected (Not Detect); Influenza A Subtype 2009 H1 Not Detected (Not Detect); Influenza B Not Detected (Not Detect); Mycoplasma pneumoniae Not Detected (Not Detect); Parainfluenza Virus 1 Not Detected (Not Detect); Parainfluenza Virus 2 Not Detected (Not Detect); Parainfluenza Virus 3 Not Detected (Not Detect); Parainfluenza Virus 4 Not Detected (Not Detect); Respiratory Syncytial Virus Not Detected (Not Detect)
[2020-02-02 16:26] VITALS: BP 149/79
== END 2020-02-02 17:30 | DRG 342 ==
LOC: EMEROOARM 18:42 → 2ANU 18:42 → SUATTDRO 02-01 16:26
PROVIDERS: ADMIT Internal Medicine; ATTEND Internal Medicine

== ENCOUNTER 2020-08-15 13:46 | Observation (INO) ==
[2020-08-15] MEDS ORDERED: Nitroglycerin 0.4 MG TAB.SUBL SL PRN (14:11)
[2020-08-15 14:30] LABS: Basophils % 0.8 %; Eosinophils % 1.1 %; Hematocrit 49.4 % (37.5-50.1); Hemoglobin 16.2 g/dL (12.9-16.9); Immature Granulocytes % 0.3 % (0-4); Lymphocytes % 26.2 %; Mean Corpuscular HGB Conc 32.8 g/dL (31.6-35.5); Mean Corpuscular Volume 94.6 fL (83.0-100.0); Monocytes # 0.3 K/mcL (0.0-1.3); Neutrophils # 2.3 K/mcL (1.6-8.9); Platelet Count 216 K/mcL (140-400); Red Blood Count 5.22 M/mcL (4.19-5.50); Red Cell Distribution Width 14.3 % (11.5-14.5); Segmented Neutrophils % 63.6 %; White Blood Count 3.6 K/mcL (4.3-11.1)
[2020-08-15 15:12] LABS: BUN/Creatinine Ratio 21 (6-26); Blood Urea Nitrogen 19 mg/dL (8-23); Calcium 9.7 mg/dL (8.6-10.3); Carbon Dioxide 27 mEq/L (23-29); Chloride 101 mEq/L (98-107); Glucose 198 mg/dL (70-105); Osmolality,Calculated 292 (280-300); Potassium 4.9 mEq/L (3.5-5.1); Sodium 137 mEq/L (136-145); eGFR For African Americans > 60 (> 60); eGFR For Non-African Americans > 60 (> 60)
[2020-08-15 15:14] LABS: Troponin I < 0.03 ng/mL (< 0.04)
[2020-08-15 16:03] LABS: INR 1.1; Prothrombin Time 12.2 Seconds (9.4-12.1)
[2020-08-15 16:06] LABS: Activated Partial Thrombo Time 30.7 Seconds (26.0-36.0)
[2020-08-15] MEDS ORDERED: *HR* OxyCODONE/APAP 5/325 TABLET PO ONE (16:29)
[2020-08-15] MEDS ORDERED: Melatonin 3 MG TABLET PO PRN (17:01)
[2020-08-15] MEDS ORDERED: Aspirin 325 MG TABLET PO ONE (17:02)
[2020-08-15] MEDS ORDERED: Ondansetron ODT 4 MG TAB.RAPDIS SL PRN (17:11)
[2020-08-15] MEDS ORDERED: Naloxone 0.4 MG/ML INJ IVP PRN (17:11)
[2020-08-15] MEDS ORDERED: Acetaminophen 325 MG TABLET PO PRN (17:11)
[2020-08-15] MEDS ORDERED: Perflutren Lipid Microsphere 1.3 ML in 0.9 % Sodium Chloride 8.7 ML IVP PRN (17:13)
[2020-08-15] MEDS ORDERED: *HR* Dextrose 50 % in Water (Vial) 50 ML VIAL IVP PRN (17:15)
[2020-08-15] MEDS ORDERED: Dextrose Gel 15 GM/37.5 ML TUBE PO PRN ×2 (17:15)
[2020-08-15] MEDS ORDERED: D5% in Water 1,000 ML IVC PRN (17:15)
[2020-08-15] MEDS ORDERED: Ipratropium/Albuterol Neb 3 ML IH PRN (17:27)
[2020-08-15 17:58] LABS: Estimated Average Glucose 151 mg/dl; Hemoglobin A1C 6.9 %
[2020-08-15] MEDS ORDERED: *HR* OxyCODONE Immed Rel 5 MG TABLET PO ONE (20:43)
[2020-08-15] MEDS: Gabapentin 300 MG CAPSULE PO SCH (20:56)
[2020-08-15] MEDS: Insulin LISPRO 300 UNITS/3 ML VIAL SUBQ SCH (22:20)
[2020-08-16] MEDS ORDERED: *HR* OxyCODONE Immed Rel 5 MG TABLET PO PRN
[2020-08-16 02:32] LABS: Hemoglobin 15.3 g/dL (12.9-16.9); Immature Granulocytes % 0.2 % (0-4)
[2020-08-16 02:34] LABS: Basophils % 0.4 %; Eosinophils # 0.1 K/mcL (0.0-0.6); Eosinophils % 1.8 %; Hematocrit 46.1 % (37.5-50.1); Immature Platelets 2.7 % (1.1-6.1); Lymphocytes # 1.9 K/mcL (0.6-4.6); Lymphocytes % 38.1 %; Mean Corpuscular HGB Conc 33.2 g/dL (31.6-35.5); Mean Corpuscular Hemoglobin 30.8 pg (28.0-33.3); Mean Corpuscular Volume 92.8 fL (83.0-100.0); Mean Platelet Volume 9.7 fL (9.4-12.4); Monocytes # 0.5 K/mcL (0.0-1.3); Monocytes % 9.9 %; Neutrophils # 2.5 K/mcL (1.6-8.9); Platelet Count 194 K/mcL (140-400); Red Blood Count 4.97 M/mcL (4.19-5.50); Red Cell Distribution Width 14.5 % (11.5-14.5); Segmented Neutrophils % 49.6 %; White Blood Count 5.1 K/mcL (4.3-11.1)
[2020-08-16 02:41] LABS: Chol/HDL Ratio 5.3 (0-4.9)
[2020-08-16 02:43] LABS: BUN/Creatinine Ratio 19 (6-26); Blood Urea Nitrogen 19 mg/dL (8-23); Calcium 9.2 mg/dL (8.6-10.3); Carbon Dioxide 24 mEq/L (23-29); Chloride 102 mEq/L (98-107); Glucose 124 mg/dL (70-105); Osmolality,Calculated 286 (280-300); Potassium 4.2 mEq/L (3.5-5.1); Sodium 136 mEq/L (136-145); eGFR For African Americans > 60 (> 60); eGFR For Non-African Americans > 60 (> 60)
[2020-08-16 02:44] LABS: Troponin I < 0.03 ng/mL (< 0.04)
[2020-08-16] MEDS: *HR* HYDROcodone/Acet 5/325 mg TABLET PO PRN ×2 (04:24→23:10)
[2020-08-16] MEDS ORDERED: Regadenoson 0.4 MG/5 ML SYRINGE IVP ONE (06:16)
[2020-08-16] MEDS: Insulin LISPRO 300 UNITS/3 ML VIAL SUBQ SCH ×4 (08:49→20:37)
[2020-08-16] MEDS: Aspirin Enteric Coated 81 MG Tablet PO SCH (09:44)
[2020-08-16] MEDS: Isosorbide MONOnitrate (24 HR) 30 MG TAB.ER.24H PO SCH (09:44)
[2020-08-16] MEDS: Gabapentin 300 MG CAPSULE PO SCH ×3 (09:45→20:21)
[2020-08-16] MEDS: lisinopriL 20 MG TABLET PO SCH (09:45)
[2020-08-16] MEDS ORDERED: Heparin 1,000 UNITS/500 mL 500 ML ONE (12:39)
[2020-08-16] MEDS ORDERED: Nitroglycerin 1,000 MCG/10 ML VIAL IV ONE ×2 (12:39→12:49)
[2020-08-16] MEDS ORDERED: 0.9 % Sodium Chloride 2,000 ML ONE (12:39)
[2020-08-16] MEDS ORDERED: *HR* Heparin 10,000 UNIT/10 ML VIAL ONE (12:39)
[2020-08-16] MEDS ORDERED: ISOVUE-370 200 ML INFUS..BTL ONE (12:39)
[2020-08-16] MEDS ORDERED: *HR* FentaNYL (PF) 100 MCG/2 ML VIAL ONE (14:10)
[2020-08-16] MEDS ORDERED: *HR* Midazolam HCl 2 MG/2 ML VIAL ONE (14:11)
[2020-08-16] MEDS ORDERED: GABAPENTIN 600 MG PO SCH (15:00)
[2020-08-16] MEDS ORDERED: traZODone 50 MG TABLET PO PRN (15:08)
[2020-08-16] MEDS: Sucralfate 1 GM TABLET PO SCH (20:20)
[2020-08-17] MEDS: *HR* HYDROcodone/Acet 5/325 mg TABLET PO PRN ×2 (06:54→19:47)
[2020-08-17] MEDS: Insulin LISPRO 300 UNITS/3 ML VIAL SUBQ SCH ×4 (07:11→20:29)
[2020-08-17] MEDS: Aspirin Enteric Coated 81 MG Tablet PO SCH (08:08)
[2020-08-17] MEDS: lisinopriL 20 MG TABLET PO SCH (08:09)
[2020-08-17] MEDS: Gabapentin 300 MG CAPSULE PO SCH ×3 (08:09→20:34)
[2020-08-17] MEDS: amLODIPine 5 MG TABLET PO SCH (08:09)
[2020-08-17] MEDS: Fenofibrate 54 MG TABLET PO SCH (08:09)
[2020-08-17] MEDS: Isosorbide MONOnitrate (24 HR) 30 MG TAB.ER.24H PO SCH (08:09)
[2020-08-17] MEDS: Sucralfate 1 GM TABLET PO SCH ×2 (08:10→20:35)
[2020-08-17 13:45] LABS: Basophils % 0.6 %; Eosinophils # 0.1 K/mcL (0.0-0.6); Eosinophils % 1.3 %; Hematocrit 45.7 % (37.5-50.1); Hemoglobin 15.1 g/dL (12.9-16.9); Immature Granulocytes % 0.2 % (0-4); Lymphocytes # 1.4 K/mcL (0.6-4.6); Lymphocytes % 26.3 %; Mean Corpuscular Hemoglobin 30.3 pg (28.0-33.3); Mean Corpuscular Volume 91.8 fL (83.0-100.0); Monocytes # 0.4 K/mcL (0.0-1.3); Monocytes % 7.2 %; Neutrophils # 3.4 K/mcL (1.6-8.9); Platelet Count 217 K/mcL (140-400); Red Blood Count 4.98 M/mcL (4.19-5.50); Segmented Neutrophils % 64.4 %; White Blood Count 5.3 K/mcL (4.3-11.1)
[2020-08-17 14:03] LABS: BUN/Creatinine Ratio 18 (6-26); Blood Urea Nitrogen 21 mg/dL (8-23); Calcium 9.1 mg/dL (8.6-10.3); Carbon Dioxide 25 mEq/L (23-29); Chloride 100 mEq/L (98-107); Glucose 152 mg/dL (70-105); Osmolality,Calculated 282 (280-300); Potassium 4.3 mEq/L (3.5-5.1); Sodium 133 mEq/L (136-145); eGFR For African Americans > 60 (> 60); eGFR For Non-African Americans > 60 (> 60)
[2020-08-17] MEDS: polyethylene glycoL 3350 17 GM POWD.PACK PO SCH (14:36)
[2020-08-17] MEDS: *HR* OxyCODONE Immed Rel 5 MG TABLET PO PRN (14:37)
[2020-08-17] MEDS: Ranolazine 500 MG TAB.ER.12H PO SCH (20:35)
[2020-08-18] MEDS: *HR* OxyCODONE Immed Rel 5 MG TABLET PO PRN (00:03)
[2020-08-18] MEDS: Insulin LISPRO 300 UNITS/3 ML VIAL SUBQ SCH ×2 (08:31→11:15)
[2020-08-18] MEDS: Isosorbide MONOnitrate (24 HR) 30 MG TAB.ER.24H PO SCH (08:33)
[2020-08-18] MEDS: Fenofibrate 54 MG TABLET PO SCH (08:33)
[2020-08-18] MEDS: lisinopriL 20 MG TABLET PO SCH (08:34)
[2020-08-18] MEDS: Gabapentin 300 MG CAPSULE PO SCH (08:34)
[2020-08-18] MEDS: Ranolazine 500 MG TAB.ER.12H PO SCH (08:34)
[2020-08-18] MEDS: Aspirin Enteric Coated 81 MG Tablet PO SCH (08:35)
[2020-08-18] MEDS: amLODIPine 5 MG TABLET PO SCH (08:35)
[2020-08-18] MEDS: Sucralfate 1 GM TABLET PO SCH (08:35)
[2020-08-18] MEDS: polyethylene glycoL 3350 17 GM POWD.PACK PO SCH (08:36)
[2020-08-18 11:01] VITALS: BP 113/70
[2020-08-18] MEDS ORDERED: Ranolazine 500 MG TAB.ER.12H PO SCH (21:00)
== END 2020-08-18 14:59 | disposition home or self-care (01) ==
LOC: 3BNU 13:46 → EMEROOARM 13:46 → SUATTDRO 16:53 → 3BNU 17:58
PROVIDERS: ADMIT Family Medicine; ATTEND Registered Nurse

== ENCOUNTER 2020-11-06 09:49 | Observation (INO) ==
[2020-11-06] MEDS ORDERED: *HR* Rocuronium Bromide 50 MG/5 ML VIAL ONE (10:04)
[2020-11-06] MEDS ORDERED: Lidocaine -MPF 2% 2 ML VIAL ONE (10:04)
[2020-11-06] MEDS ORDERED: *HR* Remifentanil 1 MG VIAL IVP ONE ×2 (10:04)
[2020-11-06] MEDS ORDERED: Ondansetron 4 MG/2 ML VIAL ONE (10:04)
[2020-11-06] MEDS ORDERED: *HR* Succinylcholine 200 MG/10 ML VIAL IVP ONE (10:04)
[2020-11-06] MEDS ORDERED: *HR* FentaNYL (PF) 100 MCG/2 ML VIAL ONE (10:04)
[2020-11-06] MEDS ORDERED: *HR* Propofol 200 MG/20 ML VIAL IVP ONE ×2 (10:04)
[2020-11-06] MEDS ORDERED: Ringers Solution, Lactated 1,000 ML IVC SCH (10:15)
[2020-11-06] MEDS ORDERED: CeFAZolin Syr 2,000MG/20 ML 2,000 MG/20 ML SYRINGE IVPB ONE (10:15)
[2020-11-06] MEDS ORDERED: *HR* HYDROcodone/Acet 7.5/325 mg TABLET PO PRN (10:26)
[2020-11-06] MEDS ORDERED: Ondansetron 4 MG/2 ML VIAL IVP PRN ×2 (10:26→14:09)
[2020-11-06] MEDS ORDERED: *HR* Vasopressin 20 UNIT/ML VIAL ONE (10:33)
[2020-11-06] MEDS ORDERED: EPHEDrine 50 MG/ML VIAL ONE (11:28)
[2020-11-06] MEDS ORDERED: Sugammadex Sodium 200 MG/2 ML VIAL IV ONE (12:27)
[2020-11-06] MEDS ORDERED: *HR* HYDROMORPHONE 2 MG/ML VIAL ONE (12:29)
[2020-11-06] MEDS: *HR* HYDROmorphone PF 0.5 MG/0.5 ML SYRINGE IVP PRN ×2 (13:09→13:24)
[2020-11-06] MEDS ORDERED: Bacitracin 50,000 UNIT, Polymyxin B Sulfate 500,000 UNIT, Sodium Chloride IRRigation 1,... IR ONE (13:55)
[2020-11-06] MEDS ORDERED: *HR* HYDROcodone/Acet 5/325 mg TABLET PO PRN (14:09)
[2020-11-06] MEDS ORDERED: Naloxone 0.4 MG/ML INJ IVP PRN (14:09)
[2020-11-06] MEDS: Ringers Solution, Lactated 1,000 ML IVC SCH (14:33)
[2020-11-06] MEDS: *HR* OxyCODONE Immed Rel 5 MG TABLET PO PRN ×2 (17:21→21:36)
[2020-11-06] MEDS: CeFAZolin 2 GM/120 ML BAG IVPB SCH (20:46)
[2020-11-06] MEDS: Acetaminophen 325 MG TABLET PO PRN (21:36)
[2020-11-07] MEDS: Ringers Solution, Lactated 1,000 ML IVC SCH ×2 (00:11→10:24)
[2020-11-07] MEDS: *HR* OxyCODONE Immed Rel 5 MG TABLET PO PRN ×3 (01:51→19:44)
[2020-11-07] MEDS: CeFAZolin 2 GM/120 ML BAG IVPB SCH (04:05)
[2020-11-07] MEDS ORDERED: Albuterol 2.5 MG/3 ML NEBULIZER IH PRN (10:57)
[2020-11-07] MEDS ORDERED: Nitroglycerin 0.4 MG TAB.SUBL SL PRN (10:57)
[2020-11-07] MEDS: amLODIPine 5 MG TABLET PO SCH (12:48)
[2020-11-07] MEDS: Gabapentin 300 MG CAPSULE PO SCH ×3 (12:49→20:09)
[2020-11-07] MEDS: lisinopriL 20 MG TABLET PO SCH (12:49)
[2020-11-07] MEDS: Isosorbide MONOnitrate (24 HR) 30 MG TAB.ER.24H PO SCH (12:49)
[2020-11-07] MEDS: polyethylene glycoL 3350 17 GM POWD.PACK PO SCH ×3 (13:30→20:08)
[2020-11-07] MEDS: Lactulose Oral Soln 20 GM/30 ML UDC PO SCH ×2 (15:19→20:07)
[2020-11-07] MEDS: *HR* Metformin 500 MG TABLET PO SCH (15:19)
[2020-11-07] MEDS: Metoprolol XL (24 HR) Succ 25 MG TAB.ER.24H PO SCH (20:09)
[2020-11-07] MEDS: Ranolazine 500 MG TAB.ER.12H PO SCH (20:09)
[2020-11-07] MEDS: Sucralfate 1 GM TABLET PO SCH (20:12)
[2020-11-08] MEDS: *HR* OxyCODONE Immed Rel 5 MG TABLET PO PRN ×3 (05:09→21:55)
[2020-11-08] MEDS: Ranolazine 500 MG TAB.ER.12H PO SCH ×2 (09:06→21:55)
[2020-11-08] MEDS: Cyanocobalamin (B-12) 1,000 MCG TABLET PO SCH (09:06)
[2020-11-08] MEDS: *HR* Metformin 500 MG TABLET PO SCH ×2 (09:06→15:25)
[2020-11-08] MEDS: Gabapentin 300 MG CAPSULE PO SCH ×3 (09:06→21:55)
[2020-11-08] MEDS: Sucralfate 1 GM TABLET PO SCH ×2 (09:07→21:57)
[2020-11-08] MEDS: Aspirin Enteric Coated 81 MG Tablet PO SCH (09:07)
[2020-11-08] MEDS: lisinopriL 20 MG TABLET PO SCH (09:07)
[2020-11-08] MEDS: Fenofibrate 54 MG TABLET PO SCH (09:08)
[2020-11-08] MEDS: Isosorbide MONOnitrate (24 HR) 30 MG TAB.ER.24H PO SCH (09:08)
[2020-11-08] MEDS: Metoprolol XL (24 HR) Succ 25 MG TAB.ER.24H PO SCH ×2 (09:09→21:56)
[2020-11-08] MEDS: Lactulose Oral Soln 20 GM/30 ML UDC PO SCH ×3 (09:09→21:56)
[2020-11-08] MEDS: amLODIPine 5 MG TABLET PO SCH (09:09)
[2020-11-08] MEDS: Loratadine 10 MG TABLET PO SCH (09:09)
[2020-11-08] MEDS: polyethylene glycoL 3350 17 GM POWD.PACK PO SCH ×3 (09:18→21:56)
[2020-11-09] MEDS: Fenofibrate 54 MG TABLET PO SCH (09:22)
[2020-11-09] MEDS: Gabapentin 300 MG CAPSULE PO SCH ×3 (09:22→20:12)
[2020-11-09] MEDS: Aspirin Enteric Coated 81 MG Tablet PO SCH (09:22)
[2020-11-09] MEDS: Cyanocobalamin (B-12) 1,000 MCG TABLET PO SCH (09:22)
[2020-11-09] MEDS: Ranolazine 500 MG TAB.ER.12H PO SCH ×2 (09:22→20:12)
[2020-11-09] MEDS: amLODIPine 5 MG TABLET PO SCH (09:23)
[2020-11-09] MEDS: Metoprolol XL (24 HR) Succ 25 MG TAB.ER.24H PO SCH ×2 (09:23→20:12)
[2020-11-09] MEDS: Isosorbide MONOnitrate (24 HR) 30 MG TAB.ER.24H PO SCH (09:24)
[2020-11-09] MEDS: Loratadine 10 MG TABLET PO SCH (09:24)
[2020-11-09] MEDS: lisinopriL 20 MG TABLET PO SCH (09:24)
[2020-11-09] MEDS: Sucralfate 1 GM TABLET PO SCH ×2 (09:24→20:12)
[2020-11-09] MEDS: Lactulose Oral Soln 20 GM/30 ML UDC PO SCH ×3 (09:25→20:12)
[2020-11-09] MEDS: polyethylene glycoL 3350 17 GM POWD.PACK PO SCH ×3 (09:25→20:12)
[2020-11-09] MEDS: *HR* Metformin 500 MG TABLET PO SCH ×2 (09:26→17:44)
[2020-11-09] MEDS: *HR* OxyCODONE Immed Rel 5 MG TABLET PO PRN ×3 (09:34→17:44)
[2020-11-10] MEDS: *HR* OxyCODONE Immed Rel 5 MG TABLET PO PRN ×3 (05:22→19:29)
[2020-11-10] MEDS: polyethylene glycoL 3350 17 GM POWD.PACK PO SCH ×3 (08:19→20:53)
[2020-11-10] MEDS: Sucralfate 1 GM TABLET PO SCH ×2 (08:20→20:53)
[2020-11-10] MEDS: Metoprolol XL (24 HR) Succ 25 MG TAB.ER.24H PO SCH ×2 (08:21→20:53)
[2020-11-10] MEDS: Isosorbide MONOnitrate (24 HR) 30 MG TAB.ER.24H PO SCH (08:21)
[2020-11-10] MEDS: Cyanocobalamin (B-12) 1,000 MCG TABLET PO SCH (08:22)
[2020-11-10] MEDS: Aspirin Enteric Coated 81 MG Tablet PO SCH (08:23)
[2020-11-10] MEDS: Gabapentin 300 MG CAPSULE PO SCH ×3 (08:23→20:53)
[2020-11-10] MEDS: Fenofibrate 54 MG TABLET PO SCH (08:25)
[2020-11-10] MEDS: amLODIPine 5 MG TABLET PO SCH (08:26)
[2020-11-10] MEDS: Loratadine 10 MG TABLET PO SCH (08:28)
[2020-11-10] MEDS: *HR* Metformin 500 MG TABLET PO SCH ×2 (08:29→16:46)
[2020-11-10] MEDS: lisinopriL 20 MG TABLET PO SCH (08:31)
[2020-11-10] MEDS: Ranolazine 500 MG TAB.ER.12H PO SCH ×2 (08:32→20:53)
[2020-11-10] MEDS: Lactulose Oral Soln 20 GM/30 ML UDC PO SCH ×3 (08:32→20:54)
[2020-11-11] MEDS: *HR* OxyCODONE Immed Rel 5 MG TABLET PO PRN ×4 (06:02→22:32)
[2020-11-11] MEDS: Gabapentin 300 MG CAPSULE PO SCH ×3 (08:45→20:25)
[2020-11-11] MEDS: Sucralfate 1 GM TABLET PO SCH ×2 (08:45→20:25)
[2020-11-11] MEDS: amLODIPine 5 MG TABLET PO SCH (08:45)
[2020-11-11] MEDS: Fenofibrate 54 MG TABLET PO SCH (08:46)
[2020-11-11] MEDS: Isosorbide MONOnitrate (24 HR) 30 MG TAB.ER.24H PO SCH (08:46)
[2020-11-11] MEDS: Cyanocobalamin (B-12) 1,000 MCG TABLET PO SCH (08:46)
[2020-11-11] MEDS: *HR* Metformin 500 MG TABLET PO SCH ×2 (08:46→17:09)
[2020-11-11] MEDS: lisinopriL 20 MG TABLET PO SCH (08:47)
[2020-11-11] MEDS: Ranolazine 500 MG TAB.ER.12H PO SCH ×2 (08:47→20:26)
[2020-11-11] MEDS: Metoprolol XL (24 HR) Succ 25 MG TAB.ER.24H PO SCH ×2 (08:47→20:26)
[2020-11-11] MEDS: Loratadine 10 MG TABLET PO SCH (08:48)
[2020-11-11] MEDS: Aspirin Enteric Coated 81 MG Tablet PO SCH (08:48)
[2020-11-11] MEDS: Lactulose Oral Soln 20 GM/30 ML UDC PO SCH ×3 (08:48→20:33)
[2020-11-11] MEDS: polyethylene glycoL 3350 17 GM POWD.PACK PO SCH ×3 (08:48→20:41)
[2020-11-11] MEDS: Melatonin 3 MG TABLET PO PRN (20:26)
[2020-11-12] MEDS: *HR* OxyCODONE Immed Rel 5 MG TABLET PO PRN ×4 (04:21→21:19)
[2020-11-12] MEDS: Isosorbide MONOnitrate (24 HR) 30 MG TAB.ER.24H PO SCH (08:47)
[2020-11-12] MEDS: Metoprolol XL (24 HR) Succ 25 MG TAB.ER.24H PO SCH ×2 (08:47→21:15)
[2020-11-12] MEDS: Loratadine 10 MG TABLET PO SCH (08:48)
[2020-11-12] MEDS: Sucralfate 1 GM TABLET PO SCH ×2 (08:48→21:15)
[2020-11-12] MEDS: Ranolazine 500 MG TAB.ER.12H PO SCH ×2 (08:48→21:14)
[2020-11-12] MEDS: Cyanocobalamin (B-12) 1,000 MCG TABLET PO SCH (08:48)
[2020-11-12] MEDS: amLODIPine 5 MG TABLET PO SCH (08:48)
[2020-11-12] MEDS: Aspirin Enteric Coated 81 MG Tablet PO SCH (08:48)
[2020-11-12] MEDS: Gabapentin 300 MG CAPSULE PO SCH ×3 (08:48→21:14)
[2020-11-12] MEDS: *HR* Metformin 500 MG TABLET PO SCH ×2 (08:48→16:17)
[2020-11-12] MEDS: Fenofibrate 54 MG TABLET PO SCH (08:48)
[2020-11-12] MEDS: lisinopriL 20 MG TABLET PO SCH (08:49)
[2020-11-12] MEDS: Lactulose Oral Soln 20 GM/30 ML UDC PO SCH ×3 (08:50→21:15)
[2020-11-12] MEDS: polyethylene glycoL 3350 17 GM POWD.PACK PO SCH ×3 (08:50→21:15)
[2020-11-12] MEDS ORDERED: *HR* Dextrose 50 % in Water (Vial) 50 ML VIAL IVP PRN (16:37)
[2020-11-12] MEDS ORDERED: D5% in Water 1,000 ML IVC PRN (16:37)
[2020-11-12] MEDS ORDERED: Dextrose Gel 15 GM/37.5 ML TUBE PO PRN ×2 (16:37)
[2020-11-12] MEDS: Insulin LISPRO 300 UNITS/3 ML VIAL SUBQ SCH ×2 (17:18→21:13)
[2020-11-13] MEDS: *HR* OxyCODONE Immed Rel 5 MG TABLET PO PRN ×3 (03:50→22:05)
[2020-11-13] MEDS: *HR* Metformin 500 MG TABLET PO SCH ×2 (10:46→16:23)
[2020-11-13] MEDS: Cyanocobalamin (B-12) 1,000 MCG TABLET PO SCH (10:46)
[2020-11-13] MEDS: lisinopriL 20 MG TABLET PO SCH (10:46)
[2020-11-13] MEDS: amLODIPine 5 MG TABLET PO SCH (10:47)
[2020-11-13] MEDS: Loratadine 10 MG TABLET PO SCH (10:47)
[2020-11-13] MEDS: Gabapentin 300 MG CAPSULE PO SCH ×3 (10:48→22:05)
[2020-11-13] MEDS: Fenofibrate 54 MG TABLET PO SCH ×2 (10:48→10:49)
[2020-11-13] MEDS: Aspirin Enteric Coated 81 MG Tablet PO SCH (10:48)
[2020-11-13] MEDS: Ranolazine 500 MG TAB.ER.12H PO SCH ×2 (10:48→22:05)
[2020-11-13] MEDS: Metoprolol XL (24 HR) Succ 25 MG TAB.ER.24H PO SCH ×2 (10:49→22:06)
[2020-11-13] MEDS: Lactulose Oral Soln 20 GM/30 ML UDC PO SCH ×3 (10:50→22:05)
[2020-11-13] MEDS: Isosorbide MONOnitrate (24 HR) 30 MG TAB.ER.24H PO SCH (10:50)
[2020-11-13] MEDS: Sucralfate 1 GM TABLET PO SCH ×2 (10:50→22:05)
[2020-11-13] MEDS: polyethylene glycoL 3350 17 GM POWD.PACK PO SCH ×3 (10:51→22:05)
[2020-11-13] MEDS: Insulin LISPRO 300 UNITS/3 ML VIAL SUBQ SCH ×4 (10:55→22:06)
[2020-11-13] MEDS: Melatonin 3 MG TABLET PO PRN (22:04)
[2020-11-13] MEDS: Acetaminophen 325 MG TABLET PO PRN (22:05)
[2020-11-14] MEDS: Insulin LISPRO 300 UNITS/3 ML VIAL SUBQ SCH ×4 (08:30→21:19)
[2020-11-14] MEDS: *HR* OxyCODONE Immed Rel 5 MG TABLET PO PRN ×3 (08:58→21:21)
[2020-11-14] MEDS: amLODIPine 5 MG TABLET PO SCH (08:58)
[2020-11-14] MEDS: Loratadine 10 MG TABLET PO SCH (08:58)
[2020-11-14] MEDS: polyethylene glycoL 3350 17 GM POWD.PACK PO SCH ×3 (08:58→21:19)
[2020-11-14] MEDS: lisinopriL 20 MG TABLET PO SCH (08:58)
[2020-11-14] MEDS: Gabapentin 300 MG CAPSULE PO SCH ×3 (08:59→21:19)
[2020-11-14] MEDS: *HR* Metformin 500 MG TABLET PO SCH ×2 (08:59→16:10)
[2020-11-14] MEDS: Aspirin Enteric Coated 81 MG Tablet PO SCH (08:59)
[2020-11-14] MEDS: Isosorbide MONOnitrate (24 HR) 30 MG TAB.ER.24H PO SCH (09:00)
[2020-11-14] MEDS: Sucralfate 1 GM TABLET PO SCH ×2 (09:00→21:19)
[2020-11-14] MEDS: Ranolazine 500 MG TAB.ER.12H PO SCH ×2 (09:00→21:18)
[2020-11-14] MEDS: Cyanocobalamin (B-12) 1,000 MCG TABLET PO SCH (09:00)
[2020-11-14] MEDS: Lactulose Oral Soln 20 GM/30 ML UDC PO SCH ×3 (09:00→21:19)
[2020-11-14] MEDS: Metoprolol XL (24 HR) Succ 25 MG TAB.ER.24H PO SCH ×2 (09:00→21:19)
[2020-11-15] MEDS: *HR* OxyCODONE Immed Rel 5 MG TABLET PO PRN ×3 (05:32→14:45)
[2020-11-15] MEDS: Cyanocobalamin (B-12) 1,000 MCG TABLET PO SCH (08:16)
[2020-11-15] MEDS: Sucralfate 1 GM TABLET PO SCH (08:16)
[2020-11-15] MEDS: Loratadine 10 MG TABLET PO SCH (08:16)
[2020-11-15] MEDS: Gabapentin 300 MG CAPSULE PO SCH ×2 (08:17→14:36)
[2020-11-15] MEDS: Ranolazine 500 MG TAB.ER.12H PO SCH (08:17)
[2020-11-15] MEDS: *HR* Metformin 500 MG TABLET PO SCH (08:17)
[2020-11-15] MEDS: Aspirin Enteric Coated 81 MG Tablet PO SCH (08:17)
[2020-11-15] MEDS: Metoprolol XL (24 HR) Succ 25 MG TAB.ER.24H PO SCH (08:17)
[2020-11-15] MEDS: Fenofibrate 54 MG TABLET PO SCH (08:18)
[2020-11-15] MEDS: Isosorbide MONOnitrate (24 HR) 30 MG TAB.ER.24H PO SCH (08:18)
[2020-11-15] MEDS: amLODIPine 5 MG TABLET PO SCH (08:18)
[2020-11-15] MEDS: lisinopriL 20 MG TABLET PO SCH (08:19)
[2020-11-15] MEDS: Lactulose Oral Soln 20 GM/30 ML UDC PO SCH ×2 (08:19→14:35)
[2020-11-15] MEDS: polyethylene glycoL 3350 17 GM POWD.PACK PO SCH ×2 (08:19→14:36)
[2020-11-15] MEDS: Insulin LISPRO 300 UNITS/3 ML VIAL SUBQ SCH ×2 (08:56→12:55)
[2020-11-15 14:46] VITALS: BP 113/72
== END 2020-11-15 16:57 | disposition home health service (06) ==
LOC: 3NENU 09:49 → SAMDAY 09:49 → 3NENU 13:59
PROVIDERS: ADMIT Orthopaedic Surgery Orthopaedic Surgery of the Spine; ATTEND Orthopaedic Surgery Orthopaedic Surgery of the Spine

== ENCOUNTER 2021-08-05 20:34 | Inpatient (IN) ==
[2021-08-05] MEDS ORDERED: Isovue-370 500 ML BOTTLE IVP ONE (20:50)
[2021-08-05 21:12] LABS: Basophils % 0.6 %; Eosinophils % 0.6 %; Hematocrit 46.8 % (37.5-50.1); Hemoglobin 15.8 g/dL (12.9-16.9); Immature Granulocytes % 0.2 % (0-4); Lymphocytes # 1.2 K/mcL (0.6-4.6); Lymphocytes % 23.5 %; Mean Corpuscular HGB Conc 33.8 g/dL (31.6-35.5); Mean Corpuscular Hemoglobin 31.3 pg (28.0-33.3); Mean Corpuscular Volume 92.9 fL (83.0-100.0); Mean Platelet Volume 9.8 fL (9.4-12.4); Monocytes # 0.4 K/mcL (0.0-1.3); Monocytes % 7.8 %; Neutrophils # 3.4 K/mcL (1.6-8.9); Platelet Count 187 K/mcL (140-400); Red Blood Count 5.04 M/mcL (4.19-5.50); Red Cell Distribution Width 14.3 % (11.5-14.5); Segmented Neutrophils % 67.3 %; White Blood Count 5.1 K/mcL (4.3-11.1)
[2021-08-05 21:17] LABS: INR 1.1; Prothrombin Time 12.7 Seconds (9.4-12.1)
[2021-08-05 21:20] LABS: Activated Partial Thrombo Time 29.6 Seconds (26.0-36.0)
[2021-08-05 21:54] LABS: Alanine Aminotransferase 18 Units/L (7-52); Albumin 4.3 g/dL (3.5-5.7); Albumin/Globulin Ratio 1.6 (1.1-2.2); Alkaline Phosphatase 18 Units/L (34-104); Aspartate Amino Transferase 16 Units/L (13-39); BUN/Creatinine Ratio 17 (6-26); Bilirubin,Direct 0.1 mg/dL (0.0-0.2); Bilirubin,Indirect 0.2 mg/dL (0.0-1.0); Bilirubin,Total 0.3 mg/dL (0.3-1.0); Blood Urea Nitrogen 19 mg/dL (8-23); Calcium 9.2 mg/dL (8.6-10.3); Carbon Dioxide 23 mEq/L (23-29); Chloride 105 mEq/L (98-107); Globulin 2.7 g/dL (2.4-3.5); Glucose 88 mg/dL (70-105); Lipase 35 Units/L (11-82); Osmolality,Calculated 286 (280-300); Potassium 3.9 mEq/L (3.5-5.1); Sodium 137 mEq/L (136-145); Troponin I < 0.03 ng/mL (< 0.04); eGFR For African Americans > 60 (> 60); eGFR For Non-African Americans > 60 (> 60)
[2021-08-06] MEDS ORDERED: Aspirin 325 MG TABLET PO ONE (00:54)
[2021-08-06] MEDS ORDERED: Ondansetron 4 MG/2 ML VIAL IVP PRN (02:05)
[2021-08-06] MEDS ORDERED: Naloxone 0.4 MG/ML INJ IVP PRN (02:05)
[2021-08-06] MEDS ORDERED: *HR* Dextrose 50 % in Water (Syg) 50 ML SYRINGE IVP PRN (03:17)
[2021-08-06] MEDS ORDERED: D5% in Water 1,000 ML IVC PRN (03:17)
[2021-08-06] MEDS ORDERED: Dextrose 4 GM Chewable Tablets PO PRN ×2 (03:17)
[2021-08-06] MEDS: *HR* Heparin 5,000 UNIT/ML VIAL SQ SCH ×2 (05:26→16:47)
[2021-08-06] MEDS ORDERED: Regadenoson 0.4 MG/5 ML SYRINGE IVP ONE (05:35)
[2021-08-06] MEDS ORDERED: Insulin LISPRO 300 UNITS/3 ML VIAL SUBQ SCH (06:00)
[2021-08-06] MEDS: Insulin LISPRO 300 UNITS/3 ML VIAL SUBQ SCH ×3 (11:31→20:39)
[2021-08-06] MEDS ORDERED: Perflutren Lipid Microsphere 1.3 ML in 0.9 % Sodium Chloride 8.7 ML IVP PRN ×2 (13:11→13:25)
[2021-08-06] MEDS ORDERED: Nitroglycerin 0.4 MG TAB.SUBL SL PRN (13:13)
[2021-08-06] MEDS ORDERED: *HR* LORazepam 2 MG/ML VIAL IVP PRN ×3 (13:15)
[2021-08-06] MEDS: Isosorbide MONOnitrate (24 HR) 60 MG TAB.ER.24H PO SCH (13:44)
[2021-08-06] MEDS: Nicotine 14 MG PATCH.TD24 TD SCH (13:44)
[2021-08-06 16:25] LABS: Basophils % 0.7 %; Eosinophils % 0.5 %; Hematocrit 42.9 % (37.5-50.1); Hemoglobin 14.4 g/dL (12.9-16.9); Immature Granulocytes % 0.2 % (0-4); Lymphocytes # 1.1 K/mcL (0.6-4.6); Lymphocytes % 24.4 %; Mean Corpuscular HGB Conc 33.6 g/dL (31.6-35.5); Mean Corpuscular Hemoglobin 31.2 pg (28.0-33.3); Mean Corpuscular Volume 92.9 fL (83.0-100.0); Mean Platelet Volume 10.2 fL (9.4-12.4); Monocytes # 0.3 K/mcL (0.0-1.3); Monocytes % 5.9 %; Platelet Count 177 K/mcL (140-400); Red Blood Count 4.62 M/mcL (4.19-5.50); Red Cell Distribution Width 14.3 % (11.5-14.5); Segmented Neutrophils % 68.3 %; White Blood Count 4.4 K/mcL (4.3-11.1)
[2021-08-06 16:52] LABS: Alanine Aminotransferase 15 Units/L (7-52); Albumin 3.9 g/dL (3.5-5.7); Albumin/Globulin Ratio 1.6 (1.1-2.2); Alkaline Phosphatase 16 Units/L (34-104); Aspartate Amino Transferase 15 Units/L (13-39); BUN/Creatinine Ratio 19 (6-26); Bilirubin,Total 0.4 mg/dL (0.3-1.0); Blood Urea Nitrogen 17 mg/dL (8-23); Calcium 8.9 mg/dL (8.6-10.3); Carbon Dioxide 24 mEq/L (23-29); Chloride 103 mEq/L (98-107); Globulin 2.5 g/dL (2.4-3.5); Glucose 225 mg/dL (70-105); Magnesium 1.7 mg/dL (1.6-2.6); Osmolality,Calculated 289 (280-300); Phosphorous 3.9 mg/dL (2.7-4.5); Potassium 3.9 mEq/L (3.5-5.1); Sodium 135 mEq/L (136-145); Total Protein 6.4 g/dL (6.4-8.9); eGFR For African Americans > 60 (> 60); eGFR For Non-African Americans > 60 (> 60)
[2021-08-06] MEDS: Ranolazine 500 MG TAB.ER.12H PO SCH (20:38)
[2021-08-06] MEDS: Metoprolol XL (24 HR) Succ 25 MG TAB.ER.24H PO SCH (20:38)
[2021-08-06] MEDS: Melatonin 3 MG TABLET PO PRN (20:38)
[2021-08-07] MEDS: *HR* Heparin 5,000 UNIT/ML VIAL SQ SCH ×2 (06:11→16:58)
[2021-08-07] MEDS: Insulin LISPRO 300 UNITS/3 ML VIAL SUBQ SCH ×4 (07:49→20:26)
[2021-08-07] MEDS: Nicotine 14 MG PATCH.TD24 TD SCH (08:40)
[2021-08-07] MEDS: Ranolazine 500 MG TAB.ER.12H PO SCH ×2 (08:41→20:26)
[2021-08-07] MEDS: Thiamine (B-1) 100 MG TABLET PO SCH (08:41)
[2021-08-07] MEDS: Folic Acid 1 MG TABLET PO SCH (08:41)
[2021-08-07] MEDS: Isosorbide MONOnitrate (24 HR) 60 MG TAB.ER.24H PO SCH (08:41)
[2021-08-07] MEDS: Metoprolol XL (24 HR) Succ 25 MG TAB.ER.24H PO SCH ×2 (08:41→20:26)
[2021-08-07] MEDS: Vitamin B Complex/Vit C/Vit E 1 EACH TABLET PO SCH (08:41)
[2021-08-07] MEDS: Acetaminophen 325 MG TABLET PO PRN ×3 (08:46→20:34)
[2021-08-07 09:34] LABS: Hematocrit 48.2 % (37.5-50.1); Mean Corpuscular HGB Conc 33.8 g/dL (31.6-35.5); Mean Corpuscular Hemoglobin 31.4 pg (28.0-33.3); Mean Corpuscular Volume 92.9 fL (83.0-100.0); Mean Platelet Volume 10.3 fL (9.4-12.4); Platelet Count 229 K/mcL (140-400); Red Blood Count 5.19 M/mcL (4.19-5.50); Red Cell Distribution Width 14.3 % (11.5-14.5)
[2021-08-07 09:36] LABS: Hemoglobin 16.3 g/dL (12.9-16.9); White Blood Count 7.3 K/mcL (4.3-11.1)
[2021-08-07 09:54] LABS: BUN/Creatinine Ratio 15 (6-26); Blood Urea Nitrogen 20 mg/dL (8-23); Calcium 9.5 mg/dL (8.6-10.3); Carbon Dioxide 26 mEq/L (23-29); Chloride 101 mEq/L (98-107); Glucose 138 mg/dL (70-105); Osmolality,Calculated 285 (280-300); Potassium 4.3 mEq/L (3.5-5.1); Sodium 135 mEq/L (136-145); eGFR For African Americans > 60 (> 60); eGFR For Non-African Americans 55 (> 60)
[2021-08-07] MEDS ORDERED: 0.9 % Sodium Chloride 500 ML IVC ONE (10:06)
[2021-08-07] MEDS ORDERED: 0.9 % Sodium Chloride 1,000 ML IVC SCH (10:15)
[2021-08-07] MEDS: *HR* HYDROcodone/Acet 5/325 mg TABLET PO PRN ×2 (11:33→16:59)
[2021-08-07] MEDS ORDERED: hydrOXYzine pamoate 25 MG CAPSULE PO PRN (12:20)
[2021-08-07] MEDS: Lactulose Oral Soln 20 GM/30 ML UDC PO SCH ×2 (14:26→20:27)
[2021-08-07 15:45] LABS: Bilirubin,Urine Negative (Negative); Blood,Urine Negative (Negative); Clarity,Urine Clear (Clear); Color,Urine Yellow (Yellow); Glucose,Urine (UA) Normal (Normal); Ketones,Urine Negative (Negative); Leukocyte Esterase,Urine Negative (Negative); Nitrite,Urine Negative (Negative); PH,Urine 5.5 pH Units (5.0-8.0); Protein,Urine Trace mg/dL (Neg-Trace); Urobilinogen,Urine Normal (Normal)
[2021-08-07] MEDS: Sucralfate 1 GM TABLET PO SCH (16:57)
[2021-08-07] MEDS: Melatonin 3 MG TABLET PO PRN (20:34)
[2021-08-08 01:36] LABS: Hematocrit 41.2 % (37.5-50.1); Mean Corpuscular Hemoglobin 31.6 pg (28.0-33.3); Mean Platelet Volume 10.1 fL (9.4-12.4); Platelet Count 169 K/mcL (140-400); Red Blood Count 4.43 M/mcL (4.19-5.50); Red Cell Distribution Width 14.2 % (11.5-14.5); White Blood Count 4.6 K/mcL (4.3-11.1)
[2021-08-08 03:20] LABS: BUN/Creatinine Ratio 14 (6-26); Blood Urea Nitrogen 14 mg/dL (8-23); Calcium 8.8 mg/dL (8.6-10.3); Carbon Dioxide 21 mEq/L (23-29); Chloride 108 mEq/L (98-107); Glucose 71 mg/dL (70-105); Osmolality,Calculated 285 (280-300); Potassium 4.1 mEq/L (3.5-5.1); Sodium 138 mEq/L (136-145); eGFR For African Americans > 60 (> 60); eGFR For Non-African Americans > 60 (> 60)
[2021-08-08] MEDS: *HR* Heparin 5,000 UNIT/ML VIAL SQ SCH ×3 (05:24→21:10)
[2021-08-08] MEDS: Sucralfate 1 GM TABLET PO SCH ×2 (06:56→16:38)
[2021-08-08] MEDS: Insulin LISPRO 300 UNITS/3 ML VIAL SUBQ SCH ×4 (06:58→21:02)
[2021-08-08] MEDS: Nicotine 14 MG PATCH.TD24 TD SCH (08:44)
[2021-08-08] MEDS: Isosorbide MONOnitrate (24 HR) 60 MG TAB.ER.24H PO SCH (08:57)
[2021-08-08] MEDS: Cholecalciferol (D-3) 1,000 UNIT (25MCG) TABLET PO SCH (08:57)
[2021-08-08] MEDS: amLODIPine 5 MG TABLET PO SCH (08:57)
[2021-08-08] MEDS: Vitamin B Complex/Vit C/Vit E 1 EACH TABLET PO SCH (08:57)
[2021-08-08] MEDS: Thiamine (B-1) 100 MG TABLET PO SCH (08:57)
[2021-08-08] MEDS: Ranolazine 500 MG TAB.ER.12H PO SCH ×2 (08:58→21:09)
[2021-08-08] MEDS: Aspirin Enteric Coated 81 MG Tablet PO SCH (08:58)
[2021-08-08] MEDS: Metoprolol XL (24 HR) Succ 25 MG TAB.ER.24H PO SCH ×2 (08:59→21:09)
[2021-08-08] MEDS: Folic Acid 1 MG TABLET PO SCH (08:59)
[2021-08-08] MEDS: Lactulose Oral Soln 20 GM/30 ML UDC PO SCH ×3 (09:04→16:54)
[2021-08-08] MEDS: *HR* HYDROcodone/Acet 5/325 mg TABLET PO PRN ×2 (09:34→16:57)
[2021-08-08] MEDS: Pantoprazole 40 MG VIAL IVP SCH (17:00)
[2021-08-08] MEDS: Acetaminophen 325 MG TABLET PO PRN (21:08)
[2021-08-08] MEDS: Melatonin 3 MG TABLET PO PRN (21:09)
[2021-08-09 03:38] LABS: Basophils % 0.6 %; Eosinophils # 0.1 K/mcL (0.0-0.6); Eosinophils % 1.2 %; Hematocrit 41.6 % (37.5-50.1); Hemoglobin 14.1 g/dL (12.9-16.9); Immature Granulocytes % 0.2 % (0-4); Lymphocytes # 1.8 K/mcL (0.6-4.6); Lymphocytes % 35.1 %; Mean Corpuscular HGB Conc 33.9 g/dL (31.6-35.5); Mean Corpuscular Hemoglobin 31.6 pg (28.0-33.3); Mean Corpuscular Volume 93.3 fL (83.0-100.0); Mean Platelet Volume 10.1 fL (9.4-12.4); Monocytes # 0.5 K/mcL (0.0-1.3); Monocytes % 9.8 %; Neutrophils # 2.7 K/mcL (1.6-8.9); Platelet Count 180 K/mcL (140-400); Red Blood Count 4.46 M/mcL (4.19-5.50); Red Cell Distribution Width 14.2 % (11.5-14.5); Segmented Neutrophils % 53.1 %; White Blood Count 5.1 K/mcL (4.3-11.1)
[2021-08-09 03:49] LABS: BUN/Creatinine Ratio 12 (6-26); Blood Urea Nitrogen 14 mg/dL (8-23); Calcium 9.4 mg/dL (8.6-10.3); Carbon Dioxide 27 mEq/L (23-29); Chloride 104 mEq/L (98-107); Glucose 94 mg/dL (70-105); Magnesium 1.9 mg/dL (1.6-2.6); Osmolality,Calculated 284 (280-300); Potassium 4.6 mEq/L (3.5-5.1); Sodium 137 mEq/L (136-145); eGFR For African Americans > 60 (> 60); eGFR For Non-African Americans > 60 (> 60)
[2021-08-09] MEDS: *HR* Heparin 5,000 UNIT/ML VIAL SQ SCH ×2 (05:16→15:16)
[2021-08-09] MEDS: Pantoprazole 40 MG VIAL IVP SCH ×2 (05:16→16:36)
[2021-08-09] MEDS: *HR* HYDROcodone/Acet 5/325 mg TABLET PO PRN (05:38)
[2021-08-09 07:47] VITALS: O2SAT 95
[2021-08-09] MEDS: Insulin LISPRO 300 UNITS/3 ML VIAL SUBQ SCH ×3 (07:52→16:35)
[2021-08-09] MEDS: Cholecalciferol (D-3) 1,000 UNIT (25MCG) TABLET PO SCH (08:06)
[2021-08-09] MEDS: Isosorbide MONOnitrate (24 HR) 60 MG TAB.ER.24H PO SCH (08:06)
[2021-08-09] MEDS: Ranolazine 500 MG TAB.ER.12H PO SCH (08:06)
[2021-08-09] MEDS: Metoprolol XL (24 HR) Succ 25 MG TAB.ER.24H PO SCH (08:07)
[2021-08-09] MEDS: amLODIPine 5 MG TABLET PO SCH (08:07)
[2021-08-09] MEDS: Sucralfate 1 GM TABLET PO SCH ×2 (08:07→16:35)
[2021-08-09] MEDS: Lactulose Oral Soln 20 GM/30 ML UDC PO SCH ×2 (08:07→16:35)
[2021-08-09] MEDS: Aspirin Enteric Coated 81 MG Tablet PO SCH (08:07)
[2021-08-09] MEDS: Thiamine (B-1) 100 MG TABLET PO SCH (08:07)
[2021-08-09] MEDS: Folic Acid 1 MG TABLET PO SCH (08:08)
[2021-08-09] MEDS: Nicotine 14 MG PATCH.TD24 TD SCH (08:08)
[2021-08-09] MEDS: Vitamin B Complex/Vit C/Vit E 1 EACH TABLET PO SCH (08:08)
[2021-08-09 11:26] VITALS: BP 134/77; PULSE 63; TEMP 97.9
== END 2021-08-09 18:00 | disposition home or self-care (01) | DRG 198 ==
LOC: 2ANU 20:34 → EMEROOARM 20:34 → SUATTDRO 08-06 01:04 → 2ANU 08-06 01:48 → SUATTDRO 08-07 13:42
PROVIDERS: ADMIT Family Medicine; ATTEND Family Medicine

== ENCOUNTER 2021-08-14 15:12 | Observation (INO) ==
[2021-08-14 16:18] LABS: Basophils % 0.5 %; Eosinophils # 0.1 K/mcL (0.0-0.6); Eosinophils % 0.9 %; Hematocrit 44.4 % (37.5-50.1); Hemoglobin 14.7 g/dL (12.9-16.9); Immature Granulocytes % 0.2 % (0-4); Lymphocytes # 1.1 K/mcL (0.6-4.6); Lymphocytes % 19.3 %; Mean Corpuscular HGB Conc 33.1 g/dL (31.6-35.5); Mean Corpuscular Hemoglobin 31.3 pg (28.0-33.3); Mean Corpuscular Volume 94.7 fL (83.0-100.0); Mean Platelet Volume 10.1 fL (9.4-12.4); Monocytes # 0.4 K/mcL (0.0-1.3); Monocytes % 7.2 %; Neutrophils # 4.1 K/mcL (1.6-8.9); Platelet Count 184 K/mcL (140-400); Red Blood Count 4.69 M/mcL (4.19-5.50); Red Cell Distribution Width 14.6 % (11.5-14.5); Segmented Neutrophils % 71.9 %; White Blood Count 5.7 K/mcL (4.3-11.1)
[2021-08-14 16:26] LABS: INR 1.1; Prothrombin Time 11.7 Seconds (9.4-12.1)
[2021-08-14 16:37] LABS: BUN/Creatinine Ratio 22 (6-26); Blood Urea Nitrogen 21 mg/dL (8-23); Calcium 9.2 mg/dL (8.6-10.3); Carbon Dioxide 25 mEq/L (23-29); Chloride 107 mEq/L (98-107); Glucose 98 mg/dL (70-105); Osmolality,Calculated 293 (280-300); Potassium 4.4 mEq/L (3.5-5.1); Sodium 140 mEq/L (136-145); Troponin I < 0.03 ng/mL (< 0.04); eGFR For African Americans > 60 (> 60); eGFR For Non-African Americans > 60 (> 60)
[2021-08-14] MEDS ORDERED: Morphine Sulfate 2 MG/ML SYRINGE IVP ONE (16:38)
[2021-08-14] MEDS ORDERED: Aspirin 325 MG TABLET PO ONE (16:38)
[2021-08-14] MEDS ORDERED: Naloxone 0.4 MG/ML INJ IVP PRN (20:44)
[2021-08-14] MEDS ORDERED: Melatonin 3 MG TABLET PO PRN (20:44)
[2021-08-14] MEDS ORDERED: *HR* Promethazine 25 MG/ML VIAL IM PRN (20:44)
[2021-08-14] MEDS ORDERED: *HR* LORazepam 2 MG/ML VIAL IVP PRN ×3 (20:58)
[2021-08-14] MEDS ORDERED: Ipratropium/Albuterol Neb 3 ML IH PRN (21:25)
[2021-08-14] MEDS: *HR* HYDROcodone/Acet 5/325 mg TABLET PO PRN (22:24)
[2021-08-14 22:40] LABS: Ethanol < 10 mg/dL (Less than 10); Lipase 23 Units/L (11-82)
[2021-08-14] MEDS: Nicotine 14 MG PATCH.TD24 TD SCH (23:18)
[2021-08-14 23:53] LABS: Amphetamine Screen,Urine Negative ng/mL (Cutoff=1000); Barbiturate Screen,Urine Negative ng/mL (Cutoff=200); Benzodiazepines Screen,Urine Negative ng/mL (Cutoff=200); Cannabinoid Screen,Urine Positive ng/mL (Cutoff = 50); Cocaine Screen,Urine Negative ng/mL (Cutoff= 300); Opiate Screen,Urine Positive ng/mL (Cutoff=300); Phencyclidine Screen,Urine Negative ng/mL (Cutoff=25)
[2021-08-15] MEDS ORDERED: D5% in Water 1,000 ML IVC PRN (00:33)
[2021-08-15] MEDS ORDERED: *HR* Dextrose 50 % in Water (Syg) 50 ML SYRINGE IVP PRN (00:33)
[2021-08-15] MEDS ORDERED: Dextrose 4 GM Chewable Tablets PO PRN ×2 (00:33)
[2021-08-15 03:04] LABS: Hematocrit 45.2 % (37.5-50.1); Hemoglobin 15.1 g/dL (12.9-16.9); Mean Corpuscular HGB Conc 33.4 g/dL (31.6-35.5); Mean Corpuscular Hemoglobin 31.4 pg (28.0-33.3); Mean Platelet Volume 9.9 fL (9.4-12.4); Platelet Count 173 K/mcL (140-400); Red Blood Count 4.81 M/mcL (4.19-5.50); Red Cell Distribution Width 14.6 % (11.5-14.5); White Blood Count 7.7 K/mcL (4.3-11.1)
[2021-08-15 03:14] LABS: INR 1.1; Prothrombin Time 12.2 Seconds (9.4-12.1)
[2021-08-15 03:17] LABS: Activated Partial Thrombo Time 32.6 Seconds (26.0-36.0)
[2021-08-15 03:23] LABS: BUN/Creatinine Ratio 18 (6-26); Blood Urea Nitrogen 19 mg/dL (8-23); Calcium 9.2 mg/dL (8.6-10.3); Carbon Dioxide 30 mEq/L (23-29); Chloride 104 mEq/L (98-107); Estimated Average Glucose 137 mg/dl; Glucose 131 mg/dL (70-105); Hemoglobin A1C 6.4 %; Magnesium 1.4 mg/dL (1.6-2.6); Osmolality,Calculated 294 (280-300); Phosphorous 3.9 mg/dL (2.7-4.5); Potassium 3.9 mEq/L (3.5-5.1); Sodium 140 mEq/L (136-145); eGFR For African Americans > 60 (> 60); eGFR For Non-African Americans > 60 (> 60)
[2021-08-15 03:26] LABS: Chol/HDL Ratio 3.9 (0-4.9)
[2021-08-15 03:39] LABS: Thyroid Stimulating Hormone 5.228 mcIU/mL (0.340-5.600)
[2021-08-15] MEDS: *HR* HYDROcodone/Acet 5/325 mg TABLET PO PRN ×3 (04:28→22:10)
[2021-08-15] MEDS: *HR* Enoxaparin 40 MG/0.4 ML SYRINGE SQ SCH (05:50)
[2021-08-15] MEDS: Budesonide/Formoterol 160/4.5 1 PUFF INH IH SCH ×2 (07:36→19:59)
[2021-08-15] MEDS ORDERED: Saliva Stimulant 44.3ml BOTTLE PO PRN (07:38)
[2021-08-15] MEDS: Fenofibrate 54 MG TABLET PO SCH (09:18)
[2021-08-15] MEDS: Lactulose Oral Soln 20 GM/30 ML UDC PO SCH ×3 (09:18→22:01)
[2021-08-15] MEDS: Folic Acid 1 MG TABLET PO SCH (09:19)
[2021-08-15] MEDS: lisinopriL 20 MG TABLET PO SCH (09:19)
[2021-08-15] MEDS: Acetaminophen 325 MG TABLET PO PRN ×2 (09:19→18:47)
[2021-08-15] MEDS: Metoprolol XL (24 HR) Succ 25 MG TAB.ER.24H PO SCH ×2 (09:19→22:01)
[2021-08-15] MEDS: Vitamin B Complex/Vit C/Vit E 1 EACH TABLET PO SCH (09:19)
[2021-08-15] MEDS: Gabapentin 300 MG CAPSULE PO SCH ×3 (09:20→22:01)
[2021-08-15] MEDS: Cholecalciferol (D-3) 1,000 UNIT (25MCG) TABLET PO SCH (09:20)
[2021-08-15] MEDS: Cyanocobalamin (B-12) 1,000 MCG TABLET PO SCH (09:20)
[2021-08-15] MEDS: Thiamine (B-1) 100 MG TABLET PO SCH (09:20)
[2021-08-15] MEDS: Sucralfate 1 GM TABLET PO SCH ×2 (09:20→22:01)
[2021-08-15] MEDS: Aspirin Enteric Coated 81 MG Tablet PO SCH (09:20)
[2021-08-15] MEDS: Nicotine 14 MG PATCH.TD24 TD SCH (22:01)
[2021-08-16] MEDS: *HR* Enoxaparin 40 MG/0.4 ML SYRINGE SQ SCH (05:25)
[2021-08-16] MEDS: Budesonide/Formoterol 160/4.5 1 PUFF INH IH SCH ×2 (07:51→20:46)
[2021-08-16] MEDS: Vitamin B Complex/Vit C/Vit E 1 EACH TABLET PO SCH (09:11)
[2021-08-16] MEDS: Folic Acid 1 MG TABLET PO SCH (09:13)
[2021-08-16] MEDS: Sucralfate 1 GM TABLET PO SCH ×2 (09:13→21:47)
[2021-08-16] MEDS: Fenofibrate 54 MG TABLET PO SCH (09:16)
[2021-08-16] MEDS: Gabapentin 300 MG CAPSULE PO SCH ×3 (09:17→21:47)
[2021-08-16] MEDS: Cholecalciferol (D-3) 1,000 UNIT (25MCG) TABLET PO SCH (09:18)
[2021-08-16] MEDS: lisinopriL 20 MG TABLET PO SCH (09:18)
[2021-08-16] MEDS: Aspirin Enteric Coated 81 MG Tablet PO SCH (09:20)
[2021-08-16] MEDS: Thiamine (B-1) 100 MG TABLET PO SCH (09:20)
[2021-08-16] MEDS: Lactulose Oral Soln 20 GM/30 ML UDC PO SCH ×3 (09:24→21:47)
[2021-08-16] MEDS: Cyanocobalamin (B-12) 1,000 MCG TABLET PO SCH (09:25)
[2021-08-16] MEDS: Metoprolol XL (24 HR) Succ 25 MG TAB.ER.24H PO SCH ×2 (09:25→21:48)
[2021-08-16] MEDS: *HR* HYDROcodone/Acet 5/325 mg TABLET PO PRN ×2 (15:47→21:47)
[2021-08-16] MEDS ORDERED: *HR* Heparin 10,000 UNIT/10 ML VIAL ONE (16:03)
[2021-08-16] MEDS ORDERED: ISOVUE-370 200 ML INFUS..BTL ONE (16:03)
[2021-08-16] MEDS ORDERED: 0.9 % Sodium Chloride 2,000 ML ONE (16:03)
[2021-08-16] MEDS ORDERED: Heparin 1,000 UNITS/500 mL 500 ML ONE (16:03)
[2021-08-16] MEDS ORDERED: Nitroglycerin 1,000 MCG/5 ML VIAL IV ONE (16:04)
[2021-08-16] MEDS ORDERED: *HR* FentaNYL (PF) 100 MCG/2 ML VIAL ONE (18:25)
[2021-08-16] MEDS ORDERED: *HR* Midazolam HCl 2 MG/2 ML VIAL ONE ×2 (18:25→18:46)
[2021-08-16] MEDS: Nicotine 14 MG PATCH.TD24 TD SCH (21:48)
[2021-08-17] MEDS: *HR* HYDROcodone/Acet 5/325 mg TABLET PO PRN (03:42)
[2021-08-17] MEDS: *HR* Enoxaparin 40 MG/0.4 ML SYRINGE SQ SCH (04:58)
[2021-08-17] MEDS: Budesonide/Formoterol 160/4.5 1 PUFF INH IH SCH (08:17)
[2021-08-17] MEDS: Vitamin B Complex/Vit C/Vit E 1 EACH TABLET PO SCH (08:43)
[2021-08-17] MEDS: Thiamine (B-1) 100 MG TABLET PO SCH (08:44)
[2021-08-17] MEDS: Aspirin Enteric Coated 81 MG Tablet PO SCH (08:44)
[2021-08-17] MEDS: lisinopriL 20 MG TABLET PO SCH (08:44)
[2021-08-17] MEDS: Gabapentin 300 MG CAPSULE PO SCH (08:44)
[2021-08-17] MEDS: Cholecalciferol (D-3) 1,000 UNIT (25MCG) TABLET PO SCH (08:44)
[2021-08-17] MEDS: Fenofibrate 54 MG TABLET PO SCH (08:45)
[2021-08-17] MEDS: Sucralfate 1 GM TABLET PO SCH (08:45)
[2021-08-17] MEDS: Folic Acid 1 MG TABLET PO SCH (08:45)
[2021-08-17] MEDS: Metoprolol XL (24 HR) Succ 25 MG TAB.ER.24H PO SCH (08:45)
[2021-08-17] MEDS: Cyanocobalamin (B-12) 1,000 MCG TABLET PO SCH (08:46)
[2021-08-17] MEDS: Lactulose Oral Soln 20 GM/30 ML UDC PO SCH (08:46)
[2021-08-17] MEDS ORDERED: Isosorbide MONOnitrate (24 HR) 30 MG TAB.ER.24H PO SCH (09:00)
[2021-08-17 11:46] VITALS: BP 143/84; PULSE 51; TEMP 97.4; O2SAT 97
== END 2021-08-17 15:34 | disposition home or self-care (01) ==
LOC: 3BNU 15:12 → EMEROOARM 15:12 → SUATTDRO 19:30 → 3BNU 20:23
PROVIDERS: ADMIT Internal Medicine; ATTEND Registered Nurse

== ENCOUNTER 2021-09-05 19:56 | Observation (INO) ==
[2021-09-05] MEDS ORDERED: Isovue-370 500 ML BOTTLE IVP ONE (20:09)
[2021-09-05 20:43] LABS: Basophils % 0.9 %; Eosinophils # 0.1 K/mcL (0.0-0.6); Eosinophils % 1.3 %; Hematocrit 41.3 % (37.5-50.1); Lymphocytes # 0.9 K/mcL (0.6-4.6); Lymphocytes % 19.5 %; Mean Corpuscular HGB Conc 33.9 g/dL (31.6-35.5); Mean Corpuscular Volume 91.6 fL (83.0-100.0); Mean Platelet Volume 10.4 fL (9.4-12.4); Monocytes # 0.3 K/mcL (0.0-1.3); Monocytes % 6.3 %; Neutrophils # 3.3 K/mcL (1.6-8.9); Platelet Count 184 K/mcL (140-400); Red Blood Count 4.51 M/mcL (4.19-5.50); White Blood Count 4.6 K/mcL (4.3-11.1)
[2021-09-05 20:51] LABS: INR 1.1; Prothrombin Time 11.7 Seconds (9.4-12.1)
[2021-09-05 20:53] LABS: Activated Partial Thrombo Time 31.6 Seconds (26.0-36.0)
[2021-09-05 21:09] LABS: Bacteria,Urine Few per hpf (None-Few); Bilirubin,Urine Negative (Negative); Blood,Urine Negative (Negative); Clarity,Urine Clear (Clear); Color,Urine Yellow (Yellow); Glucose,Urine (UA) Normal (Normal); Ketones,Urine Trace mg/dL (Negative); Leukocyte Esterase,Urine Negative (Negative); Mucus,Urine Many per lpf (None-Few); Nitrite,Urine Negative (Negative); Protein,Urine 70 mg/dL (Neg-Trace); RBC,Urine 0-3 per hpf (0-3); Specific Gravity,Urine > 1.030 (1.010-1.025); Squamous Epithelial Cell,Urine Few per hpf (None-Few); Urobilinogen,Urine Normal (Normal)
[2021-09-05 23:43] LABS: BUN/Creatinine Ratio 18 (6-26); Blood Urea Nitrogen 17 mg/dL (8-23); Calcium 9.7 mg/dL (8.6-10.3); Carbon Dioxide 26 mEq/L (23-29); Chloride 112 mEq/L (98-107); Glucose 124 mg/dL (70-105); Lipase 28 Units/L (11-82); Osmolality,Calculated 305 (280-300); Sodium 146 mEq/L (136-145); eGFR For African Americans > 60 (> 60); eGFR For Non-African Americans > 60 (> 60)
[2021-09-05 23:44] LABS: Troponin I < 0.03 ng/mL (< 0.04)
[2021-09-05] MEDS ORDERED: 0.9 % Sodium Chloride 250 ML IVC ONE (23:46)
[2021-09-05] MEDS ORDERED: Potassium Chloride Elixir 20 MEQ/15 ML UDC PO ONE (23:47)
[2021-09-06] MEDS ORDERED: Aspirin 81 MG TAB.CHEW PO ONE (03:02)
[2021-09-06] MEDS ORDERED: Nitroglycerin 0.4 MG TAB.SUBL SL ONE (03:02)
[2021-09-06] MEDS ORDERED: *HR* FentaNYL (PF) 100 MCG/2 ML VIAL IVP ONE (05:16)
[2021-09-06] MEDS ORDERED: Acetaminophen 325 MG TABLET PO PRN (07:23)
[2021-09-06] MEDS ORDERED: Naloxone 0.4 MG/ML INJ IVP PRN (07:23)
[2021-09-06] MEDS ORDERED: Ondansetron 4 MG/2 ML VIAL IVP PRN (07:23)
[2021-09-06 08:57] LABS: Magnesium 1.5 mg/dL (1.6-2.6); Troponin I < 0.03 ng/mL (< 0.04)
[2021-09-06] MEDS ORDERED: D5% in Water 1,000 ML IVC PRN (09:24)
[2021-09-06] MEDS ORDERED: Dextrose 4 GM Chewable Tablets PO PRN ×2 (09:24)
[2021-09-06] MEDS ORDERED: *HR* Dextrose 50 % in Water (Syg) 50 ML SYRINGE IVP PRN (09:24)
[2021-09-06] MEDS ORDERED: Pantoprazole 40 MG VIAL IVP ONE (10:26)
[2021-09-06] MEDS ORDERED: Gabapentin 300 MG CAPSULE PO SCH (10:30)
[2021-09-06] MEDS: 0.9 % Sodium Chloride 1,000 ML IVC SCH (11:02)
[2021-09-06 11:25] LABS: Influenza A PCR Negative (Negative); Influenza B PCR Negative (Negative); Resp. Syncytial Virus PCR Negative (Negative)
[2021-09-06 11:34] LABS: SARS-CoV-2 by PCR (In House) Negative (Negative)
[2021-09-06 11:42] LABS: Adenovirus F 40/41 PCR Not detected (Not detect); Astrovirus PCR Not detected (Not detect); C.difficile Toxin A/B Gene PCR Not detected (Not detect); Campylobacter by PCR Not detected (Not detect); Cryptosporidium by PCR Not detected (Not detect); Cyclospora cayetanensis PCR Not detected (Not detect); E. coli O157 by PCR Not detected (Not detect); Entamoeba histolytica PCR Not detected (Not detect); Enteroaggregative E.coli(EAEC) Not detected (Not detect); Enteropathogenic E.coli(EPEC) Not detected (Not detect); Enterotoxigenic E.coli (ETEC) Not detected (Not detect); Giardia lamblia PCR Not detected (Not detect); Norovirus GI/GII PCR Not detected (Not detect); Plesiomonas shigelloides PCR Not detected (Not detect); Rotavirus A PCR Not detected (Not detect); Salmonella PCR Not detected (Not detect); Sapovirus PCR Not detected (Not detect); Shig/EnteroinvasiveE coli EIEC Not detected (Not detect); Shigalike tox-prod E coli STEC Not detected (Not detect); Vibrio PCR Not detected (Not detect); Vibrio cholerae PCR Not detected (Not detect); Yersinia enterocolitica PCR Not detected (Not detect)
[2021-09-06] MEDS: *HR* HYDROcodone/Acet 5/325 mg TABLET PO PRN ×2 (12:11→19:55)
[2021-09-06] MEDS: Isosorbide MONOnitrate (24 HR) 60 MG TAB.ER.24H PO SCH (12:11)
[2021-09-06] MEDS: Sucralfate 1 GM TABLET PO SCH ×2 (12:11→19:55)
[2021-09-06] MEDS: Metoprolol XL (24 HR) Succ 25 MG TAB.ER.24H PO SCH ×2 (12:11→19:55)
[2021-09-06] MEDS: Insulin LISPRO 300 UNITS/3 ML VIAL SUBQ SCH ×2 (12:12→16:53)
[2021-09-06] MEDS ORDERED: Nitroglycerin 0.4 MG TAB.SUBL SL PRN (13:58)
[2021-09-06] MEDS ORDERED: Melatonin 3 MG TABLET PO PRN (13:58)
[2021-09-06] MEDS: Pregabalin 75 MG CAPSULE PO SCH (19:55)
[2021-09-06] MEDS ORDERED: Insulin LISPRO 300 UNITS/3 ML VIAL SUBQ SCH (21:00)
[2021-09-06] MEDS ORDERED: Temazepam 15 MG CAPSULE PO SCH (21:00)
[2021-09-07] MEDS: 0.9 % Sodium Chloride 1,000 ML IVC SCH (00:27)
[2021-09-07 05:39] LABS: Hematocrit 36.6 % (37.5-50.1); Mean Corpuscular HGB Conc 33.6 g/dL (31.6-35.5); Mean Corpuscular Hemoglobin 31.7 pg (28.0-33.3); Mean Corpuscular Volume 94.3 fL (83.0-100.0); Mean Platelet Volume 10.8 fL (9.4-12.4); Platelet Count 156 K/mcL (140-400); Red Blood Count 3.88 M/mcL (4.19-5.50); Red Cell Distribution Width 15.5 % (11.5-14.5); White Blood Count 5.2 K/mcL (4.3-11.1)
[2021-09-07 05:40] LABS: Hemoglobin 12.3 g/dL (12.9-16.9)
[2021-09-07 05:59] LABS: BUN/Creatinine Ratio 16 (6-26); Blood Urea Nitrogen 18 mg/dL (8-23); Calcium 8.5 mg/dL (8.6-10.3); Carbon Dioxide 27 mEq/L (23-29); Chloride 107 mEq/L (98-107); Chol/HDL Ratio 3.5 (0-4.9); Cholesterol 112 mg/dL (< 200); Glucose 88 mg/dL (70-105); HDL Cholesterol 32 mg/dL (40-59); LDL Cholesterol,Calculated 58 mg/dL (< 100); Magnesium 1.8 mg/dL (1.6-2.6); Osmolality,Calculated 293 (280-300); Potassium 3.5 mEq/L (3.5-5.1); Sodium 141 mEq/L (136-145); Triglycerides 110 mg/dL (< 150); eGFR For African Americans > 60 (> 60); eGFR For Non-African Americans > 60 (> 60)
[2021-09-07] MEDS ORDERED: *HR* Enoxaparin 40 MG/0.4 ML SYRINGE SQ SCH (07:00)
[2021-09-07] MEDS: Insulin LISPRO 300 UNITS/3 ML VIAL SUBQ SCH (07:39)
[2021-09-07] MEDS: Metoprolol XL (24 HR) Succ 25 MG TAB.ER.24H PO SCH (07:55)
[2021-09-07] MEDS: Sucralfate 1 GM TABLET PO SCH (07:58)
[2021-09-07] MEDS: *HR* HYDROcodone/Acet 5/325 mg TABLET PO PRN (07:59)
[2021-09-07] MEDS: Isosorbide MONOnitrate (24 HR) 60 MG TAB.ER.24H PO SCH (08:00)
[2021-09-07] MEDS: Pregabalin 75 MG CAPSULE PO SCH (08:01)
[2021-09-07] MEDS ORDERED: Fenofibrate 54 MG TABLET PO SCH (09:00)
[2021-09-07] MEDS ORDERED: amLODIPine 5 MG TABLET PO SCH (09:00)
[2021-09-07] MEDS ORDERED: Loratadine 10 MG TABLET PO SCH (09:00)
[2021-09-07] MEDS ORDERED: lisinopriL 20 MG TABLET PO SCH (09:00)
[2021-09-07] MEDS ORDERED: Aspirin Enteric Coated 81 MG Tablet PO SCH (09:00)
[2021-09-07] MEDS ORDERED: NON-FORMULARY MEDICATION 1 EACH EACH (Omeprazole [Prilosec] 40 MG Capsule.Dr) PO SCH (09:00)
[2021-09-07 11:57] VITALS: PULSE 61; TEMP 97.8; O2SAT 95
[2021-09-07 13:40] VITALS: BP 144/74
== END 2021-09-07 16:36 | disposition home or self-care (01) ==
LOC: 3BNU 19:56 → EMEROOARM 19:56 → SUATTDRO 09-06 06:13 → 3BNU 09-06 06:46
PROVIDERS: ADMIT Internal Medicine; ATTEND Internal Medicine

== ENCOUNTER 2021-09-12 20:39 | Observation (INO) ==
[2021-09-12 21:35] LABS: Basophils % 0.6 %; Eosinophils # 0.1 K/mcL (0.0-0.6); Eosinophils % 1.3 %; Hematocrit 42.6 % (37.5-50.1); Lymphocytes # 1.2 K/mcL (0.6-4.6); Lymphocytes % 26.4 %; Mean Corpuscular HGB Conc 35.2 g/dL (31.6-35.5); Mean Corpuscular Hemoglobin 31.8 pg (28.0-33.3); Mean Corpuscular Volume 90.3 fL (83.0-100.0); Mean Platelet Volume 10.7 fL (9.4-12.4); Monocytes # 0.3 K/mcL (0.0-1.3); Monocytes % 6.9 %; Platelet Count 204 K/mcL (140-400); Red Blood Count 4.72 M/mcL (4.19-5.50); Red Cell Distribution Width 14.9 % (11.5-14.5); Segmented Neutrophils % 64.8 %; White Blood Count 4.6 K/mcL (4.3-11.1)
[2021-09-12 21:57] LABS: BUN/Creatinine Ratio 13 (6-26); Blood Urea Nitrogen 12 mg/dL (8-23); Calcium 9.7 mg/dL (8.6-10.3); Carbon Dioxide 25 mEq/L (23-29); Chloride 107 mEq/L (98-107); Glucose 89 mg/dL (70-105); Osmolality,Calculated 295 (280-300); Potassium 2.7 mEq/L (3.5-5.1); Sodium 143 mEq/L (136-145); Troponin I < 0.03 ng/mL (< 0.04); eGFR For African Americans > 60 (> 60); eGFR For Non-African Americans > 60 (> 60)
[2021-09-12] MEDS ORDERED: Potassium Effervescent 25 MEQ TABLET.EFF PO ONE (22:11)
[2021-09-12 22:27] LABS: Magnesium 1.6 mg/dL (1.6-2.6)
[2021-09-13] MEDS ORDERED: Naloxone 0.4 MG/ML INJ IVP PRN (00:50)
[2021-09-13] MEDS ORDERED: Ondansetron ODT 4 MG TAB.RAPDIS SL PRN (00:50)
[2021-09-13] MEDS ORDERED: *HR* Labetalol 20 MG/4 ML SYRINGE IVP ONE (01:57)
[2021-09-13] MEDS ORDERED: *HR* Dextrose 50 % in Water (Syg) 50 ML SYRINGE IVP PRN (02:00)
[2021-09-13] MEDS ORDERED: D5% in Water 1,000 ML IVC PRN (02:00)
[2021-09-13] MEDS ORDERED: Dextrose 4 GM Chewable Tablets PO PRN ×2 (02:00)
[2021-09-13] MEDS ORDERED: *HR* HYDROcodone/Acet 10/325 mg TABLET PO ONE (03:30)
[2021-09-13 03:39] LABS: BUN/Creatinine Ratio 14 (6-26); Blood Urea Nitrogen 13 mg/dL (8-23); Calcium 9.3 mg/dL (8.6-10.3); Carbon Dioxide 22 mEq/L (23-29); Chloride 108 mEq/L (98-107); Chol/HDL Ratio 4.2 (0-4.9); Cholesterol 151 mg/dL (< 200); Glucose 84 mg/dL (70-105); HDL Cholesterol 36 mg/dL (40-59); LDL Cholesterol,Calculated 72 mg/dL (< 100); Osmolality,Calculated 291 (280-300); Phosphorous 4.1 mg/dL (2.7-4.5); Potassium 3.2 mEq/L (3.5-5.1); Sodium 141 mEq/L (136-145); Triglycerides 214 mg/dL (< 150); eGFR For African Americans > 60 (> 60); eGFR For Non-African Americans > 60 (> 60)
[2021-09-13 03:40] LABS: Troponin I < 0.03 ng/mL (< 0.04)
[2021-09-13 03:42] LABS: Estimated Average Glucose 137 mg/dl; Hemoglobin A1C 6.4 %
[2021-09-13] MEDS: Insulin LISPRO 300 UNITS/3 ML VIAL SUBQ SCH ×3 (07:05→16:59)
[2021-09-13] MEDS: Nicotine 21 MG PATCH.TD24 TD SCH ×2 (07:11→10:12)
[2021-09-13] MEDS: Isosorbide MONOnitrate (24 HR) 60 MG TAB.ER.24H PO SCH (10:11)
[2021-09-13] MEDS: lisinopriL 20 MG TABLET PO SCH (10:11)
[2021-09-13] MEDS: Cholecalciferol (D-3) 1,000 UNIT (25MCG) TABLET PO SCH (10:11)
[2021-09-13] MEDS: amLODIPine 5 MG TABLET PO SCH (10:11)
[2021-09-13] MEDS: Metoprolol XL (24 HR) Succ 25 MG TAB.ER.24H PO SCH ×2 (10:11→21:55)
[2021-09-13] MEDS: Cyanocobalamin (B-12) 1,000 MCG TABLET PO SCH (10:12)
[2021-09-13] MEDS: Ibuprofen 600 MG TABLET PO PRN ×2 (15:03→23:25)
[2021-09-13] MEDS ORDERED: SODIUM CHLORIDE/NAHCO3/KCL/PEG 4,000 ML SOLN.RECON PO ONE (17:00)
[2021-09-13] MEDS: Temazepam 15 MG CAPSULE PO SCH (21:54)
[2021-09-13] MEDS: Sucralfate 1 GM TABLET PO SCH (21:55)
[2021-09-13] MEDS: Melatonin 3 MG TABLET PO PRN (21:55)
[2021-09-13] MEDS: Pregabalin 75 MG CAPSULE PO SCH (21:55)
[2021-09-14 04:41] LABS: Basophils % 0.6 %; Eosinophils # 0.2 K/mcL (0.0-0.6); Eosinophils % 2.9 %; Hematocrit 38.5 % (37.5-50.1); Immature Granulocytes % 0.2 % (0-4); Lymphocytes # 1.7 K/mcL (0.6-4.6); Lymphocytes % 31.9 %; Mean Corpuscular HGB Conc 34.3 g/dL (31.6-35.5); Mean Corpuscular Hemoglobin 31.6 pg (28.0-33.3); Mean Corpuscular Volume 92.1 fL (83.0-100.0); Mean Platelet Volume 10.3 fL (9.4-12.4); Monocytes # 0.4 K/mcL (0.0-1.3); Monocytes % 6.9 %; Platelet Count 173 K/mcL (140-400); Red Blood Count 4.18 M/mcL (4.19-5.50); Red Cell Distribution Width 15.4 % (11.5-14.5); Segmented Neutrophils % 57.5 %; White Blood Count 5.2 K/mcL (4.3-11.1)
[2021-09-14 04:45] LABS: Hemoglobin 13.2 g/dL (12.9-16.9)
[2021-09-14 04:54] LABS: Alanine Aminotransferase 14 Units/L (7-52); Albumin 3.8 g/dL (3.5-5.7); Albumin/Globulin Ratio 1.6 (1.1-2.2); Alkaline Phosphatase 15 Units/L (34-104); Aspartate Amino Transferase 15 Units/L (13-39); BUN/Creatinine Ratio 12 (6-26); Bilirubin,Total 0.5 mg/dL (0.3-1.0); Blood Urea Nitrogen 12 mg/dL (8-23); Calcium 8.6 mg/dL (8.6-10.3); Carbon Dioxide 21 mEq/L (23-29); Chloride 110 mEq/L (98-107); Globulin 2.4 g/dL (2.4-3.5); Glucose 98 mg/dL (70-105); Osmolality,Calculated 288 (280-300); Potassium 3.3 mEq/L (3.5-5.1); Sodium 139 mEq/L (136-145); Total Protein 6.2 g/dL (6.4-8.9); eGFR For African Americans > 60 (> 60); eGFR For Non-African Americans > 60 (> 60)
[2021-09-14] MEDS: Insulin LISPRO 300 UNITS/3 ML VIAL SUBQ SCH ×4 (06:20→23:40)
[2021-09-14] MEDS ORDERED: Lidocaine -MPF 2% 2 ML VIAL ONE (07:46)
[2021-09-14] MEDS: Isosorbide MONOnitrate (24 HR) 60 MG TAB.ER.24H PO SCH (09:41)
[2021-09-14] MEDS: amLODIPine 5 MG TABLET PO SCH (09:41)
[2021-09-14] MEDS: Cholecalciferol (D-3) 1,000 UNIT (25MCG) TABLET PO SCH (09:41)
[2021-09-14] MEDS: Metoprolol XL (24 HR) Succ 25 MG TAB.ER.24H PO SCH ×2 (09:41→19:46)
[2021-09-14] MEDS: lisinopriL 20 MG TABLET PO SCH (09:41)
[2021-09-14] MEDS: methocarbamoL 750 MG TABLET PO PRN ×2 (09:41→19:47)
[2021-09-14] MEDS: Nicotine 21 MG PATCH.TD24 TD SCH (09:42)
[2021-09-14] MEDS: Pregabalin 75 MG CAPSULE PO SCH ×2 (09:42→19:47)
[2021-09-14] MEDS: Cyanocobalamin (B-12) 1,000 MCG TABLET PO SCH (09:43)
[2021-09-14] MEDS: Sucralfate 1 GM TABLET PO SCH (09:43)
[2021-09-14] MEDS: hydrALAZINE 25 MG TABLET PO SCH ×3 (09:46→23:45)
[2021-09-14] MEDS: Temazepam 15 MG CAPSULE PO SCH (19:46)
[2021-09-15] MEDS: methocarbamoL 750 MG TABLET PO PRN (04:28)
[2021-09-15] MEDS ORDERED: Ipratropium/Albuterol Neb 3 ML IH PRN (05:21)
[2021-09-15] MEDS: Insulin LISPRO 300 UNITS/3 ML VIAL SUBQ SCH ×4 (05:33→23:55)
[2021-09-15] MEDS: Nicotine 21 MG PATCH.TD24 TD SCH (09:35)
[2021-09-15] MEDS: hydrALAZINE 25 MG TABLET PO SCH ×3 (09:36→23:57)
[2021-09-15] MEDS: amLODIPine 5 MG TABLET PO SCH (09:36)
[2021-09-15] MEDS: lisinopriL 20 MG TABLET PO SCH (09:36)
[2021-09-15] MEDS: Isosorbide MONOnitrate (24 HR) 60 MG TAB.ER.24H PO SCH (09:36)
[2021-09-15] MEDS: Pregabalin 75 MG CAPSULE PO SCH ×2 (09:36→20:28)
[2021-09-15] MEDS: Cyanocobalamin (B-12) 1,000 MCG TABLET PO SCH (09:37)
[2021-09-15] MEDS: Metoprolol XL (24 HR) Succ 25 MG TAB.ER.24H PO SCH ×2 (09:37→20:28)
[2021-09-15] MEDS: Cholecalciferol (D-3) 1,000 UNIT (25MCG) TABLET PO SCH (09:37)
[2021-09-15] MEDS: Nitroglycerin 0.4 MG TAB.SUBL SL PRN ×3 (20:26→20:38)
[2021-09-15] MEDS: Temazepam 15 MG CAPSULE PO SCH (20:28)
[2021-09-15] MEDS: Melatonin 3 MG TABLET PO PRN (20:29)
[2021-09-16 00:56] LABS: BUN/Creatinine Ratio 15 (6-26); Blood Urea Nitrogen 15 mg/dL (8-23); Calcium 9.4 mg/dL (8.6-10.3); Carbon Dioxide 20 mEq/L (23-29); Chloride 109 mEq/L (98-107); Glucose 109 mg/dL (70-105); Osmolality,Calculated 287 (280-300); Potassium 3.4 mEq/L (3.5-5.1); Sodium 138 mEq/L (136-145); eGFR For African Americans > 60 (> 60); eGFR For Non-African Americans > 60 (> 60)
[2021-09-16] MEDS: Insulin LISPRO 300 UNITS/3 ML VIAL SUBQ SCH ×3 (05:37→17:55)
[2021-09-16] MEDS: Nicotine 21 MG PATCH.TD24 TD SCH (09:42)
[2021-09-16] MEDS: Isosorbide MONOnitrate (24 HR) 60 MG TAB.ER.24H PO SCH (09:43)
[2021-09-16] MEDS: amLODIPine 5 MG TABLET PO SCH (09:43)
[2021-09-16] MEDS: Cholecalciferol (D-3) 1,000 UNIT (25MCG) TABLET PO SCH (09:43)
[2021-09-16] MEDS: lisinopriL 20 MG TABLET PO SCH (09:43)
[2021-09-16] MEDS: Metoprolol XL (24 HR) Succ 25 MG TAB.ER.24H PO SCH ×2 (09:43→20:22)
[2021-09-16] MEDS: Pregabalin 75 MG CAPSULE PO SCH ×2 (09:43→20:22)
[2021-09-16] MEDS: Cyanocobalamin (B-12) 1,000 MCG TABLET PO SCH (09:44)
[2021-09-16] MEDS: hydrALAZINE 25 MG TABLET PO SCH ×2 (09:49→17:55)
[2021-09-16] MEDS: methocarbamoL 750 MG TABLET PO PRN (14:04)
[2021-09-16] MEDS: Temazepam 15 MG CAPSULE PO SCH (20:22)
[2021-09-16] MEDS: Melatonin 3 MG TABLET PO PRN (20:22)
[2021-09-17] MEDS: Insulin LISPRO 300 UNITS/3 ML VIAL SUBQ SCH ×2 (00:06→05:37)
[2021-09-17] MEDS: hydrALAZINE 25 MG TABLET PO SCH ×2 (00:06→08:43)
[2021-09-17] MEDS: Cholecalciferol (D-3) 1,000 UNIT (25MCG) TABLET PO SCH (08:42)
[2021-09-17] MEDS: Nicotine 21 MG PATCH.TD24 TD SCH (08:42)
[2021-09-17] MEDS: Pregabalin 75 MG CAPSULE PO SCH (08:42)
[2021-09-17] MEDS: lisinopriL 20 MG TABLET PO SCH (08:43)
[2021-09-17] MEDS: Isosorbide MONOnitrate (24 HR) 60 MG TAB.ER.24H PO SCH (08:43)
[2021-09-17] MEDS: Metoprolol XL (24 HR) Succ 25 MG TAB.ER.24H PO SCH (08:43)
[2021-09-17] MEDS: amLODIPine 5 MG TABLET PO SCH (08:43)
[2021-09-17] MEDS: Cyanocobalamin (B-12) 1,000 MCG TABLET PO SCH (08:43)
[2021-09-17 10:21] VITALS: BP 154/40; PULSE 69; TEMP 97.8; O2SAT 97
== END 2021-09-17 12:43 | disposition home or self-care (01) ==
LOC: EMEROOARM 20:39 → 3BNU 20:39 → SUATTDRO 09-13 00:39 → 3BNU 09-13 01:19
PROVIDERS: ADMIT Family Medicine; ATTEND Registered Nurse

== ENCOUNTER 2022-01-30 08:55 | Observation (INO) ==
[2022-01-30] MEDS ORDERED: Albuterol 2.5 MG/3 ML NEBULIZER IH PRN ×2 (09:09→09:42)
[2022-01-30] MEDS ORDERED: CeFAZolin Syr 2,000MG/20 ML 2,000 MG/20 ML SYRINGE IVPB ONE (09:09)
[2022-01-30] MEDS ORDERED: Ringers Solution, Lactated 1,000 ML IVC SCH ×2 (09:15→16:14)
[2022-01-30] MEDS ORDERED: Vancomycin 1,000 MG VIAL ONE (09:41)
[2022-01-30] MEDS ORDERED: *HR* FentaNYL (PF) 100 MCG/2 ML VIAL IVP PRN (09:42)
[2022-01-30] MEDS ORDERED: Ondansetron 4 MG/2 ML VIAL IVP PRN ×2 (09:42→16:14)
[2022-01-30] MEDS ORDERED: Acetaminophen IV 1,000 MG/100 ML BAG IVPB ONE (10:00)
[2022-01-30] MEDS ORDERED: tiZANidine 4 MG TABLET PO PRN (10:00)
[2022-01-30] MEDS ORDERED: *HR* OxyCODONE Immed Rel 5 MG TABLET PO ONE (10:00)
[2022-01-30] MEDS ORDERED: Gabapentin 300 MG CAPSULE PO ONE (10:00)
[2022-01-30] MEDS ORDERED: Famotidine 20 MG/2 ML VIAL IVP ONE (10:00)
[2022-01-30] MEDS ORDERED: *HR* Remifentanil 2 MG VIAL IVP ONE (10:04)
[2022-01-30] MEDS ORDERED: *HR* Phenylephrine 10 MG/ML VIAL ONE (10:07)
[2022-01-30] MEDS ORDERED: *HR* Propofol 200 MG/20 ML VIAL IVP ONE ×2 (10:10→14:00)
[2022-01-30] MEDS ORDERED: *HR* FentaNYL (PF) 100 MCG/2 ML VIAL ONE (10:11)
[2022-01-30] MEDS ORDERED: *HR* Rocuronium Bromide 50 MG/5 ML VIAL ONE (10:11)
[2022-01-30] MEDS ORDERED: Ketamine HCL *QUVA* 50mg (1mL) SYRINGE ONE (10:11)
[2022-01-30] MEDS ORDERED: Lidocaine -MPF 2% 5 ML VIAL ONE (10:11)
[2022-01-30] MEDS ORDERED: *HR* Succinylcholine 200 MG/10 ML VIAL IVP ONE (10:11)
[2022-01-30] MEDS ORDERED: *HR* Midazolam HCl 2 MG/2 ML VIAL ONE (10:11)
[2022-01-30] MEDS ORDERED: dexmedeTOMIDine in 0.9 % NaCL 80 MCG/20 ML MLS ONE (10:15)
[2022-01-30] MEDS ORDERED: Ondansetron 4 MG/2 ML VIAL ONE (11:28)
[2022-01-30] MEDS ORDERED: *HR* HYDROMORPHONE 2 MG/ML VIAL ONE (14:25)
[2022-01-30] MEDS: *HR* HYDROmorphone PF 0.5 MG/0.5 ML SYRINGE IVP PRN ×2 (15:42→15:47)
[2022-01-30] MEDS ORDERED: Naloxone 0.4 MG/ML INJ IVP PRN (16:14)
[2022-01-30] MEDS ORDERED: Nitroglycerin 0.4 MG TAB.SUBL SL PRN (16:14)
[2022-01-30] MEDS ORDERED: Melatonin 3 MG TABLET PO PRN (16:14)
[2022-01-30] MEDS: *HR* Metformin 500 MG TABLET PO SCH (17:54)
[2022-01-30] MEDS: *HR* HYDROcodone/Acet 5/325 mg TABLET PO PRN (18:02)
[2022-01-30] MEDS: CeFAZolin 2 GM/120 ML BAG IVPB SCH (18:05)
[2022-01-30] MEDS: Temazepam 15 MG CAPSULE PO SCH (22:28)
[2022-01-30] MEDS: *HR* OxyCODONE Immed Rel 5 MG TABLET PO PRN (22:28)
[2022-01-30] MEDS: Pregabalin 75 MG CAPSULE PO SCH (22:28)
[2022-01-30] MEDS: Metoprolol XL (24 HR) Succ 25 MG TAB.ER.24H PO SCH (22:28)
[2022-01-30] MEDS: tiZANidine 4 MG TABLET PO SCH (22:28)
[2022-01-31] MEDS: CeFAZolin 2 GM/120 ML BAG IVPB SCH (02:55)
[2022-01-31] MEDS: *HR* OxyCODONE Immed Rel 5 MG TABLET PO PRN ×5 (03:02→23:22)
[2022-01-31] MEDS: *HR* HYDROcodone/Acet 5/325 mg TABLET PO PRN ×2 (05:44→19:50)
[2022-01-31] MEDS ORDERED: NON-FORMULARY MEDICATION 1 EACH EACH (Cholecalciferol (Vitamin D3) [Vitamin D3] 125 MCG Ca PO SCH (09:00)
[2022-01-31] MEDS: tiZANidine 4 MG TABLET PO SCH ×3 (09:40→19:50)
[2022-01-31] MEDS: lisinopriL 20 MG TABLET PO SCH (09:41)
[2022-01-31] MEDS: Aspirin Enteric Coated 81 MG Tablet PO SCH (09:41)
[2022-01-31] MEDS: Isosorbide MONOnitrate (24 HR) 60 MG TAB.ER.24H PO SCH (09:41)
[2022-01-31] MEDS: Pregabalin 75 MG CAPSULE PO SCH ×2 (09:42→19:50)
[2022-01-31] MEDS: amLODIPine 5 MG TABLET PO SCH (09:42)
[2022-01-31] MEDS: Metoprolol XL (24 HR) Succ 25 MG TAB.ER.24H PO SCH ×2 (09:44→19:50)
[2022-01-31] MEDS: Fenofibrate 54 MG TABLET PO SCH (09:45)
[2022-01-31] MEDS: Cyanocobalamin (B-12) 1,000 MCG TABLET PO SCH (09:45)
[2022-01-31] MEDS: Colestipol Hcl [Colestid] 1 GM Tablet PO SCH (09:46)
[2022-01-31] MEDS: *HR* Metformin 500 MG TABLET PO SCH ×2 (11:18→18:01)
[2022-01-31] MEDS: Cholecalciferol (D-3) 1,000 UNIT (25MCG) TABLET PO SCH (11:19)
[2022-01-31] MEDS: diazePAM 10 MG TABLET PO PRN (16:25)
[2022-01-31] MEDS: Temazepam 15 MG CAPSULE PO SCH (19:54)
[2022-02-01] MEDS: *HR* OxyCODONE Immed Rel 5 MG TABLET PO PRN ×3 (07:02→19:55)
[2022-02-01] MEDS: Fenofibrate 54 MG TABLET PO SCH (08:50)
[2022-02-01] MEDS: Cholecalciferol (D-3) 1,000 UNIT (25MCG) TABLET PO SCH (08:51)
[2022-02-01] MEDS: lisinopriL 20 MG TABLET PO SCH (08:51)
[2022-02-01] MEDS: Aspirin Enteric Coated 81 MG Tablet PO SCH (08:51)
[2022-02-01] MEDS: Pregabalin 75 MG CAPSULE PO SCH ×2 (08:52→19:56)
[2022-02-01] MEDS: *HR* Metformin 500 MG TABLET PO SCH ×2 (08:52→17:56)
[2022-02-01] MEDS: Metoprolol XL (24 HR) Succ 25 MG TAB.ER.24H PO SCH ×2 (08:52→19:56)
[2022-02-01] MEDS: Cyanocobalamin (B-12) 1,000 MCG TABLET PO SCH (08:53)
[2022-02-01] MEDS: amLODIPine 5 MG TABLET PO SCH (08:53)
[2022-02-01] MEDS: diazePAM 10 MG TABLET PO PRN ×2 (08:53→17:57)
[2022-02-01] MEDS: Isosorbide MONOnitrate (24 HR) 60 MG TAB.ER.24H PO SCH (08:54)
[2022-02-01] MEDS: Acetaminophen 325 MG TABLET PO PRN (08:55)
[2022-02-01] MEDS: tiZANidine 4 MG TABLET PO SCH ×3 (13:00→19:56)
[2022-02-01] MEDS: Colestipol Hcl [Colestid] 1 GM Tablet PO SCH (13:01)
[2022-02-01] MEDS: Temazepam 15 MG CAPSULE PO SCH (19:56)
[2022-02-02] MEDS: *HR* OxyCODONE Immed Rel 5 MG TABLET PO PRN ×2 (04:37→21:39)
[2022-02-02] MEDS: Acetaminophen 325 MG TABLET PO PRN ×2 (04:38→21:39)
[2022-02-02] MEDS: tiZANidine 4 MG TABLET PO SCH ×3 (09:28→21:36)
[2022-02-02] MEDS: Fenofibrate 54 MG TABLET PO SCH (09:28)
[2022-02-02] MEDS: Isosorbide MONOnitrate (24 HR) 60 MG TAB.ER.24H PO SCH (09:29)
[2022-02-02] MEDS: Aspirin Enteric Coated 81 MG Tablet PO SCH (09:31)
[2022-02-02] MEDS: *HR* Metformin 500 MG TABLET PO SCH ×2 (09:31→16:08)
[2022-02-02] MEDS: Cyanocobalamin (B-12) 1,000 MCG TABLET PO SCH (09:31)
[2022-02-02] MEDS: amLODIPine 5 MG TABLET PO SCH (09:39)
[2022-02-02] MEDS: Colestipol Hcl [Colestid] 1 GM Tablet PO SCH (09:39)
[2022-02-02] MEDS: lisinopriL 20 MG TABLET PO SCH (09:39)
[2022-02-02] MEDS: Cholecalciferol (D-3) 1,000 UNIT (25MCG) TABLET PO SCH (15:38)
[2022-02-02] MEDS: Metoprolol XL (24 HR) Succ 25 MG TAB.ER.24H PO SCH ×2 (15:42→21:35)
[2022-02-02] MEDS: Pregabalin 75 MG CAPSULE PO SCH ×2 (15:42→21:35)
[2022-02-02] MEDS: diazePAM 10 MG TABLET PO PRN (16:13)
[2022-02-02] MEDS ORDERED: Menthol 1 EACH LOZENGE PO PRN (20:24)
[2022-02-02] MEDS: Temazepam 15 MG CAPSULE PO SCH (21:36)
[2022-02-03] MEDS: diazePAM 10 MG TABLET PO PRN ×2 (08:02→16:02)
[2022-02-03] MEDS: *HR* OxyCODONE Immed Rel 5 MG TABLET PO PRN ×2 (08:02→13:10)
[2022-02-03] MEDS: Cholecalciferol (D-3) 1,000 UNIT (25MCG) TABLET PO SCH (08:03)
[2022-02-03] MEDS: Cyanocobalamin (B-12) 1,000 MCG TABLET PO SCH (08:04)
[2022-02-03] MEDS: *HR* Metformin 500 MG TABLET PO SCH ×2 (08:04→16:01)
[2022-02-03] MEDS: Aspirin Enteric Coated 81 MG Tablet PO SCH (08:04)
[2022-02-03] MEDS: Pregabalin 75 MG CAPSULE PO SCH ×2 (08:04→20:18)
[2022-02-03] MEDS: Isosorbide MONOnitrate (24 HR) 60 MG TAB.ER.24H PO SCH (08:04)
[2022-02-03] MEDS: Fenofibrate 54 MG TABLET PO SCH (08:07)
[2022-02-03] MEDS: Colestipol Hcl [Colestid] 1 GM Tablet PO SCH (09:26)
[2022-02-03] MEDS: tiZANidine 4 MG TABLET PO SCH ×3 (09:26→19:20)
[2022-02-03] MEDS: lisinopriL 20 MG TABLET PO SCH (09:27)
[2022-02-03 16:59] LABS: Basophils % 0.1 %; Eosinophils % 0.5 %; Hematocrit 28.9 % (37.5-50.1); Hemoglobin 9.9 g/dL (12.9-16.9); Immature Granulocytes % 0.4 % (0-4); Lymphocytes # 0.9 K/mcL (0.6-4.6); Mean Corpuscular HGB Conc 34.3 g/dL (31.6-35.5); Mean Corpuscular Hemoglobin 31.7 pg (28.0-33.3); Mean Corpuscular Volume 92.6 fL (83.0-100.0); Mean Platelet Volume 9.9 fL (9.4-12.4); Monocytes # 0.6 K/mcL (0.0-1.3); Monocytes % 6.6 %; Platelet Count 169 K/mcL (140-400); Red Blood Count 3.12 M/mcL (4.19-5.50); Red Cell Distribution Width 14.4 % (11.5-14.5); Segmented Neutrophils % 82.4 %; White Blood Count 8.5 K/mcL (4.3-11.1)
[2022-02-03 17:20] LABS: Adenovirus Not Detected (Not Detect); Bordetella Pertussis Not Detected (Not Detect); Chlamydophila pneumoniae Not Detected (Not Detect); Coronavirus 229E Not Detected (Not Detect); Coronavirus HKU1 Not Detected (Not Detect); Coronavirus NL63 Not Detected (Not Detect); Coronavirus OC43 Not Detected (Not Detect); Human Metapneumovirus Not Detected (Not Detect); Human Rhinovirus/Enterovirus Not Detected (Not Detect); Influenza A Subtype 2009 H1 Not Detected (Not Detect); Influenza B Not Detected (Not Detect); Mycoplasma pneumoniae Not Detected (Not Detect); Parainfluenza Virus 1 Not Detected (Not Detect); Parainfluenza Virus 2 Not Detected (Not Detect); Parainfluenza Virus 3 Not Detected (Not Detect); Parainfluenza Virus 4 Not Detected (Not Detect); Respiratory Syncytial Virus Not Detected (Not Detect); SARS-CoV-2 Not Detected (Not Detect)
[2022-02-03] MEDS: Temazepam 15 MG CAPSULE PO SCH (19:19)
[2022-02-03] MEDS: *HR* HYDROcodone/Acet 5/325 mg TABLET PO PRN (20:18)
[2022-02-04] MEDS: *HR* OxyCODONE Immed Rel 5 MG TABLET PO PRN ×2 (02:56→18:21)
[2022-02-04] MEDS: *HR* Metformin 500 MG TABLET PO SCH ×2 (07:39→16:18)
[2022-02-04] MEDS: Fenofibrate 54 MG TABLET PO SCH (07:39)
[2022-02-04] MEDS: Pregabalin 75 MG CAPSULE PO SCH ×2 (07:40→19:33)
[2022-02-04] MEDS: lisinopriL 20 MG TABLET PO SCH (07:40)
[2022-02-04] MEDS: tiZANidine 4 MG TABLET PO SCH ×3 (07:40→19:32)
[2022-02-04] MEDS: Cyanocobalamin (B-12) 1,000 MCG TABLET PO SCH (07:40)
[2022-02-04] MEDS: Aspirin Enteric Coated 81 MG Tablet PO SCH (07:40)
[2022-02-04] MEDS: Cholecalciferol (D-3) 1,000 UNIT (25MCG) TABLET PO SCH (07:40)
[2022-02-04] MEDS: Isosorbide MONOnitrate (24 HR) 60 MG TAB.ER.24H PO SCH (07:41)
[2022-02-04] MEDS: Colestipol Hcl [Colestid] 1 GM Tablet PO SCH (07:41)
[2022-02-04] MEDS: diazePAM 10 MG TABLET PO PRN ×2 (10:21→23:12)
[2022-02-04] MEDS: Acetaminophen 325 MG TABLET PO PRN (11:52)
[2022-02-04] MEDS: Temazepam 15 MG CAPSULE PO SCH (20:58)
[2022-02-05] MEDS: *HR* OxyCODONE Immed Rel 5 MG TABLET PO PRN ×3 (02:34→13:52)
[2022-02-05] MEDS: tiZANidine 4 MG TABLET PO SCH ×2 (09:20→13:52)
[2022-02-05] MEDS: Aspirin Enteric Coated 81 MG Tablet PO SCH (09:20)
[2022-02-05] MEDS: Pregabalin 75 MG CAPSULE PO SCH (09:21)
[2022-02-05] MEDS: Cholecalciferol (D-3) 1,000 UNIT (25MCG) TABLET PO SCH (09:21)
[2022-02-05] MEDS: Cyanocobalamin (B-12) 1,000 MCG TABLET PO SCH (09:21)
[2022-02-05] MEDS: Isosorbide MONOnitrate (24 HR) 60 MG TAB.ER.24H PO SCH (09:21)
[2022-02-05] MEDS: *HR* Metformin 500 MG TABLET PO SCH ×2 (09:21→16:46)
[2022-02-05] MEDS: Colestipol Hcl [Colestid] 1 GM Tablet PO SCH (09:22)
[2022-02-05] MEDS: lisinopriL 20 MG TABLET PO SCH (09:22)
[2022-02-05] MEDS: Fenofibrate 54 MG TABLET PO SCH (09:22)
[2022-02-05 15:47] LABS: Influenza A PCR Negative (Negative); Influenza B PCR Negative (Negative); Resp. Syncytial Virus PCR Negative (Negative)
[2022-02-05 16:01] LABS: SARS-CoV-2 by PCR (In House) Negative (Negative)
[2022-02-05 16:07] VITALS: BP 123/73; PULSE 90; TEMP 98.1; O2SAT 94
[2022-02-05] MEDS: diazePAM 10 MG TABLET PO PRN (16:46)
== END 2022-02-05 17:30 ==
LOC: SDCAOSI 08:55 → 4WAOSI 08:55
PROVIDERS: ADMIT Orthopaedic Surgery Orthopaedic Surgery of the Spine; ATTEND Orthopaedic Surgery Orthopaedic Surgery of the Spine